=== PATIENT | female | born 1945 | race Caucasian/White ===

== ENCOUNTER 2020-12-23 19:18 | Emergency (ER) | payer OTHER ==
--- OUTSIDE RECORDS SUMMARY | 2020-12-23 19:22 | XMS REPORT | Continuity of Care Document ---
:1945 Author Organization [facility] t Address [address] [place] [address] Care Team Providers Name Role Phone PCP Primary Care Physician Unavailable ARRON BUI Attending Clinician Unavailable Blade Gale MD Attending Clinician Doctor Unassigned, Name Attending Clinician Unavailable Damion Goodwin Attending Clinician Unavailable GERARDO PEREZ Admitting Clinician Unavailable Advance Directives Directive Decision Effective Date Termination Date Comments Sour ce Yes N/A [facility]ST[facility] - Wes per [facility] eve Problems Condition Condition Condition Status Onset Resolution Last Treating Co mments Source Name Details Category Date Date Treatment Clinician Date CVA CVA Disease Active [facility]re[facility] (cerebral 3-18 [facility] - vascular vascular 00:00: Medica l accident) accident) 00 Cent er Bronchitis Bronchitis Diagnosis [facility] 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 [facility] Fever in Fever in Diagnosis Active [facility] other other [facility] diseases diseases [facility] Cough Cough Diagnosis Active [facility] Essential Essential Problem Active [facility] (primary) (primary) Luke [facility] - hypertensi hypertensi Me moria on on l Outpati ent Clinics Chronic Chronic Problem Active [facility] pain pain [facility] - syndrome syndrome [facility] Pre-op Pre-op Problem Active [facility] evaluation evaluation Denise kes - [facility] 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 hernia Denise kes - without without Memoria obstructio obstructio l n or n or Outpati gangrene gangrene ent Clinics Problem Condition [facility] Hyperlipid Hyperlipid Problem Active [facility] emia, emia, [facility] - unspecifie unspecifie Me moria d d l hyperlipid hyperlipid Ou tpati emia type emia type ent Clinics Depression Depression Problem Active [facility] with with [facility] - anxiety anxiety [facility] Gastro-eso Gastro-eso Problem Active [facility] phageal phageal [facility] - reflux reflux Memoria disease disease l without without Outpati esophagiti esophagiti en t s s Clinics Allergies, Adverse Reactions, Alerts This patient has no known allergies or adverse reactions. Social History Social Habit Start Date Stop Date Quantity Comments Source Sex Assigned At [facility] Tobacco use and 2019-09-25 2019-09-25 Never used [facility] Denise kes - exposure 00:00:00 00:00:00 Medical Center Alcohol intake 2019-09-25 2019-09-25 [facility]00 of alcohol Medical Center (finding) History [facility] 2019-09-13 2019-09-[address] [facility] - Alcohol Frequency 00:00:00 00:00:00 Medical Center History [facility] 2019-09-13 2019-09-13 1 [facility] Std Drinks 00:00:00 00:00:00 Medica l Center History [facility] 2019-09-13 2019-09-13 1 [facility] - Alcohol Binge 00:00:00 00:00:[address] Smoking Status Start Date Stop Date Source Unknown if ever smoked [facility] Never smoker [facility] Medications Ordered Filled Start Stop Current Ordering Indication Dosage Frequency Signature Comments Components Source Medication Medication Date Date Medication? Clinician (SIG) Name Name aspirin 81 2019- Yes 81mg QD Take 1 [facility] chewable 3-21 tablet (81 Denise kes - tablet 00:00: mg total) Medica l 00 by mouth Center daily. acetaminoph 2020-0 Yes 1{tbl} Take [address] en-codeine 3-20 tablet by Lemuel s - (TYLENOL 17:35: mouth Medical #3) 300-30 23 every 6 Center mg per (six) tablet hours as needed for Pain. albuterol 2019-0 Yes 1{puff} Inhale [address] HFA 3-20 puff by [facility] - (VENTOLIN 17:35: mouth via Med ical HFA) 90 23 inhaler Center mcg/actuati every 6 on inhaler (six) hours as needed for Wheezing. venlafaxine 2019-0 Yes 150mg QD Take [address] (EFFEXOR-XR 3-20 mg by [facility] - ) 150 MG 24 17:35: mouth Medic al hr capsule 23 daily. Center pantoprazol 2019-0 Yes 40mg QD Take [address] [facility] e 3-20 by mouth [facility]ukes - (PROTONIX) 17:35: daily. Medic al 40 MG 23 Center tablet oxazepam 2019-0 Yes 30mg QD Take [address] (SERAX) 30 3-20 by mouth [facility]ukes - MG capsule 17:35: nightly . Me dical 23 Center benzonatate 2019-0 Yes 100mg Take [address] (TESSALON) 3-20 mg by [facility] - 100 MG 17:35: mouth 3 Medical capsule 23 (three) Center times daily as needed for Cough. amLODIPine- 2019-0 Yes 1{capsu QD Take [address] benazepril 3-20 le} capsule by Shahzad es - (LOTREL 17:35: mouth Medical 5-10) 5-10 23 daily. Center mg per capsule atorvastati 2019-0 Yes 40mg QD Take [address] n (LIPITOR) 3-20 tablet (40 Denise kes - 40 MG 00:00: mg total) Medical tablet 00 by mouth Center daily. Albuterol Albuterol 2018-06 Yes Codie [address] [facility] Sulfate HFA Sulfate HFA Stanley needed [facility] - 00:00: [facility]oria 00 l Outpati ent Clinics Azithromyci Azithromyci 2018-06 2020- No Codie [address] [facility] n n 05 Stanley one then 1 [facility] - 00:00: 00:00 tab daily Memoria 00 :00 x 4 [facility] Iron Iron 2018-06 Yes Codie [address] [facility] 0-15 Stanley [facility] - 00:00: [facility] Fiber Fiber Yes Codie [address] [facility] Stanley as needed [facility] - [facility] Simvastatin Simvastatin Yes Codie [address] [facility] [facility] Stanley in the Lukes - evening Memoria l [facility] Cyclobenzap Cyclobenzap Yes Codie [address] rine HCl rine HCl Stanley as needed L [facility] - [facility] Pantoprazol Pantoprazol Yes Codie [address] e Sodium e Sodium Stanley [facility] Venlafaxine Venlafaxine Yes Codie [address] HCl ER HCl ER Stanley with food [facility] Oxazepam Oxazepam Yes Codie [address] Stanley as needed [facility] - [facility] Amlodipine Amlodipine Yes Codie [address] Besy-Benaze Besy-Benaze Stanley [facility] - pril HCl pril HCl [facility] Probiotic Probiotic Yes Codie as [facility] directed [facility] Vital Signs Vital Name Observation Time Observation Value Comments Source Body Temperature 2019-09-13 14:19:00 97.0 [degF] [facility] Heart Rate 2019-09-13 14:19:00 74 /min [facility] Respiratory rate 2019-09-13 14:19:00 [facility] 2019-09-13 14:19:00 140 [facility] 2019-09-13 14:19:00 89 mm[Hg] [facility] Heart Rate 2019-09-13 14:00:00 74 /min [facility] Respiratory rate 2019-09-13 14:00:00 18 /[facility] Systolic 2019-09-13 14:00:00 140 mm[Hg] [facility] BP Diastolic 2019-09-13 14:00:00 89 mm[Hg] [facility] Weight 2019-09-13 11:48:00 147 [lb_av] [facility] BMI (Body Mass Index) 2019-09-13 11:48:00 23.7 kg/m2 [facility] Procedures Procedure Date / Time Performed Performing Clinician [facility] ECG (electrocardiogram) 2019-09-13 00:00:00 [facility] l Computed tomography of 2019-09-13 00:00:00 JOSE RAUL Lares head or brain without [facility] ospital contrast X-ray of chest, single 2019-09-13 00:00:00 JOSE RAUL Lares view [facility] l Complete Doppler 2019-09-13 00:00:00 [facility] Arnaud ultrasound of carotid [facility] ospital artery Plan of Care Planned Activity Planned Date Details Comments Source Future Scheduled Test 2021-02-[address] [facility] - 00:00:00 (Season Ended) [code Medical Center = INFLUENZA VACCINE (Season Ended)] Future Scheduled Test 2020-06-[address] [facility] - 00:00:00 (12+) [code = Medical Center DEPRESSION SCREENING (12+)] Future Scheduled Test 2012-04-[address] [facility] - 00:00:00 WELLNESS (YEAR 2 or Medical Center FIRST YEAR if no IPPE) [code = MEDICARE ANNUAL WELLNESS (YEAR 2 or FIRST YEAR if no IPPE)] Future Scheduled Test 2011 PNEUMOCOCCAL 65+ YRS [facility] - 00:00:00 (1 of 1 - Medical Center [id number] PCV13) [code = PNEUMOCOCCAL 65+ YRS (1 of 1 - [id number] PCV13)] Future Scheduled Test 1996 SHINGLES VACCINES ([address] [facility] - 00:00:00 of 2) [code = Medical Center SHINGLES VACCINES (1 of 2)] Future Scheduled Test 1965 DTAP/TDAP/TD VACCINES [facility] - 00:00:00 (1 - Tdap) [code = Medical C enter DTAP/TDAP/TD VACCINES (1 - Tdap)] Future Scheduled Test 1964 HEPATITIS C SCREENING [facility] - 00:00:00 [code = HEPATITIS C Medical Center SCREENING] Future Scheduled Test 1946 [facility] breast (procedure) [code = 005186721] Future Scheduled Test 1945 [facility] colon (procedure) [code = 157362894] Goal Patient referral BINA Lares [code = 2438482 ] [facility] ospital Instructions OTHER BINA Waters [facility] al Encounters Start End Encounter Admission Attending Care Care Encounter Source Date/Time Date/Time Type Type Clinicians Facility Department ID 2019-09-13 2019-09-13 Departed BRYAN Lares [id number] CHRI[facility] 11:46:00 14:25:[address] Hospita 2019-06-27 2019-06-27 [facility] [id number] [address] 09:40:00 09:40:00 [facility] Medicine Medicine Outpati ent Clinics 2019-02-17 2019-02-17 Office BLAYNE Gale [id number] 13:54:10 14:09:10 Visit [facility] [id number] [facility] [id number] [facility] [id number] [place] [address] 2019-02-17 2019-02-17 Orders Doctor BOBO [id number] 00:00:00 00:00:00 Only Unassigned, BOOGIE [id number] [place] [facility] [id number] 2017-05-17 2017-05-17 Outpatient ANNAMARIE Goodwin [id number] [facility] 09:30:00 09:30:00 [facility] 2017-04-26 2017-04-26 Outpatient ANNAMARIE Goodwin [id number] [facility] 08:57:00 08:57:00 [facility] 2017-02-12 2017-02-12 Outpatient ANNAMARIE Goodwin SETENT [id number] [facility] 11:34:00 11:34:00 [facility] Results Test Description Test Time Test Comments Results Result [facility] e Comments MR, MRA, BRAIN, 2019-08-27 Needs general FINAL REPORT PATIENT WITHOUT CONTRAST 9 anesthesiaReason for ID: [id number] MR, 20:11:00 exam:->Ischemic MRA, BRAIN, WITHOUT Stroke Evaluation CONTRAST, MR, MRA, NECK, WITHOUT IV CONTRAST, MR, BRAIN, WITHOUT CONTRAST INDICATION: Ischemic Stroke Evaluationstroke evaluation TECHNIQUE: Multiplanar, multisequence MR imaging of the brain without intravenous contrast.MRA of the head utilizing 3-D oqhj-qf-pxmtuq technique, with 3-D reconstructions.MRA of the neck utilizing 2-D and 3-D iiqf-am-ejpfxd technique, with 3-D reconstructions. COMPARISON: None FINDINGS: MRI Brain:Intracranial: There are multiple regions of restricted diffusion within the left cerebral hemisphere, involving the frontal lobe, parietal lobe, and temporal occipital junction. There is cortical T1 hyperintense signal in the left occipital parietal junction consistent with cortical laminar necrosis. No intracranial hemorrhage. Generalized cerebral atrophy with ex vacuo dilatation of the ventricular system proportionate to sulci. Extensive foci of T2 prolongation within the periventricular and subcortical white matter are a nonspecific finding commonly attributed to chronic small vessel ischemic disease. No mass effect. No hydrocephalus. Sinuses: No evidence of sinusitis. Mastoids are clear. Orbits: Globes are intact. Calvarium \T\ scalp: Unremarkable. MRA Head:There is no evidence of intracranial aneurysm, focal stenosis, or major branch vessel occlusion. MRA Neck:The carotid arteries in the neck are patent including their bifurcations. There is antegrade flow in the vertebral arteries in the neck. IMPRESSION:1.Multifo bertrand acute to early subacute infarcts in the left MCA territory. Cortical laminar process in the left parieto-occipital junction. No acute intracranial hemorrhage.2.No proximal branch arterial occlusion or high-grade focal stenosis. Signed: Damian Whitley Verified Date/Time: 09/14/2019 20:11:20 , MRA, NECK, 2019-08-27 Needs general FINAL REPORT PATIENT WITHOUT IV 9 anesthesiaReason for ID: [id number] MR, CONTRAST 20:11:00 exam:->Ischemic MRA, BRAIN, WITHOUT Stroke Evaluation CONTRAST, MR, MRA, NECK, WITHOUT IV CONTRAST, MR, BRAIN, WITHOUT CONTRAST INDICATION: Ischemic Stroke Evaluationstroke evaluation TECHNIQUE: Multiplanar, multisequence MR imaging of the brain without intravenous contrast.MRA of the head utilizing 3-D jurp-as-qirbtw technique, with 3-D reconstructions.MRA of the neck utilizing 2-D and 3-D jpao-ff-udbrrg technique, with 3-D reconstructions. COMPARISON: None FINDINGS: MRI Brain:Intracranial: There are multiple regions of restricted diffusion within the left cerebral hemisphere, involving the frontal lobe, parietal lobe, and temporal occipital junction. There is cortical T1 hyperintense signal in the left occipital parietal junction consistent with cortical laminar necrosis. No intracranial hemorrhage. Generalized cerebral atrophy with ex vacuo dilatation of the ventricular system proportionate to sulci. Extensive foci of T2 prolongation within the periventricular and subcortical white matter are a nonspecific finding commonly attributed to chronic small vessel ischemic disease. No mass effect. No hydrocephalus. Sinuses: No evidence of sinusitis. Mastoids are clear. Orbits: Globes are intact. Calvarium \T\ scalp: Unremarkable. MRA Head:There is no evidence of intracranial aneurysm, focal stenosis, or major branch vessel occlusion. MRA Neck:The carotid arteries in the neck are patent including their bifurcations. There is antegrade flow in the vertebral arteries in the neck. IMPRESSION:1.Multifo bertrand acute to early subacute infarcts in the left MCA territory. Cortical laminar process in the left parieto-occipital junction. No acute intracranial hemorrhage.2.No proximal branch arterial occlusion or high-grade focal stenosis. Signed: [facility]ian [facility] Verified Date/Time: 09/14/2019 20:11:20 , BRAIN, 2019-08-27 Needs general FINAL REPORT PATIENT WITHOUT CONTRAST 9 anesthesiaReason for ID: [id number] MR, 20:11:00 exam:->Ischemic MRA, BRAIN, WITHOUT Stroke Evaluation CONTRAST, MR, MRA, NECK, WITHOUT IV CONTRAST, MR, BRAIN, WITHOUT CONTRAST INDICATION: Ischemic Stroke Evaluationstroke evaluation TECHNIQUE: Multiplanar, multisequence MR imaging of the brain without intravenous contrast.MRA of the head utilizing 3-D tifk-ry-kzryml technique, with 3-D reconstructions.MRA of the neck utilizing 2-D and 3-D fghf-rj-nhkopz technique, with 3-D reconstructions. COMPARISON: None FINDINGS: MRI Brain:Intracranial: There are multiple regions of restricted diffusion within the left cerebral hemisphere, involving the frontal lobe, parietal lobe, and temporal occipital junction. There is cortical T1 hyperintense signal in the left occipital parietal junction consistent with cortical laminar necrosis. No intracranial hemorrhage. Generalized cerebral atrophy with ex vacuo dilatation of the ventricular system proportionate to sulci. Extensive foci of T2 prolongation within the periventricular and subcortical white matter are a nonspecific finding commonly attributed to chronic small vessel ischemic disease. No mass effect. No hydrocephalus. Sinuses: No evidence of sinusitis. Mastoids are clear. Orbits: Globes are intact. Calvarium \T\ scalp: Unremarkable. MRA Head:There is no evidence of intracranial aneurysm, focal stenosis, or major branch vessel occlusion. MRA Neck:The carotid arteries in the neck are patent including their bifurcations. There is antegrade flow in the vertebral arteries in the neck. IMPRESSION:1.Multifo bertrand acute to early subacute infarcts in the left MCA territory. Cortical laminar process in the left parieto-occipital junction. No acute intracranial hemorrhage.2.No proximal branch arterial occlusion or high-grade focal stenosis. Signed: Damian Whitley [facility] Verified Date/Time: 09/14/2019 20:11:20 2019-09-14 13:14:00 Test Item Value Reference Range Interpretation Comme nts RPR SCREEN (BEAKER) (test code = 420) Nonreactive Nonreactive HEMOGLOBIN [id number] 08:08:00 Test Item Value Reference Range Interpretation Comments HEMOGLOBIN A1C (BEAKER) (test code = 5.6 % 4.3-6.1 368) [id number] 06:39:00 Test Item Value Reference Range Interpretation Comments MAGNESIUM (BEAKER) (test code = 2.1 mg/dL 1.6-2.6 627) Irrigation Equipment Mechanic ID - BSBASIC METABOLIC [id number] 06:39:00 Test Item Value Reference Range Interpretation Comments SODIUM (BEAKER) 140 meq/L 136-145 (test code = 381) POTASSIUM (BEAKER) 3.8 meq/L 3.5-5.1 (test code = 379) CHLORIDE (BEAKER) 107 meq/L 98-107 (test code = 382) CO2 (BEAKER) (test 24 meq/L 22-29 code = 355) BLOOD UREA NITROGEN 8 mg/dL 7-21 (BEAKER) (test code = 354) CREATININE (BEAKER) 0.71 mg/dL 0.57-1.25 (test code = 358) GLUCOSE RANDOM 118 mg/dL 70-105 H (BEAKER) (test code = 652) CALCIUM (BEAKER) 9.2 mg/dL 8.4-10.2 (test code = 697) EGFR (BEAKER) (test 81 mL/min/1.73 ESTIMA IESHA GFR IS code = 1092) sq m NOT ACCURATE CREATININE CLEARANCE IN PREDICTING GLOMERULAR FILTRATION RATE . ESTIMATED GFR I S NOT APPLICABLE FOR DIALYSIS PATIEN TS. Irrigation Equipment Mechanic ID - BSLIPID [id number] 06:39:00 Test Item Value Reference Range Interpretation Comments TRIGLYCERIDES (BEAKER) (test code = 160 mg/dL 540) CHOLESTEROL (BEAKER) (test code = 164 mg/dL 631) HDL CHOLESTEROL (BEAKER) (test code 48 mg/dL = 976) LDL CHOLESTEROL CALCULATED (BEAKER) 84 mg/dL (test code = 633) Triglyceride Reference Range: Low Risk <150 Borderline 150-199 High Risk 200-499 Very High Risk >=500Cholesterol Reference Range: Low Risk <200 Borderline 200-239 High Risk >240HDL Cholesterol Reference Range: Low Risk >=60 High Risk <40LDL Cholesterol Reference Range: Optimal <100 Near Optimal 100-129 Borderline 130-159 High 160-189 Very High >=190 Irrigation Equipment Mechanic ID - BSCBC W/PLT COUNT & AUTO [id number] 05:38:00 Test Item Value Reference Range Interpretation Comments WHITE BLOOD CELL COUNT (BEAKER) 10.9 K/ L 3.5-10.5 H (test code = 775) RED BLOOD CELL COUNT (BEAKER) 4.86 M/ L 3.93-5.22 (test code = 761) HEMOGLOBIN (BEAKER) (test code = 12.8 GM/DL 11.2-15.7 410) HEMATOCRIT (BEAKER) (test code = 42.9 % 34.1-44.9 411) MEAN CORPUSCULAR VOLUME (BEAKER) 88.3 fL 79.4-94.8 (test code = 753) MEAN CORPUSCULAR HEMOGLOBIN 26.3 pg 25.6-32.2 (BEAKER) (test code = 751) MEAN CORPUSCULAR HEMOGLOBIN CONC 29.8 GM/DL 32.2-35.5 L (BEAKER) (test code = 752) RED CELL DISTRIBUTION WIDTH 16.0 % 11.7-14.4 H (BEAKER) (test code = 412) PLATELET COUNT (BEAKER) (test 464 K/CU MM 150-450 H code = 756) MEAN PLATELET VOLUME (BEAKER) 10.2 fL 9.4-12.3 (test code = 754) NUCLEATED RED BLOOD CELLS 0 /100 WBC 0-0 (BEAKER) (test code = 413) NEUTROPHILS RELATIVE PERCENT 62 % (BEAKER) (test code = 429) LYMPHOCYTES RELATIVE PERCENT 23 % (BEAKER) (test code = 430) MONOCYTES RELATIVE PERCENT 7 % (BEAKER) (test code = 431) EOSINOPHILS RELATIVE PERCENT 4 % (BEAKER) (test code = 432) BASOPHILS RELATIVE PERCENT 2 % (BEAKER) (test code = 437) NEUTROPHILS ABSOLUTE COUNT 6.81 K/ L 1.56-6.13 H (BEAKER) (test code = 670) LYMPHOCYTES ABSOLUTE COUNT 2.48 K/ L 1.18-3.74 (BEAKER) (test code = 414) MONOCYTES ABSOLUTE COUNT (BEAKER) 0.73 K/ L 0.24-0.36 H (test code = 415) EOSINOPHILS ABSOLUTE COUNT 0.39 K/ L 0.04-0.36 H (BEAKER) (test code = 416) BASOPHILS ABSOLUTE COUNT (BEAKER) 0.17 K/ L 0.01-0.08 H (test code = 417) IMMATURE GRANULOCYTES-RELATIVE 3 % 0-1 H PERCENT (BEAKER) (test code = 2801) TSH/FREE T4 IF [id number] 18:53:00 Test Item Value Reference Range Interpretation Comments THYROID STIMULATING HORMONE 0.76 uIU/mL 0.35-4.94 (BEAKER) (test code = 772) Irrigation Equipment Mechanic ID - BSVITAMIN B12 AND [id number] 18:53:00 Test Item Value Reference Range Interpretation Comments VITAMIN B12 (BEAKER) (test code = 721 pg/mL 213810 774) FOLATE (BEAKER) (test code = 362) 12.5 ng/mL >=7.0 Irrigation Equipment Mechanic ID - BSAutomated erythrocyte mean corpuscular volume (MCV) measurement 2019-09-13 12:10:00 Test Item Value Reference Range Interpretation Comments Mean Corpuscular Volume (test code = 87.2 fL 787-2) [facility] mean corpuscular hemoglobin (mass per erythrocyte)2019-09-13 12:10:00 Test Item Value Reference Range Interpretation Comments Mean Corpuscular Hemoglobin (test 26.3 pg code = 785-6) [facility] mean corpuscular hemoglobin concentration measurement (mass/[id number] 12:10:00 Test Item Value Reference Range Interpretation Comments Mean Corpuscular Hemoglobin Concent 30.1 g/dL (test code = 786-4) [facility] distribution width [id number] 12:10:00 Test Item Value Reference Range Interpretation Comments Red Cell Distribution Width (test code 16.6 % = 788-0) [facility] platelet count (count/volume) 2019-09-13 12:10:00 Test Item Value Reference Range Interpretation Comments Platelet Count (test code = 540 10*3/uL 777-3) [facility] platelet mean volume [id number] 12:10:00 Test Item Value Reference Range Interpretation Comments Mean Platelet Volume (test code = 9.9 fL 35663-9) [facility] [id number] 12:10:00 Test Item Value Reference Range Interpretation Comments Manual Differential (test code = ----- 8265-1) [facility] blood segmented neutrophils/100 [id number] 12:10:00 Test Item Value Reference Range Interpretation Comments Neutrophils % (Manual) (test code = 83 % 769-0) [facility] blood lymphocytes/100 leukocytes 2019-09-13 12:10:00 Test Item Value Reference Range Interpretation Comments Lymphocytes % (Manual) (test code = 11 % 737-7) [facility] blood monocytes/100 leukocytes 2019-09-13 12:10:00 Test Item Value Reference Range Interpretation Comments Monocytes % (Manual) (test code = 4 % 744-3) [facility] blood eosinophil count as percentage of total [id number] 12:10:00 Test Item Value Reference Range Interpretation Comments Eosinophils % (Manual) (test code = 2 % 714-6) [facility] platelet detection by light microscopy 2019-09-13 12:10:00 Test Item Value Reference Range Interpretation Comments Platelet Estimate (test code = Adequate 9317-9) [facility] erythrocyte morphology finding [id number] 12:10:00 Test Item Value Reference Range Interpretation Comments Red Blood Cell Morphology (test code = Normal 6742-1) [facility] (PT) in platelet poor plasma 2019-09-13 12:10:00 Test Item Value Reference Range Interpretation Comments Prothrombin Time (test code = 5902-2) 12.7 s [facility] in Platelet poor plasma by Coagulation [id number] 12:10:00 Test Item Value Reference Range Interpretation Comments Prothromb Time International 1.1 {ratio} Ratio (test code = 6301-6) [facility] [facility] (PTT[facility] 2019-09-13 12:10:00 Test Item Value Reference Range Interpretation Comments Activated Partial Thromboplast Time 37.7 s (test code = 40632-5) [facility] sodium [facility] (moles/volume)2019-09-13 12:10:00 Test Item Value Reference Range Interpretation Comments Sodium Level (test code = 2951-2) 142 mmol/L [facility] potassium measurement (moles/volume)2019-09-13 12:10:00 Test Item Value Reference Range Interpretation Comments Potassium Level (test code = 3.5 mmol/L 2823-3) [facility] chloride measurement (moles/volume)2019-09-13 12:10:00 Test Item Value Reference Range Interpretation Comments Chloride Level (test code = 104 mmol/L 5-0) [facility] or plasma total carbon dioxide measurement (moles/volume)2019-09-13 12:10:00 Test Item Value Reference Range Interpretation Comments Carbon Dioxide Level (test code = 28 mmol/L 2027-) [facility] or plasma anion gap determination (moles/volume)2019-09-13 12:10:00 Test Item Value Reference Range Interpretation Comments Anion Gap (test code = 98115-6) 14 [facility] or plasma urea nitrogen measurement (mass/volume)2019-09-13 12:10:00 Test Item Value Reference Range Interpretation Comments Blood Urea Nitrogen (test code = 10 mg/dL 3094-0) [facility] or plasma creatinine measurement (mass/volume)2019-09-13 12:10:00 Test Item Value Reference Range Interpretation Comments Creatinine (test code = 2160-0) 0.8 mg/dL [facility] [id number] 12:10:00 Test Item Value Reference Range Interpretation Comments Estimat Glomerular Filtration Rate 75 (test code = 13315-2) [facility] or plasma urea nitrogen/creatinine mass [id number] 12:10:00 Test Item Value Reference Range Interpretation Comments BUN/Creatinine Ratio (test code = 13 3097-3) [facility] or plasma glucose measurement (mass/volume)2019-09-13 12:10:00 Test Item Value Reference Range Interpretation Comments Glucose Level (test code = 2345-7) 108 mg/dL [facility]arrowOsmolality of Serum or Plasma by calculation 2019-09-13 12:10:00 Test Item Value Reference Range Interpretation Comments Calculated Osmolality (test code 283 mosm/kg = 62381-6) [facility] or plasma calcium measurement (mass/volume)2019-09-13 12:10:00 Test Item Value Reference Range Interpretation Comments Calcium Level (test code = 62914-7) 9.5 mg/dL [facility] cholesterol measurement (mass/volume)2019-09-13 12:10:00 Test Item Value Reference Range Interpretation Comments Cholesterol Level (test code = 173 mg/dL 3-3) [facility] triglyceride measurement (mass/volume)2019-09-13 12:10:00 Test Item Value Reference Range Interpretation Comments Triglycerides Level (test code = 152 mg/dL 2571-8) [facility] cholesterol in HDL measurement (mass/volume)2019-09-13 12:10:00 Test Item Value Reference Range Interpretation Comments HDL Cholesterol (test code = 2085-9) 57 mg/dL [facility] or plasma cholesterol in LDL measurement by calculation (mass/volume)2019-09-13 12:10:00 Test Item Value Reference Range Interpretation Comments LDL Cholesterol (test code = 86 mg/dL 19484-3) [facility] or plasma total cholesterol/high density lipoprotein (HDL) cholesterol mass [id number] 12:10:00 Test Item Value Reference Range Interpretation Comments Cholesterol/HDL Ratio (test code = 3.0 9830-1) [facility] low density lipoprotein (LDL) cholesterol/high density lipoprotein (HDL) cholesterolmass [id number] 12:10:00 Test Item Value Reference Range Interpretation Comments Cholesterol Ratio (LDL/HDL) (test code 1.5 = 48717-6) [facility]arrowAutfirsthealthed blood leukocyte count (number/volume)2019-09-13 12:10:00 Test Item Value Reference Range Interpretation Comments White Blood Count (test code = 13.4 10*3/uL 6690-2) [facility] erythrocytes automated count (number/volume)2019-09-13 12:10:00 Test Item Value Reference Range Interpretation Comments Red Blood Count (test code = 4.99 10*6/uL 789-8) [facility] hemoglobin measurement (mass/volume) 2019-09-13 12:10:00 Test Item Value Reference Range Interpretation Comments Hemoglobin (test code = 718-7) 13.1 g/dL [facility]arrow[facility] blood hematocrit (volume fraction) 2019-09-13 12:10:00 Test Item Value Reference Range Interpretation Comments Hematocrit (test code = 4544-3) 43.5 % [facility] Metabolic [id number] 21:35:55 Test Item Value Reference Range Interpretation Comments Sodium Level (test code = Sodium 144.0 mmol/L 135.0-145.0 Level) Potassium Level (test code = 4.3 mmol/L 3.5-5.1 Potassium Level) Chloride Level (test code = 102 mmol/L 98-105 Chloride Level) CO2 (test code = CO2) 27 mmol/L 22-29 Anion Gap (test code = Anion 15 mmol/L 7-16 Gap) BUN (test code = BUN) 12.00 mg/dL 8.00-23.00 Creatinine Level (test code = 0.80 mg/dL 0.50-0.90 Creatinine Level) BUN/Creat Ratio (test code = 15 N BUN/Creat Ratio) Glucose Level (test code = 115 mg/dL 70-115 Glucose Level) Calcium Level (test code = 9.6 mg/dL 8.3-10.5 Calcium Level) Alk Phos (test code = Alk Phos) 105 U/L 35-104 H Bilirubin Total (test code = 0.2 mg/dL 0.1-0.9 Bilirubin Total) Albumin Level (test code = 4.5 g/dL 3.5-5.2 Albumin Level) Protein Total (test code = 7.3 g/dL 6.4-8.3 Protein Total) ALT (test code = ALT) 8 U/L 1-33 AST (test code = AST) 13 U/L 1-32 Globulin (test code = Globulin) 2.8 g/dL 2.9-3.1 L A/G Ratio (test code = A/G 1.6 ratio N Ratio) Comprehensive Metabolic [id number] 21:35:55 Test Item Value Reference Range Interpretation Comments Sodium Level (test 144.0 mmol/L 135.0-145.0 code = Sodium Level) Potassium Level 4.3 mmol/L 3.5-5.1 (test code = Potassium Level) Chloride Level (test 102 mmol/L 98-105 code = Chloride Level) CO2 (test code = 27 mmol/L 22-29 CO2) Anion Gap (test code 15 mmol/L 7-16 = Anion Gap) BUN (test code = 12.00 mg/dL 8.00-23.00 BUN) Creatinine Level 0.80 mg/dL 0.50-0.90 (test code = Creatinine Level) BUN/Creat Ratio 15 N (test code = BUN/Creat Ratio) Glucose Level (test 115 mg/dL 70-115 code = Glucose Level) Calcium Level (test 9.6 mg/dL 8.3-10.5 code = Calcium Level) Alk Phos (test code 105 U/L 35-104 H = Alk Phos) Bilirubin Total 0.2 mg/dL 0.1-0.9 (test code = Bilirubin Total) Albumin Level (test 4.5 g/dL 3.5-5.2 code = Albumin Level) Protein Total (test 7.3 g/dL 6.4-8.3 code = Protein Total) ALT (test code = 8 U/L 1-33 ALT) AST (test code = 13 U/L 1-32 AST) Globulin (test code 2.8 g/dL 2.9-3.1 L = Globulin) A/G Ratio (test code 1.6 ratio N = A/G Ratio) eGFR AA (test code = >60 N eGFR (e stimated eGFR AA) mL/min/1.73 m2 Glomerular Filtration Rate ) is an estimated va lue, calculated from the patient's serum creatinine usin g the MDRD equation. It is NOT the patient 's actual GFR. The eGFR provides a more clinically usef ul measure of kidn ey disease than se rum creatinine alone.This calculation juanpablo es sex and race in to account, if the information is provided. If th e race is not provided, and t he patient is -Moraima n, multiply by 1.2 12. If sex is not provided, and t he patient is fema le, multiply by 0.7 42. Results for pat ients <18 years of ag e have not been validated by th e MDRD study and should be interpreted wit h caution. eGFR R esult Interpretation: eGFR > or = 60 is in the Normal RangeeGF R < 60 may mean kid giovanni diseaseeGFR < 1 5 may mean kidney failure Rang es recommended by the National Kidney Foundation, http://nkdep.ni h.gov Lipid [id number] 21:35:55 Test Item Value Reference Range Interpretation Comments Cholesterol Total 188 mg/dL 0-200 RISK OF HE ART (test code = DISEASEPublishe d by Cholesterol Total) [place] [employer] Charley lyte Optimal Borderl ine Increased RiskC HOL <200 200-239 >2 40TRIG <150 150-199 >2 00HDL Male >60 <40H DL Female >60 <5 0LDL <100 130-159 >1 60LDL Near optimal is 100-129 Triglycerides (test 259 mg/dL 9-200 H code = Triglycerides) HDL (test code = HDL) 52 mg/dL 50-60 LDL (test code = LDL) 85 mg/dL 0-130 The eq uation being used in this calcula tion is LDL = (Chol - H DL) - (Trig / 5) VLDL (test code = 52 mg/dL 5-40 H The equati on being used VLDL) in this calcula tion is VLDL = Trig / 5 Chol/HDL (test code = 3.6 ratio 0.0-4.4 Chol/HDL) LDL/HDL Ratio (test 2 N The equa tion being used code = LDL/HDL Ratio) in thi s calculation is LDL/HDL Ratio=L DL Calc/HDL Chol Comprehensive Metabolic [id number] 21:35:55 Test Item Value Reference Range Interpretation Comments Sodium Level (test 144.0 mmol/L 135.0-145.0 code = Sodium Level) Potassium Level 4.3 mmol/L 3.5-5.1 (test code = Potassium Level) Chloride Level (test 102 mmol/L 98-105 code = Chloride Level) CO2 (test code = 27 mmol/L 22-29 CO2) Anion Gap (test code 15 mmol/L 7-16 = Anion Gap) BUN (test code = 12.00 mg/dL 8.00-23.00 BUN) Creatinine Level 0.80 mg/dL 0.50-0.90 (test code = Creatinine Level) BUN/Creat Ratio 15 N (test code = BUN/Creat Ratio) Glucose Level (test 115 mg/dL 70-115 code = Glucose Level) Calcium Level (test 9.6 mg/dL 8.3-10.5 code = Calcium Level) Alk Phos (test code 105 U/L 35-104 H = Alk Phos) Bilirubin Total 0.2 mg/dL 0.1-0.9 (test code = Bilirubin Total) Albumin Level (test 4.5 g/dL 3.5-5.2 code = Albumin Level) Protein Total (test 7.3 g/dL 6.4-8.3 code = Protein Total) ALT (test code = 8 U/L 1-33 ALT) AST (test code = 13 U/L 1-32 AST) Globulin (test code 2.8 g/dL 2.9-3.1 L = Globulin) A/G Ratio (test code 1.6 ratio N = A/G Ratio) eGFR AA (test code = >60 N eGFR (e stimated eGFR AA) mL/min/1.73 m2 Glomerular Filtration Rate ) is an estimated va lue, calculated from the patient's serum creatinine usin g the MDRD equation. It is NOT the patient 's actual GFR. The eGFR provides a more clinically usef ul measure of kidn ey disease than se rum creatinine alone.This calculation juanpablo es sex and race in to account, if the information is provided. If th e race is not provided, and t he patient is -Moraima n, multiply by 1.2 12. If sex is not provided, and t he patient is fema le, multiply by 0.7 42. Results for pat ients <18 years of ag e have not been validated by th e MDRD study and should be interpreted wit h caution. eGFR R esult Interpretation: eGFR > or = 60 is in the Normal RangeeGF R < 60 may mean kid giovanni diseaseeGFR < 1 5 may mean kidney failure Rang es recommended by the National Kidney Foundation, http://nkdep.ni h.gov eGFR Non-AA (test >60.00 N eGFR (juan mated code = eGFR Non-AA) mL/min/1.73 m2 Glomer ular Filtration Rate ) is an estimated va lue, calculated from the patient's serum creatinine usin g the MDRD equation. It is NOT the patient 's actual GFR. The eGFR provides a more clinically usef ul measure of kidn ey disease than se rum creatinine alone.This calculation juanpablo es sex and race in to account, if the information is provided. If th e race is not provided, and t he patient is -Moraima n, multiply by 1.2 12. If sex is not provided, and t he patient is fema le, multiply by 0.7 42. Results for pat ients <18 years of ag e have not been validated by th e MDRD study and should be interpreted wit h caution. eGFR R esult Interpretation: eGFR > or = 60 is in the Normal RangeeGF R < 60 may mean kid giovanni diseaseeGFR < 1 5 may mean kidney failure Rang es recommended by the National Kidney Foundation, http://nkdep.ni h.gov Complete Blood Count with [id number] 21:32:55 Test Item Value Reference Range Interpretation Comments WBC (test code = WBC) 9.6 x10 4.4-10.5 RBC (test code = RBC) 4.97 x10 3.75-5.20 Hgb (test code = Hgb) 12.0 g/dL 12.2-14.8 L Hct (test code = Hct) 42.6 % 36.5-44.4 MCV (test code = MCV) 85.70 fL 80.00-100.00 MCHC (test code = 28.20 g/dL 32.00-37.50 L MCHC) RDW CV (test code = 15.9 % 11.5-14.5 H RDW CV) MCH (test code = MCH) 24.1 pg 27.0-32.5 L Platelets (test code = 509.0 x10 140.0-440.0 H Platelets) MPV (test code = MPV) 11.5 fL N Slide Review (test Auto Auto Result cr eated by code = Slide Review) GL_SJM_ SLIDE_REV_AUTO GL_SJM_XN_RFLX nRBC (test code = 0 N nRBC) NRBC Abs (test code = 0.00 x10 N NRBC Abs) Pos Morph XN (test A N code = Pos Morph XN) IPF (test code = IPF) 0 % N Automated [id number] 21:32:55 Test Item Value Reference Range Interpretation Comments Neutro Auto (test code = Neutro 67.0 % 36.0-70.0 Auto) Lymph Auto (test code = Lymph Auto) 20.5 % 12.0-44.0 [place] Auto (test code = [place] Auto) 6.5 % 0.0-11.0 Eos, Auto (test code = Eos, Auto) 3.7 % 0.0-7.0 Basophil Auto (test code = Basophil 1.5 % 0.0-2.0 Auto) Neutro Absolute (test code = Neutro 6.4 x10 1.6-7.4 Absolute) Lymph Absolute (test code = Lymph 1.96 x10 .50-4.60 Absolute) [place] Absolute (test code = [place] .62 x10 .00-1.20 Absolute) Eos Absolute (test code = Eos 0.35 x10 0.00-0.74 Absolute) Baso Absolute (test code = Baso 0.14 x10 0.00-0.21 Absolute) IG [id number] 21:32:55 Test Item Value Reference Range Interpretation Comments IG (test code = IG) 0.8 % 0.0-5.0 IG Abs (test code = IG Abs) 0 x10 N XR Chest 1 View [id number] 09:09:53Patient: OZZY MEI Date/Time06/03/2018 09:02 CSTReason for Exampre cardiac cath;Other (please specify)ReportCHEST 1 VIEWCLINICAL INFORMATION: Other (please specify);pre cardiac cathCOMPARISON: NoneFINDINGS:The lungs are well-expanded and clear. No airspace consolidation is seen. No pneumothorax or pleural effusion is present. The cardiac silhouette is normal in size. The bones are grossly intact.IMPRESSION:No acute cardiopulmonary finding.LOCATION: R16 Final Dictated by: MD Al Adam FDictated DT/TM: 06/03/2018 9:09 amSigned by: MD Al Adam FSigned (Electronic Signature): 06/03/2018 9:09 am
[2020-12-23 20:01] LABS: Albumin 3.9 g/dL (3.4-5.0); Bilirubin Direct 0.2 mg/dL (0-0.2); Bilirubin Total 0.8 mg/dL (0.2-1.0); Potassium 3.1 mmol/L (3.5-5.1); Protein, Total 7.6 g/dL (6.4-8.2)
[2020-12-23 20:10] LABS: Absolute Lymphocytes (CBC) 1.4 K/uL (0.7-4.9); Basophils % 1.5 % (0-1.3); Hematocrit 35.9 % (36.0-45.0); Lymphocytes % 5.1 % (15.3-44.8); RBC Red Blood Cell Count 5.07 M/uL (3.86-4.86)
--- NOTE | 2020-12-23 21:04 | RAD REPORT ---
EXAM DESCRIPTION: CT - Abdomen Pelvis W Contrast - 12/23/2020 8:18 pm CLINICAL HISTORY: CONSTIPATION COMPARISON: No comparisons TECHNIQUE: Biphasic, helical CT imaging of the abdomen and pelvis was performed following 100 ml non -ionic IV contrast. No oral contrast administered. All CT scans are performed using dose optimization technique as appropriate and may include automated exposure control or mA/KV adjustment according to patient size. FINDINGS: No suspicious findings in the lung bases. The liver, spleen, and pancreas show no suspicious findings. No gallstones or acute gallbladder findi ng identifiable. Biliary tree is mildly prominent with no duct stone identified. Duct stones can be o ccult. Symmetric renal function is seen with no hydronephrosis or suspicious renal mass. No pyelonephritis o r acute parenchymal process. Partially filled urinary bladder shows no suspicious finding. No adrenal abnormalities. Atrophic uterus is present. Ovaries are assumed atrophic. No ovarian mass or suspicio us adnexal finding. Moderate-sized hiatal hernia is present. Approximately 20% of the stomach is intrathoracic. Fluid-arabella led distal esophagus is dilated. No obstructing mass at the gastroesophageal junction. Stomach is not dilated. No gastric wall thickening or mass. No dilated bowel loops. There is a focal narrowing of small bowel in the right side pelvis without associated small-bowel dilatation proximal. No small bowel mass. Ileocecal valve is unremarkable. There is significant dilatation of the entire colon. This Leidy's pattern shows moderately large volume of stool and fluid present. There is sign ificant dilatation to 7-8 cm of the rectum and distal sigmoid colon containing a large volume of stoo l. Prominent soft tissues surround the perianal region and distal most rectum with increased soft tis zachary posterior to the rectum. Perianal malignant process cannot be excluded. There is a questionable r ectocele. No free air, free fluid or inflammatory stranding. No hernia, mass or bulky lymphadenopathy. No suspicious bony findings. Prominent degenerative changes are present there IMPRESSION: Significant colon dilatation in an Leidy's pattern. Rectum and distal sigmoid colon ar e dilated is 7-8 cm and filled with stool. There is an abrupt transition at the perianal region with suspected rectocele. There is also increase d soft tissue surrounding the perianal region and extending along the posterior aspect of the distal rectum questionable for mass lesion. Moderately large hiatal hernia with 25% of the stomach intrathoracic. Mild dilatation of the biliary tree without gallbladder abnormality. Correlation is needed with any b iliary tree laboratory or clinical exam findings.
[2020-12-23 21:56] LABS: Blood Morphology Comment NOTED (NOT SEEN); Hypochromasia 1+; Platelet Estimate INCR; Polychromasia 1+
[2020-12-23] MEDS ORDERED: METRONIDAZOLE 500mg IVPB 500 MG/100 ML BAG IV ONE (22:02)
[2020-12-23] MEDS ORDERED: Ciprofloxacin 200mg IV 200 MG/100 ML IV.SOLN. IV ONE (22:02)
--- NOTE | 2020-12-23 23:12 | EDPHYS ---
Physician Documentation [facility] Name: Cleo Norton Age: 75 yrs Sex: Female : 1945 Arrival Date: 12/23/2020 Time: 19:25 Bed 2 Private MD: ED Physician Rob Olmos HPI: 12/23 20:26 This 75 yrs old Female presents to ER via EMS with complaints of Constipation.pm1 20:26 The patient presents with Constipation. Onset: The symptoms/episode began/occurred 1 pm1 week(s) ago. Associated signs and symptoms: Pertinent positives: nausea and vomiting, dysuria, today, Pertinent negatives: fever. The symptoms are described as achy. Modifying factors: The symptoms are alleviated by Patient took some laxatives today and started having some diarrhea on arrival to the ER. 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 The patient has not recently seen a physician. Historical: - Allergies: 19:53 No Known Allergies; ea - PMHx: 19:53 Atrial Fib; ea - Immunization history:: Adult Immunizations up to date. - Social history:: Smoking status: Patient denies any tobacco usage or history of. ROS: 20:26 Constitutional: Negative for fever, chills, and weight loss, Cardiovascular: Negative pm1 for chest pain, palpitations, and edema, Respiratory: Negative for shortness of breath, cough, wheezing, and pleuritic chest pain. 20:26 Back: Negative for injury and pain. 20:26 MS/Extremity: Negative for injury and deformity, Skin: Negative for injury, rash, and discoloration, Neuro: Negative for headache, weakness, numbness, tingling, and seizure. 20:26 Abdomen/GI: Positive for abdominal pain, nausea and vomiting, constipation. 20:26 : Positive for dysuria today. 20:26 All other systems are negative. Exam: 20:26 Constitutional: This is a well developed, well nourished patient who is awake, alert, pm1 and in no acute distress. Head/Face: Normocephalic, atraumatic. 20:26 Back: No spinal tenderness. No costovertebral tenderness. Full range of motion. Skin: Warm, dry with normal turgor. Normal color with no rashes, no lesions, and no evidence of cellulitis. MS/ Extremity: Pulses equal, no cyanosis. Neurovascular intact. Full, normal range of motion. 20:26 Cardiovascular: Rate: normal, Rhythm: regular, Pulses: no pulse deficits are appreciated. 20:26 Respiratory: Exam negative for acute changes, respiratory distress, shortness of breath. 20:26 Abdomen/GI: Inspection: distension, Palpation: abdomen is soft and non-tender, in all quadrants, Rectal exam: rectal tone normal, Stool: unable to palpate any solid stool, hemorrhoid(s), are not appreciated, tenderness, is not appreciated, Delilah GLEZ. 20:26 Neuro: Exam negative for acute changes, Orientation: is normal, Mentation: is normal, Motor: is normal, moves all fours. Vital Signs: 19:49 BP 129 / 85; Pulse 78; Resp 18; Temp 97.0; Pulse Ox 99% ; ea 20:43 BP 152 / 72; Pulse 87; Resp 18 S; Pulse Ox 100% ; ad5 21:24 BP 155 / 67; Pulse 91; Resp 18 S; Pulse Ox 97% ; ad5 MDM: 19:33 Patient medically screened. pm1 22:50 Physician consultation: Justen Benavidez MD was contacted at 22:50, regarding consult, pm1 patient's condition, after a discussion of the case, a recommendation for transfer for higher level of care is made, No GI availability. 22:50 ED course: Unable to disimpact the patient further than the length of my longest finger pm1 due to scar tissue from surgical interventions in the past to anus and rectal area. Unable to even put two fingers into anus. 23:09 Data reviewed: vital signs. Data interpreted: Pulse oximetry: on room air is 97 %. pm1 Interpretation: normal. Counseling: I had a detailed discussion with the patient and/or guardian regarding: the historical points, exam findings, and any diagnostic results supporting the discharge/admit diagnosis, lab results, radiology results, the need to transfer to another facility, [facility] does not immediately have the required specialist. 23:41 ED course: Patient preference transfer to [facility] due to surgical interventions there in pm1 the past. 12/23 19:26 Order name: Basic Metabolic Panel; Complete Time: 20:02 ea 12/23 19:26 Order name: CBC with Diff; Complete Time: 21:58 ea 12/23 19:26 Order name: Hepatic Function; Complete Time: 20:02 ea 12/23 19:26 Order name: Lipase; Complete Time: 20:02 ea 12/23 20:24 Order name: Manual Differential; Complete Time: 21:58 EDMS 12/23 21:31 Order name: Blood Culture Adult (2) pm1 12/23 19:34 Order name: CT Abd/Pelvis - IV Contrast Only; Complete Time: 21:17 pm1 12/23 22:58 Order name: Urine Microscopic Only pm1 12/24 00:41 Order name: COVID-19 : Document "Date of Symptom Onset" if Symptomatic. tt3 12/23 19:26 Order name: IV Saline Lock; Complete Time: 19:54 ea 12/23 19:26 Order name: Labs collected and sent; Complete Time: 19:54 ea Administered Medications: 22:14 Drug: Cipro (ciprofloxacin) 400 mg Volume: 200 ml; Route: IVPB; Infused Over: 60 mins; ea Site: right antecubital; 23:54 Follow up: IV Status: Completed infusion ad5 22:19 Drug: Flagyl (metroNIDAZOLE) 500 mg Volume: 100 ml; Route: IVPB; Rate: 200 ml/hr; ea Infused Over: 30 mins; Site: right antecubital; 12/24 00:40 Follow up: Response: No adverse reaction; IV Status: Completed infusion ea 12/23 23:41 Drug: fentaNYL (PF) 25 mcg Route: IVP; Site: right antecubital; ea 12/24 00:40 Follow up: Response: No adverse reaction ea 12/23 23:42 Drug: Zofran (Ondansetron) 4 mg Route: IVP; Site: right antecubital; ea 12/24 00:40 Follow up: Response: No adverse reaction ea 12/23 23:57 Drug: Fleet Enema (sodium phosphate) 133 ml Route: ID; ea 12/24 00:39 Follow up: Response: No adverse reaction ea Disposition: 12/23/20 23:11 Transfer ordered to [facility]. Diagnosis are Other intestinal obstruction - Mehoopany's syndrome, Constipation. - Reason for transfer: Higher level of care. - Accepting physician is MD. - Condition is Stable. - Problem is new. - Symptoms have improved. Addendum: 08:15 Co-signature as Attending Physician, Rob de jesus Signatures: Dispatcher [employer] EDOH Rob Olmos MD MD pkl Munoz, Edgar, RN RN em Blade Wells, RESPIRATORY THERAPIST ASSISTANT RESPIRATORY THERAPIST ASSISTANT pm1 Delilah Pardo, RN RN Porfirio Neal Corrections: (The following items were deleted from the chart) 12/23 23:41 23:11 12/23/2020 23:11 Transfer ordered to [facility]. pm1 Diagnosis is Other intestinal obstruction - Mehoopany's syndromeConstipation. Reason for transfer: Higher level of care. Accepting physician is MD. Condition is Stable. Problem is new. Symptoms have improved. pm1 12/24 00:53 00:41 CORONAVIRUS ordered. EDOH EDMS 01:09 12/23 23:41 12/23/2020 23:11 Transfer ordered to [facility]. Diagnosis is Other em intestinal obstruction - Leidy's syndromeConstipation. Reason for transfer: Higher level of care. Accepting physician is MD. Condition is Stable. Problem is new. Symptoms have improved. pm1
--- NOTE | 2020-12-23 23:12 | ER ---
Nurse's Notes [facility] Name: Cleo Norton Age: 75 yrs Sex: Female : 1945 Arrival Date: 12/23/2020 Time: 19:25 Bed 2 Private MD: Diagnosis: Constipation; Other intestinal obstruction-Leidy's syndrome Presentation: 12/23 19:49 Chief complaint: EMS states: Reported pt complaining of nausea and vomiting for the ea past 4 hours. Pt reports she has been constipated for a week took lactulose. EMS reports initiating IV administering approx 400 mls of NS, and Reglan. Coronavirus screen: At this time, the client does not indicate any symptoms associated with coronavirus-19. Ebola Screen: No symptoms or risks identified at this time. Initial Sepsis Screen: Does the patient meet any 2 criteria? Yes Does the patient have a suspected source of infection? No. Patient's initial sepsis screen is negative. Risk Assessment: Do you want to hurt yourself or someone else? Patient reports no desire to harm self or others. Onset of symptoms was December 23, 2020. 19:49 Method Of Arrival: EMS: [facility] ea 19:49 Acuity: RAQUEL 3 ea Historical: - Allergies: 19:53 No Known Allergies; ea - PMHx: 19:53 Atrial Fib; ea - Immunization history:: Adult Immunizations up to date. - Social history:: Smoking status: Patient denies any tobacco usage or history of. Screenin:52 Abuse screen: Denies threats or abuse. Nutritional screening: No deficits noted. ea Tuberculosis screening: No symptoms or risk factors identified. Fall Risk IV access (20 points). Assessment: 19:53 General: Appears uncomfortable, Behavior is appropriate for age. Pain: Complains of ea pain in epigastric. Neuro: Level of Consciousness is awake, alert, obeys commands, Oriented to person, place, time. Respiratory: Airway is patent Respiratory effort is even, unlabored, Respiratory pattern is regular, symmetrical. Derm: Skin is pink, warm \T\ dry. 20:44 Reassessment: Patient appears in no apparent distress at this time. Patient and/or ad5 family updated on plan of care and expected duration. Pain level reassessed. Patient is alert, oriented x 3, equal unlabored respirations, skin warm/dry/pink. 20:52 Reassessment: Imtiaz () [phone]. ea 21:24 Reassessment: Pt cleaned of loose stool, new brief applied. Pt repositioned for comfort ad5 in stretcher. Bed remains low and locked, bedrails x 2, call light within reach. VS remain stable. NAD noted, will continue to monitor. 22:30 Reassessment: Patient and/or family updated on plan of care and expected duration. Pain ea level reassessed. Patient is alert, oriented x 3, equal unlabored respirations, skin warm/dry/pink. 12/24 00:24 Reassessment: Patient and/or family updated on plan of care and expected duration. Pain ea level reassessed. Patient is alert, oriented x 3, equal unlabored respirations, skin warm/dry/pink. Vital Signs: 12/23 19:49 BP 129 / 85; Pulse 78; Resp 18; Temp 97.0; Pulse Ox 99% ; ea 20:43 BP 152 / 72; Pulse 87; Resp 18 S; Pulse Ox 100% ; ad5 21:24 BP 155 / 67; Pulse 91; Resp 18 S; Pulse Ox 97% ; ad5 ED Course: 19:25 Patient arrived in ED. ea 19:30 Blade Wells NP is PHCP. pm1 19:30 Rob Olmos MD is Attending Physician. pm1 19:49 Delilah Pardo, AMARIS is Primary Nurse. ea 19:51 Triage completed. ea 19:52 Inserted saline lock: 20 gauge in right antecubital area, using aseptic technique. ea Blood collected. 19:52 Arm band placed on right wrist. Patient placed in an exam room, on a stretcher, on ea pulse oximetry. 19:52 Patient has correct armband on for positive identification. Bed in low position. Call ea light in reach. Side rails up X2. 20:18 CT Abd/Pelvis - IV Contrast Only In Process Unspecified. EDMS 12/24 00:13 Initiated transfer at [facility] with Ida Rooney. Call was connected with allen Chapa PHP PROGRAMMER, provider of pt for consultation. 00:38 Ida Rooney gave admin approval. The accepting physician is Dr. Vargas. Nurse to call tt3 report to . Face sheet and MOT to be faxed to [phone]. 00:53 Iglesias cath inserted, using sterile technique, 16 Fr., by md, balloon inflated, to ad5 gravity drainage, urine specimen collected. Administered Medications: 12/23 22:14 Drug: Cipro (ciprofloxacin) 400 mg Volume: 200 ml; Route: IVPB; Infused Over: 60 mins; ea Site: right antecubital; 23:54 Follow up: IV Status: Completed infusion ad5 22:19 Drug: Flagyl (metroNIDAZOLE) 500 mg Volume: 100 ml; Route: IVPB; Rate: 200 ml/hr; ea Infused Over: 30 mins; Site: right antecubital; 12/24 00:40 Follow up: Response: No adverse reaction; IV Status: Completed infusion ea 12/23 23:41 Drug: fentaNYL (PF) 25 mcg Route: IVP; Site: right antecubital; ea 12/24 00:40 Follow up: Response: No adverse reaction ea 12/23 23:42 Drug: Zofran (Ondansetron) 4 mg Route: IVP; Site: right antecubital; ea 12/24 00:40 Follow up: Response: No adverse reaction ea 12/23 23:57 Drug: Fleet Enema (sodium phosphate) 133 ml Route: NC; ea 12/24 00:39 Follow up: Response: No adverse reaction ea Outcome: 12/23 23:11 ER care complete, transfer ordered by . pm1 12/24 01:09 Patient left the ED. em Signatures: Dispatcher [employer] Dionicio Goldman RN RN em Marinas, Patrick, [employer] HAND[employer]ER pm1 Delilah Pardo RN RN ea Trim, Tyler tt3 Porfirio Frazier ad5
[2020-12-23] MEDS ORDERED: ONDANSETRON 4 MG/2 ML VIAL ONE (23:46)
[2020-12-23] MEDS ORDERED: FLEET ENEMA ADULT PR ONE (23:46)
[2020-12-23] MEDS ORDERED: FENTANYL CITR 100 MCG/2 ML ONE (23:46)
[2020-12-24 01:21] LABS: Urine Bacteria <20 /HPF (<20)
[2020-12-24 01:22] LABS: Urine RBC NONE SEEN /HPF (NONE SEEN); Urine Urothelial Cells <5 /HPF (NONE SEEN)
[2020-12-24 02:26] VITALS: TEMP 97
[2020-12-24 02:29] VITALS: BP 155/67; O2SAT 97
--- NOTE | 2020-12-24 12:57 | EKG ---
Test Date: 2020-12-23 Test Time: 19:31:31 Application Security Developer: TALIA MEASUREMENT RESULTS: Intervals: Rate: 88 GA: 158 QRSD: 80 QT: 384 QTc: 464 [place]: P: 52 GA: 158 QRS: -3 T: 7 INTERPRETIVE STATEMENTS: Normal sinus rhythm Anteroseptal infarct, age undetermined Abnormal ECG No previous ECG available for comparison Electronically Signed On 12-24-20 12:53:55 CDT by Don Keenan
== END 2020-12-24 01:09 | disposition short-term general hospital (02) ==
LOC: ER 19:18
DX: K56.699 Other intestinal obstruction unspecified as to partial versus complete obstruction (principal); K59.81 Ogilvie syndrome; Z20.822 Contact with and (suspected) exposure to COVID-19
CPT/HCPCS: 96365; 93005; 87040 ×2; 85025; 80048; 36415; 80076; 81015; 83690; 74177; 51702; 96375; 99284; U0003; Q9967; J3010; J0744; J2405

== ENCOUNTER 2021-08-17 09:41 | Inpatient (IN) | payer OTHER ==
--- OUTSIDE RECORDS SUMMARY | 2021-08-17 09:46 | XMS REPORT | Continuity of Care Document ---
:1945 Author Organization [facility] t Address [address] [place] [address] Care Team Providers Name Role Phone PCP Primary Care Physician Unavailable Trish DEVINE Attending Clinician Unavailable Team, Health Maintenance Attending Clinician Unavailable Ramsey Attending Clinician Unavailable ARRON BUI Attending Clinician Unavailable Blade Gale MD Attending Clinician Doctor Unassigned, Name Attending Clinician Unavailable Damion Goodwin Attending Clinician Unavailable Ramsey Admitting Clinician Unavailable GERARDO PEREZ Admitting Clinician Unavailable Payers Payer Name Policy Type Policy Number Effective Date Expiration Date S ource Advance Directives Directive Decision Effective Date Termination Date Comments Sour ce Yes N/A [facility] Condition Condition Condition Status Onset Resolution Last Treating Co mments Source Name Details Category Date Date Treatment Clinician Date 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 Added automatic ally from request for surgery [id number] Increased Increased Disease Active Overview: Univers endometria endometria 9-27 Formattin ity of l stripe l stripe 00:00: g of this [place] as thickness thickness 00 note Medi bertrand might be Branch different from the original. Added automatic ally from request for surgery [id number] Abdominal Abdominal Disease Active Uni vers pain pain 3-15 ity of 00:00: [place] 00 Medical Branch Rectal Rectal Disease Active Overview: Univer s mass mass 3-14 Formattin ity of 00:00: g of this [place] 00 note Medical might be Branch different from the original. 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 [facility] Fever in Fever in Diagnosis Active [facility] other other [facility] Cough Cough Diagnosis [facility] Essential Essential Problem Active [facility] (primary[facility] (primary[facility] - hypertensi hypertensi Me moria on on [facility] Chronic Chronic Problem Active [facility] [...] n or Outpati gangrene gangrene ent Clinics Hyperlipid Hyperlipid Problem Active [facility] [...] s s Clinics Allergies, Adverse Reactions, Alerts Allergy Allergy Status Severity Reaction(s) Onset Inactive Treating Comm ents Source Name Type Date Date Clinician No Known DA Active [facility] All[facility]ie 12-24 Clear s 00:00: Wing [address] [place] [address] No Known DA Active [facility] Allergie 12-24 Clear s 00:00: Wing 00 [facility] NO KNOWN Allergy Active [facility] Social History Social Habit Start Date Stop Date Quantity Comments Source Tobacco use and 2019-05-11 2019-05-11 Never used Universit y of exposure 00:00:00 00:00:00 [facility] Alcohol intake 2019-05-11 2019-05-11 Current drinker of Un iversity of 00:00:00 00:00:00 alcohol (finding) [facility] Alcohol Comment 2018-09-09 2018-09-09 occasional Universit y of 00:00:00 00:00:00 [facility] Sex Assigned At [birth year] Female [facility] 00:00:00 00:00:00 Smoking Status Start Date Stop Date Source Unknown if ever smoked [facility] Never smoker [facility] Medications Ordered Filled Start Stop Current Ordering Indication Dosage Frequency Signature Comments Components Source Medication Medication Date Date Medication? Clinician (SIG) Name Name Albuterol Albuterol 2018-06 Yes Codie [address] [facility] [address] Sulfate HFA Sulfate HFA 2-31 [facility] needed [facility] Azithromyci Azithromyci 2018-06 2020- No Codie [address] n n 2-31 01-05 [facility] one then 1 [facility] - 00:[facility]: 00:00 tab daily Memoria 00 :00 x 4 days l Outpati ent Clinics Iron Iron 2018-06 Yes Codie [address] [facility] 0-15 [facility] Oxazepam Oxazepam Yes Codie [address] [facility] as [facility] Amlodipine Amlodipine Yes Codie [address] [address] Besy-Benaze Besy-Benaze [facility] - pril HCl pril HCl [facility]oria l Outpati ent Clinics Probiotic Probiotic Yes Codie as [facility] Fiber Fiber Yes Codie [address] as needed [facility] Simvastatin Simvastatin Yes Codie [address] [facility] in the [facility] Cyclobenzap Cyclobenzap Yes Codie [address] rine HCl rine HCl [place] as needed [facility] Pantoprazol Pantoprazol Yes Codie [address] e Sodium e Sodium [facility] Venlafaxine Venlafaxine Yes Codie [address] HCl ER HCl ER [facility] with food [facility] No known No Univers medications [facility] Vital Signs Vital Name Observation Time Observation Value Comments Source Body Temperature 2019-09-13 14:19:00 97.0 [degF] [facility] [employer] Heart Rate 2019-09-13 14:19:00 74 /min [facility] Respiratory rate 2019-09-13 14:19:00 18 /min [facility] [employer] BP Systolic 2019-09-13 14:19:00 140 mm[Hg] [facility] BP Diastolic 2019-09-13 14:19:00 89 mm[Hg] [facility] Heart Rate 2019-09-13 14:00:00 74 /min [facility] Respiratory rate 2019-09-13 14:00:00 18 /min [facility] Mabaya [employer] BP Systolic 2019-09-13 14:00:00 140 mm[Hg] [facility] BP Diastolic 2019-09-13 14:00:00 89 mm[Hg] [facility] Weight 2019-09-13 11:48:00 147 [lb_av] [facility] BMI (Body Mass Index) 2019-09-13 11:48:00 23.7 kg/m2 [facility] Procedures Procedure Date / Time Performed Performing Clinician Lu joyce [id number] 2020-12-25 00:00:00 [facility] [id number] 2020-12-25 00:00:00 [facility] ECG (electrocardiogram) 2019-09-13 00:00:00 [facility] Computed tomography of 2019-09-13 00:00:00 [facility] head or brain without contrast X-ray of chest, single 2019-09-13 00:00:00 [facility] view Complete Doppler 2019-09-13 [facility]:00[facility] Plan of Care Planned Activity Planned Date Details Comments Source Goal Patient referral [code JOSE RAUL SCAR Lares = [id number] ] [facility] Instructions OTHER BINA - Jt er [facility] Encounters Start End Encounter Admission Attending Care Care Encounter Source Date/Time Date/Time Type Type Clinicians Facility Department ID 2020-04-18 Inpatient BINA MCCLENDON [id number] [facility] 13:00:00 ILIANA [id number] S [facility] 2019-09-13 Inpatient [facility] [id number] [facility] 16:51:00 [id number] 2019-09-13 Inpatient BINA CURRAN [id number] [facility] 11:46:00 [id number] [facility] 2021-02-28 2021-02-28 Telephone Team, [facility] BOBO [id number] [facility] 00:00:00 00:00:00 [facility] [id number] [facility] [id number] [place] [id number] [facility] 082 Branch 2020-12-31 2020-12-[address] [facility] [id number] 06:37:00 06:37:00 -[id number] Sabin s Patient [facility] 2020-12-30 2020-12-[address] [facility] [id number] 08:52:00 08:52:00 -[id number] Sabin s Patient [facility] 2020-12-27 2020-12-[address] [facility] [id number] 02:45:00 02:45:00 -[id number] Sabin s - Patient [facility] 2020-12-25 2020-12-26 Inpatient EM Ramsey, HCAPM YANNA [id number] [address] [facility] 16:50:00 23:08:00 Oladipo [id number] [facility] 2020-12-24 2020-12-24 Outpatient Ramsey, HCACL LABO [id number] [facility] 08:02:00 08:02:00 Oladipo [id number] [facility] 2020-12-24 2020-12-24 Inpatient EM Ramsey, HCAPM YANNA [id number] [address] [facility] 02:36:00 02:35:00 Oladipo [id number] [facility] 2019-09-13 2019-09-13 Departed [facility] [id number] [facility] 11:46:00 14:25:[address] H[facility] 2019-09-13 2019-09-13 Departed [facility] [id number] [facility] 11:46:00 14:25:[address] 2019-06-27 2019-06-27 Outpatient [facility] 28 [id number] [facility] 09:40:00 09:40:00 t [facility] s [facility] Medicine Outpati ent Clinics 2019-02-17 2019-02-17 Office Baljinder [facility] [id number] 13:54:10 14:09:10 [facility] [id number] [facility] 4.2.7.2.686 [place] - [id number] [facility] 408 2019-02-17 2019-02-17 Orders Doctor BOBO [id number] 00:00:00 00:00:00 Only Unassigned, BOOGIE [id number] [place] [facility] [id number] [id number] 2017-05-17 2017-05-17 Outpatient Buddy SETMURPHY SETENT [id number] [facility] 09:30:00 09:30:00 [facility] 2017-04-26 2017-04-26 Outpatient [place], SETENT SETENT [id number] [facility] 08:57:00 08:57:00 [facility] 2017-02-12 2017-02-12 Outpatient [place], SETENT SETENT [id number] [facility] 11:34:00 11:34:00 [facility] Results Test Description Test Time Test Comments Results Result Comments Source TRANSFERRRIN 2020-12-28 08:12:00 Test Item Value Reference Range Interpretation Comme nts TRANSFERRRIN (test code = 230 mg/dL 192-364 Pe rformed At: DA [facility] TRANSF) [id number] [facility] [address] [place] [id number] CN MD Ph:[phone] VITAMIN [id number] 08:12:00 Test Item Value Reference Range Interpretation Comments VITAMIN B12 (test code = VITB12) 938 PG/ML 183-986 N FOLIC [id number] 08:12:00 Test Item Value Reference Range Interpretation Comments FOLIC ACID (test code = FOL) 11.60 NG/ML 3.10-17.50 N [id number] 08:12:00 Test Item Value Reference Range Interpretation Comments FERRITIN (test code = JONNY) 23.8 NG/ML 3.0-105.0 N [id number] 18:50:00 Test Item Value Reference Range Interpretation Comments POTASSIUM (test code = K) 3.9 mmol/L 3.4-5.0 N [id number] 13:47:00 Test Item Value Reference Range Interpretation Comments SURG (test code = SURG) RUN DATE: 12/26/20 [facility] PAGE 1 RUN TIME: 1347 Specimen Inquiry RUN USER: INTERFACE PATIENT: OZZY MEI LOC: MadiHailee U #: [id number] AGE/SX: 75/F ROOM: [facility] RE12/25/20DAGOBERTO DR: Josee Mustafa MD : 46 BED: 1 DIS: STATUS: ADM IN TLOC: SPEC #: PMC:[id number] RECD: 12/25/20 STATUS: JOHN LE #: [id number] LAZARO: 12/25/[address]: Josee Mustafa MD ENTERED: 12/25/20 SP TYPE: SURG OTHR DR: DOES_NOT KNOW No Primary or Family Physician Blair Juares MDORDERED: SURG PATH LVL 09/27 COPIES TO: DOES_NOT KNOW No [place] [address] [place] [address] [email or web address] Blair Juares MD [address] [place] [address] HISTOLOGY: TISSUE ID BLK PCS BRANDT LEV PROCEDURE DISPOSITION ____ ___ ___ ___ COLON, NOS A 1 2 RECTUM, NOS B 1 2 PROCEDURES: SURG PATH LVL 4 (12/25/20) TISSUES: A. COLON, NOS - LEFT SIDE COLON BIOPSY B. RECTUM, NOS - RECTUM COLON BIOPSY CPT CODES CPT CODE(S): 62141D7 , , , , , , FINAL DIAGNOSIS A. Colon, left, biopsy: FOCAL SURFACE ULCERATION WITH ISCHEMIC CHANGES NEGATIVE FOR DYSPLASIA AND MALIGNANCY B. Colon, rectum, biopsy: CONTINUED ON NEXT PAGE RUN DATE: 12/26/20 [facility] - LAB PAGE 2 RUN TIME: 1347 Specimen Inquiry RUN USER: INTERFACE SPEC #: [facility]:[id number] PATIENT: OZZY MEI #[id number] (Continued) FINAL DIAGNOSIS (Continued) COLONIC MUCOSA WITH ASSOCIATED ULCER DEBRIS NEGATIVE FOR DYSPLASIA AND MALIGNANCY GROSS DESCRIPTION A. Left side colon biopsy. Received in formalin are three allen tissue fragments, 0.2 - 0.4 cm, all as A. B. Rectum colon biopsy. Received in formalin are two allen tissue fragments, 0.2 and 0.4 cm, all as B. /fausto Grossing performed at [facility] Pathology, [address] [place] [address], [address], [place] [address]. Tong Hooker: Imtiaz Bravo M.D. MICROSCOPIC DESCRIPTION A. Left side colon biopsy. The colonic mucosa demonstrates extensive ulceration with hyalin change in the lamina propria and ischemic changes present in the glands. Surface fibrin deposition and degenerating neutrophils are seen. In separate fragments of tissue, the colonic glands demonstrate no significant pathologic abnormality. B. Rectum colon biopsy. The intact colonic mucosa demonstrates no significant architectural change. Ulcer debris is present in the background and consists of fibrin and degenerating neutrophils. There is no evidence of dysplasia or malignancy. /fausto Signed SIGNATURE ON Kristy Eller 12/26/20 1347 END OF REPORT [id number] 11:06:00 Test Item Value Reference Range Interpretation Comments TRANSFERRRIN (test code = TRANSF) VITAMIN [id number] 11:06:00 Test Item Value Reference Range Interpretation Comments VITAMIN B12 (test code = VITB12) 938 PG/ML 183-986 N FOLIC [id number] 11:06:00 Test Item Value Reference Range Interpretation Comments FOLIC ACID (test code = FOL) 11.60 NG/ML 3.10-17.50 N [id number] 11:06:00 Test Item Value Reference Range Interpretation Comments FERRITIN (test code = JONNY) 23.8 NG/ML 3.0-105.0 N [id number] 10:48:00 Test Item Value Reference Range Interpretation Comments PHOSPHOROUS (test code = PHOS) 2.2 MG/DL 2.5-4.9 L [id number] 10:48:00 Test Item Value Reference Range Interpretation Comments MAGNESIUM (test code = MAG) 2.1 MG/DL 1.8-2.4 N FE W/TOTAL IRON BINDING CAP.2020-12-26 10:48:00 Test Item Value Reference Range Interpretation Comments SERUM IRON (test code = IRON) 16 mcG/DL 50-170 L TOTAL IRON BINDING CAPACITY (test 395 mcG/DL 250-450 N code = TIBC) IRON SATURATION (test code = 4 % calc 12-57 L FESAT) CBC W/AUTO [id number] 07:28:00 Test Item Value Reference Range Interpretation Comments WHITE BLOOD CELL 15.5 K/mm3 3.5-11.0 H (test code = WBC) RED BLOOD CELL (test 3.70 M/mm3 4.70-6.10 L code = RBC) HEMOGLOBIN (test code 7.6 G/DL 10.4-14.9 L = HGB) HEMATOCRIT (test code 28.0 % 31.5-44.1 L = HCT) MEAN CELL VOLUME 75.7 Fl 84.5-98.6 L (test code = MCV) MEAN CELL HGB (test 20.5 pg 27.0-34.2 L code = MCH) MEAN CELL HGB 27.1 G/DL 31.5-34.0 L CONCETRATION (test code = MCHC) RED CELL DISTRIBUTION 18.6 SD 11.5-14.5 H WIDTH (test code = RDW) PLATELET COUNT (test 473 K/mm3 150-450 H code = PLT) MEAN PLATELET VOLUME 10.50 fL 7.0-10.5 N (test code = MPV) NEUTROPHIL % (test 79.2 % 40-76 H code = NT%) IMMATURE GRANULOCYTE 3.0 % 0.0-5.0 N % (test code = IG%) LYMPHOCYTE % (test 8.9 % 20.5-51.1 L code = LY%) MONOCYTE % (test code 5.9 % 1.7-9.3 N = MO%) EOSINOPHIL % (test 2.4 % 0.0-6.0 N code = EO%) BASOPHIL % (test code 0.6 % 0.0-2.0 N = BA%) NUCLEATED RBC % (test 0.0 /100WBC% 0.0-1.0 N code = NRBC%) NEUTROPHIL # (test 12.3 K/mm3 1.8-7.6 H code = NT#) IMMATURE GRANULOCYTE 0.47 x10 3/uL 0.00-0.03 H # (test code = IG#) LYMPHOCYTE # (test 1.4 K/mm3 0.6-3.2 N code = LY#) MONOCYTE # (test code 0.9 K/mm3 0.3-1.1 N = MO#) EOSINOPHIL # (test 0.4 K/mm3 0.0-0.4 N code = EO#) BASOPHIL # (test code 0.1 K/mm3 0.0-0.1 N = BA#) NUCLEATED RBC # (test 0.0 K/mm3 0.0-0.1 N code = NRBC#) MANUAL DIFF REQUIRED NO DIFF/SCN CRITERIA SLIDE Jasmyne COHEN (test code = MDIFF) CONSISTA NT WITH AUTO DIFFERENTI AL. RBC [id number] 07:28:00 Test Item Value Reference Range Interpretation Comments POLYCHROMASIA (test code = TRACE ON SCAN NONE POLC) HYPOCHROMIA (test code = TRACE ON SCAN NONE HYPO) POIKILOCYTOSIS (test code TRACE ON SCAN NONE = POIK) ANISOCYTOSIS (test code = TRACE NONE ANISO) MICROCYTOSIS (test code = TRACE ON SCAN NONE MICR) PLATELET ESTIMATE (test INCREASED THOUSAND ADEQUATE code = PLTEST) PLATELET MORPHOLOGY (test NORMAL code = PLTMORPH) CBC W/AUTO [id number] 07:27:00 Test Item Value Reference Range Interpretation Comments WHITE BLOOD CELL 15.5 K/mm3 3.5-11.0 H (test code = WBC) RED BLOOD CELL (test 3.70 M/mm3 4.70-6.10 L code = RBC) HEMOGLOBIN (test code 7.6 G/DL 10.4-14.9 L = HGB) HEMATOCRIT (test code 28.0 % 31.5-44.1 L = HCT) MEAN CELL VOLUME 75.7 Fl 84.5-98.6 L (test code = MCV) MEAN CELL HGB (test 20.5 pg 27.0-34.2 L code = MCH) MEAN CELL HGB 27.1 G/DL 31.5-34.0 L CONCETRATION (test code = MCHC) RED CELL DISTRIBUTION 18.6 SD 11.5-14.5 H WIDTH (test code = RDW) PLATELET COUNT (test 473 K/mm3 150-450 H code = PLT) MEAN PLATELET VOLUME 10.50 fL 7.0-10.5 N (test code = MPV) NEUTROPHIL % (test 79.2 % 40-76 H code = NT%) IMMATURE GRANULOCYTE 3.0 % 0.0-5.0 N % (test code = IG%) LYMPHOCYTE % (test 8.9 % 20.5-51.1 L code = LY%) MONOCYTE % (test code 5.9 % 1.7-9.3 N = MO%) EOSINOPHIL % (test 2.4 % 0.0-6.0 N code = EO%) BASOPHIL % (test code 0.6 % 0.0-2.0 N = BA%) NUCLEATED RBC % (test 0.0 /100WBC% 0.0-1.0 N code = NRBC%) NEUTROPHIL # (test 12.3 K/mm3 1.8-7.6 H code = NT#) IMMATURE GRANULOCYTE 0.47 x10 3/uL 0.00-0.03 H # (test code = IG#) LYMPHOCYTE # (test 1.4 K/mm3 0.6-3.2 N code = LY#) MONOCYTE # (test code 0.9 K/mm3 0.3-1.1 N = MO#) EOSINOPHIL # (test 0.4 K/mm3 0.0-0.4 N code = EO#) BASOPHIL # (test code 0.1 K/mm3 0.0-0.1 N = BA#) NUCLEATED RBC # (test 0.0 K/mm3 0.0-0.1 N code = NRBC#) MANUAL DIFF REQUIRED NO DIFF/SCN CRITERIA SLIDE R EVIEW (test code = MDIFF) CONSISTA NT WITH AUTO DIFFERENTI AL. CBC W/AUTO [id number] 07:27:00 Test Item Value Reference Range Interpretation Comments WHITE BLOOD CELL 15.5 K/mm3 3.5-11.0 H (test code = WBC) RED BLOOD CELL (test 3.70 M/mm3 4.70-6.10 L code = RBC) HEMOGLOBIN (test code 7.6 G/DL 10.4-14.9 L = HGB) HEMATOCRIT (test code 28.0 % 31.5-44.1 L = HCT) MEAN CELL VOLUME 75.7 Fl 84.5-98.6 L (test code = MCV) MEAN CELL HGB (test 20.5 pg 27.0-34.2 L code = MCH) MEAN CELL HGB 27.1 G/DL 31.5-34.0 L CONCETRATION (test code = MCHC) RED CELL DISTRIBUTION 18.6 SD 11.5-14.5 H WIDTH (test code = RDW) PLATELET COUNT (test 473 K/mm3 150-450 H code = PLT) MEAN PLATELET VOLUME 10.50 fL 7.0-10.5 N (test code = MPV) NEUTROPHIL % (test 79.2 % 40-76 H code = NT%) IMMATURE GRANULOCYTE 3.0 % 0.0-5.0 N % (test code = IG%) LYMPHOCYTE % (test 8.9 % 20.5-51.1 L code = LY%) MONOCYTE % (test code 5.9 % 1.7-9.3 N = MO%) EOSINOPHIL % (test 2.4 % 0.0-6.0 N code = EO%) BASOPHIL % (test code 0.6 % 0.0-2.0 N = BA%) NUCLEATED RBC % (test 0.0 /100WBC% 0.0-1.0 N code = NRBC%) NEUTROPHIL # (test 12.3 K/mm3 1.8-7.6 H code = NT#) IMMATURE GRANULOCYTE 0.47 x10 3/uL 0.00-0.03 H # (test code = IG#) LYMPHOCYTE # (test 1.4 K/mm3 0.6-3.2 N code = LY#) MONOCYTE # (test code 0.9 K/mm3 0.3-1.1 N = MO#) EOSINOPHIL # (test 0.4 K/mm3 0.0-0.4 N code = EO#) BASOPHIL # (test code 0.1 K/mm3 0.0-0.1 N = BA#) NUCLEATED RBC # (test 0.0 K/mm3 0.0-0.1 N code = NRBC#) MANUAL DIFF REQUIRED NO DIFF/SCN CRITERIA SLIDE R AIDANW (test code = MDIFF) CONSISTA NT WITH AUTO DIFFERENTI AL. COMPREHENSIVE METABOLIC [id number] 06:40:00 Test Item Value Reference Range Interpretation Comments SODIUM (test code = NA) 142 mmol/L 134-147 N POTASSIUM (test code = 2.9 mmol/L 3.4-5.0 LL K) CHLORIDE (test code = 110 mmol/L 100-108 H CL) CARBON DIOXIDE (test 27 mmol/L 21-32 N code = CO2) ANION GAP (test code = 5.0 GAP calc 4.0-15.0 N GAP) GLUCOSE (test code = 144 MG/DL 70-110 H GLU) BLOOD UREA NITROGEN 9 MG/DL 7-18 N (test code = BUN) GLOMERULAR FILTRATION >=60 max estimate >60 RATE (test code = GFR) estGFR CREATININE (test code = 0.6 MG/DL 0.6-1.0 N CREAT) TOTAL PROTEIN (test code 5.6 G/DL 6.4-8.2 L = PROT) ALBUMIN (test code = 2.5 G/DL 3.4-5.0 L ALB) GLOBULIN (test code = 3.1 GM/dL GLOB) ALBUMIN/GLOBULIN RATIO 0.8 RATIO 1.2-2.2 L (test code = A/G) CALCIUM (test code = CA) 7.7 MG/DL 8.5-10.1 L BILIRUBIN TOTAL (test 0.30 MG/DL 0.2-1.2 N code = BILT) SGOT/AST (test code = 11 Unit/L 15-37 L AST) SGPT/ALT (test code = 12 Unit/L 12-78 N ALT) ALKALINE PHOSPHATASE 96 Unit/L 45-117 N TOTAL (test code = ALKP) CBC W/AUTO [id number] 06:07:00 Test Item Value Reference Range Interpretation Comments WHITE BLOOD CELL (test code = WBC) 15.5 K/mm3 3.5-11.0 H RED BLOOD CELL (test code = RBC) 3.70 M/mm3 4.70-6.10 L HEMOGLOBIN (test code = HGB) 7.6 G/DL 10.4-14.9 L HEMATOCRIT (test code = HCT) 28.0 % 31.5-44.1 L MEAN CELL VOLUME (test code = MCV) 75.7 Fl 84.5-98.6 L MEAN CELL HGB (test code = MCH) 20.5 pg 27.0-34.2 L MEAN CELL HGB CONCETRATION (test 27.1 G/DL 31.5-34.0 L code = MCHC) RED CELL DISTRIBUTION WIDTH (test SD 11.5-14.5 H code = RDW) PLATELET COUNT (test code = PLT) 473 K/mm3 150-450 H MEAN PLATELET VOLUME (test code = fL 7.0-10.5 N MPV) NEUTROPHIL % (test code = NT%) % 40-76 H IMMATURE GRANULOCYTE % (test code % 0.0-5.0 N = IG%) LYMPHOCYTE % (test code = LY%) % 20.5-51.1 L MONOCYTE % (test code = MO%) % 1.7-9.3 N EOSINOPHIL % (test code = EO%) % 0.0-6.0 N BASOPHIL % (test code = BA%) % 0.0-2.0 N NUCLEATED RBC % (test code = /100WBC% 0.0-1.0 N NRBC%) NEUTROPHIL # (test code = NT#) K/mm3 1.8-7.6 H IMMATURE GRANULOCYTE # (test code x10 3/uL 0.00-0.03 H = IG#) LYMPHOCYTE # (test code = LY#) K/mm3 0.6-3.2 N MONOCYTE # (test code = MO#) K/mm3 0.3-1.1 N EOSINOPHIL # (test code = EO#) K/mm3 0.0-0.4 N BASOPHIL # (test code = BA#) K/mm3 0.0-0.1 N NUCLEATED RBC # (test code = K/mm3 0.0-0.1 N NRBC#) MANUAL DIFF REQUIRED (test code = DIFF/SCN CRITERIA MDIFF) - XR ABDOMEN 1 [id number] 10:42:00 [facility] 1945 Sex: F Name: OZZY MEI [facility] : 1945ge/S: 75 / F [id number] [address] [place] Unit #: [id number] Loc: [place] [address] Phys: Sin Choi MD Acct: [id number] Dis Date: Status: ADM IN PHONE#: [phone] Exam Date: 12/25/2020 [facility] FAX #: Reason: Evaluate cecal distension EXAMS: CPT: [id number] XR ABDOMEN 1 V [id number] Fluoro Time: DAP (Gy m2): Air Kerma (mGy): EXAMINATION: AP supine view(s) of theabdomen INDICATION: Evaluate cecal distension COMPARISON: 12/24/2020 LOCATION: S17 FINDINGS: Decreased gaseous distention of the cecum, no longer grossly dilated, measuring approximately 6 cm in caliber. Transverse colon near hepatic flexure is dilated to 6.5 cm, previously 7.4 cm. Moderate gaseous distention of bowel loops throughout the abdomen otherwise appears slightly decreased. No rectal gas or stool is seen. IMPRESSION: Interval improvement in degree of gaseous distention. at 1042 Reported and signed by: Jarred Neil M.D. CC: Josee Mustafa MD; Sin Choi MD PAGE 1 Signed Report Name: OZZY MEI [facility] : 1945 Age/S: 75 / F [id number] [facility] [place] Unit #: [id number] L oc: [place] [address] Phys: Sin Choi MD Acct: [id number] Dis Date: Status: ADM IN PHONE #: [phone] Exam Date: 12/25/2020 1007 FAX #: Reason: Evaluate cecal distension EXAMS: CPT: [id number] XR ABDOMEN 1 V 25894 Fluoro Time: DAP (Gy m2): Air Kerma (mGy): <Continued> Technologist: Elisha Farmer, RT(R) Trnscb Date/Time: 12/25/2020 (104) tERYN Orig Print D/T: S: 12/25/2020 (2543) PAGE 2 Signed ReportCBC W/AUTO [id number] 07:13:00 Test Item Value Reference Range Interpretation Comments WHITE BLOOD CELL 22.9 K/mm3 3.5-11.0 H (test code = WBC) RED BLOOD CELL (test 4.12 M/mm3 4.70-6.10 L code = RBC) HEMOGLOBIN (test code 8.4 G/DL 10.4-14.9 L = HGB) HEMATOCRIT (test code 30.8 % 31.5-44.1 L = HCT) MEAN CELL VOLUME 74.8 Fl 84.5-98.6 L (test code = MCV) MEAN CELL HGB (test 20.4 pg 27.0-34.2 L code = MCH) MEAN CELL HGB 27.3 G/DL 31.5-34.0 L CONCETRATION (test code = MCHC) RED CELL DISTRIBUTION 18.7 SD 11.5-14.5 H WIDTH (test code = RDW) PLATELET COUNT (test 602 K/mm3 150-450 H code = PLT) MEAN PLATELET VOLUME 10.60 fL 7.0-10.5 H (test code = MPV) NEUTROPHIL % (test 79.1 % 40-76 H code = NT%) IMMATURE GRANULOCYTE 5.7 % 0.0-5.0 H % (test code = IG%) LYMPHOCYTE % (test 6.0 % 20.5-51.1 L code = LY%) MONOCYTE % (test code 7.7 % 1.7-9.3 N = MO%) EOSINOPHIL % (test 0.9 % 0.0-6.0 N code = EO%) BASOPHIL % (test code 0.6 % 0.0-2.0 N = BA%) NUCLEATED RBC % (test 0.0 /100WBC% 0.0-1.0 N code = NRBC%) NEUTROPHIL # (test 18.1 K/mm3 1.8-7.6 H code = NT#) IMMATURE GRANULOCYTE 1.30 x10 3/uL 0.00-0.03 H # (test code = IG#) LYMPHOCYTE # (test 1.4 K/mm3 0.6-3.2 N code = LY#) MONOCYTE # (test code 1.8 K/mm3 0.3-1.1 H = MO#) EOSINOPHIL # (test 0.2 K/mm3 0.0-0.4 N code = EO#) BASOPHIL # (test code 0.1 K/mm3 0.0-0.1 N = BA#) NUCLEATED RBC # (test 0.0 K/mm3 0.0-0.1 N code = NRBC#) MANUAL DIFF REQUIRED NO DIFF/SCN CRITERIA SLIDE R EVIEW (test code = MDIFF) CONSISTA NT WITH AUTO DIFFERENTI AL. RBC [id number] 07:13:00 Test Item Value Reference Range Interpretation Comments POLYCHROMASIA (test code = TRACE ON SCAN NONE POLC) HYPOCHROMIA (test code = 1+ ON SCAN NONE HYPO) POIKILOCYTOSIS (test code TRACE ON SCAN NONE = POIK) ANISOCYTOSIS (test code = TRACE NONE ANISO) PLATELET ESTIMATE (test INCREASED THOUSAND ADEQUATE code = PLTEST) PLATELET MORPHOLOGY (test NORMAL code = PLTMORPH) CBC W/AUTO [id number] 07:12:00 Test Item Value Reference Range Interpretation Comments WHITE BLOOD CELL 22.9 K/mm3 3.5-11.0 H (test code = WBC) RED BLOOD CELL (test 4.12 M/mm3 4.70-6.10 L code = RBC) HEMOGLOBIN (test code 8.4 G/DL 10.4-14.9 L = HGB) HEMATOCRIT (test code 30.8 % 31.5-44.1 L = HCT) MEAN CELL VOLUME 74.8 Fl 84.5-98.6 L (test code = MCV) MEAN CELL HGB (test 20.4 pg 27.0-34.2 L code = MCH) MEAN CELL HGB 27.3 G/DL 31.5-34.0 L CONCETRATION (test code = MCHC) RED CELL DISTRIBUTION 18.7 SD 11.5-14.5 H WIDTH (test code = RDW) PLATELET COUNT (test 602 K/mm3 150-450 H code = PLT) MEAN PLATELET VOLUME 10.60 fL 7.0-10.5 H (test code = MPV) NEUTROPHIL % (test 79.1 % 40-76 H code = NT%) IMMATURE GRANULOCYTE 5.7 % 0.0-5.0 H % (test code = IG%) LYMPHOCYTE % (test 6.0 % 20.5-51.1 L code = LY%) MONOCYTE % (test code 7.7 % 1.7-9.3 N = MO%) EOSINOPHIL % (test 0.9 % 0.0-6.0 N code = EO%) BASOPHIL % (test code 0.6 % 0.0-2.0 N = BA%) NUCLEATED RBC % (test 0.0 /100WBC% 0.0-1.0 N code = NRBC%) NEUTROPHIL # (test 18.1 K/mm3 1.8-7.6 H code = NT#) IMMATURE GRANULOCYTE 1.30 x10 3/uL 0.00-0.03 H # (test code = IG#) LYMPHOCYTE # (test 1.4 K/mm3 0.6-3.2 N code = LY#) MONOCYTE # (test code 1.8 K/mm3 0.3-1.1 H = MO#) EOSINOPHIL # (test 0.2 K/mm3 0.0-0.4 N code = EO#) BASOPHIL # (test code 0.1 K/mm3 0.0-0.1 N = BA#) NUCLEATED RBC # (test 0.0 K/mm3 0.0-0.1 N code = NRBC#) MANUAL DIFF REQUIRED NO DIFF/SCN CRITERIA SLIDE R AIDANW (test code = MDIFF) CONSISTA NT WITH AUTO DIFFERENTI AL. CBC W/AUTO [id number] 07:12:00 Test Item Value Reference Range Interpretation Comments WHITE BLOOD CELL 22.9 K/mm3 3.5-11.0 H (test code = WBC) RED BLOOD CELL (test 4.12 M/mm3 4.70-6.10 L code = RBC) HEMOGLOBIN (test code 8.4 G/DL 10.4-14.9 L = HGB) HEMATOCRIT (test code 30.8 % 31.5-44.1 L = HCT) MEAN CELL VOLUME 74.8 Fl 84.5-98.6 L (test code = MCV) MEAN CELL HGB (test 20.4 pg 27.0-34.2 L code = MCH) MEAN CELL HGB 27.3 G/DL 31.5-34.0 L CONCETRATION (test code = MCHC) RED CELL DISTRIBUTION 18.7 SD 11.5-14.5 H WIDTH (test code = RDW) PLATELET COUNT (test 602 K/mm3 150-450 H code = PLT) MEAN PLATELET VOLUME 10.60 fL 7.0-10.5 H (test code = MPV) NEUTROPHIL % (test 79.1 % 40-76 H code = NT%) IMMATURE GRANULOCYTE 5.7 % 0.0-5.0 H % (test code = IG%) LYMPHOCYTE % (test 6.0 % 20.5-51.1 L code = LY%) MONOCYTE % (test code 7.7 % 1.7-9.3 N = MO%) EOSINOPHIL % (test 0.9 % 0.0-6.0 N code = EO%) BASOPHIL % (test code 0.6 % 0.0-2.0 N = BA%) NUCLEATED RBC % (test 0.0 /100WBC% 0.0-1.0 N code = NRBC%) NEUTROPHIL # (test 18.1 K/mm3 1.8-7.6 H code = NT#) IMMATURE GRANULOCYTE 1.30 x10 3/uL 0.00-0.03 H # (test code = IG#) LYMPHOCYTE # (test 1.4 K/mm3 0.6-3.2 N code = LY#) MONOCYTE # (test code 1.8 K/mm3 0.3-1.1 H = MO#) EOSINOPHIL # (test 0.2 K/mm3 0.0-0.4 N code = EO#) BASOPHIL # (test code 0.1 K/mm3 0.0-0.1 N = BA#) NUCLEATED RBC # (test 0.0 K/mm3 0.0-0.1 N code = NRBC#) MANUAL DIFF REQUIRED NO DIFF/SCN CRITERIA SLIDE R EVIEW (test code = MDIFF) CONSISTA NT WITH AUTO DIFFERENTI AL. COMPREHENSIVE METABOLIC [id number] 06:14:00 Test Item Value Reference Range Interpretation Comments SODIUM (test code = NA) 140 mmol/L 134-147 N POTASSIUM (test code = 3.4 mmol/L 3.4-5.0 N K) CHLORIDE (test code = 107 mmol/L 100-108 N CL) CARBON DIOXIDE (test 26 mmol/L 21-32 N code = CO2) ANION GAP (test code = 7.0 GAP calc 4.0-15.0 N GAP) GLUCOSE (test code = 109 MG/DL 70-110 N GLU) BLOOD UREA NITROGEN 14 MG/DL 7-18 N (test code = BUN) GLOMERULAR FILTRATION >=60 max estimate >60 RATE (test code = GFR) estGFR CREATININE (test code = 0.6 MG/DL 0.6-1.0 N CREAT) TOTAL PROTEIN (test code 5.8 G/DL 6.4-8.2 L = PROT) ALBUMIN (test code = 2.6 G/DL 3.4-5.0 L ALB) GLOBULIN (test code = 3.2 GM/dL GLOB) ALBUMIN/GLOBULIN RATIO 0.8 RATIO 1.2-2.2 L (test code = A/G) CALCIUM (test code = CA) 8.1 MG/DL 8.5-10.1 L BILIRUBIN TOTAL (test 0.60 MG/DL 0.2-1.2 N code = BILT) SGOT/AST (test code = 17 Unit/L 15-37 N AST) SGPT/ALT (test code = 16 Unit/L 12-78 N ALT) ALKALINE PHOSPHATASE 99 Unit/L 45-117 N TOTAL (test code = ALKP) [id number] 06:14:00 Test Item Value Reference Range Interpretation Comments PHOSPHOROUS (test code = PHOS) 2.5 MG/DL 2.5-4.9 N [id number] 06:14:00 Test Item Value Reference Range Interpretation Comments MAGNESIUM (test code = MAG) 2.5 MG/DL 1.8-2.4 H PROTHROMBIN [id number] 06:06:00 Test Item Value Reference Range Interpretation Comments PT PATIENT (test code = PTP) 14.1 SECONDS 9.3-12.9 H INTERNATIONAL NORMAL RATIO 1.25 INR Unit 0.8-1.2 H (test code = INR) THROMBOPLASTIN TIME [id number] 06:06:00 Test Item Value Reference Range Interpretation Comments THROMBOPLASTIN TIME PARTIAL 33.3 SECONDS 26-35 N (test code = PTT) CBC W/AUTO [id number] 05:55:00 Test Item Value Reference Range Interpretation Comments WHITE BLOOD CELL (test code = WBC) 22.9 K/mm3 3.5-11.0 H RED BLOOD CELL (test code = RBC) 4.12 M/mm3 4.70-6.10 L HEMOGLOBIN (test code = HGB) 8.4 G/DL 10.4-14.9 L HEMATOCRIT (test code = HCT) 30.8 % 31.5-44.1 L MEAN CELL VOLUME (test code = MCV) 74.8 Fl 84.5-98.6 L MEAN CELL HGB (test code = MCH) 20.4 pg 27.0-34.2 L MEAN CELL HGB CONCETRATION (test 27.3 G/DL 31.5-34.0 L code = MCHC) RED CELL DISTRIBUTION WIDTH (test SD 11.5-14.5 H code = RDW) PLATELET COUNT (test code = PLT) 602 K/mm3 150-450 H MEAN PLATELET VOLUME (test code = fL 7.0-10.5 H MPV) NEUTROPHIL % (test code = NT%) % 40-76 H IMMATURE GRANULOCYTE % (test code % 0.0-5.0 H = IG%) LYMPHOCYTE % (test code = LY%) % 20.5-51.1 L MONOCYTE % (test code = MO%) % 1.7-9.3 N EOSINOPHIL % (test code = EO%) % 0.0-6.0 N BASOPHIL % (test code = BA%) % 0.0-2.0 N NUCLEATED RBC % (test code = /100WBC% 0.0-1.0 N NRBC%) NEUTROPHIL # (test code = NT#) K/mm3 1.8-7.6 H IMMATURE GRANULOCYTE # (test code x10 3/uL 0.00-0.03 H = IG#) LYMPHOCYTE # (test code = LY#) K/mm3 0.6-3.2 N MONOCYTE # (test code = MO#) K/mm3 0.3-1.1 H EOSINOPHIL # (test code = EO#) K/mm3 0.0-0.4 N BASOPHIL # (test code = BA#) K/mm3 0.0-0.1 N NUCLEATED RBC # (test code = K/mm3 0.0-0.1 N NRBC#) MANUAL DIFF REQUIRED (test code = DIFF/SCN CRITERIA MDIFF) - XR ABDOMEN 1 [id number] 11:48:00 [facility] 1945 Sex: F Name: OZZY MEI [facility] : 1945ge/S: 75 / F [id number] [facility] Unit #: [id number] Loc: [place] [address] Phys: Josee Mustafa MD Acct: [id number] Dis Date: Status: ADM IN PHONE#: [phone] Exam Date: 12/24/2020 1139 FAX #: Reason: CONSTIPATION EXAMS: CPT: [id number] XR ABDOMEN 1 V 13348 Fluoro Time: DAP (Gy m2): Air Kerma (mGy): EXAMINATION: 2 AP supine view(s) of the abdomen INDICATION: CONSTIPATION COMPARISON: None LOCATION: S17 FINDINGS: Diffuse gaseous distention is present. Small amount of colonic stool. The cecum is dilated to 12 cm. Several small bowel loops are upper normal incaliber. Lung bases are clear. IMPRESSION: Diffuse gaseous distention represent ileus. The cecum is dilated to 12 cm. Follow-up may be helpful. at 1148 Reported and signed by: Jarred Neil M.D. CC: Josee Mustafa MD PAGE 1 Signed Report Name: OZZY MEI [facility] : 1945 Age/S: 75 / F [facility] Unit #: [id number] Loc: [place] [address] Phys: Josee Mustafa MD Acct: [id number] Dis Date: Status: ADM IN PHONE #: [phone] Exam Date: 12/24/2020 1132 FAX #: Reason: CONSTIPATION EXAMS: CPT: [id number] XR ABDOMEN 1 V 83447 Fluoro Time: DAP (Gy m2): Air Kerma (mGy): <Continued> Technologist: RT Vanda(R) Trnlebronb Date/Time: 12/24/2020 (1148) Felecia Orig Print D/T: S: 12/24/2020 (1151) PAGE 2 Signed ReportMR, MRA, BRAIN, WITHOUT [id number] 20:11:00Needs general anesthesiaReason for exam:->Ischemic Stroke EvaluationFINAL REPORT MR, MRA, BRAIN, WITHOUT CONTRAST, MR, MRA, NECK, WITHOUT IV CONTRAST, MR, BRAIN, WITHOUT CONTRAST INDICATION: Ischemic Stroke Evaluationstroke evaluation TECHNIQUE: M ultiplanar, multisequence MR imaging of the brain without intravenous contrast.MRA of the head utilizing 3-D myvn-rr-jkywym technique, with 3-D reconstructions.MRA of the neck utilizing 2-D and 3-D fzea-sx-dxddaz technique, with 3-D reconstructions. COMPARISON: None FINDINGS: MRI Brain:Intracranial: Th ere are multiple regions of restricted diffusion within the left cerebral hemisphere, involving the frontal lobe, parietal lobe, and temporal occipital junction. There is cortical T1 hyperintense signal in the left occipital parietal junction consistent with cortical laminar necrosis. No intracranial h emorrhage. Generalized cerebral atrophy with ex vacuo dilatation of the ventricular system proportionate to sulci. Extensive foci of T2 prolongation within the periventricular and subcortical white matter are a nonspecific finding commonly attributed to chronic small vessel ischemic disease. No mass effect. No hydrocephalus. Sinuses: No evidence of sinusitis. Mastoids are clear. Orbits: Globes areintact. Calvarium \T\ scalp: Unremarkable. MRA Head:There is no evidence of intracranial aneurysm, focal stenosis, or major branch vessel occlusion. MRA Neck:The carotid arteries in the neck are patent including their bifurcations. There is antegrade flow in the vertebral arteries in the neck. 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 Cortical laminar process in the left parieto- occipital junction. No acute intracranial hemorrhage.2.No proximal branch art erial occlusion or high-grade focal stenosis. Signed: [facility] Verified Date/Time: 09/14/2019 20:11:20 MR, MRA, NECK, WITHOUT IV CONTRAST 2019-09-14 20:11:00Needs general anesthesiaReason for exam:->Ischemic Stroke EvaluationFINAL REPORT MR, MRA, BRAIN, WITHOUT CONTRAST, MR, MRA, NECK, WITHOUT IV CONTRAST, MR, BRAIN, WITHOUT CONTRAST INDICATION: Ischemic Stroke Evaluationstroke evaluation TECHNIQUE: Multiplanar, multisequence MR imaging of the brain without intravenous contrast.MRA of the head utilizing 3-D dksj-sv-puktbi technique, with 3-D reconstructions.MRA of the neck utilizing 2-D and 3-D ztim-cp-khezoz technique, with 3-D reconstructions. COMPARISON: None FINDINGS: [...] to chronic small vessel ischemic disease. No masseffect. No hydrocephalus. Sinuses: No evidence of sinusitis. Mastoids are clear. Orbits: Globes areintact. Calvarium \T\ scalp: Unremarkable. MRA Head:There is no evidence of intracranial aneurysm, focal stenosis, or major branch vessel occlusion. MRA Neck:The carotid arteries in the neck are patentincluding their bifurcations. There is antegrade flow in the vertebral arteries in the neck. 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 Cortical laminar process in the left parieto-occipital junction. No acute intracranial hemorrhage.2.No proximal branch arterial occlusion or high-grade focal stenosis. Signed: Damian Whitley Verified Date/Time: 09/14/2019 20:11:20 MR, BRAIN, WITHOUT [id number] 20:11:00Needs general anesthesiaReason for exam:->Ischemic Stroke EvaluationFINAL REPORT MR, MRA, BRAIN, WITHOUT CONTRAST, MR, MRA, NECK, WITHOUT IV CONTRAST, MR, BRAIN, WITHOUT CONTRAST INDICATION: Ischemic Stroke Evaluationstroke evaluation TECHNIQUE: M ultiplanar, multisequence MR imaging of the brain without intravenous contrast.MRA of the head utilizing 3-D jufz-rm-pwmxbv technique, with 3-D reconstructions.MRA of the neck utilizing 2-D and 3-D oucu-uy-twckrk technique, with 3-D reconstructions. COMPARISON: None FINDINGS: MRI Brain:Intracranial: Th ere are multiple regions of restricted diffusion within the left cerebral hemisphere, involving the frontal lobe, parietal lobe, and temporal occipital junction. There is cortical T1 hyperintense signal in the left occipital parietal junction consistent with cortical laminar necrosis. No intracranial h emorrhage. Generalized cerebral atrophy with ex vacuo dilatation of the ventricular system proportionate to sulci. Extensive foci of T2 prolongation within the periventricular and subcortical white matter are a nonspecific finding commonly attributed to chronic small vessel ischemic disease. No mass effect. No hydrocephalus. Sinuses: No evidence of sinusitis. Mastoids are clear. Orbits: Globes areintact. Calvarium \T\ scalp: Unremarkable. MRA Head:There is no evidence of intracranial aneurysm, focal stenosis, or major branch vessel occlusion. MRA Neck:The carotid arteries in the neck are patent including their bifurcations. There is antegrade flow in the vertebral arteries in the neck. 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 Cortical laminar process in the left parieto- occipital junction. No acute intracranial hemorrhage.2.No proximal branch art erial occlusion or high-grade focal stenosis. Signed: Damian Whitley MDReport Verified Date/Time: 09/14/2019 20:11:20 [id number] 13:14:00 Test Item Value Reference Range Interpretation Comments RPR SCREEN (BEAKER) (test code = Nonreactive Nonreactive 420) HEMOGLOBIN [id number] 08:08:00 Test Item Value Reference Range Interpretation Comments HEMOGLOBIN A1C (BEAKER) (test code = 5.6 % 4.3-6.1 368) [id number] 06:39:00 Test Item Value Reference Range Interpretation Comments MAGNESIUM (BEAKER) (test code = 2.1 mg/dL 1.6-2.6 627) Bark Skinner ID - BSBASIC METABOLIC [id number] 06:39:00 Test Item Value Reference Range Interpretation [...] S NOT APPLICABLE FOR DIALYSIS PATIEN TS. Bark Skinner ID - BSLIPID [id number] 06:39:00 Test Item Value Reference Range Interpretation [...] Borderline 130-159 High 160-189 Very High >=190 Bark Skinner ID - BSCBC W/PLT COUNT & AUTO [id number] 05:38:00 Test Item Value Reference Range Interpretation [...] (test code = 2801) TSH/FREE T4 IF [id number] 18:53:00 Test Item Value Reference Range Interpretation Comments THYROID STIMULATING HORMONE 0.76 uIU/mL 0.35-4.94 (BEAKER) (test code = 772) Bark Skinner ID - BSVITAMIN B12 AND [id number] 18:53:00 Test Item Value Reference Range Interpretation Comments VITAMIN B12 (BEAKER) (test code = 721 pg/mL 213-816 774) FOLATE (BEAKER) (test code = 362) 12.5 ng/mL >=7.0 Bark Skinner ID - BSAutomated erythrocyte distribution width [id number] 12:10:00 Test Item Value Reference Range Interpretation Comments Red Cell Distribution Width (test code 16.6 % 10.7-14.5 = 788-0) [facility] HealthAutomated blood platelet count (count/volume)2019-09-13 12:10:00 Test Item Value Reference Range Interpretation Comments Platelet Count (test code = 540 10*3/uL 150-450 777-3) [facility] HealthAutomated blood platelet mean volume [id number] 12:10:00 Test Item Value Reference Range Interpretation Comments Mean Platelet Volume (test code = 9.9 fL 5.7-10.7 60709-1) [facility] comment [id number] 12:10:00 Test Item Value Reference Range Interpretation Comments Manual Differential (test code = ----- 8265-1) [facility] HealthManual blood segmented neutrophils/100 [id number] 12:10:00 Test Item Value Reference Range Interpretation Comments Neutrophils % (Manual) (test code = 83 % 42-75 769-0) [facility] HealthManual blood lymphocytes/100 [id number] 12:10:00 Test Item Value Reference Range Interpretation Comments Lymphocytes % (Manual) (test code = 11 % 21-51 737-7) [facility] HealthManual blood monocytes/100 [id number] 12:10:00 Test Item Value Reference Range Interpretation Comments Monocytes % (Manual) (test code = 4 % 1-9 744-3) [facility] HealthManual blood eosinophil count as percentage of total leukocytes 2019-09-13 12:10:00 Test Item Value Reference Range Interpretation Comments Eosinophils % (Manual) (test code = 2 % 0-7 714-6) [facility] HealthBlood platelet detection by light [id number] 12:10:00 Test Item Value Reference Range Interpretation Comments Platelet Estimate (test code = Adequate 9317-9) [facility] HealthBlood erythrocyte morphology finding [id number] 12:10:00 Test Item Value Reference Range Interpretation Comments Red Blood Cell Morphology (test code = Normal 6742-1) [facility] HealthProthrombin time (PT) in platelet poor [id number] 12:10:00 Test Item Value Reference Range Interpretation Comments Prothrombin Time (test code = 5902-2) 12.7 s 9.4-12.5 [facility] HealthINR in Platelet poor plasma by Coagulation [id number] 12:10:00 Test Item Value Reference Range Interpretation Comments Prothromb Time International 1.1 {ratio} 0.8-1.2 Ratio (test code = 6301-6) [facility] HealthPlasma partial thromboplastin time (PTT)2019-09-13 12:10:00 Test Item Value Reference Range Interpretation Comments Activated Partial Thromboplast Time 37.7 s 25.1-36.5 (test code = 15506-3) [facility] HealthSerum or plasma sodium measurement (moles/volume)2019-09-13 12:10:00 Test Item Value Reference Range Interpretation Comments Sodium Level (test code = 2951-2) 142 mmol/L 136-145 [facility] HealthSerum or plasma potassium measurement (moles/volume)2019-09-13 12:10:00 Test Item Value Reference Range Interpretation Comments Potassium Level (test code = 3.5 mmol/L 3.5-5.1 2823-3) [facility] HealthSerum or plasma chloride measurement (moles/volume)2019-09-13 12:10:00 Test Item Value Reference Range Interpretation Comments Chloride Level (test code = 104 mmol/L 98-107 2074-0) [facility] HealthSerum or plasma total carbon dioxide measurement (moles/volume) 2019-09-13 12:10:00 Test Item Value Reference Range Interpretation Comments Carbon Dioxide Level (test code = 28 mmol/L -31 2027-9) [facility] HealthSerum or plasma anion gap determination (moles/volume)2019-09-13 12:10:00 Test Item Value Reference Range Interpretation Comments Anion Gap (test code = 43079-6) 14 18 [facility] HealthSerum or plasma urea nitrogen measurement (mass/volume)2019-09-13 12:10:00 Test Item Value Reference Range Interpretation Comments Blood Urea Nitrogen (test code = 10 mg/dL 04-16 3094-0) [facility] HealthSerum or plasma creatinine measurement (mass/volume)2019-09-13 12:10:00 Test Item Value Reference Range Interpretation Comments Creatinine (test code = 2160-0) 0.8 mg/dL 0.6-1.1 [facility] HealthGFR estimate [id number] 12:10:00 Test Item Value Reference Range Interpretation Comments Estimat Glomerular Filtration Rate 75 50-100 (test code = 23615-4) [facility] HealthSerum or plasma urea nitrogen/creatinine mass [id number] 12:10:00 Test Item Value Reference Range Interpretation Comments BUN/Creatinine Ratio (test code = 13 3097-3) [facility] HealthSerum or plasma glucose measurement (mass/volume)2019-09-13 12:10:00 Test Item Value Reference Range Interpretation Comments Glucose Level (test code = 2345-7) 108 mg/dL 60-100 [facility] HealthOsmolality of Serum or Plasma by [id number] 12:10:00 Test Item Value Reference Range Interpretation Comments Calculated Osmolality (test code 283 mosm/kg = 90639-1) [facility] HealthSerum or plasma calcium measurement (mass/volume)2019-09-13 12:10:00 Test Item Value Reference Range Interpretation Comments Calcium Level (test code = 85842-6) 9.5 mg/dL 8.4-10.2 [facility] HealthSerum or plasma cholesterol measurement (mass/volume)2019-09-13 12:10:00 Test Item Value Reference Range Interpretation Comments Cholesterol Level (test code = 173 mg/dL < 200 2093-3) [facility] HealthSerum or plasma triglyceride measurement (mass/volume)2019-09-13 12:10:00 Test Item Value Reference Range Interpretation Comments Triglycerides Level (test code = 152 mg/dL < 150 2571-8) [facility] HealthSerum or plasma cholesterol in HDL measurement (mass/volume) 2019-09-13 12:10:00 Test Item Value Reference Range Interpretation Comments HDL Cholesterol (test code = 2085-9) 57 mg/dL 40-60 [facility] HealthSerum or plasma cholesterol in LDL measurement by calculation (mass/volume)2019-09-13 12:10:00 Test Item Value Reference Range Interpretation Comments LDL Cholesterol (test code = 86 mg/dL 0-99 97407-1) [facility] HealthSerum or plasma total cholesterol/high density lipoprotein (HDL) cholesterol mass [id number] 12:10:00 Test Item Value Reference Range Interpretation Comments Cholesterol/HDL Ratio (test code = 3.0 See Note 9830-1) [facility] HealthSerum or plasma low density lipoprotein (LDL) cholesterol/high density lipoprotein (HDL) cholesterolmass [id number] 12:10:00 Test Item Value Reference Range Interpretation Comments Cholesterol Ratio (LDL/HDL) (test code 1.5 = 71301-9) [facility] HealthAutomated blood leukocyte count (number/volume)2019-09-13 12:10:00 Test Item Value Reference Range Interpretation Comments White Blood Count (test code = 13.4 10*3/uL 4.5-11.5 6690-2) [facility] HealthBlood erythrocytes automated count (number/volume)2019-09-13 12:10:00 Test Item Value Reference Range Interpretation Comments Red Blood Count (test code = 4.99 10*6/uL 3.8-5.1 789-8) [facility] HealthBlood hemoglobin measurement (mass/volume)2019-09-13 12:10:00 Test Item Value Reference Range Interpretation Comments Hemoglobin (test code = 718-7) 13.1 g/dL 12.0-15.2 [facility] HealthAutomated blood hematocrit (volume fraction)2019-09-13 12:10:00 Test Item Value Reference Range Interpretation Comments Hematocrit (test code = 4544-3) 43.5 % 34.0-45.5 [facility] HealthAutomated erythrocyte mean corpuscular volume (MCV) measurement 2019-09-13 12:10:00 Test Item Value Reference Range Interpretation Comments Mean Corpuscular Volume (test code = 87.2 fL 80-94 787-2) [facility] HealthAutomated erythrocyte mean corpuscular hemoglobin (mass per erythrocyte)2019-09-13 12:10:00 Test Item Value Reference Range Interpretation Comments Mean Corpuscular Hemoglobin (test 26.3 pg 27.0-33.0 code = 785-6) [facility] HealthAutomated erythrocyte mean corpuscular hemoglobin concentration measurement (mass/[id number] 12:10:00 Test Item Value Reference Range Interpretation Comments Mean Corpuscular Hemoglobin Concent 30.1 g/dL 33.0-37.0 (test code = 786-4) [facility] HealthSerum or plasma anion gap determination (moles/volume)2019-09-13 12:10:00 Test Item Value Reference Range Interpretation Comments Anion Gap (test code = 21919-3) 14 [facility] urea nitrogen measurement (mass/volume)2019-09-13 12:10:00 Test Item Value Reference Range Interpretation Comments Blood Urea Nitrogen (test code = 10 mg/dL 3094-0) [facility] or plasma creatinine measurement (mass/volume)2019-09-13 12:10:00 Test Item Value Reference Range Interpretation Comments Creatinine (test code = 2160-0) 0.8 mg/dL [facility] [id number] 12:10:00 Test Item Value Reference Range Interpretation Comments Estimat Glomerular Filtration Rate 75 (test code = 01046-7) [facility] or plasma urea nitrogen/creatinine mass [id number] 12:10:00 Test Item Value Reference Range Interpretation Comments BUN/Creatinine Ratio (test code = 13 3097-3) [facility] or plasma glucose measurement (mass/volume)2019-09-13 12:10:00 Test Item Value Reference Range Interpretation Comments Glucose Level (test code = 2345-7) 108 mg/dL [facility] or Plasma by calculation 2019-09-13 12:10:00 Test Item Value Reference Range Interpretation Comments Calculated Osmolality (test code 283 mosm/kg = 63305-9) [facility] or plasma calcium measurement (mass/volume)2019-09-13 12:10:00 Test Item Value Reference Range Interpretation Comments Calcium Level (test code = 63334-1) 9.5 mg/dL [facility] or plasma cholesterol measurement (mass/volume)2019-09-13 12:10:00 Test Item Value Reference Range Interpretation Comments Cholesterol Level (test code = 173 mg/dL 2093-3) [facility] or plasma triglyceride measurement (mass/volume)2019-09-13 12:10:00 Test Item Value Reference Range Interpretation Comments Triglycerides Level (test code = 152 mg/dL 2571-8) [facility] or plasma cholesterol in HDL measurement (mass/volume)2019-09-13 12:10:00 Test Item Value Reference Range Interpretation Comments HDL Cholesterol (test code = 2085-9) 57 mg/dL [facility] or plasma cholesterol in LDL measurement by calculation (mass/volume)2019-09-13 12:10:00 Test Item Value Reference Range Interpretation Comments LDL Cholesterol (test code = 86 mg/dL 20125-9) [facility] or plasma total cholesterol/high density lipoprotein (HDL) cholesterol mass [id number] 12:10:00 Test Item Value Reference Range Interpretation Comments Cholesterol/HDL Ratio (test code = 3.0 9830-1) [facility] plasma low density lipoprotein (LDL) cholesterol/high density lipoprotein (HDL) cholesterolmass [id number] 12:10:00 Test Item Value Reference Range Interpretation Comments Cholesterol Ratio (LDL/HDL) (test code 1.5 = 89759-8) [facility] blood leukocyte count (number/volume)2019-09-13 12:10:00 Test Item Value Reference Range Interpretation Comments White Blood Count (test code = 13.4 10*3/uL 6690-2) [facility] erythrocytes automated count (number/volume)2019-09-13 12:10:00 Test Item Value Reference Range Interpretation Comments Red Blood Count (test code = 4.99 10*6/uL 789-8) [facility] hemoglobin measurement (mass/volume) 2019-09-13 12:10:00 Test Item Value Reference Range Interpretation Comments Hemoglobin (test code = 718-7) 13.1 g/dL [facility] hematocrit (volume fraction) 2019-09-13 12:10:00 Test Item Value Reference Range Interpretation Comments Hematocrit (test code = 4544-3) 43.5 % [facility] erythrocyte mean corpuscular volume (MCV) [id number] 12:10:00 Test Item Value Reference Range Interpretation Comments Mean Corpuscular Volume (test code = 87.2 fL 787-2) [facility] mean corpuscular hemoglobin (mass per erythrocyte)2019-09-13 12:10:00 Test Item Value Reference Range Interpretation Comments Mean Corpuscular Hemoglobin (test 26.3 pg code = 785-6) [facility] erythrocyte mean corpuscular hemoglobin concentration measurement (mass/[id number] 12:10:00 Test Item Value Reference Range Interpretation Comments Mean Corpuscular Hemoglobin Concent 30.1 g/dL (test code = 786-4) [facility] erythrocyte distribution width [id number] 12:10:00 Test Item Value Reference Range Interpretation Comments Red Cell Distribution Width (test code 16.6 % = 788-0) [facility] blood platelet count (count/volume) 2019-09-13 12:10:00 Test Item Value Reference Range Interpretation Comments Platelet Count (test code = 540 10*3/uL 777-3) [facility] blood platelet mean volume [id number] 12:10:00 Test Item Value Reference Range Interpretation Comments Mean Platelet Volume (test code = 9.9 fL 07925-4) [facility] comment [id number] 12:10:00 Test Item Value Reference Range Interpretation Comments Manual Differential (test code = ----- 8265-1) [facility] blood segmented neutrophils/100 [id number] 12:10:00 Test Item Value Reference Range Interpretation Comments Neutrophils % (Manual) (test code = 83 % 769-0) [facility] blood lymphocytes/100 leukocytes 2019-09-13 12:10:00 Test Item Value Reference Range Interpretation Comments Lymphocytes % (Manual) (test code = 11 % 737-7) [facility] blood monocytes/100 leukocytes 2019-09-13 12:10:00 Test Item Value Reference Range Interpretation Comments Monocytes % (Manual) (test code = 4 % 744-3) [facility] blood eosinophil count as percentage of total [id number] 12:10:00 Test Item Value Reference Range Interpretation Comments Eosinophils % (Manual) (test code = 2 % 714-6) [facility] platelet detection by light microscopy 2019-09-13 12:10:00 Test Item Value Reference Range Interpretation Comments Platelet Estimate (test code = Adequate 9317-9) [facility] finding [id number] 12:10:00 Test Item Value Reference Range Interpretation Comments Red Blood Cell Morphology (test code = Normal 6742-1) [facility] in platelet poor plasma 2019-09-13 12:10:00 Test Item Value Reference Range Interpretation Comments Prothrombin Time (test code = 5902-2) 12.7 s [facility] Platelet poor plasma by Coagulation [id number] 12:10:00 Test Item Value Reference Range Interpretation Comments Prothromb Time International 1.1 {ratio} Ratio (test code = 6301-6) [facility] partial thromboplastin time (PTT) 2019-09-13 12:10:00 Test Item Value Reference Range Interpretation Comments Activated Partial Thromboplast Time 37.7 s (test code = 03065-3) [facility] sodium measurement (moles/volume)2019-09-13 12:10:00 Test Item Value Reference Range Interpretation Comments Sodium Level (test code = 2951-2) 142 mmol/L [facility] plasma potassium measurement (moles/volume)2019-09-13 12:10:00 Test Item Value Reference Range Interpretation Comments Potassium Level (test code = 3.5 mmol/L 2823-3) [facility] or plasma chloride measurement (moles/volume)2019-09-13 12:10:00 Test Item Value Reference Range Interpretation Comments Chloride Level (test code = 104 mmol/L 2074-0) [facility] total carbon dioxide measurement (moles/volume)2019-09-13 12:10:00 Test Item Value Reference Range Interpretation Comments Carbon Dioxide Level (test code = 28 mmol/L 2028-02) [facility]abolic [id number] 21:35:55 Test Item Value Reference Range Interpretation [...] A/G 1.6 ratio N Ratio) Comprehensive Metabolic [id number] 21:35:55 Test Item Value Reference Range Interpretation [...] the National Kidney Foundation, http://nkdep.ni h.gov Lipid [id number] 21:35:55 Test Item Value Reference Range Interpretation Comments Cholesterol Total 188 mg/dL 0-200 RISK OF HE ART (test code = DISEASEPublishe d by Cholesterol Total) [place] [employer] Charley [facility]te [facility] Border[facility] ine [...] LDL/HDL Ratio=L DL Calc/HDL Chol Comprehensive Metabolic [id number] 21:35:55 Test Item Value Reference Range Interpretation [...] ag e have not been validated by [facility] MDRD study and should be interpreted wit [...] ag e have not been validated by [facility] MDRD study and should be interpreted wit h caution. eGFR R esult Interpretation: eGFR > or = 60 is in the Normal RangeeGF R < 60 may mean kid giovanni diseaseeGFR < 1 5 may mean kidney failure Rang es recommended by the National Kidney Foundation, http://nkdep.ni h.gov Complete Blood Count with [id number] 21:32:55 Test Item Value Reference Range Interpretation [...] code = IPF) 0 % N Automated [id number] 21:32:55 Test Item Value Reference Range Interpretation Comments Neutro Auto (test code = Neutro 67.0 % 36.0-70.0 Auto) Lymph Auto (test code = Lymph Auto) 20.5 % 12.0-44.0 [facility] Auto (test code = [facility] Auto) 6.5 % 0.0-11.0 Eos, Auto (test code = Eos, Auto) 3.7 % 0.0-7.0 Basophil Auto (test code = Basophil 1.5 % 0.0-2.0 Auto) Neutro Absolute (test code = Neutro 6.4 x10 1.6-7.4 Absolute) Lymph Absolute (test code = Lymph 1.96 x10 .50-4.60 Absolute) [facility] Absolute (test code = [facility] .62 x10 .00-1.20 Absolute) Eos Absolute (test code = Eos 0.35 x10 0.00-0.74 Absolute) Baso Absolute (test code = Baso 0.14 x10 0.00-0.21 Absolute) IG [id number] 21:32:55 Test Item Value Reference Range Interpretation Comments IG (test code = IG) 0.8 % 0.0-5.0 IG Abs (test code = IG Abs) 0 x10 N XR Chest 1 View [id number] 09:09:53Patient: OZZY MEI Date/Time06/03/2018 09:02 CSTReason for [...]
[2021-08-17] MEDS ORDERED: ONDANSETRON 4 MG/2 ML VIAL ONE (10:13)
[2021-08-17] MEDS ORDERED: NA CHLORIDE 0.9% 250 ML ONE (10:20)
[2021-08-17] MEDS ORDERED: PANTOPRAZOLE 40 MG INJ ONE (10:20)
--- NOTE | 2021-08-17 10:39 | RAD REPORT ---
EXAM DESCRIPTION: CT - Head Brain Wo Cont - 08/17/2021 10:20 am CLINICAL HISTORY: Alteration of awareness/confusion COMPARISON: None TECHNIQUE: Computed axial tomography of the head was obtained. IV contrast was not requested. All CT scans are performed using dose optimization technique as appropriate and may include automated exposure control or mA/KV adjustment according to patient size. FINDINGS: An intracranial bleed is not seen . The ventricles are normal in caliber. No extra-axial fluid collection is noted. Mild to moderate low-density areas periventricular, deep an d subcortical white matter probably ischemic changes secondary to small vessel disease Mild to moderate low-density left frontal lobe. Moderate low-density left parietal lobe. 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 Opacification right maxillary sinus consistent with sinusitis. Mild sphenoid sinusitis IMPRESSION: No acute intracranial abnormality is seen. If patient's symptoms persist MRI of the bra in would be recommended.
[2021-08-17 10:49] LABS: Absolute Lymphocytes (CBC) 1.1 K/uL (0.7-4.9); Hematocrit 29.9 % (36.0-45.0); RBC Red Blood Cell Count 4.62 M/uL (3.86-4.86)
[2021-08-17 11:07] LABS: Albumin 3.5 g/dL (3.4-5.0); Bilirubin Direct 0.1 mg/dL (0-0.2); Bilirubin Total 0.4 mg/dL (0.2-1.0); Potassium 3.5 mmol/L (3.5-5.1); Protein, Total 7.2 g/dL (6.4-8.2)
[2021-08-17 11:18] LABS: Urine Blood Negative (Negative); Urine Glucose Negative (Negative); Urine Protein 1+ (Negative); Urine Specific Gravity 1.025 (1.005-1.030)
[2021-08-17 11:35] LABS: Urine Amorphous Sediment 1+ /HPF (NONE SEEN); Urine Bacteria 20-50 /HPF (<20); Urine Mucus 2+ /HPF (NONE SEEN); Urine RBC <5 /HPF (NONE SEEN); Urine Urothelial Cells <5 /HPF (NONE SEEN)
--- NOTE | 2021-08-17 11:47 | ER ---
Nurse's Notes [facility] Name: Cleo Norton Age: 76 yrs Sex: Female : 1945 Arrival Date: 08/17/2021 Time: 09:42 Bed 4 Private MD: Diagnosis: UTI/ Urinary tract infection, site not specified;Hematemesis Presentation: 08/17 09:50 Chief complaint: Patient states: Started vomiting last night and family noticed she had ww blood this morning. Had a left heart cath on Wednesday and has had a headache since then. Daughter states she has been having more trouble with her words. Coronavirus screen: Vaccine status: Patient reports receiving the 2nd dose of the covid vaccine. Ebola Screen: Patient denies travel to an Ebola-affected area in the 21 days before illness onset. Initial Sepsis Screen: Does the patient meet any 2 criteria? No. Patient's initial sepsis screen is negative. Does the patient have a suspected source of infection? No. Patient's initial sepsis screen is negative. Risk Assessment: Do you want to hurt yourself or someone else? Patient reports no desire to harm self or others. Onset of symptoms was August 16, 2021. 09:50 Method Of Arrival: Ambulatory 09:50 Acuity: RAQUEL 3 ww Triage Assessment: 09:57 General: Appears comfortable, Behavior is calm, cooperative. Pain: Complains of pain in ww forehead and mouth. EENT: Reports pain since in throat and headache. Neuro: Level of Consciousness is awake, alert, obeys commands, Oriented to person, place, time, situation, Speech is normal. Cardiovascular: Capillary refill. Respiratory: Airway is patent Respiratory effort is even, unlabored, Respiratory pattern is regular, symmetrical. GI: Reports constipation, vomiting. : No signs and/or symptoms were reported regarding the genitourinary system. Derm: No signs and/or symptoms reported regarding the dermatologic system. Skin is thin, Skin is normal. Historical: - Allergies: 09:54 No Known Allergies; ww - PMHx: 09:54 Atrial Fib; Cerebrovascular accident; Coronary atherosclerosis; ww 09:57 gastric ulcer; Hypertensive disorder; ww - PSHx: 09:57 Colon resection; spine-cyst removal; ww - Immunization history:: Adult Immunizations up to date. - Social history:: Smoking status: Patient denies any tobacco usage or history of. - Family history:: not pertinent. - Hospitalizations: : No recent hospitalization is reported. Screenin:02 Abuse screen: Denies threats or abuse. Denies injuries from another. Nutritional ww screening: No deficits noted. Tuberculosis screening: No symptoms or risk factors identified. Fall Risk None identified. Assessment: 10:41 General: Appears in no apparent distress. comfortable, Behavior is calm, cooperative. vg1 Pain: Complains of pain in head and throat Pain currently is 9 out of 10 on a pain scale. Pain began 1 day ago. Neuro: Level of Consciousness is awake, alert, obeys commands, Oriented to person, place, time, situation. Cardiovascular: Patient's skin is warm and dry. Respiratory: Airway is patent Respiratory effort is even, unlabored. GI: Abdomen is flat, non-distended, Last BM was August 10, 2021. Bowel sounds present X 4 quads. Reports nausea, vomiting, 'spec of blood in vomit' last night and 'bright red tinged blood' this morning Patient currently denies diarrhea. : No signs and/or symptoms were reported regarding the genitourinary system. EENT: Throat is clear. Derm: Skin is intact, is healthy with good turgor. Musculoskeletal: Circulation, motion, and sensation intact. 11:40 Reassessment: Patient appears in no apparent distress at this time. No changes from vg1 previously documented assessment. Patient and/or family updated on plan of care and expected duration. Pain level reassessed. Patient is alert, oriented x 3, equal unlabored respirations, skin warm/dry/pink. 12:40 Reassessment: Patient appears in no apparent distress at this time. No changes from vg1 previously documented assessment. Patient and/or family updated on plan of care and expected duration. Pain level reassessed. Patient is alert, oriented x 3, equal unlabored respirations, skin warm/dry/pink. 13:40 Reassessment: Patient appears in no apparent distress at this time. No changes from vg1 previously documented assessment. Patient and/or family updated on plan of care and expected duration. Pain level reassessed. Patient is alert, oriented x 3, equal unlabored respirations, skin warm/dry/pink. 14:00 Reassessment: attempted to call report. vg1 Vital Signs: 09:50 BP 159 / 67; Pulse 72; Resp 18; Temp 99.0; Pulse Ox 99% on R/A; Weight 68.04 kg; Height ww 5 ft. 5 in. (165.10 cm); 10:41 BP 148 / 97; Pulse 64; Resp 16; Pulse Ox 100% ; vg1 11:30 BP 161 / 69; Pulse 70; Resp 15; Pulse Ox 97% ; vg1 12:30 BP 140 / 71; Pulse 74; Resp 20; Pulse Ox 95% on R/A; vg1 13:00 BP 140 / 68; Pulse 70; Resp 20; Pulse Ox 98% on NC; vg1 13:30 BP 149 / 72; Pulse 65; Resp 19; Pulse Ox 98% ; vg1 09:50 Body Mass Index 24.96 (68.04 kg, 165.10 cm) ED Course: 09:42 Patient arrived in ED. as 09:47 Diego Diaz MD is Attending Physician. rn 09:54 Triage completed. ww 09:57 Arm band placed on right wrist. ww 10:11 Debora De Leon, RN is Primary Nurse. vg1 10:19 CT Head Brain wo Cont In Process Unspecified. EDMS 10:30 Initial lab(s) drawn, by sd, sent to lab. Inserted saline lock: 20 gauge in left vg1 antecubital area, using aseptic technique. Blood collected. 10:31 EKG done, by ED staff, reviewed by Diego Diaz MD. mb7 10:41 Patient has correct armband on for positive identification. Bed in low position. Call vg1 light in reach. Side rails up X2. Adult w/ patient. site monitor on. Pulse ox on. NIBP on. 11:47 Anders Diaz MD is Hospitalizing Provider. rn 15:22 No provider procedures requiring assistance completed. Patient admitted, IV remains in vg1 place. Administered Medications: 10:30 Drug: Zofran (Ondansetron) 4 mg Route: IVP; Site: left antecubital; vg1 11:39 Follow up: Response: No adverse reaction vg1 10:32 Drug: ProTONIX (pantoprazole) 40 mg Route: IVP; Site: left antecubital; vg1 11:39 Follow up: Response: No adverse reaction vg1 10:38 Drug: ProTONIX (pantoprazole) 8 mg/hr Route: IV; Rate: 25 ml/hr; Site: left antecubital;1 13:08 Follow up: Response: No adverse reaction; IV Status: Infusion continued upon admission jl7 11:50 Drug: Rocephin (cefTRIAXone) 1 grams Route: IV; Rate: calculated rate; Site: left [facility] antecubital; 11:55 Follow up: Response: No adverse reaction; IV Status: Completed infusion jl7 Outcome: 11:47 Decision to Hospitalize by Provider. rn 15:22 Admitted to Tele accompanied by tech, via wheelchair, room 203, with chart. vg1 15:22 Condition: good 15:22 Instructed on the need for admit. 15:22 Patient left the ED. 1 Signatures: Dispatcher [employer] Soumya Hopkins Roman, MD MD rn Leal, Jahala RN RN jl7 Debora De Leon RN RN vg1 Dorina Mckeon Whitney RN RN
--- NOTE | 2021-08-17 11:47 | EDPHYS ---
Physician Documentation [facility] Name: Cleo Norton Age: 76 yrs Sex: Female : 1945 Arrival Date: 08/17/2021 Time: 09:42 Bed 4 Private MD: ED Physician Diego Diaz HPI: 08/17 10:07 This 76 yrs old Female presents to ER via Ambulatory with complaints of Difficulty rn Swallowing, Vomiting - blood. 10:07 The patient presents to the emergency department vomiting blood, a small amount, bright rn red, coffee grounds in nature. Onset: The symptoms/episode began/occurred last night. Abdominal pain: none is appreciated. Modifying factors: The symptoms are alleviated by nothing, the symptoms are aggravated by nothing. Severity of symptoms: At their worst the symptoms were moderate in the emergency department the symptoms are unchanged. The patient has experienced similar episodes in the past. The patient has been recently seen by a physician:. Pt reports nausea/vomiting, since last night, no blood in first emesis, but subsequently had small amount of mixed bright red and dark blood. Has hx of gastric ulcers. Takes blood thinner for afib, does not recall which one. Denies dark or bloody stool, but has chronic GI issues and requires enemas for bowel movements. Denies trauma. Reports headache as well, for 4 days, following heart cath where no intervention was required. Daughter reports acting intermittently confused but waxes and wanes. . Historical: - Allergies: 09:54 No Known Allergies; ww - PMHx: 09:54 Atrial Fib; Cerebrovascular accident; Coronary atherosclerosis; ww 09:57 gastric ulcer; Hypertensive disorder; ww - PSHx: 09:57 Colon resection; spine-cyst removal; ww - Immunization history:: Adult Immunizations up to date. - Social history:: Smoking status: Patient denies any tobacco usage or history of. - Family history:: not pertinent. - Hospitalizations: : No recent hospitalization is reported. ROS: 10:07 Constitutional: Negative for fever, chills, and weight loss, Eyes: Negative for injury, rn pain, redness, and discharge, Neck: Negative for injury, pain, and swelling, Cardiovascular: Negative for chest pain, palpitations, and edema, Respiratory: Negative for shortness of breath, cough, wheezing, and pleuritic chest pain, Abdomen/GI: Negative for abdominal pain, diarrhea, and constipation, Back: Negative for injury and pain, : Negative for injury, bleeding, discharge, and swelling, MS/Extremity: Negative for injury and deformity, Skin: Negative for injury, rash, and discoloration, Neuro: Negative for weakness, numbness, tingling, and seizure. Exam: 10:07 Constitutional: This is a well developed, well nourished patient who is awake, alert, rn and in no acute distress. Sitting with legs crossed. Head/Face: Normocephalic, atraumatic. Eyes: Periorbital areas with no swelling, redness, or edema. ENT: dry MM, no oral bleeding or lesions noted. Cardiovascular: Regular rate and rhythm. No pulse deficits. Respiratory: Speaking full sentences. Clear speech. No increased work of breathing, no retractions or nasal flaring. Abdomen/GI: soft, non-tender Skin: Warm, dry MS/ Extremity: Pulses equal, no cyanosis. Neurovascular intact Neuro: Awake and alert, GCS 15, oriented to person, place, thought was 2020. Cranial nerves II-XII grossly intact. Motor strength 5/5 in all extremities. Sensory grossly intact. Speech clear and fluent. 12:57 ECG was reviewed by the Attending Physician. rn Vital Signs: 09:50 BP 159 / 67; Pulse 72; Resp 18; Temp 99.0; Pulse Ox 99% on R/A; Weight 68.04 kg; Height ww 5 ft. 5 in. (165.10 cm); 10:41 BP 148 / 97; Pulse 64; Resp 16; Pulse Ox 100% ; vg1 11:30 BP 161 / 69; Pulse 70; Resp 15; Pulse Ox 97% ; vg1 12:30 BP 140 / 71; Pulse 74; Resp 20; Pulse Ox 95% on R/A; vg1 13:00 BP 140 / 68; Pulse 70; Resp 20; Pulse Ox 98% on NC; vg1 13:30 BP 149 / 72; Pulse 65; Resp 19; Pulse Ox 98% ; vg1 09:50 Body Mass Index 24.96 (68.04 kg, 165.10 cm) ww MDM: 09:47 Patient medically screened. rn 11:38 Differential diagnosis: gastritis, gastric ulcer, estrella montiel tear. rn 11:45 Data reviewed: vital signs, nurses notes, lab test result(s), radiologic studies, CT rn scan, and as a result, I will admit patient. Counseling: I had a detailed discussion with the patient and/or guardian regarding: the historical points, exam findings, and any diagnostic results supporting the discharge/admit diagnosis, lab results, radiology results, the need for further work-up and treatment in the hospital. Response to treatment: the patient's symptoms have mildly improved after treatment, and as a result, I will admit patient. Admission orders: after a detailed discussion of the patient's condition and case, the admit orders are written by me. ED course: Pt with UTI and UGIB, no longer vomiting or hematemesis here, admitted to Dr. Diaz for abx and GI consult. Pt with hx of gastric ulcer. Ct head no acute findings.. 08/17 10:01 Order name: Basic Metabolic Panel; Complete Time: 11:38 rn 08/17 10:01 Order name: CBC with Diff; Complete Time: 12:17 rn 08/17 10:01 Order name: Hepatic Function; Complete Time: 11:38 rn 08/17 10:01 Order name: Lipase; Complete Time: 11:38 rn 08/17 10:01 Order name: Type And Screen rn 08/17 10:01 Order name: COVID-19/FLU A+B (Document "Date of Onset" if Symptomatic); Complete Time: rn 12:17 08/17 10:01 Order name: Urine Microscopic Only; Complete Time: 11:38 rn 08/17 10:53 Order name: CBC Smear Scan; Complete Time: 12:17 EDRI 08/17 11:17 Order name: Urine Dipstick-Ancillary; Complete Time: 11:38 EDRI 08/17 11:36 Order name: Urine Culture EDRI 08/17 11:55 Order name: ABO/RH no charge; Complete Time: 12:17 EDMS 08/17 13:20 Order name: CBC with Automated Diff EDMS 08/17 13:20 Order name: CBC with Automated Diff EDRI 08/17 10:01 Order name: CT Head Brain wo Cont; Complete Time: 10:51 rn 08/17 13:20 Order name: Comprehensive Metabolic Panel EDRI 08/17 13:20 Order name: Comprehensive Metabolic Panel EDRI 08/17 13:20 Order name: Magnesium EDMS 08/17 13:20 Order name: Magnesium EDMS 08/17 13:24 Order name: Vitamin B12 Level EDRI 08/17 13:25 Order name: Transferrin Sat/Iron Binding EDRI 08/17 13:27 Order name: Blood Culture EDRI 08/17 14:41 Order name: Protime (+INR) EDRI 08/17 14:41 Order name: PTT, Activated Partial Thromb EDRI 08/17 14:54 Order name: RAD [facility] 08/17 10:01 Order name: IV Saline Lock; Complete Time: 10:45 rn 08/17 10:01 Order name: Labs collected and sent; Complete Time: 10:45 rn 08/17 10:01 Order name: EKG; Complete Time: 10:01 rn 08/17 10:01 Order name: EKG - Nurse/Tech; Complete Time: 10:32 rn 08/17 10:01 Order name: Urine Dipstick-Ancillary (obtain specimen); Complete Time: 11:35 rn 08/17 13:18 Order name: CONS Physician Consult [facility] 08/17 13:20 Order name: NPO [facility] 08/17 13:27 Order name: Physical Therapy Consult [facility] 08/17 13:27 Order name: Speech Therapy Consult [facility] EC:57 Rate is 63 beats/min. Rhythm is regular. QRS [place] is Normal. OR interval is normal. QRS rn interval is normal. QT interval is normal. No Q waves. T waves are Normal. No ST changes noted. Clinical impression: Normal ECG. Interpreted by me. Reviewed by me. Administered Medications: 10:30 Drug: Zofran (Ondansetron) 4 mg Route: IVP; Site: left antecubital; vg1 11:39 Follow up: Response: No adverse reaction vg1 10:32 Drug: ProTONIX (pantoprazole) 40 mg Route: IVP; Site: left antecubital; vg1 11:39 Follow up: Response: No adverse reaction vg1 10:38 Drug: ProTONIX (pantoprazole) 8 mg/hr Route: IV; Rate: 25 ml/hr; Site: left antecubital;vg1 13:08 Follow up: Response: No adverse reaction; IV Status: Infusion continued upon admission jl7 11:50 Drug: Rocephin (cefTRIAXone) 1 grams Route: IV; Rate: calculated rate; Site: left vg1 antecubital; 11:55 Follow up: Response: No adverse reaction; IV Status: Completed infusion jl7 Disposition Summary: 08/17/21 11:47 Hospitalization Ordered Hospitalization Status: Inpatient Admission rn Provider: Anders Diaz rn Location: Telemetry/MedSurg (Inpatient) rn Condition: Stable rn Problem: new rn Symptoms: have improved rn Bed/Room Type: Standard rn Room Assignment: 203(08/17/21 13:45) em1 Diagnosis - UTI/ Urinary tract infection, site not specified rn - Hematemesis rn Forms: - Medication Reconciliation Form rn - SBAR form rn Signatures: Dispatcher [employer] EDMS Diego Diaz MD MD rn Martinez, Ran em1 Debora De Leon RN RN vg1 Xi Beltrán RN RN ww Court Guerrero RN jl7 Corrections: (The following items were deleted from the chart) 13:20 13:19 Blood Culture ordered. EDMS EDMS 13:25 13:24 Iron ordered. EDMS EDMS 13:45 11:47 rn em1
[2021-08-17] MEDS ORDERED: CEFTRIAXONE 1000 MG/VIAL ONE (11:49)
[2021-08-17 12:03] LABS: Anisocytosis 1+; Blood Morphology Comment NOTED (NOT SEEN); Platelet Estimate INCR; White Blood Cell Scan OK (OK)
[2021-08-17 12:04] LABS: Hypochromasia 2+; Poikilocytosis 1+; Polychromasia SLIGHT; Stomatocytes 1+
[2021-08-17 12:10] LABS: SARS-COV-2 RT PCR NEGATIVE (NEGATIVE)
[2021-08-17] MEDS ORDERED: ONDANSETRON 4 MG/2 ML VIAL IV PRN (13:18)
--- NOTE | 2021-08-17 13:33 | P.HP ---
Certification for Inpatient Patient admitted to: Inpatient Practitioner: I am a practitioner with admitting privileges, knowledge of patient current condition, hospital course, and medical plan of care. Services: Services provided to patient in accordance with Admission requirements found in Title 42 Section 412.3 of the Code of Federal Regulations Patient History Date of Service: 08/17/21 Reason for admission: UTI, anemia History of Present Illness: 76yo F, PMH: afib, prior CVAs (residual mild left-sided weakness, balance issues, intermittent word salad), COPD, HTN, anemia, anxiety, chronic back pain, claustrophobia, constipation, hard of hearing. Patient presents to the ER with complaints of vomiting bright red blood this morning. Patient is hard of hearing, HPI obtained from the daughter who is a nurse. Daughter states patient had a left heart cath 4 days ago, and ever since then she started with a headache, then just has not been "acting right", then this morning had vomiting. Second episode of emesis was slightly pink-tinged, and third episode was shayla blood, small amount. Daughter states patient has been having more chills lately, but has not been complaining about anything el se. Patient was not acting like herself when she was using a spatula to try to eat ice cream. Daughter also states in the last 1-2 days, patient has been coughing when eating/drinking. Daughter noticed patient coughing after trying some ice chips in the ER today. Recent heart catheterization revealed EF: 60 to 70%, 60 to 70% proximal LAD stenosis. Daughter states assignment clerk opted for medical management, currently only taking aspirin and they are to discuss anticoagulation this week in the office (Wednesday). In the ED, patient was noted to have a temperature of 99.0, leukocytosis of 16k, UA with WBCs and bacteria, and Hgb: 8.7 (baseline ~10). Daughter states patient is intolerable to p.o. iron supplements, and has required iron transfusion before, last done 9 months ago. - Past Medical/Surgical History -: Prior CVAsresidual mild left weakness, mild balance issues, word salad -: COPD -: A. fib not on anticoagulation -: HTN -: Anxiety and claustrophobia -: Chronic pain, from prior surgery -: Chronic constipation -: History of [place] syndrome -: Colon resection -: Spine cyst removal - Family History Family History: Reviewed- Non-Contributory - Social History Smoking Status: Never smoker Alcohol use: No Place of Residence: Home Review of Systems 10-point ROS is otherwise unremarkable Physical Examination - Physical Exam General: Alert, In no apparent distress, Oriented x3 HEENT: PERRLA, Mucous membr. moist/pink, Sclerae nonicteric Neck: Supple, No LAD Respiratory: Clear to auscultation bilaterally, Normal air movement Cardiovascular: No edema, Regular rate/rhythm Gastrointestinal: Soft and benign, Non-distended, No tenderness Musculoskeletal: No erythema, No tenderness Integumentary: No rashes, No significant lesion Neurological: Normal speech, Normal strength at 5/5 x4 extr, Cranial nerves 3-12 intact, Normal affect - Studies Laboratory Data (last 24 hrs) 08/17/21 10:30: WBC 16.10 H, Hgb 8.7 L, Hct 29.9 L, Plt Count 727 H 08/17/21 10:30: Sodium 141, Potassium 3.5, BUN 16, Creatinine 0.75, Glucose 123 H, Total Bilirubin 0.4, AST 8 L, ALT 15, Alkaline Phosphatase 102, Lipase 86 Assessment and Plan - Advance Directives Does patient have a Living Will: No Does patient have a Durable POA for Healthcare: No Physician Review Additional Text: Problem list Acute metabolic encephalopathy secondary to UTI Aspiration Hematemesis History of GERD, remote history of gastric ulcer History of CVAs with residual mild left weakness, balance issues, intermittent word salad COPD CAD A. fib, not on anticoagulation HTN Anemia, chronic, iron deficiency Anxiety, with claustrophobia Chronic painlower back after surgery Chronic constipation Patient's mentation/altered mental status appears mild in the ED at this time Most likely secondary to urinary tract infection, risk from likely intermittent cath during heart catheterization With history of CVAs, and recent heart catheterization, his risk for possible acute CVA. However CT is negative No focal findings on exam, will hold off on MRI at this time, neurology consulted at family's request Patient with leukocytosis, bacteria and WBCs in urine. Continue Rocephin for UTI Hematemesis, unclear from gastric ulcer or possible Keyonna-Arteaga from vomiting Vitals stable, hemoglobin not much off from baseline N.p.o., IV fluids, Protonix drip repeat H&H this evening Patient noted to cough with ice chips, and daughter expressed concern for similar episodes at home. N.p.o., speech therapy GI consulted Urine culture sent, obtain blood cultures VTE: SCDs Code: Full Dispo: Anticipate DC home in 2-3 days Time Spent Managing Pts Care (In Minutes): 60
[2021-08-17] MEDS: PANTOPRAZOLE INJ 80 MG in NA CHLORIDE 0.9% 250 ML IV SCH ×2 (14:00→22:24)
[2021-08-17 14:40] LABS: Protime INR 1.06
--- NOTE | 2021-08-17 14:53 | RAD REPORT ---
EXAM DESCRIPTION: Young Single View08/17/2021 2:37 pm CLINICAL HISTORY: Aspiration/cough COMPARISON: none FINDINGS: The lungs appear clear of acute infiltrate. The heart is borderline enlarged IMPRESSION: No acute abnormalities displayed
[2021-08-17] MEDS: MORPHINE 2 MG/ML SYR IV PRN ×2 (15:53→20:06)
[2021-08-17] MEDS: NA CHLORIDE 0.9% 1,000 ML IV SCH (15:53)
[2021-08-17] MEDS: SOD FERRIC GLUC COMPLX/SUCROSE 125 MG in NA CHLORIDE 0.9% 100 ML IV SCH (17:00)
[2021-08-17 18:23] LABS: Hematocrit 28.4 % (36.0-45.0); MPV 7.5 fL (7.6-11.3); RBC Red Blood Cell Count 4.38 M/uL (3.86-4.86)
[2021-08-18] MEDS: NA CHLORIDE 0.9% 1,000 ML IV SCH ×3 (01:06→21:44)
[2021-08-18 05:46] LABS: Absolute Lymphocytes (CBC) 2.2 K/uL (0.7-4.9); Hematocrit 25.5 % (36.0-45.0); Lymphocytes % 17.7 % (15.3-44.8); MPV 8.1 fL (7.6-11.3); RBC Red Blood Cell Count 3.85 M/uL (3.86-4.86)
[2021-08-18] MEDS ORDERED: NA CHLORIDE 0.9% 250 ML IV SCH (06:00)
--- NOTE | 2021-08-18 06:05 | P.PN ---
Date of Service: 08/18/21 Subjective: no further hematemesis, no vomiting feels slightly better hgb down trending no BM yet, +flatus yesterday ROS: 10 point ROS as noted above, otherwise negative Physical exam GEN: AOx3, NAD HEENT: Normal conjunctiva, sclera anicteric CV: Regular rate and rhythm, no edema Pulm: Non-labored respirations on room air ABD: Soft, nontender, nondistended Neuro: Normal speech, normal affect, normal strength 5/5x 4 Problem list Acute metabolic encephalopathy secondary to UTI Aspiration concern Hematemesis History of GERD, remote history of gastric ulcer History of CVAs with residual mild left weakness, balance issues, intermittent word salad COPD CAD A. fib, not on anticoagulation HTN Anemia, chronic, iron deficiency Anxiety, with claustrophobia Chronic painlower back after surgery Chronic constipation improving likely secondary to UTI With history of CVAs, and recent heart catheterization, has risk for possible acute CVA. However CT is negative No focal findings on exam, will hold off on MRI at this time, neurology consulted Patient with leukocytosis, bacteria and WBCs in urine. Continue Rocephin for UTI Hematemesis, unclear from gastric ulcer or possible Keyonna-Arteaga from vomiting vitals stable, hgb downtrending, transfuse 2u PRBC N.p.o., IV fluids, Protonix drip Patient noted to cough with ice chips, and daughter expressed concern for similar episodes at home. N.p.o., speech therapy to eval today GI consulted may need EGD tomorrow Urine culture sent, obtain blood cultures VTE: SCDs Code: Full Dispo: Anticipate DC home in 2-3 days Time Spent Managing Pts Care (In Minutes): 35
[2021-08-18 06:07] LABS: ALT/SGPT 11 U/L (12-78); AST/SGOT 8 U/L (15-37); Albumin 2.8 g/dL (3.4-5.0); Alkaline Phosphatase 85 U/L (45-117); BUN Blood Urea Nitrogen 13 mg/dL (7-18); Bicarbonate 29 mmol/L (21-32); Bilirubin Total 0.4 mg/dL (0.2-1.0); Glucose Level 102 mg/dL (74-106); Potassium 3.4 mmol/L (3.5-5.1); Protein, Total 5.7 g/dL (6.4-8.2); Sodium Level 143 mmol/L (136-145)
[2021-08-18] MEDS ORDERED: CEFTRIAXONE 1000 MG/VIAL ONE (08:26)
[2021-08-18] MEDS: NA CHLORIDE 0.9% 100 ML ONE ×2 (08:28)
[2021-08-18] MEDS: CEFTRIAXONE 1,000 MG in NA CHLORIDE 0.9% 50 ML IVPB SCH ×2 (08:57→09:00)
[2021-08-18] MEDS: KCL 20 MEQ/100 mL IVPB 20 MEQ/100 ML BAG IV SCH ×2 (08:57→10:00)
[2021-08-18] MEDS: LORazepam 2 MG/ML VIAL IV PRN (08:58)
[2021-08-18] MEDS: MORPHINE 2 MG/ML SYR IV PRN ×2 (08:58→23:19)
[2021-08-18] MEDS: NA CHLORIDE 0.9% 50 ML ONE ×2 (09:13)
--- NOTE | 2021-08-18 09:43 | RAD REPORT ---
EXAM DESCRIPTION: CT - Abdomen Pelvis W Contrast - 08/18/2021 9:16 am CLINICAL HISTORY: lower abd pain, hematemesis, constipation, history of rectal or perirectal surgery COMPARISON: Abdomen Pelvis W Contrast dated 12/23/2020 TECHNIQUE: Biphasic, helical CT imaging of the abdomen and pelvis was performed following 100 ml non -ionic IV contrast. No oral contrast was administered. All CT scans are performed using dose optimization technique as appropriate and may include automated exposure control or mA/KV adjustment according to patient size. FINDINGS: No acute pleural or parenchymal findings in the posterior lung bases. No cardiomegaly or p ericardial effusion. Large hiatal hernia is present with approximately 25% of the stomach intrathoracic. Distal most esoph ashley valladares are slightly thickened may be the affects of the herniated stomach. Findings are similar t o the November 2020 study. Liver size is normal with no focal lesion identified. Spleen is normal in appearance and stable. No p ancreatic or peripancreatic mass identifiable. Gallbladder and biliary tree are also without suspicio us finding. Gallstones can be occult on CT imaging. No portal vein abnormality seen. Symmetric renal function is seen with no hydronephrosis or suspicious renal mass. No pyelonephritis o r acute parenchymal process. No bladder abnormalities. No adrenal abnormalities. No change to the point lay ira skyler or atrophic ovaries. No gastric dilatation or gastric wall thickening. Assessment is limited with this degree of hiatal he rnia no dilated small bowel or acute small bowel finding. Again noted is a large stool volume filling the colon. There is distention of the colon at several locations. Rectal dilatation is less pronounc ed measuring 6 cm. There is increased soft tissue in the perianal region. The nature of the patient's anal or perianal surgery is not known. The amount of soft tissue at this site has not changed since November 2020. No free air, free fluid or inflammatory stranding. No hernia, mass or bulky lymphadenopathy. Lumbar spine degenerative changes are present. Partial compression fractures spanning T9-L1 are stabl e from the November imaging. No pathologic bone component seen. IMPRESSION: Postsurgical changes are present in the perianal region with increased soft tissue in th e perirectal and perianal region. The increased rectal/perianal soft tissue may all be related to postsurgical change. Mass lesion juan c ot be excluded but there is no evidence for a progressive process. Large stool volume filling and distending the colon. Rectal dilatation of 6 cm is present, decreased from the November study.
[2021-08-18] MEDS: SOD FERRIC GLUC COMPLX/SUCROSE 125 MG in NA CHLORIDE 0.9% 100 ML IV SCH (10:30)
[2021-08-18] MEDS ORDERED: NA CHLORIDE 0.9% 250 ML ONE (10:31)
[2021-08-18 10:57] LABS: Platelet Estimate INCR
[2021-08-18 10:58] LABS: Anisocytosis 1+; Blood Morphology Comment NOTED (NOT SEEN); Hypochromasia 2+; Polychromasia SLIGHT
[2021-08-18] MEDS: PANTOPRAZOLE INJ 80 MG in NA CHLORIDE 0.9% 250 ML IV SCH ×4 (11:00→21:44)
[2021-08-18] MEDS: FLEET ENEMA ADULT PR PRN (11:29)
[2021-08-18] MEDS ORDERED: KCL 20 MEQ/100 mL IVPB 20 MEQ/100 ML BAG IV SCH (16:00)
[2021-08-18] MEDS: CODEINE 30MG/APAP 300MG TAB PO PRN (18:42)
[2021-08-18] MEDS ORDERED: LACTULOSE 20 GM/30 ML UCUP PO ONE (20:45)
[2021-08-18] MEDS: AMITRIPTYLINE 10 MG TAB PO SCH (21:44)
--- NOTE | 2021-08-18 22:08 | CON ---
Reason For Consultation: Consultation called because of episodic confusion. History Of Present Illness: Ms. Norton is a 76-year-old patient with coronary artery disease who is j ust status post left heart catheterization 1 week ago, Wednesday, who has had, per her daughter who w as at the bedside, episodes of disorientation, confusion and word salad when communicating. These ep isodes occurred on Wednesday, , Wednesday over the weekend. Earlier in the morning yesterday, t he patient apparently woke up and had vomiting at least 4 times and the last time there was emesis wi th pink-tinged blood, but had a small amount of actually red blood come up. The patient was brought back to the hospital and her hemoglobin on admission was 8.7 and she is down to 8.2 and by earlier to day 7.3. She did have 2 units of blood given and at the time of my evaluation was receiving 2 units of blood. Her white blood cell count was elevated at 16.1 and her urinalysis showed 20-50 white bloo d cells, 20-50 bacteria, 3+ esterase, consistent with a possible urinary tract infection for which sh isiah received 1 g of Rocephin already and that is set up for daily. In addition, an abdomen and pelvis CT scan identified a large amount of stool in the rectum with dilatation of 6 cm. The patient's daug hter said she often has a stool every 3-5 days, but now it has been 8 days without a bowel movement. She is to receive an enema after completing 2 units of blood and then will have a brain MRI and EEG. At the time of my evaluation, the patient is disoriented to the day of the week, the date and the loc ation. She did follow simple commands without much difficulty. Her head CT scan was negative for an y acute ischemic or hemorrhagic change. Past Medical History: As noted including COPD, atrial fibrillation, hypertension, anxiety in additio n to prior stroke with residual left-sided weakness, incoordination, chronic pain, chronic constipati on, [place] Syndrome and also partial colon resection and spinal cyst removal. Family History: Noncontributory. Allergies: NO KNOWN DRUG ALLERGIES. Medications: Elavil 10 mg 3 times a day. Norvasc 10 mg daily. Ferrous sodium gluconate 125 mg IV, being received. Pantoprazole 80 mg IV every 10 hours. Potassium 20 mEq every 2 hours as needed. She has a Fleets enema. Review of Systems: Per daughter at bedside. Confusion, disorientation, word salad and some difficulty with residual wea kness. Daughter says it actually it feels diffuse on her right side. Otherwise, no other positives on systems review, aside from the constipation. Physical Examination: Vital Signs: Blood pressure 146/65, pulse up to 91, respiratory rate 16, temperature is 97.4, oxygen saturation 98% on room air. Weight 151 pounds, height 5 feet 5 inches, BMI 25.2. General: Ms. Norton is lying in bed. She is in no acute distress. She is receiving blood transfusio n and has IVs following. HEENT: She is normocephalic, atraumatic. Sclerae anicteric. Oropharynx is pink and moist. Neck: Supple. Chest: Clear. Heart: Regular. Extremities: No significant edema, cyanosis, or clubbing. Neurologic: She is alert and oriented to person, but not to the exact place, day of the week and haily e. She did follow simple commands without difficulty. She recalled 2 of 3 words after 5 minutes. S he had difficulty spelling the word world backwards, but she can repeat appropriately. She can name objects appropriately. On motor examination, no focal weakness in the upper and lower extremities de spite history of stroke as noted. On sensory exam, stocking-glove loss to light touch and temperatur e. Symmetric reflexes. In terms of gait, she will be ambulated with the physical therapist, rae juárez early on she was able to ambulate 300 feet without the use of an assistive device and had a good st ride length. She did have some left foot steppage gait from the prior stroke. Assessment: Ms. Norton is a 76-year-old patient with history of chronic stroke and severe anemia due to possibly multiple reasons. She did have emesis with blood. She has significant constipation of 8 -9 days and has episodic confusion. Plan: 1.Followup brain MRI to rule out stroke. 2.Followup EEG. 3.Continue with blood transfusion as appropriate. 4.Continue with antibiotic treatment for urinary tract infection. 5.She does have very low iron level of 15 and she is receiving iron as appropriate. B12 was normal at 934. Liver function studies were normal. COVID-19 test was negative. The patient may require ag gressive physical therapy to help recover along with speech therapy to help with her cognitive issues . She may be a candidate for inpatient rehabilitation depending on the findings of MRI, if there is a new stroke. The patient will be followed once MRI and EEG are done. CASEY/SANTIAGO Voice ID: [id number] Report ID: [id number]
[2021-08-18 23:58] LABS: Hematocrit 31.2 % (36.0-45.0)
[2021-08-19] MEDS: LORazepam 2 MG/ML VIAL IV PRN ×2 (02:12→15:04)
[2021-08-19] MEDS: HYDRALAZINE HCL 20 MG/ML VIAL IV PRN ×2 (03:19→10:27)
[2021-08-19 05:46] LABS: Absolute Lymphocytes (CBC) 2.1 K/uL (0.7-4.9); Lymphocytes % 15.4 % (15.3-44.8); MPV 8.1 fL (7.6-11.3)
[2021-08-19 06:02] LABS: Potassium 3.4 mmol/L (3.5-5.1)
[2021-08-19] MEDS: NA CHLORIDE 0.9% 1,000 ML IV SCH ×2 (06:09→16:00)
[2021-08-19] MEDS: MORPHINE 2 MG/ML SYR IV PRN ×3 (07:37→21:38)
[2021-08-19 08:22] LABS: Anisocytosis 1+; Blood Morphology Comment NOTED (NOT SEEN); Hypochromasia 1+; Platelet Estimate INCR; Polychromasia 1+
[2021-08-19] MEDS ORDERED: POTASSIUM CL SA 10 MEQ TAB PO ONE (09:00)
[2021-08-19] MEDS: AMITRIPTYLINE 10 MG TAB PO SCH ×3 (10:12→21:36)
[2021-08-19] MEDS: AMLODIPINE 10 MG TAB PO SCH (10:12)
[2021-08-19] MEDS: SOD FERRIC GLUC COMPLX/SUCROSE 125 MG in NA CHLORIDE 0.9% 100 ML IV SCH (10:13)
[2021-08-19] MEDS: PANTOPRAZOLE INJ 80 MG in NA CHLORIDE 0.9% 250 ML IV SCH ×2 (10:51→20:30)
[2021-08-19] MEDS ORDERED: EPINEPHRINE/PF 1 MG/ML AMP ONE (12:34)
[2021-08-19] MEDS ORDERED: LIDOCAINE 1% MPF 5 ML VIAL ONE (12:49)
[2021-08-19] MEDS ORDERED: propofoL 200 MG/20 ML VIAL IV ONE (12:49)
[2021-08-19] MEDS ORDERED: NA CHLORIDE 0.9% 1,000 ML ONE (13:26)
--- NOTE | 2021-08-19 13:33 | ENDO RPT ---
[address], [address] EGD PROCEDURE REPORT EXAM DATE: 08/19/2021 PATIENT NAME: Cleo Norton MR#: [id number] BIRTHDATE: 1945 ATTENDING: iTm Mccain Dr STATUS: inpatient - [facility] ANIMAL SURGEON: Elisa Chavarria RN and Salome Cerda CST INDICATIONS: The patient is a 76 yr old Female here for an EGD due to hematemesis and anemia PROCEDURE PERFORMED: EGD with biopsy MEDICATIONS: Per Anesthesia. TOPICAL ANESTHETIC: none CONSENT: The patient understands the risks and benefits of the procedure and understands that these risks include, but are not limited to: sedation, allergic reaction, infection, perforation and/or bleeding. Alternative means of evaluation and treatment include, among others: physical exam, x-rays, and/or surgical intervention. The patient elects to proceed with this endoscopic procedure. DESCRIPTION OF PROCEDURE: During intra-op preparation period all mechanical medical equipment was checked for proper function. Hand hygiene and appropriate measures for infection prevention was taken. Procedure, possible complications, and alternatives including but not limited to the possibility of bleeding, perforation, tear, infection, sepsis, need for surgery, need for blood transfusion, and anesthesia related complications were explained to the patient. After the risks, benefits and alternatives of the procedure were thoroughly explained, Informed consent was verified, confirmed and timeout was successfully executed by the treatment team. The patient was placed in the left lateral position. The patient was anesthetized with topical anesthesia. Through the anesthetized oropharyngeal area, the scope was passed without any difficulty. The EG-[id number] ([id number]) endoscope was introduced through the mouth and advanced to the second portion of the duodenum. Retroflexed views revealed a large hiatal hernia. The gastroscope was then slowly withdrawn and removed. Multiple (4) 4-7 mm clean-based ulcers were found in the lower esophagus. Multiple biopsies were obtained and sent to pathology. A large hiatal hernia (6 cm, DI at 40 cm, GEJ at 34 cm from the gums)was found. Mild atrophic gastritis was found in the body of the stomach. Multiple biopsies were obtained and sent to pathology. Multiple (3) linear 3-30 mm erosions were found in the body of the stomach. ADVERSE EVENTS: There were no complications. IMPRESSIONS: 1. Multiple (4) 4-7 mm clean-based ulcers in the lower esophagus 2. Large hiatal hernia (6 cm, DI at 40 cm, GEJ at 34 cm from the gums) 3. Mild Atrophic gastritis was found in the body of the stomach 4. Multiple (3) linear 3-30 mm erosions in the body of the stomach along edge of large hernia -> Lionel's erosions RECOMMENDATIONS: 1. await biopsy results 2. acid suppression therapy REPEAT EXAM: Tim Mccain Dr eSigned: Tim Mccain Dr 08/19/2021 1:33 PM cc: CPT CODES: ICD9 CODES: PATIENT NAME: Cleo Norton MR#: [id number]
--- NOTE | 2021-08-19 14:20 | P.PN ---
Subjective Date of Service: 08/19/21 Chief Complaint: UTI, anemia Patient is awake and alert. She is complaining of constipation. No bowel movement for more than 10 days. Daughter states patient gets constipated for instructor of 4 to 5 days before bowel movement. She reports occasional shortness of breath. No more vomiting. She denies nausea. Physical Examination - Vital Signs Temperature: 98.6 F Blood Pressure: 146/72 Pulse: 95 Respirations: 18 Pulse Ox (%): 99 - Studies Microbiology Data (last 24 hrs): 08/17/21 11:10 Clean Catch Urine [place] Count - Final BETWEEN 10,000 & 100,000 CFU/ML 08/17/21 11:10 Clean Catch Urine - Final Escherichia Coli Assessment And Plan - Plan Physical exam GEN: AOx3, NAD HEENT: Normal conjunctiva, sclera anicteric CV: Regular rate and rhythm, no edema Pulm: Non-labored respirations on room air ABD: Soft, nontender, nondistended Neuro: Normal speech, normal affect, normal strength 5/5x 4 Problem list Acute metabolic encephalopathy secondary to UTI Aspiration concern Hematemesis History of GERD, remote history of gastric ulcer History of CVAs with residual mild left weakness, balance issues, intermittent word salad COPD CAD A. fib, not on anticoagulation HTN Anemia, chronic, iron deficiency Anxiety, with claustrophobia Chronic painlower back after surgery Chronic constipation AMS resolved. With history of CVAs, and recent heart catheterization, has risk for possible acute CVA. However CT is negative Seen by Dr. Keyes. MRI of the brain requested per Dr. Keyes's recommendation. Patient with leukocytosis, bacteria and WBCs in urine. Leukocytosis improved. Urine culture grew E. coli. She received a single dose of IV Rocephin for UTI. Hematemesis, unclear from gastric ulcer or possible Keyonna-Arteaga from vomiting. Seen by GI and plan for EGD today. Status post 2u PRBC transfusion. Posttransfusion hemoglobin is 9.5. Continue Protonix. Mag citrate for constipation. VTE: SCDs Code: Full
[2021-08-19] MEDS ORDERED: LORazepam 2 MG/ML VIAL IV ONE (17:00)
[2021-08-19] MEDS: CODEINE 30MG/APAP 300MG TAB PO PRN (17:28)
--- NOTE | 2021-08-19 17:47 | CON ---
Date of Consultation: 08/19/2021 Reason For Consultation: Hematemesis, microcytic anemia. History Of Present Illness: The patient is a 76-year-old white female with history of hypertension, hyperlipidemia, COPD, prior strokes, atrial fibrillation, anxiety, claustrophobia. The patient prese nted to the hospital with UTI, anemia, and also gave a history of hematemesis. The patient states on the day of admission, she was having marked nausea and vomiting that resulted in retching and subseq uently she had hematemesis of approximately 2 hours after the nausea and vomiting started. The patie nt states her last colonoscopy was approximately 2 years ago in 2019 with 1 colon polyp resected. Jw joyce does not recall prior EGD, though she does note that she has a history of ulcers. She is not sure exactly how she has that. She denies any melena, hematochezia, coffee-grounds emesis, though she nascimento s have hematemesis. No hemoptysis, hematuria, dysuria, polyuria, polydipsia. Past Medical History: Significant for hypertension, atrial fibrillation and not on coagulation, anxi ety, claustrophobia, COPD, prior strokes with residual left weakness, balance issues, chronic pain fr om prior surgeries, chronic constipation, history of Jefferson syndrome with colon resection, and multi ple rectal surgeries she reports x6, and spine cyst removal. Social History: She is a and currently lives with her boyfriend. No tobacco. Rare alcohol. No biologic children. She did adopt 1 child. Family History: Father of lung cancer from tobacco use. Mother of lung cancer from tobacc o use as well. Review of Systems: The patient has nausea, vomiting, hematemesis. She denies any syncope, presyncope, muscle aches, zane nt aches, backaches, melena, hematochezia, coffee-grounds emesis, though she does have hematemesis. She denies any hematuria, dysuria, polyuria, polydipsia, hemoptysis, epistaxis. She has not seen any blood since admission. She denies muscle aches, joint aches, backaches, though she does have depres abril, anxiety. No chest pain, shortness of breath, seizure, syncope. Physical Examination: Vital Signs: The patient is 5 feet 5 inches, 151 pounds, BMI of 25.2. She has temperature of 98.9 d egrees Fahrenheit, pulse 93, respirations 18, blood pressure 109/82, O2 saturation 95%. General: She is an elderly female, lying in bed, in no acute distress. HEENT: Normocephalic, atraumatic. Anicteric. Pupils equal, round, and reactive to light. Extraocu lar movements intact. Oropharynx is clear. Neck: Supple. No masses. Respirations: Clear to auscultation bilaterally. Cardiac: Regular rate and rhythm. No gallops or rubs. Gastrointestinal: Positive bowel sounds. Soft, nontender, nondistended. No hepatosplenomegaly. Sh e did have some slight tenderness in the right and left lower quadrants. Extremities: No clubbing, cyanosis, or edema. 2+ pulses. Neuro: Alert and oriented x3. Grossly nonfocal. 5/5 motor. Sensation intact to light touch. Laboratory Data: The patient on admission had a hemoglobin of 8.7 and dropped to 7.3, two units were given, now it is 9.5 with a white count of 13.7 down from 16.5 two days ago. MCV with her hemoglobi n of 7.3 with 66.3, platelet count of 587 indicative of bleeding. Polys 67%, lymphocytes 18%, monocy kaelyn 6%, eosinophils 5%, basophils 3%. PT of 12.2, INR of 1.06, PTT of 28.3. The patient has a sodiu m of 144, potassium of 3.4, chloride 113, bicarb 27, BUN of 8, creatinine of 0.67, glucose 96, calciu m 8.9, magnesium 2.0. Iron saturation of 3.7% . Total bilirubin 0.4, AST of 8, ALT 11, al kaline phosphatase 85, total protein 5.5, albumin 2.8, globulin 2.9, B12 of 934 and normal. UA showe d 3+ leukocyte esterase, 20-50 white blood cells, less than 5 squamous epithelial cells, 1+ protein, 3+ leukocyte esterase, negative nitrite, positive urinalysis. Influenza type A and B were negative. COVID-19 testing was negative as well. Imaging: CT abdomen and pelvis . Impression: 1.Hematemesis after hours of nausea and vomiting. No fevers, chills, night sweats, lightheadedness, syncope, presyncope. She does report a colonoscopy in 2019 at [facility] and had 1 polyp remove d. She is unsure of EGD; however, she does say she has a history of ulcers . 2.Iron deficiency anemia. Hemoglobin 7.3, MCV 66, iron saturation low at 3.7%. 3.History of hypertension, atrial fibrillation, strokes, left hemiparesis, hyperlipidemia, 6 rectal surgeries, chronic obstructive pulmonary disease, and others per above. Recommendations: 1.Agree with packed RBCs transfusion of 2 units, which has been done. 2.Resuscitated IV fluids. 3.EGD. 4.PPI therapy. 5. which revealed iron deficiency anemia. ALEXANDRA/SANTIAGO Voice ID: [id number] Report ID: [id number]
--- NOTE | 2021-08-19 18:22 | RAD REPORT ---
EXAM DESCRIPTION: MRI - Brain Wo Cont - 08/19/2021 6:10 pm CLINICAL HISTORY: aspiration, confusion COMPARISON: MRA Head Wo Cont dated 08/19/2021; Head Brain Wo Cont dated 08/17/2021 TECHNIQUE: Sagittal T1-weighted images were obtained along with axial PD, heavily T2-weighted and T2 -FLAIR images. Axial DWI and ADC mapping sequences were also obtained along with coronal heavily T2-w eighted images. FINDINGS: No intracranial hemorrhage, mass or acute infarction. There is no edema or shift of midlin e structures. No extra-axial fluid collections. Atrophy changes only minimal for a patient this age. Ventricles are in proportion. Moderate-sized area of old infarction involves the left parietal lobe a nd subcortical white matter of the left frontal lobe. These changes are superimposed on baseline of m oderate chronic ischemic change. Signal voids are seen as a normal finding in the major intracranial vessels. No globe or orbital content abnormality. Mastoid air cells are clear. Chronic right maxillary sinusitis changes are present IMPRESSION: Old left cerebral infarction changes are present along with bilateral cerebral chronic i schemic change. No infarction, mass or acute intracranial finding identified.
--- NOTE | 2021-08-19 18:28 | RAD REPORT ---
EXAM DESCRIPTION: MRI - MRA Head Wo Cont - 08/19/2021 6:10 pm CLINICAL HISTORY: aspiration, confusion, prior CVA COMPARISON: MRI brain same date, CT head August 17 TECHNIQUE: Axial and coronal 3D [id number] image acquisition was performed. 3D rotational images were generated with source and reconstruction images reviewed. Horizontal and vertical axis rotation al views generated using MIP protocol. FINDINGS: Left vertebral artery is dominant with mild tortuosity of the vertebrobasilar vasculature. No basilar stenosis or significant atherosclerotic change. Posterior cerebral arteries show no signi ficant disease. Bilateral internal carotid arteries show no significant findings. The right A1 anterior cerebral mirta ry segment is small probably normal variant rather than significant disease. Distal to the anterior c ommunicating artery no significant anterior cerebral findings. Neither posterior communicating artery is identified. Right middle cerebral artery branches show no significant atherosclerotic change. Lef t M1 MCA segment is unremarkable. The anterior and mid portion MCA vessels show no significant abnorm ality. There is absence or truncation of the posterior left MCA branches which would match with the a lula of old infarction detailed on the MRI report. No aneurysm or vascular malformation. No vasculitis findings. 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 Otherwise, no significant atherosclerotic change. No vasculitis, dissection or other significant find ing.
[2021-08-19 20:49] LABS: Phosphorus 3.3 mg/dL (2.5-4.9); Potassium 3.5 mmol/L (3.5-5.1)
[2021-08-19] MEDS: MAGNESIUM CITRATE 300 ML BOT PO SCH (21:00)
[2021-08-19] MEDS ORDERED: CEFTRIAXONE 1,000 MG in NA CHLORIDE 0.9% 50 ML IVPB ONE (22:16)
[2021-08-20] MEDS: CODEINE 30MG/APAP 300MG TAB PO PRN ×2 (01:45→12:12)
[2021-08-20] MEDS: NA CHLORIDE 0.9% 1,000 ML IV SCH ×3 (01:47→22:00)
[2021-08-20 06:22] LABS: Absolute Lymphocytes (CBC) 1.3 K/uL (0.7-4.9); Hematocrit 32.5 % (36.0-45.0); Lymphocytes % 9.2 % (15.3-44.8); RBC Red Blood Cell Count 4.86 M/uL (3.86-4.86)
[2021-08-20 06:39] LABS: ALT/SGPT 13 U/L (12-78); AST/SGOT 11 U/L (15-37); Albumin 3.3 g/dL (3.4-5.0); Alkaline Phosphatase 106 U/L (45-117); BUN Blood Urea Nitrogen 4 mg/dL (7-18); Bicarbonate 26 mmol/L (21-32); Bilirubin Total 0.5 mg/dL (0.2-1.0); Glucose Level 111 mg/dL (74-106); Potassium 3.1 mmol/L (3.5-5.1); Protein, Total 6.8 g/dL (6.4-8.2); Sodium Level 143 mmol/L (136-145)
[2021-08-20 06:57] LABS: Blood Morphology Comment NOTED (NOT SEEN); Platelet Estimate ADEQ; White Blood Cell Scan OK (OK)
[2021-08-20 06:58] LABS: Anisocytosis 1+; Hypochromasia 1+
[2021-08-20] MEDS: AMLODIPINE 10 MG TAB PO SCH (08:51)
[2021-08-20] MEDS: SOD FERRIC GLUC COMPLX/SUCROSE 125 MG in NA CHLORIDE 0.9% 100 ML IV SCH (08:51)
[2021-08-20] MEDS: AMITRIPTYLINE 10 MG TAB PO SCH ×3 (08:51→21:25)
[2021-08-20] MEDS: PANTOPRAZOLE INJ 80 MG in NA CHLORIDE 0.9% 250 ML IV SCH (08:59)
[2021-08-20] MEDS ORDERED: POTASSIUM 25 MEQ EFFERV TAB PO ONE (09:00)
--- NOTE | 2021-08-20 13:18 | P.PN ---
Subjective Date of Service: 08/20/21 Chief Complaint: UTI, anemia Patient has no new complaints. She states she has has been small bowel movements. Physical Examination - Vital Signs Temperature: 98.1 F Blood Pressure: 181/88 Pulse: 96 Respirations: 18 Pulse Ox (%): 96 - Studies Microbiology Data (last 24 hrs): 08/17/21 11:10 Clean Catch Urine [place] Count - Final BETWEEN 10,000 & 100,000 CFU/ML 08/17/21 11:10 Clean Catch Urine - Final Escherichia Coli Assessment And Plan - Plan Physical exam GEN: AOx3, NAD HEENT: Normal conjunctiva, sclera anicteric CV: Regular rate and rhythm, no edema Pulm: Non-labored respirations on room air ABD: Soft, nontender, nondistended Neuro: Normal speech, normal affect, normal strength 5/5x 4 Problem list Acute metabolic encephalopathy secondary to UTI Aspiration concern Hematemesis History of GERD, remote history of gastric ulcer History of CVAs with residual mild left weakness, balance issues, intermittent word salad COPD CAD A. fib, not on anticoagulation HTN Anemia, chronic, iron deficiency Anxiety, with claustrophobia Chronic painlower back after surgery Chronic constipation AMS resolved. With history of CVAs, and recent heart catheterization, has risk for possible acute CVA. However CT is negative. MRI of the brain shows no acute CVA. Patient with leukocytosis, bacteria and WBCs in urine. Leukocytosis improved. Urine culture grew E. coli. She received a single dose of IV Rocephin for UTI. Hematemesis secondary to multiple esophageal and gastric ulcers by EGD. EGD also identified hiatal hernia. Status post 2u PRBC transfusion. Posttransfusion hemoglobin is stable Change to Protonix oral twice daily. Mag citrate for constipation. Continue PT. Patient plan for rehab placement. VTE: SCDs Code: Full
[2021-08-20] MEDS: PANTOPRAZOLE 40MG TABLET PO SCH (17:10)
[2021-08-20 17:52] VITALS: BMI 24.0
[2021-08-20] MEDS ORDERED: PANTOPRAZOLE INJ 80 MG in NA CHLORIDE 0.9% 250 ML IV SCH (19:00)
[2021-08-20] MEDS: MORPHINE 2 MG/ML SYR IV PRN (21:24)
[2021-08-20] MEDS: MAGNESIUM CITRATE 300 ML BOT PO SCH (21:25)
[2021-08-20] MEDS ORDERED: PANTOPRAZOLE 40MG TABLET PO ONE (21:30)
[2021-08-21 06:02] LABS: Absolute Lymphocytes (CBC) 1.9 K/uL (0.7-4.9); Hematocrit 31.9 % (36.0-45.0); Lymphocytes % 13.3 % (15.3-44.8); MPV 8.1 fL (7.6-11.3)
[2021-08-21 06:15] LABS: BUN Blood Urea Nitrogen 6 mg/dL (7-18); Bicarbonate 28 mmol/L (21-32); Glucose Level 109 mg/dL (74-106); Potassium 3.4 mmol/L (3.5-5.1); Sodium Level 144 mmol/L (136-145)
[2021-08-21] MEDS ORDERED: POTASSIUM 25 MEQ EFFERV TAB PO ONE (09:00)
[2021-08-21] MEDS: AMLODIPINE 10 MG TAB PO SCH (09:40)
[2021-08-21] MEDS: PANTOPRAZOLE 40MG TABLET PO SCH ×2 (09:40→16:30)
[2021-08-21] MEDS: AMITRIPTYLINE 10 MG TAB PO SCH ×3 (09:40→20:55)
[2021-08-21] MEDS: HYDRALAZINE HCL 20 MG/ML VIAL IV PRN (09:41)
[2021-08-21] MEDS: NA CHLORIDE 0.9% 1,000 ML IV SCH ×2 (09:41→17:14)
[2021-08-21] MEDS: SOD FERRIC GLUC COMPLX/SUCROSE 125 MG in NA CHLORIDE 0.9% 100 ML IV SCH (09:49)
[2021-08-21] MEDS ORDERED: BISACODYL E.C. 5 MG TAB PO PRN (11:05)
[2021-08-21] MEDS ORDERED: LACTULOSE 20 GM/30 ML UCUP PO ONE (11:57)
--- NOTE | 2021-08-21 13:31 | P.PN ---
Subjective Date of Service: 08/21/21 Chief Complaint: UTI, anemia Patient has no new complaints except constipation. She had no bowel movement after mag citrate yesterday Physical Examination - Vital Signs Temperature: 97.3 F Blood Pressure: 149/65 Pulse: 92 Respirations: 20 Pulse Ox (%): 100 Assessment And Plan - Plan Physical exam GEN: AOx3, NAD HEENT: Normal conjunctiva, sclera anicteric CV: Regular rate and rhythm, no edema Pulm: Non-labored respirations on room air ABD: Soft, nontender, nondistended Neuro: Normal speech, normal affect, normal strength 5/5x 4 Problem list Acute metabolic encephalopathy secondary to UTI Aspiration concern Hematemesis History of GERD, remote history of gastric ulcer History of CVAs with residual mild left weakness, balance issues, intermittent word salad COPD CAD A. fib, not on anticoagulation HTN Anemia, chronic, iron deficiency Anxiety, with claustrophobia Chronic painlower back after surgery Chronic constipation AMS resolved. MRI of the brain shows no acute CVA. Patient with leukocytosis, bacteria and WBCs in urine. Leukocytosis improved. Urine culture grew E. coli. She received a single dose of IV Rocephin for UTI. Hematemesis secondary to multiple esophageal and gastric ulcers by EGD. EGD also identified hiatal hernia. Status post 2u PRBC transfusion. Posttransfusion hemoglobin is stable Continue Protonix oral twice daily. Awaiting EGD ulcer biopsies results We will start bowel regimen of lactulose, Dulcolax and MiraLAX for constipation Continue PT. Patient accepted to rehab. I am told rehab will not accept patient until she has a bowel movement. VTE: SCDs Code: Full
[2021-08-21] MEDS: LACTULOSE 20 GM/30 ML UCUP PO SCH (20:55)
[2021-08-21] MEDS: POLYETHYL GLY 3350 17 GM/DOSE PO SCH (21:00)
[2021-08-21] MEDS: LORazepam 2 MG/ML VIAL IV PRN (21:03)
[2021-08-22 06:45] LABS: BUN Blood Urea Nitrogen 6 mg/dL (7-18); Bicarbonate 26 mmol/L (21-32); Glucose Level 103 mg/dL (74-106); Sodium Level 142 mmol/L (136-145)
[2021-08-22 06:46] LABS: Potassium 3.4 mmol/L (3.5-5.1)
[2021-08-22 07:01] LABS: Absolute Lymphocytes (CBC) 1.4 K/uL (0.7-4.9); Hematocrit 33.7 % (36.0-45.0); Lymphocytes % 10.2 % (15.3-44.8); MPV 8.1 fL (7.6-11.3); RBC Red Blood Cell Count 4.84 M/uL (3.86-4.86)
[2021-08-22] MEDS ORDERED: POTASSIUM CL SA 10 MEQ TAB PO ONE ×2 (08:16→21:00)
[2021-08-22] MEDS: LACTULOSE 20 GM/30 ML UCUP PO SCH (09:00)
[2021-08-22] MEDS: PANTOPRAZOLE 40MG TABLET PO SCH ×2 (09:44→17:52)
[2021-08-22] MEDS: AMITRIPTYLINE 10 MG TAB PO SCH ×3 (09:46→20:13)
[2021-08-22] MEDS: AMLODIPINE 10 MG TAB PO SCH (09:46)
[2021-08-22] MEDS: POLYETHYL GLY 3350 17 GM/DOSE PO SCH ×2 (09:46→20:13)
[2021-08-22] MEDS: LORazepam 2 MG/ML VIAL IV PRN (10:54)
[2021-08-22] MEDS: SOD FERRIC GLUC COMPLX/SUCROSE 125 MG in NA CHLORIDE 0.9% 100 ML IV SCH (11:08)
[2021-08-22 11:17] LABS: Anisocytosis 1+; Blood Morphology Comment NOTED (NOT SEEN); Platelet Estimate ADEQ; White Blood Cell Scan OK (OK)
[2021-08-22 11:18] LABS: Basophilic Stippling 1+; Hypochromasia 1+
--- NOTE | 2021-08-22 11:51 | RAD REPORT ---
EXAM DESCRIPTION: RAD - Abdomen 1 View (KUB) - 08/22/2021 11:22 am CLINICAL HISTORY: Abdomen pain. FINDINGS: Large amount of stool is present throughout the colon. Portions of the colon are mildly dilated. Transverse colon is the most distended measuring 7 centimet ers
--- NOTE | 2021-08-22 15:31 | P.PN ---
Subjective Date of Service: 08/22/21 Chief Complaint: UTI, anemia Patient reports no bowel movement despite multiple laxatives and enema. Physical Examination - Vital Signs Temperature: 97.5 F Blood Pressure: 157/77 Pulse: 97 Respirations: 18 Pulse Ox (%): 92 Assessment And Plan - Plan Physical exam GEN: AOx3, NAD HEENT: Normal conjunctiva, sclera anicteric CV: Regular rate and rhythm, no edema Pulm: Non-labored respirations on room air ABD: Soft, nontender, nondistended Neuro: Normal speech, normal affect, normal strength 5/5x 4 Problem list Acute metabolic encephalopathy secondary to UTI Aspiration concern Hematemesis History of GERD, remote history of gastric ulcer History of CVAs with residual mild left weakness, balance issues, intermittent word salad COPD CAD A. fib, not on anticoagulation HTN Anemia, chronic, iron deficiency Anxiety, with claustrophobia Chronic painlower back after surgery Chronic constipation AMS resolved. MRI of the brain shows no acute CVA. Patient with leukocytosis, bacteria and WBCs in urine. Leukocytosis improved. Urine culture grew E. coli. She received a single dose of IV Rocephin for UTI. Hematemesis secondary to multiple esophageal and gastric ulcers by EGD. EGD also identified hiatal hernia. Status post 2u PRBC transfusion. Posttransfusion hemoglobin is stable Continue Protonix oral twice daily. EGD biopsy result:esophagitis. KUB reviewed and showing large stool burden, dilatation of colon, worse in the transverse section. Trial of retention enema, GoLYTELY. Continue PT. VTE: SCDs Code: Full
[2021-08-22] MEDS ORDERED: GOLYTELY 4000 ML PO ONE (16:00)
[2021-08-22] MEDS ORDERED: GOLYTELY 4000 ML PO SCH (16:00)
--- NOTE | 2021-08-22 17:45 | P.PN ---
Subjective Date of Service: 08/22/21 Chief Complaint: Hematemesis, UTI, anemia Subjective: Improving (No further UGI bleeding. Sitting in bed now eating steak. Complains of constipation and Miralax started.) Review of Systems 10-point ROS is otherwise unremarkable Gastrointestinal: Constipation Physical Examination - Vital Signs Temperature: 98.9 F Blood Pressure: 139/65 Pulse: 101 Respirations: 20 Pulse Ox (%): 94 - Physical Exam General: Alert, In no apparent distress, Oriented x3, Cooperative HEENT: Atraumatic, Normocephalic, PERRLA, EOMI Neck: Supple Respiratory: Normal air movement Cardiovascular: Normal pulses Gastrointestinal: Soft and benign, No tenderness, No rebound, No guarding Neurological: Normal speech, Normal strength at 5/5 x4 extr Assessment And Plan - Current Problems (Diagnosis) (1) Hematemesis Current Visit: Yes Status: Acute (2) Nausea & vomiting Current Visit: Yes Status: Acute (3) Anemia Current Visit: Yes Status: Acute (4) Constipation Current Visit: Yes Status: Acute (5) Esophageal ulcer with bleeding Current Visit: Yes Status: Acute (6) Esophagitis Current Visit: Yes Status: Acute (7) Atrophic gastritis Current Visit: Yes Status: Acute - Plan REC: 1) continue Protonix 2) increase Miralax
[2021-08-22] MEDS: METOCLOPRAMIDE 10 MG/2mL INJ IV SCH (17:52)
[2021-08-22] MEDS: MORPHINE 2 MG/ML SYR IV PRN (23:23)
[2021-08-23] MEDS: METOCLOPRAMIDE 10 MG/2mL INJ IV SCH ×3 (02:05→17:00)
[2021-08-23 05:33] LABS: Absolute Lymphocytes (CBC) 1.8 K/uL (0.7-4.9); Hematocrit 30.5 % (36.0-45.0); Lymphocytes % 11.1 % (15.3-44.8); MPV 8.2 fL (7.6-11.3); RBC Red Blood Cell Count 4.35 M/uL (3.86-4.86)
[2021-08-23 05:48] LABS: BUN Blood Urea Nitrogen 11 mg/dL (7-18); Bicarbonate 29 mmol/L (21-32); Glucose Level 108 mg/dL (74-106); Potassium 3.7 mmol/L (3.5-5.1); Sodium Level 141 mmol/L (136-145)
[2021-08-23] MEDS: PANTOPRAZOLE 40MG TABLET PO SCH ×2 (07:40→17:00)
--- NOTE | 2021-08-23 07:53 | P.PN ---
Subjective Date of Service: 08/23/21 Chief Complaint: Hematemesis, UTI, anemia Subjective: Improving (Feels better, in restroom without complaint.) Review of Systems 10-point ROS is otherwise unremarkable General: Weakness Gastrointestinal: Constipation (improving) Physical Examination - Vital Signs Temperature: 97 F Blood Pressure: 153/73 Pulse: 81 Respirations: 18 Pulse Ox (%): 96 - Physical Exam General: Alert, In no apparent distress, Oriented x3, Cooperative, Cachectic HEENT: Atraumatic, Normocephalic, PERRLA, EOMI Neck: Supple Respiratory: Normal air movement Assessment And Plan - Current Problems (Diagnosis) (1) Hematemesis Current Visit: Yes Status: Acute (2) Nausea & vomiting Current Visit: Yes Status: Acute (3) Anemia Current Visit: Yes Status: Acute (4) Constipation Current Visit: Yes Status: Acute (5) Esophageal ulcer with bleeding Current Visit: Yes Status: Acute (6) Esophagitis Current Visit: Yes Status: Acute (7) Atrophic gastritis Current Visit: Yes Status: Acute - Plan REC: 1) continue Protonix 2) increase Miralax
[2021-08-23] MEDS ORDERED: POTASSIUM 25 MEQ EFFERV TAB PO ONE (09:00)
[2021-08-23] MEDS: AMITRIPTYLINE 10 MG TAB PO SCH ×3 (09:52→21:20)
[2021-08-23] MEDS: AMLODIPINE 10 MG TAB PO SCH (09:52)
[2021-08-23] MEDS: POLYETHYL GLY 3350 17 GM/DOSE PO SCH ×2 (09:52→21:20)
[2021-08-23] MEDS: SOD FERRIC GLUC COMPLX/SUCROSE 125 MG in NA CHLORIDE 0.9% 100 ML IV SCH (09:53)
[2021-08-23] MEDS: FLEET ENEMA ADULT PR PRN ×2 (10:07→21:00)
--- NOTE | 2021-08-23 13:30 | P.PN ---
Subjective Date of Service: 08/23/21 Chief Complaint: Hematemesis, UTI, anemia No significant bowel movement yet despite GoLYTELY and enemas. Patient denies any bloating. Physical Examination - Vital Signs Temperature: 97 F Blood Pressure: 116/53 Pulse: 77 Respirations: 18 Pulse Ox (%): 96 Assessment And Plan - Plan Physical exam GEN: AOx3, NAD HEENT: Normal conjunctiva, sclera anicteric CV: Regular rate and rhythm, no edema Pulm: Non-labored respirations on room air ABD: Soft, nontender, nondistended, normal bowel sounds. Neuro: Normal speech, normal affect, normal strength 5/5x 4 Problem list Acute metabolic encephalopathy secondary to UTI Aspiration concern Hematemesis History of GERD, remote history of gastric ulcer History of CVAs with residual mild left weakness, balance issues, intermittent word salad COPD CAD A. fib, not on anticoagulation HTN Anemia, chronic, iron deficiency Anxiety, with claustrophobia Chronic painlower back after surgery Chronic constipation AMS resolved. MRI of the brain shows no acute CVA. Patient with leukocytosis, bacteria and WBCs in urine. Leukocytosis improved. Urine culture grew E. coli. She received a single dose of IV Rocephin for UTI. Hematemesis secondary to multiple esophageal and gastric ulcers by EGD. EGD also identified hiatal hernia. Status post 2u PRBC transfusion. Posttransfusion hemoglobin is stable Continue Protonix oral twice daily. EGD biopsy result:esophagitis. KUB reviewed and showing large stool burden, dilatation of colon, worse in the transverse section. Continue retention enema and GoLYTELY daily until bowel movement. Continue PT. VTE: SCDs Code: Full
[2021-08-23] MEDS ORDERED: GOLYTELY 4000 ML PO SCH (14:00)
[2021-08-23] MEDS: MORPHINE 2 MG/ML SYR IV PRN (21:27)
[2021-08-24] MEDS: HYDRALAZINE HCL 20 MG/ML VIAL IV PRN (00:07)
[2021-08-24] MEDS: METOCLOPRAMIDE 10 MG/2mL INJ IV SCH ×4 (00:07→23:54)
[2021-08-24] MEDS: MORPHINE 2 MG/ML SYR IV PRN (01:31)
[2021-08-24 05:58] LABS: BUN Blood Urea Nitrogen 10 mg/dL (7-18); Bicarbonate 27 mmol/L (21-32); Glucose Level 84 mg/dL (74-106); Sodium Level 140 mmol/L (136-145)
[2021-08-24 06:00] LABS: Potassium 4.2 mmol/L (3.5-5.1)
[2021-08-24] MEDS: POLYETHYL GLY 3350 17 GM/DOSE PO SCH ×2 (08:30→20:45)
[2021-08-24] MEDS: SOD FERRIC GLUC COMPLX/SUCROSE 125 MG in NA CHLORIDE 0.9% 100 ML IV SCH (08:30)
[2021-08-24] MEDS: AMITRIPTYLINE 10 MG TAB PO SCH ×3 (08:30→20:38)
[2021-08-24] MEDS: PANTOPRAZOLE 40MG TABLET PO SCH ×2 (08:30→15:41)
[2021-08-24] MEDS: AMLODIPINE 10 MG TAB PO SCH (08:31)
--- NOTE | 2021-08-24 08:46 | P.PN ---
Subjective Date of Service: 08/24/21 Chief Complaint: Hematemesis, UTI, anemia Subjective: New changes (No further GI bleeding; hgb is stable at 9-10 range. UTI not on antibiotics today with increasing WBC. She denies dysuria / change in urine.) Review of Systems 10-point ROS is otherwise unremarkable Gastrointestinal: Constipation Physical Examination - Vital Signs Temperature: 98.0 F Blood Pressure: 128/61 Pulse: 84 Respirations: 17 Pulse Ox (%): 0 - Physical Exam General: Alert, In no apparent distress, Oriented x3, Cooperative HEENT: Atraumatic, Normocephalic, PERRLA, EOMI Neck: Supple Respiratory: Normal air movement Cardiovascular: Normal pulses Gastrointestinal: Soft and benign, No tenderness, No rebound, No guarding Neurological: Normal speech, Normal strength at 5/5 x4 extr Assessment And Plan - Current Problems (Diagnosis) (1) Hematemesis Current Visit: Yes Status: Acute (2) Nausea & vomiting Current Visit: Yes Status: Acute (3) Anemia Current Visit: Yes Status: Acute (4) Constipation Current Visit: Yes Status: Acute (5) Esophageal ulcer with bleeding Current Visit: Yes Status: Acute (6) Esophagitis Current Visit: Yes Status: Acute (7) Atrophic gastritis Current Visit: Yes Status: Acute (8) UTI (urinary tract infection) Current Visit: Yes Status: Acute (9) Sepsis due to urinary tract infection Current Visit: Yes Status: Acute - Plan REC: 1) continue Protonix 2) increase Miralax 3) IV antibiotics
[2021-08-24] MEDS: LORazepam 2 MG/ML VIAL IV PRN (08:53)
[2021-08-24] MEDS ORDERED: NALOXEGOL 12.5 MG PO SCH (09:00)
[2021-08-24] MEDS ORDERED: POLYETHYL GLY 3350 17 GM/DOSE PO PRN (09:07)
[2021-08-24] MEDS: LACTULOSE 20 GM/30 ML UCUP PO SCH ×2 (10:37→19:00)
[2021-08-24] MEDS: CEFTRIAXONE 1,000 MG in NA CHLORIDE 0.9% 50 ML IVPB SCH ×2 (10:37→20:38)
[2021-08-24 10:51] LABS: Absolute Lymphocytes (CBC) 1.6 K/uL (0.7-4.9); Hematocrit 34.5 % (36.0-45.0); Lymphocytes % 11.2 % (15.3-44.8); MPV 8.3 fL (7.6-11.3); RBC Red Blood Cell Count 4.92 M/uL (3.86-4.86)
[2021-08-24] MEDS ORDERED: MORPHINE 4 MG/ML SYR IV PRN (11:00)
[2021-08-24] MEDS ORDERED: AMPICILLIN/SULBACT 3 GM in NA CHLORIDE 0.9% 100 ML IVPB SCH (12:00)
--- NOTE | 2021-08-24 15:00 | P.PN ---
Subjective Date of Service: 08/24/21 Chief Complaint: Hematemesis, UTI, anemia Patient have had multiple small bowel movement with the recurrent bowel regime. Physical Examination - Vital Signs Temperature: 98.1 F Blood Pressure: 120/62 Pulse: 84 Respirations: 16 Pulse Ox (%): 92 Assessment And Plan - Plan Physical exam GEN: AOx3, NAD HEENT: Normal conjunctiva, sclera anicteric CV: Regular rate and rhythm, no edema Pulm: Non-labored respirations on room air ABD: Soft, nontender, nondistended, normal bowel sounds. Neuro: Normal speech, normal affect, normal strength 5/5x 4 Problem list Acute metabolic encephalopathy secondary to UTI Aspiration concern Hematemesis History of GERD, remote history of gastric ulcer History of CVAs with residual mild left weakness, balance issues, intermittent word salad COPD CAD A. fib, not on anticoagulation HTN Anemia, chronic, iron deficiency Anxiety, with claustrophobia Chronic painlower back after surgery Chronic constipation AMS resolved. MRI of the brain shows no acute CVA. Patient with leukocytosis, bacteria and WBCs in urine. Leukocytosis improved. Urine culture grew E. coli. She received a single dose of IV Rocephin for UTI. Hematemesis secondary to multiple esophageal and gastric ulcers by EGD. EGD also identified hiatal hernia. Status post 2u PRBC transfusion. Posttransfusion hemoglobin is stable Continue Protonix oral twice daily. EGD biopsy result:esophagitis. KUB reviewed and showing large stool burden, dilatation of colon, worse in the transverse section. Continue enemas. Patient prefers lactulose. MiraLAX discontinued. She is prescribed lactulose 40 mg every 8hrs Continue PT. Possible discharge to inpatient rehab tomorrow. VTE: SCDs Code: Full
[2021-08-24] MEDS ORDERED: CEFTRIAXONE 1000 MG/VIAL ONE (19:40)
[2021-08-24] MEDS ORDERED: NA CHLORIDE 0.9% 50 ML ONE (19:46)
[2021-08-25] MEDS: CODEINE 30MG/APAP 300MG TAB PO PRN (00:12)
[2021-08-25] MEDS: LORazepam 2 MG/ML VIAL IV PRN (00:16)
[2021-08-25] MEDS: LACTULOSE 20 GM/30 ML UCUP PO SCH ×2 (02:55→11:00)
[2021-08-25 06:14] LABS: Potassium 3.7 mmol/L (3.5-5.1)
[2021-08-25 06:52] LABS: Absolute Lymphocytes (CBC) 1.9 K/uL (0.7-4.9); Hematocrit 33.9 % (36.0-45.0); Lymphocytes % 15.2 % (15.3-44.8); MPV 8.5 fL (7.6-11.3)
[2021-08-25] MEDS ORDERED: POTASSIUM CL SA 10 MEQ TAB PO ONE (09:00)
[2021-08-25] MEDS: POLYETHYL GLY 3350 17 GM/DOSE PO SCH (09:00)
[2021-08-25] MEDS: AMITRIPTYLINE 10 MG TAB PO SCH ×2 (09:22→14:13)
[2021-08-25] MEDS: CEFTRIAXONE 1,000 MG in NA CHLORIDE 0.9% 50 ML IVPB SCH (09:22)
[2021-08-25] MEDS: AMLODIPINE 10 MG TAB PO SCH (09:23)
[2021-08-25] MEDS: PANTOPRAZOLE 40MG TABLET PO SCH (09:24)
[2021-08-25] MEDS: METOCLOPRAMIDE 10 MG/2mL INJ IV SCH (09:24)
[2021-08-25 10:08] LABS: Anisocytosis 3+; Blood Morphology Comment NOTED (NOT SEEN); Hypochromasia 1+; Platelet Estimate INCR; Platelets, Giant PRESENT; Poikilocytosis 1+
[2021-08-25 11:21] VITALS: O2SAT 97
[2021-08-25] MEDS ORDERED: NALOXEGOL 12.5 MG PO SCH (12:00)
[2021-08-25 12:30] VITALS: BP 140/68; TEMP 97.5
--- NOTE | 2021-08-25 12:31 | P.DS ---
Admission Date: 08/17/21 Discharge Date: 08/25/21 Disposition: TRANSFER TO INPATIENT REHAB Discharge Condition: FAIR Reason for Admission: Hematemesis, UTI, anemia Consultations: GI-Dr. Mccain - Problems (1) Esophageal ulcer with bleeding Current Visit: Yes Status: Acute (2) Esophagitis Current Visit: Yes Status: Acute (3) Hematemesis Current Visit: Yes Status: Acute (4) UTI (urinary tract infection) Current Visit: Yes Status: Acute Brief History of Present Illness: 76yo F, PMH: afib, prior CVAs (residual mild left-sided weakness, balance issues, intermittent word salad), COPD, HTN, anemia, anxiety, chronic back pain, claustrophobia, constipation, hard of hearing. Patient presents to the ER with complaints of vomiting bright red blood. Patient is hard of hearing, HPI obtained from the daughter who is a nurse. Daughter states patient had a left heart cath 4 days prior, and ever since then she started with a headache, then just has not been "acting right". She vomited 3 times, second episode of emesis was slightly pink-tinged, and third episode was shayla blood, small amount. Daughter also reports patient was confused. Recent heart catheterization revealed EF: 60 to 70%, 60 to 70% proximal LAD stenosis. Daughter states home care chaplain opted for medical management, currently only taking aspirin and they are to discuss anticoagulation this week in the office (Wednesday). In the ED, patient was noted to have a temperature of 99.0, leukocytosis of 16k, UA with WBCs and bacteria, and Hgb: 8.7 (baseline ~10). Daughter states patient is intolerable to p.o. iron supplements, and has required iron transfusion before, last done 9 months ago. Patient admitted for further management. Hospital Course: Problem list Acute metabolic encephalopathy secondary to UTI Aspiration concern Hematemesis History of GERD, remote history of gastric ulcer History of CVAs with residual mild left weakness, balance issues, intermittent word salad COPD CAD A. fib, not on anticoagulation HTN Anemia, chronic, iron deficiency Anxiety, with claustrophobia Chronic painlower back after surgery Chronic constipation Patient admitted to the medical floor and started on broad-spectrum antibiotics. Urine culture grew E. coli. Patient received a couple of doses of IV Rocephin. Giving patient his history of multiple CVAs in the past, there was concern for an acute CVA causing her confusion. Patient seen by Dr. Keyes in consultation. MRI of the brain showed no acute CVA. Patient with leukocytosis, bacteria and WBCs in urine. Leukocytosis improved. For hematemesis, patient was seen by Dr. Mccain who performed EGD and noted multiple esophageal and gastric ulcers, EGD also identified hiatal hernia. Status post 2u PRBC transfusion. Posttransfusion hemoglobin has been stable around 9 Patient placed on Protonix oral twice daily. EGD biopsy result: Esophagitis. Patient need antiplatelet therapy for coronary artery disease. Patient has high risk for GI bleed secondary to multiple esophageal and gastric ulcers. She may resume aspirin after her ulcers have healed appropriately. Continued other medications for CAD. Patient has chronic atrial fibrillation but she is not anticoagulated. She reported constipation of 10 days duration. KUB reviewed and showing large stool burden, dilatation of colon, worse in the transverse section. Patient treated with enemas, GoLYTELY and lactulose. She subsequently had multiple bowel movement till his stool was loose. Seen by PT and inpatient rehab recommended Patient clinically stable for discharge to inpatient rehab. w. Vital Signs/Physical Exam: Temp Pulse Resp BP Pulse Ox 97.5 F 81 16 140/68 98 08/25/21 12:00 08/25/21 12:00 08/25/21 12:00 08/25/21 12:08/25/21 12:00 General: Alert, In no apparent distress, Oriented x3 HEENT: Mucous membr. moist/pink Neck: JVD not distended Respiratory: Clear to auscultation bilaterally, Normal air movement Cardiovascular: No edema, Normal S1 S2, Irregular heart rate/rhythm Gastrointestinal: Normal bowel sounds, Soft and benign, Non-distended, No tenderness Musculoskeletal: No swelling Integumentary: No rashes Neurological: Normal strength at 5/5 x4 extr Laboratory Data at Discharge: WBC 12.60 K/uL (4.3-10.9) H 08/25/21 05:35 Hgb 10.3 g/dL (12.0-15.0) L 08/25/21 05:35 Hct 33.9 % (36.0-45.0) L 08/25/21 05:35 Plt Count 525 K/uL (152-406) H 08/25/21 05:35 PT 12.2 SECONDS (9.5-12.5) 08/17/21 14:20 INR 1.06 08/17/21 14:20 APTT 28.3 SECONDS (24.3-36.9) 08/17/21 14:20 Sodium 141 mmol/L (136-145) 08/25/21 05:35 Potassium 3.7 mmol/L (3.5-5.1) 08/25/21 05:35 BUN 7 mg/dL (7-18) 08/25/21 05:35 Creatinine 0.68 mg/dL (0.55-1.3) 08/25/21 05:35 Glucose 92 mg/dL (74-106) 08/25/21 05:35 Phosphorus 3.3 mg/dL (2.5-4.9) 08/19/21 17:31 Magnesium 2.0 mg/dL (1.8-2.4) 08/19/21 17:31 Total Bilirubin 0.5 mg/dL (0.2-1.0) 08/20/21 05:53 AST 11 U/L (15-37) L 08/20/21 05:53 ALT 13 U/L (12-78) 08/20/21 05:53 Alkaline Phosphatase 106 U/L (45-117) 08/20/21 05:53 Lipase 86 U/L (73-393) 08/17/21 10:30 Home Medications: Acetaminophen with Codeine [Acetaminophen-Cod #3 Tablet] 1 tab PO Q8HR PRN 08/18/21 Amitriptyline HCl 10 mg PO TID 08/18/21 Amlodipine [Norvasc*] 10 mg PO DAILY 08/18/21 Atorvastatin Calcium 40 mg PO DAILY 08/18/21 Cyclobenzaprine HCl 10 mg PO BEDTIME 08/18/21 Memantine HCl 10 mg PO TID 08/18/21 Oxazepam 30 mg PO Q12HR PRN 08/18/21 Lactulose [Cephulac*] 60 ml PO Q8H PRN ucup 08/25/21 Diet: AHA Activity: Fall precautions Followup: [facility] [Primary Care Provider] - (Follow up with dr in 1-2 weeks, call office to make appointment. ) Time spent managing pt's care (in minutes): 38
--- NOTE | 2021-08-26 09:08 | EEG ---
CHART: [id number] TEST ID#: [id number] DATE OF STUDY: 08/19/2021 THE EEG WAS RECORDED PORTABLE IN THE PATIENT'S ROOM ON A 17 CHANNEL MACHINE. ELECTRODES WERE APPLIED IN THE USUAL MANNER USING THE INTERNATIONAL 10-20 SYSTEM. THE WAKING BACKGROUND RHYTHM IN THIS RECORD CONSISTS OF WELL DEVELOPED AND WELL ORGANIZED WAVES OF 9.5 HZ., MAXIMAL IN THE POSTERIOR HEAD REGIONS WHICH ATTENUATE NORMALLY WITH EYE OPENING. LOW-VOLTAGE 18 22 HZ ACTIVITY IS EXPRESSED IN THE FRONTAL REGIONS. THERE ARE NO FOCAL OR LATERALIZING FEATURES. NO EPILEPTIFORM ACTIVITY APPEARS. SLEEP DID NOT OCCUR. HYPERVENTILATION WAS NOT PERFORMED. PHOTIC STIMULATION PRODUCED FAIR DRIVING BILATERALLY. IMPRESSION: NORMAL EEG FOR THE AGE OF THE PATIENT IN [place].
== END 2021-08-25 18:32 | disposition home or self-care (01) | DRG 380 ==
LOC: ER 09:41 → ERHOLD 13:17 → 2ND 13:51
PROVIDERS: ADMIT Hospitalist; ATTEND Internal Medicine
PROC: 0DB68ZX Excision of Stomach, Via Natural or Artificial Opening Endoscopic, Diagnostic (ICD-10-PCS; 2021-08-19)
PROC: 30233N1 Transfusion of Nonautologous Red Blood Cells into Peripheral Vein, Percutaneous Approach (ICD-10-PCS; 2021-08-19)
PROC: 0DB38ZX Excision of Lower Esophagus, Via Natural or Artificial Opening Endoscopic, Diagnostic (ICD-10-PCS; principal; 2021-08-19 12:30)
DX: K22.11 Ulcer of esophagus with bleeding (principal); G93.41 Metabolic encephalopathy; N39.0 Urinary tract infection, site not specified; I69.354 Hemiplegia and hemiparesis following cerebral infarction affecting left non-dominant side; R64 Cachexia; K25.4 Chronic or unspecified gastric ulcer with hemorrhage; I10 Essential (primary) hypertension; K29.40 Chronic atrophic gastritis without bleeding; I48.91 Unspecified atrial fibrillation; K44.9 Diaphragmatic hernia without obstruction or gangrene; G89.29 Other chronic pain; J44.9 Chronic obstructive pulmonary disease, unspecified; D64.9 Anemia, unspecified; K21.9 Gastro-esophageal reflux disease without esophagitis; I25.10 Atherosclerotic heart disease of native coronary artery without angina pectoris; D50.9 Iron deficiency anemia, unspecified; F41.9 Anxiety disorder, unspecified; F40.240 Claustrophobia; K59.09 Other constipation; Z68.24 Body mass index [BMI] 24.0-24.9, adult; Z20.822 Contact with and (suspected) exposure to COVID-19
CPT/HCPCS: 0240U; 36415; 36430; 70450; 70544; 70551; 71045; 74018; 74177; 80048; 80053; 80076; 81003; 81015; 82274; 82607; 82947; 83540; 83690; 83735; 84100; 84132; 84466; 85014; 85018; 85025; 85027; 85610; 85730; 86850; 86900; 86901; 87040; 87077; 87086; 87088; 87186; 88305; 88312; 92610; 93005; 94760; 95816; 96365; 96366; 96375; 97116; 97162; 99285; C9113; J0171; J0360; J2270; J2405; J2704; J2765; J2916; J3480; J7030; J7050; P9016; Q9967

== ENCOUNTER 2023-04-08 06:59 | Inpatient (IN) | payer OTHER ==
--- OUTSIDE RECORDS SUMMARY | 2023-04-08 07:04 | XMS REPORT | Continuity of Care Document ---
:1945 Author Organization [facility] t Address [address] [place] [address] [place] [address] Care Team Providers Name Role Phone PCP, NO Primary Care Physician Unavailable ILIANA DEVINE Attending Clinician Unavailable JJ METZ Attending Clinician Unavailable SNOW DARNELL Attending Clinician Unavailable Team, [facility] Attending Clinician UnavailJosee Jack Attending Clinician Unavailable NAIMA BUI Attending Clinician Unavailable VINCE CISNEROS Attending Clinician Unavailable Bobo aGle MD Attending Clinician Doctor Unassigned, [place] Attending Clinician Unavailable Keny Goodwin Attending Clinician Unavailable KAYLA CLAYTON Admitting Clinician Unavailable Josee Mustafa Admitting Clinician Unavailable ROSELINE PEREZ Admitting Clinician Unavailable Payers Payer Name Policy Type Policy Number Effective Date Expiration Date S ource Problems Condition Condition Condition Status Onset Resolution Last Treating Co mments Source Name Details Category Date Date Treatment Clinician Date CVA CVA Disease Recurre [facility] ([facility]rebral (cerebral nce 3-18 Luke s vascular vascular 00:00: Medica l accident) accident) 00 Cent er 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 Added automatic ally from request for surgery [id number] Increased Increased Disease Active Overview: Univers endometria endometria 9-27 Formattin ity of l stripe l stripe 00:00: g of this Raffi as thickness thickness 00 note Medi bertrand might be Branch different from the original. Added automatic ally from request for surgery [id number] Abdominal Abdominal Disease Active Uni vers pain pain 3-15 ity of 00:00: [place] 00 Medical Branch Rectal Rectal Disease Active Overview: Univer s mass mass 3-14 Formattin ity of 00:00: g of this [place] 00 note Medical might be Branch different from the original. 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 - [facility] Problem Condition [facility] Pre-op Pre-op Problem Active Common evaluation evaluation Sp pratima - CH[facility] Diaphragma Diaphragma Problem Active C ommon tic hernia tic hernia Sp pratima without without - CHI obstructio obstructio St n or n or [facility] gangrene gangrene Medica [facility] Hyperlipid Hyperlipid Problem Active C ommon emia, emia, Spirit unspecifie unspecifie - [facility]I d d St hyperlipid hyperlipid Denise kes emia type emia type [facility] Center Depression Depression Problem Active C ommon with with Spirit anxiety anxiety - [facility] Gastro-eso Gastro-eso Problem Active C ommon phageal phageal Spirit reflux reflux - [facility]I disease disease St without without [facility] esophagiti esophagiti Me dical s s Center Allergies, Adverse Reactions, Alerts Allergy Allergy Status Severity Reaction(s) Onset Inactive Treating Comm ents Source Name Type Date Date Clinician No Known DA Active U [facility] Allergie 12-24 Clear s 00:00: Wing 00 [facility] No Known DA Active U [facility] Allergie 12-24 Clear s 00:00: Wing 00 [facility] NO KNOWN Allergy Active [facility] Social History Social Habit Start Date Stop Date Quantity Comments Source Alcohol intake 2019-09-25 2019-09-25 Current drinker [facility]:00 of alcohol Medical Center (finding) History [facility] 2019-09-13 2019-09-[address] [facility] Alcohol Frequency 00:00:00 00:00:00 Medical Center History [facility] 2019-09-13 2019-09-[address] [facility] Alcohol Std 00:00:00 00:00:00 Medical Cente r Drinks History [facility] 2019-09-13 2019-09-[address] [facility] Alcohol Binge 00:00:00 00:00:00 Medical [facility] ter Tobacco use and 2019-05-11 2019-05-11 Never used Universit y of exposure 00:00:00 00:00:00 [facility] Alcohol Comment 2018-09-09 2018-09-09 occasional Universit y of 00:00:00 00:00:00 [facility] Sex Assigned At [address] Denise kes 00:00:00 00:00:00 Medical Center Smoking Status Start Date Stop Date Source Unknown if ever smoked [facility] Never smoker [facility] Medications Ordered Filled Start Stop Current Ordering Indication Dosage Frequency Signature Comments Components Source Medication Medication Date Date Medication? Clinician (SIG) Name Name aspirin 81 Yes 81mg QD Take 1 [facility] S t MG chewable 3-21 tablet (81 Denise kes tablet 00:00: mg total) Medica l 00 by mouth Center daily. acetaminoph Yes 1{tbl} Take [address] en-codeine 3-20 tablet by Lemuel coburn (TYLENOL 17:35: mouth Medical #3) 300-30 23 every 6 Center mg per (six) tablet hours as needed for Pain. albuterol Yes 1{puff} Inhale [address] HFA 3-20 puff by [facility]ukes (VENTOLIN 17:35: mouth via Med ical HFA) 90 23 inhaler Center mcg/actuati every 6 on inhaler (six) hours as needed for Wheezing. venlafaxine 2019-0 Yes 150mg QD Take [address] (EFFEXOR-XR 3-20 mg by [facility]ukes ) 150 MG 24 17:35: mouth Medic al hr capsule 23 daily. Center pantoprazol 2020-0 Yes 40mg QD Take [address] e 3-20 by mouth [facility]ukes (PROTONIX) 17:35: daily. Medic al 40 MG 23 Center tablet oxazepam 2019-0 Yes 30mg QD Take [address] (SERAX) 30 3-20 by mouth [facility]ukes MG capsule 17:35: nightly . Me dical 23 Center benzonatate 2019-0 Yes 100mg Take [address] (TESSALON) 3-20 mg by [facility] 100 MG 17:35: mouth 3 Medical capsule 23 (three) Center times daily as needed for Cough. amLODIPine- 2019-0 Yes 1{capsu QD Take [address] benazepril 3-20 le} capsule by Shahzad es (LOTREL 17:35: mouth Medical 5-10) 5-10 23 daily. Center mg per capsule atorvastati 0 Yes 40mg QD Take [address] n (LIPITOR) 3-20 tablet (40 Denise kes 40 MG 00:00: mg total) Medical tablet 00 by mouth Center daily. Albuterol Albuterol 2018-06 Yes Codie 1 puff as Common Sulfate HFA Sulfate HFA 2-31 [place] needed Spirit 00:00: - [facility]I 00 [facility] Azithromyci Azithromyci 2018-06 2020- No Codie 2 tabs day Common n n 2-31 01-05 [place] one then 1 Spirit 00:00: 00:00 tab daily - CHI 00 :00 x 4 days [facility] Iron Iron 2018-06 Yes Codie 1 tablet Common 0-15 [place] Spirit 00:00: - [facility]I 00 [facility] Oxazepam Oxazepam Yes Codie 1 capsule C ommon [place] as needed Spirit - CHI [facility] Amlodipine Amlodipine Yes Codie 1 tablet Common Besy-Benaze Besy-Benaze [place] Spirit pril HCl pril HCl [facility] Probiotic Probiotic Yes Codie as Comm on [place] directed [facility] Fiber Fiber Yes Codie 2 tablets Common [place] as needed [facility] Simvastatin Simvastatin Yes Codie 1 tablet Common [place] in the Spirit [facility] Cyclobenzap Cyclobenzap Yes Codie 1 tablet Common rine HCl rine HCl [place] as needed S pirit [facility] Pantoprazol Pantoprazol Yes Codie 1 tablet Common e Sodium e Sodium [place] [facility] Venlafaxine Venlafaxine Yes Codie 1 capsule Common HCl ER HCl ER [place] with food Spiri t [facility] No known No [facility] [place] [facility] Vital Signs Vital Name Observation Time Observation Value Comments Source Body Temperature 2019-09-13 14:19:00 97.0 [degF] [facility] Heart Rate 2019-09-13 14:19:00 74 /min [facility] [employer] Respiratory rate 2019-09-13 14:19:00 18 /min [facility] [employer] BP Systolic 2019-09-13 14:19:00 140 mm[Hg] [facility] [employer] BP Diastolic 2019-09-13 14:19:00 89 mm[Hg] [facility] [employer] Heart Rate 2019-09-13 14:00:00 74 /min [facility] [employer] Respiratory rate 2019-09-13 14:00:00 18 /min [facility] BP Systolic 2019-09-13 14:00:00 140 mm[Hg] [facility] [employer] BP Diastolic 2019-09-13 14:00:00 89 mm[Hg] [facility] [employer] Weight 2019-09-13 11:48:00 147 [lb_av] [facility] [employer] BMI (Body Mass Index) 2019-09-13 11:48:00 23.7 kg/m2 [facility] [employer] Procedures Procedure Date / Time Performed Performing Clinician Lu joyce [id number] 2020-12-25 00:00:00 [facility] [id number] 2020-12-25 00:00:00 [facility] ECG (electrocardiogram) 2019-09-13 00:00:00 [facility] Computed tomography of 2019-09-13 00:00:00 FIGMD head or brain without contrast X-ray of chest, single 2019-09-13 00:00:00 FIGMD view Complete Doppler 2019-09-13 00:00:00 BINA ordaz ultrasound of carotid artery Plan of Care Planned Activity Planned Date Details Comments Source Goal Patient referral [code [facility] LIVE = [id number] ] HCIS Instructions OTHER [facility] LIVE HCIS Encounters Start End Encounter Admission Attending Care Care Encounter Source Date/Time Date/Time Type Type Clinicians Facility Department ID 2020-04-15 Inpatient BINA MCCLENDON BINA [id number] [facility] 14:02:00 ILIANA 01 [facility] 2019-09-13 Inpatient SLEH SLEH [id number] [facility] 16:51:00 [id number] 2022-03-05 2022-03-07 Inpatient UR MARITOSANTOS [facility] [id number] [facility] 05:46:00 11:55:00 JJ Avila [id number] [facility] 2022-03-04 2022-03-05 Emergency ER SNOW DARNELL [facility] 457 [id number] [facility] 21:15:00 04:21:00 [id number] [facility] 2021-02-28 2021-02-28 Telephone Team, [facility] BOBO [id number] Univers 00:00:00 00:00:00 [facility] [id number] [facility] 4.2.7.2.686 [place] [id number] [facility] 082 Branch 2020-12-31 2020-12-31 Outpatient [facility] [id number] 06:37:00 06:37:00 -[id number] [facility] 2020-12-30 2020-12-30 Outpatient [facility] [id number] 08:52:00 08:52:00 -[id number] [facility] 2020-12-27 2020-12-27 Outpatient [facility] [id number] 02:45:00 02:45:00 -[id number] [facility] 2020-12-25 2020-12-26 Inpatient EM JANELLE Mustafa [id number] [facility] 16:50:00 23:08:00 Oladipo 24 [facility] 2020-12-24 2020-12-24 Outpatient REJI Mustafa [id number] [facility] 08:02:00 08:02:00 Oladipo 39 [facility] 2020-04-18 2020-04-18 Outpatient BINA MCCLENDON BINA [id number] [facility] 11:28:00 11:28:00 ILIANA [id number] [facility] 2019-09-13 2019-09-13 Emergency ER BINA CISNEROS BINA [id number] [facility] 11:46:00 14:25:00 VINCE [id number] [facility] 2019-09-13 2019-09-13 Departed RACHID BINA [id number] [facility] 11:46:00 14:25:00 Emergency [facility] 2019-09-13 2019-09-13 Departed BRYAN Lares [id number] [place] 11:46:00 14:25:00 Emergency ASPER [address] HCIS 2019-06-27 2019-06-27 Outpatient Brazmigel Cassidy [id number] Common 09:40:00 09:40:00 t [facility] it [facility] 2019-02-17 2019-02-17 Office BLAYNE Gale [id number] 13:54:10 14:09:10 Visit [facility] [id number] [facility] 4.2.7.2.686 [place] - [id number] [place] [id number] 2019-02-17 2019-02-17 Orders Doctor BOBO [id number] 00:00:00 00:00:00 Only Unassigned, BOOGIE 350.1.13.10 [employer] [facility] 4.2.7.2.686 [id number] 2017-05-17 2017-05-17 Outpatient ANNAMARIE Goodwin [id number] [place] 09:30:00 09:30:00 [facility] 2017-04-26 2017-04-26 Outpatient ANNAMARIE Goodwin [id number] [place] 08:57:00 08:57:00 [facility] 2017-02-12 2017-02-12 Outpatient ANNAMARIE Goodwin [id number] Cathie 11:34:00 11:34:00 [facility] Results Test Description Test Time Test Comments Results Result Comments Source TRANSFERRRIN 2020-12-28 08:12:00 Test Item Value Reference Range Interpretation Comme noe DAVIES (test code = 230 mg/dL 192-364 Pe rformed At: DA [facility] TRANSF) [id number] [place] [id number] CN MD Ph:[phone] VITAMIN [id number] 08:12:00 Test Item Value Reference Range Interpretation Comments VITAMIN B12 (test code = VITB12) 938 PG/ML 183-986 N FOLIC [id number] 08:12:00 Test Item Value Reference Range Interpretation Comments FOLIC ACID (test code = FOL) 11.60 NG/ML 3.10-17.50 N [id number] 08:12:00 Test Item Value Reference Range Interpretation Comments FERRITIN (test code = JONNY) 23.8 NG/ML 3.0-105.0 N [id number] 18:50:00 Test Item Value Reference Range Interpretation Comments POTASSIUM (test code = K) 3.9 mmol/L 3.4-5.0 N [id number] 13:47:00 Test Item Value Reference Range Interpretation Comments SURG (test code = SURG) RUN DATE: 12/26/20 [facility] Jorge [facility] PAGE 1 RUN TIME: 1347 Specimen Inquiry RUN USER: INTERFACE PATIENT: OZZY MEI LOC: Sarah U #: [id number] AGE/SX: 75/F ROOM: [facility] RE12/25/20REG DR: Josee Mustafa MD : 46 BED: 1 DIS: STATUS: ADM IN TLOC: SPEC #: PMC:[id number] RECD: 12/25/20 STATUS: JOHN REJavier #: [id number] LAZARO: 12/25/[address]: Josee Mustafa MD ENTERED: 12/25/20 SP TYPE: SURG OTHR DR: DOES_NOT KNOW No Primary or Family Physician Blair Juares MDORDERED: SURG PATH LVL 09/27 COPIES TO: DOES_NOT KNOW No Primary [place] [address] [facility] [address] [facility] [place] [address] [email or web address] Blair Juares MD [address] [place] [address] HISTOLOGY: TISSUE ID BLK PCS BRANDT LEV PROCEDURE DISPOSITION ____ ___ ___ ___ COLON, NOS A 1 2 RECTUM, NOS B 1 2 PROCEDURES: SURG PATH LVL 4 (12/25/20) TISSUES: A. COLON, NOS - LEFT SIDE COLON BIOPSY B. RECTUM, NOS - RECTUM COLON BIOPSY CPT CODES CPT CODE(S): 45879D2 , , , , , , FINAL DIAGNOSIS A. Colon, left, biopsy: FOCAL SURFACE ULCERATION WITH ISCHEMIC CHANGES NEGATIVE FOR DYSPLASIA AND MALIGNANCY B. Colon, rectum, biopsy: CONTINUED ON NEXT PAGE RUN DATE: 12/26/20 [facility] PAGE 2 RUN TIME: 1347 Specimen Inquiry RUN USER: INTERFACE SPEC #: [facility]:[id number] PATIENT: OZZY EMI #[id number] (Continued) FINAL DIAGNOSIS (Continued) COLONIC MUCOSA WITH ASSOCIATED ULCER DEBRIS NEGATIVE FOR DYSPLASIA AND MALIGNANCY GROSS DESCRIPTION A. Left side colon biopsy. Received in formalin are three allen tissue fragments, 0.2 - 0.4 cm, all as A. B. Rectum colon biopsy. Received in formalin are two allen tissue fragments, 0.2 and 0.4 cm, all as B. /fausto Grossing performed at [facility] Pathology, [address] [place] [address], [address], [place] [address]. Buggy Ladle Tender: Imtiaz Bravo M.D. MICROSCOPIC DESCRIPTION A. Left [...] dysplasia or malignancy. /fausto Signed SIGNATURE ON FILE Kristy Berger 12/26/20 2299 END OF REPORT [id number] 11:06:00 Test Item Value Reference Range Interpretation Comments TRANSFERRRIN (test code = TRANSF) VITAMIN [id number] 11:06:00 Test Item Value Reference Range Interpretation Comments VITAMIN B12 (test code = VITB12) 938 PG/ML 183-986 N FOLIC [id number] 11:06:00 Test Item Value Reference Range Interpretation Comments FOLIC ACID (test code = FOL) 11.60 NG/ML 3.10-17.50 N [id number] 11:06:00 Test Item Value Reference Range Interpretation Comments FERRITIN (test code = JONNY) 23.8 NG/ML 3.0-105.0 N [id number] 10:48:00 Test Item Value Reference Range Interpretation Comments PHOSPHOROUS (test code = PHOS) 2.2 MG/DL 2.5-4.9 L [id number] 10:48:00 Test Item Value Reference Range Interpretation [...] % calc 12-57 L FESAT) CBC W/AUTO [id number] 07:28:00 Test Item Value Reference Range Interpretation [...] CONSISTA NT WITH AUTO DIFFERENTI AL. RBC [id number] 07:28:00 Test Item Value Reference Range Interpretation [...] (test NORMAL code = PLTMORPH) CBC W/AUTO [id number] 07:27:00 Test Item Value Reference Range Interpretation [...] NT WITH AUTO DIFFERENTI AL. CBC W/AUTO [id number] 07:27:00 Test Item Value Reference Range Interpretation [...] NT WITH AUTO DIFFERENTI AL. COMPREHENSIVE METABOLIC [id number] 06:40:00 Test Item Value Reference Range Interpretation [...] TOTAL (test code = ALKP) CBC W/AUTO [id number] 06:07:00 Test Item Value Reference Range Interpretation [...] DIFF/SCN CRITERIA MDIFF) - XR ABDOMEN 1 [id number] 10:42:00 [facility] 1945 Sex: F Name: OZYZ MEI [facility] : 1945 Age/S: 75 / F [address] Unit #: [id number] Loc: [place] [address] Phys: Sin Choi MD Acct: [id number] Dis Date: Status: ADM IN PHONE #:[phone] Exam Date: 12/25/2020 1007 FAX #: Reason: Evaluate cecal distension EXAMS: CPT: [id number] XR ABDOMEN 1 V 60926 Fluoro Time: DAP (Gy m2): Air Kerma (mGy): EXAMINATION: AP supine view(s) ofthe abdomen INDICATION: Evaluate cecal distension COMPARISON: 12/24/2020 LOCATION: S17 FINDINGS: Decreased gaseous distention of the cecum, no longer grossly dilated, measuring approximately 6 cm in caliber. Transverse colon near hepatic flexure is dilated to 6.5 cm, previously 7.4 cm. Moderate gaseousdistention of bowel loops throughout the abdomen otherwise appears slightly decreased. No rectal gasor stool is seen. IMPRESSION: Interval improvement in degree of gaseous distention. at 1042 Reported and signed by: Jarred Neil M.D. CC: Josee Mustafa MD; Sin Choi MD PAGE 1 Signed Report Name: OZZY MEI [facility] : 1945 Age/S: 75 / F [address] [facility] Unit #: [id number] Loc: [place] [address] Phys: Sin Choi MD Acct: [id number] Dis Date: Status: ADM IN PHONE #: [phone] Exam Date: 12/25/2020 1007 FAX #: Reason: Evaluate cecal distension EXAMS: CPT: [id number] XR ABDOMEN 1 V [id number] Time: DAP (Gy m2): Air Kerma (mGy): (Continued) Technologist: Elisha Farmer, RT(R) Trnscb Date/Time: 12/25/2020 (1042) [email or web address] Orig Print D/T: S: 12/25/2020 (1397) PAGE 2 Signed ReportCBC W/AUTO [id number] 07:13:00 Test Item Value Reference Range Interpretation [...] CONSISTA NT WITH AUTO DIFFERENTI AL. RBC [id number] 07:13:00 Test Item Value Reference Range Interpretation Comments POLYCHROMASIA (test code = TRACE ON SCAN NONE POLC) HYPOCHROMIA (test code = 1+ ON SCAN NONE HYPO) POIKILOCYTOSIS (test code TRACE ON SCAN NONE = POIK) ANISOCYTOSIS (test code = TRACE NONE ANISO) PLATELET ESTIMATE (test INCREASED THOUSAND ADEQUATE code = PLTEST) PLATELET MORPHOLOGY (test NORMAL code = PLTMORPH) CBC W/AUTO [id number] 07:12:00 Test Item Value Reference Range Interpretation [...] NT WITH AUTO DIFFERENTI AL. CBC W/AUTO [id number] 07:12:00 Test Item Value Reference Range Interpretation [...] NT WITH AUTO DIFFERENTI AL. COMPREHENSIVE METABOLIC [id number] 06:14:00 Test Item Value Reference Range Interpretation [...] 45-117 N TOTAL (test code = ALKP) [id number] 06:14:00 Test Item Value Reference Range Interpretation Comments PHOSPHOROUS (test code = PHOS) 2.5 MG/DL 2.5-4.9 N [id number] 06:14:00 Test Item Value Reference Range Interpretation Comments MAGNESIUM (test code = MAG) 2.5 MG/DL 1.8-2.4 H PROTHROMBIN [id number] 06:06:00 Test Item Value Reference Range Interpretation Comments PT PATIENT (test code = PTP) 14.1 SECONDS 9.3-12.9 H INTERNATIONAL NORMAL RATIO 1.25 INR Unit 0.8-1.2 H (test code = INR) THROMBOPLASTIN TIME [id number] 06:06:00 Test Item Value Reference Range Interpretation Comments THROMBOPLASTIN TIME PARTIAL 33.3 SECONDS 26-35 N (test code = PTT) CBC W/AUTO [id number] 05:55:00 Test Item Value Reference Range Interpretation [...] DIFF/SCN CRITERIA MDIFF) - XR ABDOMEN 1 [id number] 11:48:[address] : 1945 Sex: F Name: OZZY MEI [facility] : 1945 Age/S: 75 / F [address] Unit #: [id number] Loc: [place] [address] Phys: Josee Mustafa MD Acct: [id number] Dis Date: Status: ADM IN PHONE #: [phone] Exam Date: 12/24/2020 1130 FAX #: Reason: CONSTIPATION EXAMS: CPT: [id number] XR ABDOMEN 1V [id number] Fluoro Time: DAP (Gy m2): Air Kerma (mGy): EXAMINATION: 2 AP supine view(s) of the abdomen I NDICATION: CONSTIPATION COMPARISON: None LOCATION: S17 FINDINGS: Diffuse gaseous distention is present. Small amount of colonic stool. The cecum is dilated to 12 cm. Several small bowel loops are uppernormal in caliber. Lung bases are clear. IMPRESSION: Diffuse gaseous distention represent ileus. Thececum is dilated to 12 cm. Follow-up may be helpful. at 1148 Reported and signed by: Jarred Neil M.D. CC: Josee Mustafa MD PAGE 1 Signed Report Name: OZZY MEI [facility] : 1945 Age/S: 75 / F [address] [address] #: [id number] Loc: [place] [address] Phys: Josee Mustafa MD Acct: [id number] Dis Date: Status: ADM IN PHONE #: [phone] Exam Date: 12/24/2020 1137 FAX #: Reason: CONSTIPATION EXAMS: CPT: [id number] XR ABDOMEN 1 V 61771 Fluoro Time: DAP (Gy m2): Air Kerma (mGy): (Continued) Technologist: Elisha Farmer RT(R) Trnscb Date/Time: 12/24/2020 (1148) [email or web address] Orig Print D/T: S: 12/24/2020 (3707) PAGE 2 Signed ReportMR, MRA, BRAIN, WITHOUT [id number] 20:11:00Needs general anesthesiaReason for exam:->Ischemic Stroke EvaluationFINAL REPORT MR, MRA, BRAIN, WITHOUT CONTRAST, MR, MRA, NECK, WITHOUT IV CONTRAST, MR, BRAIN, WITHOUT CONTRAST INDICATION: Ischemic Stroke Evaluationstroke evaluation TECHNIQUE: Multiplanar, multisequence MR imaging of the brain without intravenous contrast.MRA of the head utilizing 3-D jiii-zg-phtjqn technique, with 3-D reconstructions.MRA of the neck utilizing 2-D and 3-D pwtl-nx-bdixwj technique, with 3-D reconstructions. COMPARISON: None FINDINGS: [...] is no evidence of intracranial aneurysm, focal s tenosis, or major branch vessel occlusion. MRA Neck:The carotid arteries in the neck are patent including their bifurcations. There is antegrade flow in the vertebral arteries in the neck. 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 Cortical laminar process in the left parieto-occipital junction. No acute intracranial hemorrhage.2.No proximal branch arterial occlusion or high-grade focal stenosis. Signed: Damian Whitleyeport Verified Date/Time: 09/14/2019 20:11:20 MR, MRA, NECK, WITHOUT IV CONTRAST 2019-09-14 20:11:00Needs general anesthesiaReason for exam:->Ischemic Stroke EvaluationFINAL REPORT MR, MRA, BRAIN, WITHOUT CONTRAST, MR, MRA, NECK, WITHOUT IV CONTRAST, MR, BRAIN, WITHOUT CONTRAST INDICATION: Ischemic Stroke Evaluationstroke evaluation TECHNIQUE: Multiplanar, multisequence MR imaging of the brain without intravenous contrast.MRA of the head utilizing 3-D mzfn-gz-xlkycg technique, with 3-D reconstructions.MRA of the neck utilizing 2-D and 3-D rfkz-wo-rqqlcq technique, with 3-D reconstructions. COMPARISON: None FINDINGS: [...] sinusitis. Mastoids are clear. Orbits: Globes are intac t. Calvarium \T\ scalp: Unremarkable. MRA Head:There is no evidence of intracranial aneurysm, focal stenosis, or major branch vessel occlusion. MRA Neck:The carotid arteries in the neck are patent including their bifurcations. There is antegrade flow in the vertebral arteries in the neck. IMPRESSION:1. 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 Cortical laminar process in the left parieto-occipital junction. No acute intracranial hemorrhage.2.No proximal branch arterial occlusion or high-grade focal stenosis. Signed: Damian Whitleyeport Verified Date/Time: 09/14/2019 20:11:20 MR, BRAIN, WITHOUT [id number] 20:11:00Needs general anesthesiaReason for exam:->Ischemic Stroke EvaluationFINAL REPORT MR, MRA, BRAIN, WITHOUT CONTRAST, MR, MRA, NECK, WITHOUT IV CONTRAST, MR, BRAIN, WITHOUT CONTRAST INDICATION: Ischemic Stroke Evaluationstroke evaluation TECHNIQUE: Mul tiplanar, multisequence MR imaging of the brain without intravenous contrast.MRA of the head utilizing 3-D bhrn-xj-rvozyn technique, with 3-D reconstructions.MRA of the neck utilizing 2-D and 3-D cgtz-wd-clbvjs technique, with 3-D reconstructions. COMPARISON: None FINDINGS: [...] intracranial hemorrhage.2.No proximal branch arterial occlusion or high- grade focal stenosis. Signed: [facility]ian Whitley [facility] Verified Date/Time: 09/14/2019 20:11:20 [id number] 13:14:00 Test Item Value Reference Range Interpretation Comments RPR SCREEN (BEAKER) (test code = Nonreactive Nonreactive 420) HEMOGLOBIN [id number] 08:08:00 Test Item Value Reference Range Interpretation Comments HEMOGLOBIN A1C (BEAKER) (test code = 5.6 % 4.3-6.1 368) [id number] 06:39:00 Test Item Value Reference Range Interpretation Comments MAGNESIUM (BEAKER) (test code = 2.1 mg/dL 1.6-2.6 627) Scale Operator ID - BSBASIC METABOLIC [id number] 06:39:00 Test Item Value Reference Range Interpretation [...] S NOT APPLICABLE FOR DIALYSIS PATIEN TS. Scale Operator ID - BSLIPID [id number] 06:39:00 Test Item Value Reference Range Interpretation Comments TRIGLYCERIDES (BEAKER) (test code = 160 mg/dL 540) CHOLESTEROL (BEAKER) (test code = 164 mg/dL 631) HDL CHOLESTEROL (BEAKER) (test code 48 mg/dL = 976) LDL CHOLESTEROL CALCULATED (BEAKER) 84 mg/dL (test code = 633) Triglyceride Reference Range: Low Risk <150 Borderline 150-199 High Risk 200- 499 Very High Risk >=500Cholesterol Reference Range: Low Risk <200 Borderline 200-239 High Risk >240HDL Cholesterol Reference Range: Low Risk >=60 High Risk <40LDL Cholesterol Reference Range: Optimal <100 Near Optimal 100-129 Borderline 130-159 High 160-189 Very High >=190 Scale Operator ID - BSCBC W/PLT COUNT & AUTO [id number] 05:38:00 Test Item Value Reference Range Interpretation [...] (test code = 2801) TSH/FREE T4 IF [id number] 18:53:00 Test Item Value Reference Range Interpretation Comments THYROID STIMULATING HORMONE 0.76 uIU/mL 0.35-4.94 (BEAKER) (test code = 772) Scale Operator ID - BSVITAMIN B12 AND [id number] 18:53:00 Test Item Value Reference Range Interpretation Comments VITAMIN B12 (BEAKER) (test code = 721 pg/mL 213-816 774) FOLATE (BEAKER) (test code = 362) 12.5 ng/mL >=7.0 Scale Operator ID - BSAutomated blood leukocyte count (number/volume)2019-09-13 12:10:00 Test Item [...] HealthAutomated erythrocyte mean corpuscular hemoglobin concentration measurement (mass/[id number] 12:10:00 Test Item Value Reference Range Interpretation Comments Mean Corpuscular Hemoglobin Concent 30.1 g/dL 33.0-37.0 (test code = 786-4) [facility] HealthAutomated erythrocyte distribution width [id number] 12:10:00 Test Item Value Reference Range Interpretation Comments Red Cell Distribution Width (test code 16.6 % 10.7-14.5 = 788-0) [facility] HealthAutomated blood platelet count (count/volume)2019-09-13 12:10:00 Test Item Value Reference Range Interpretation Comments Platelet Count (test code = 540 10*3/uL 150-450 777-3) [facility] HealthAutomated blood platelet mean volume cykqarlzktc3395-23-95 12:10:00 Test Item Value Reference Range Interpretation Comments Mean Platelet Volume (test code = 9.9 fL 5.7-10.7 69380-3) [facility] comment [id number] 12:10:00 Test Item Value Reference Range Interpretation Comments Manual Differential (test code = ----- 8265-1) [facility] HealthManual blood segmented neutrophils/100 obiazkyizw2262-32-64 12:10:00 Test Item Value Reference Range Interpretation Comments Neutrophils % (Manual) (test code = 83 % 42-75 769-0) [facility] HealthManual blood lymphocytes/100 wmvfmoxzgu2709-17-49 12:10:00 Test Item Value Reference Range Interpretation Comments Lymphocytes % (Manual) (test code = 11 % 21-51 737-7) [facility] HealthManual blood monocytes/100 dgmxgupfxt1639-90-45 12:10:00 Test Item Value Reference Range Interpretation Comments Monocytes % (Manual) (test code = 4 % 1-9 744-3) [facility] HealthManual blood eosinophil count as percentage of total leukocytes 2019-09-13 12:10:00 Test Item Value Reference Range Interpretation Comments Eosinophils % (Manual) (test code = 2 % 0-7 714-6) [facility] HealthBlood platelet detection by light xhxxbynnmr7804-03-45 12:10:00 Test Item Value Reference Range Interpretation Comments Platelet Estimate (test code = Adequate 9317-9) [facility] HealthBlood erythrocyte morphology finding urazxsrsqystvt9948-29-72 12:10:00 Test Item Value Reference Range Interpretation Comments Red Blood Cell Morphology (test code = Normal 6742-1) [facility] HealthProthrombin time (PT) in platelet poor [id number] 12:10:00 Test Item Value Reference Range Interpretation Comments Prothrombin Time (test code = 5902-2) 12.7 s 9.4-12.5 [facility] LopezINR in Platelet poor plasma by Coagulation [id number] 12:10:00 Test Item Value Reference Range Interpretation Comments Prothromb Time International 1.1 {ratio} 0.8-1.2 Ratio (test code = 6301-6) [facility] HealthPlasma partial thromboplastin time (PTT)2019-09-13 12:10:00 Test Item Value Reference Range Interpretation Comments Activated Partial Thromboplast Time 37.7 s 25.1-36.5 (test code = 49437-0) [facility] HealthSerum or plasma sodium measurement (moles/volume)2019-09-13 [...] Level (test code = 104 mmol/L 98-107 5-0) [facility] HealthSerum or plasma total carbon dioxide measurement (moles/volume) 2019-09-13 12:10:00 Test Item Value Reference Range Interpretation Comments Carbon Dioxide Level (test code = 28 mmol/L -31 2027-9) [facility] HealthSerum or plasma anion gap determination (moles/volume)2019-09-13 12:10:00 Test Item Value Reference Range Interpretation Comments Anion Gap (test code = 81007-0) 14 18 [facility] HealthSerum or plasma urea nitrogen measurement (mass/volume)2019-09-13 12:10:00 Test Item Value Reference Range Interpretation Comments Blood Urea Nitrogen (test code = 10 mg/dL 04-16 3094-0) [facility] HealthSerum or plasma creatinine measurement (mass/volume)2019-09-13 12:10:00 Test Item Value Reference Range Interpretation Comments Creatinine (test code = 2160-0) 0.8 mg/dL 0.6-1.1 [facility] HealthGFR estimate [id number] 12:10:00 Test Item Value Reference Range Interpretation Comments Estimat Glomerular Filtration Rate 75 50-100 (test code = 45926-3) [facility] HealthSerum or plasma urea nitrogen/creatinine mass [id number] 12:10:00 Test Item Value Reference Range Interpretation Comments BUN/Creatinine Ratio (test code = 13 3097-3) [facility] HealthSerum or plasma glucose measurement (mass/volume)2019-09-13 12:10:00 Test Item Value Reference Range Interpretation Comments Glucose Level (test code = 2345-7) 108 mg/dL 60-100 [facility] HealthOsmolality of Serum or Plasma by jphsklhdaak7455-46-08 12:10:00 Test Item Value Reference Range Interpretation Comments Calculated Osmolality (test code 283 mosm/kg = 37436-1) [facility] HealthSerum or plasma calcium measurement (mass/volume)2019-09-13 12:10:00 Test Item Value Reference Range Interpretation Comments Calcium Level (test code = 21234-6) 9.5 mg/dL 8.4-10.2 [facility] HealthSerum or plasma [...] Cholesterol (test code = 86 mg/dL 0-99 99471-1) [facility] HealthSerum or plasma total cholesterol/high density lipoprotein (HDL) cholesterol mass [id number] 12:10:00 Test Item Value Reference Range Interpretation Comments Cholesterol/HDL Ratio (test code = 3.0 See Note 9830-1) [facility] HealthSerum or plasma low density lipoprotein (LDL) cholesterol/high density lipoprotein (HDL) cholesterolmass gyivh2810-03-62 12:10:00 Test Item Value Reference Range Interpretation Comments Cholesterol Ratio (LDL/HDL) (test code 1.5 = 00444-6) [facility] HealthAutomated erythrocyte distribution width kdjss0739-21-87 12:10:00 Test Item Value Reference Range Interpretation Comments Red Cell Distribution Width (test code 16.6 % = 788-0) Automated blood platelet count (count/volume)2019-09-13 12:10:00 Test Item Value Reference Range Interpretation Comments Platelet Count (test code = 540 10*3/uL 777-3) Automated blood platelet mean volume blcgnfltxwf9103-43-07 12:10:00 Test Item Value Reference Range Interpretation Comments Mean Platelet Volume (test code = 9.9 fL 83353-4) Service comment [id number] 12:10:00 Test Item Value Reference Range Interpretation Comments Manual Differential (test code = ----- 8265-1) Manual blood segmented neutrophils/100 twwshimhdu2355-32-36 12:10:00 Test Item Value Reference Range Interpretation Comments Neutrophils % (Manual) (test code = 83 % 769-0) Manual blood lymphocytes/100 fvbfetswwv7076-67-42 12:10:00 Test Item Value Reference Range Interpretation Comments Lymphocytes % (Manual) (test code = 11 % 737-7) Manual blood monocytes/100 ybtktyetfg2865-01-31 12:10:00 Test Item Value Reference Range Interpretation Comments Monocytes % (Manual) (test code = 4 % 744-3) Manual blood eosinophil count as percentage of total vnlqdybtlc4782-06-46 12:10:00 Test Item Value Reference Range Interpretation Comments Eosinophils % (Manual) (test code = 2 % 714-6) Blood platelet detection by light lgfhkxlbkv7083-99-71 12:10:00 Test Item Value Reference Range Interpretation Comments Platelet Estimate (test code = Adequate 9317-9) Blood erythrocyte morphology finding ssvpzvcfiknjfa3921-59-96 12:10:00 Test Item Value Reference Range Interpretation Comments Red Blood Cell Morphology (test code = Normal 6742-1) Prothrombin time (PT) in platelet poor njcdsb8939-98-53 12:10:00 Test Item Value Reference Range Interpretation Comments Prothrombin Time (test code = 5902-2) 12.7 s INR in Platelet poor plasma by Coagulation ambdz9598-07-53 12:10:00 Test Item Value Reference Range Interpretation Comments Prothromb Time International 1.1 {ratio} Ratio (test code = 6301-6) Plasma partial thromboplastin time (PTT)2019-09-13 12:10:00 Test Item Value Reference Range Interpretation Comments Activated Partial Thromboplast Time 37.7 s (test code = 54121-6) Serum or plasma sodium measurement (moles/volume)2019-09-13 12:10:00 Test Item Value Reference Range Interpretation Comments Sodium Level (test code = 2951-2) 142 mmol/L Serum or plasma potassium measurement (moles/volume)2019-09-13 12:10:00 Test Item Value Reference Range Interpretation Comments Potassium Level (test code = 3.5 mmol/L 2823-3) Serum or plasma chloride measurement (moles/volume)2019-09-13 12:10:00 Test Item Value Reference Range Interpretation Comments Chloride Level (test code = 104 mmol/L 5-0) Serum or plasma total carbon dioxide measurement (moles/volume)2019-09-13 12:10:00 Test Item Value Reference Range Interpretation Comments Carbon Dioxide Level (test code = 28 mmol/L 2027-9) Serum or plasma anion gap determination (moles/volume)2019-09-13 12:10:00 Test Item Value Reference Range Interpretation Comments Anion Gap (test code = 53291-3) 14 Serum or plasma urea nitrogen measurement (mass/volume)2019-09-13 12:10:00 Test Item Value Reference Range Interpretation Comments Blood Urea Nitrogen (test code = 10 mg/dL 3094-0) Serum or plasma creatinine measurement (mass/volume)2019-09-13 12:10:00 Test Item Value Reference Range Interpretation Comments Creatinine (test code = 2160-0) 0.8 mg/dL GFR estimate [id number] 12:10:00 Test Item Value Reference Range Interpretation Comments Estimat Glomerular Filtration Rate 75 (test code = 35720-3) Serum or plasma urea nitrogen/creatinine mass [id number] 12:10:00 Test Item Value Reference Range Interpretation Comments BUN/Creatinine Ratio (test code = 13 3097-3) Serum or plasma glucose measurement (mass/volume)2019-09-13 12:10:00 Test Item Value Reference Range Interpretation Comments Glucose Level (test code = 2345-7) 108 mg/dL Osmolality of Serum or Plasma by stkogdztlyy0306-39-91 12:10:00 Test Item Value Reference Range Interpretation Comments Calculated Osmolality (test code 283 mosm/kg = 14731-9) Serum or plasma calcium measurement (mass/volume)2019-09-13 12:10:00 Test Item Value Reference Range Interpretation Comments Calcium Level (test code = 01792-5) 9.5 mg/dL Serum or plasma cholesterol measurement (mass/volume)2019-09-13 12:10:00 Test Item Value Reference Range Interpretation Comments Cholesterol Level (test code = 173 mg/dL 2093-3) Serum or plasma triglyceride measurement (mass/volume)2019-09-13 12:10:00 Test Item Value Reference Range Interpretation Comments Triglycerides Level (test code = 152 mg/dL 2571-8) Serum or plasma cholesterol in HDL measurement (mass/volume)2019-09-13 12:10:00 Test Item Value Reference Range Interpretation Comments HDL Cholesterol (test code = 2085-9) 57 mg/dL Serum or plasma cholesterol in LDL measurement by calculation (mass/volume) 2019-09-13 12:10:00 Test Item Value Reference Range Interpretation Comments LDL Cholesterol (test code = 86 mg/dL 99928-8) Serum or plasma total cholesterol/high density lipoprotein (HDL) cholesterol mass [id number] 12:10:00 Test Item Value Reference Range Interpretation Comments Cholesterol/HDL Ratio (test code = 3.0 9830-1) Serum or plasma low density lipoprotein (LDL) cholesterol/high density lipoprotein (HDL) cholesterolmass [id number] 12:10:00 Test Item Value Reference Range Interpretation Comments Cholesterol Ratio (LDL/HDL) (test code 1.5 = 25923-8) Automated blood leukocyte count (number/volume)2019-09-13 12:10:00 Test Item Value Reference Range Interpretation Comments White Blood Count (test code = 13.4 10*3/uL 6690-2) Blood erythrocytes automated count (number/volume)2019-09-13 12:10:00 Test Item Value Reference Range Interpretation Comments Red Blood Count (test code = 4.99 10*6/uL 789-8) Blood hemoglobin measurement (mass/volume)2019-09-13 12:10:00 Test Item Value Reference Range Interpretation Comments Hemoglobin (test code = 718-7) 13.1 g/dL Automated blood hematocrit (volume fraction)2019-09-13 12:10:00 Test Item Value Reference Range Interpretation Comments Hematocrit (test code = 4544-3) 43.5 % Automated erythrocyte mean corpuscular volume (MCV) ehjcubfndtm6323-98-67 12:10:00 Test Item Value Reference Range Interpretation Comments Mean Corpuscular Volume (test code = 87.2 fL 787-2) Automated erythrocyte mean corpuscular hemoglobin (mass per erythrocyte) 2019-09-13 12:10:00 Test Item Value Reference Range Interpretation Comments Mean Corpuscular Hemoglobin (test 26.3 pg code = 785-6) Automated erythrocyte mean corpuscular hemoglobin concentration measurement (mass/mcq0114-29-64 12:10:00 Test Item Value Reference Range Interpretation Comments Mean Corpuscular Hemoglobin Concent 30.1 g/dL (test code = 786-4) Comprehensive Metabolic Snyvq0064-84-31 21:35:55 Test Item Value Reference Range Interpretation [...] A/G 1.6 ratio N Ratio) Comprehensive Metabolic [id number] 21:35:55 Test Item Value Reference Range Interpretation [...] the National Kidney Foundation, http://nkdep.ni h.gov Lipid Asrqq2743-54-02 21:35:55 Test Item Value Reference Range Interpretation Comments Cholesterol Total 188 mg/dL 0-200 RISK OF HE ART (test code = DISEASEPublishe d by Cholesterol Total) [place] [employer] Charley lyte Optimal Borderl ine Increased RiskC HOL <200 200-239 >240TRI G <150 150-199 >200HDL Male >60 <40HDL Fema le >60 <50LDL <100 130 -159 >160LDL Near op timal is 100-129 Triglycerides (test 259 mg/dL 9-200 [...] LDL/HDL Ratio=L DL Calc/HDL Chol Comprehensive Metabolic [id number] 21:35:55 Test Item Value Reference Range Interpretation [...] ag e have not been validated by e MDRD study and should be interpreted wit h caution. eGFR R esult Interpretation: eGFR > or = 60 is in the Normal RangeeGF R < 60 may mean kid giovanni diseaseeGFR < 1 5 may mean kidney failure Rang es recommended by the National Kidney Foundation, http://nkdep.ni h.gov Complete Blood Count with Tounpycljoxk3947-05-15 21:32:55 Test Item Value Reference Range Interpretation [...] code = IPF) 0 % N Automated Qiesnndduxqj2023-24-49 21:32:55 Test Item Value Reference Range Interpretation Comments Neutro Auto (test code = Neutro 67.0 % 36.0-70.0 Auto) Lymph Auto (test code = Lymph Auto) 20.5 % 12.0-44.0 Quay Auto (test code = Quay Auto) 6.5 % 0.0-11.0 Eos, Auto (test code = Eos, Auto) 3.7 % 0.0-7.0 Basophil Auto (test code = Basophil 1.5 % 0.0-2.0 Auto) Neutro Absolute (test code = Neutro 6.4 x10 1.6-7.4 Absolute) Lymph Absolute (test code = Lymph 1.96 x10 .50-4.60 Absolute) Quay Absolute (test code = Quay .62 x10 .00-1.20 Absolute) Eos Absolute (test code = Eos 0.35 x10 0.00-0.74 Absolute) Baso Absolute (test code = Baso 0.14 x10 0.00-0.21 Absolute) IG [id number] 21:32:55 Test Item Value Reference Range Interpretation Comments IG (test code = IG) 0.8 % 0.0-5.0 IG Abs (test code = IG Abs) 0 x10 N XR Chest 1 View Mvjjoph8260-76-98 09:09:53Patient: OZZY MEI Date/Time06/03/2018 09:02 CSTReason for Exampre cardiac cath;Other (please specify)ReportCHEST 1 VIEWCLINICAL INFORMATION: Other (please specify);pre cardiac cathCOMPARISON: NoneFINDINGS:The lungs are well-expanded and clear. No airspace consolidation isseen. No pneumothorax or pleural effusion is present. The cardiac silhouette is normal in size. The bones are grossly intact.IMPRESSION:No acute cardiopulmonary finding.LOCATION: R16 Final Dictated by: MD Al Adam FDictated DT/TM: 06/03/2018 9:09 amSigned by: MD Al Adam FSigned (Electronic Signature): 06/03/2018 9:09 am
--- NOTE | 2023-04-08 08:54 | RAD REPORT ---
EXAM DESCRIPTION: CT - Head Brain Wo Cont - 04/08/2023 7:59 am CLINICAL HISTORY: TRAUMA COMPARISON: Facial Bones W/ Mpr dated 04/08/2023; Head Brain Wo Cont dated 08/17/2021 TECHNIQUE: Noncontrast head CT images were obtained without IV contrast. Multiplanar reformats were generated and reviewed. All CT scans are performed using dose optimization technique as appropriate and may include automated exposure control or mA/KV adjustment according to patient size. FINDINGS: Stable extent of areas of encephalomalacia within the left frontal and parietal lobes, wit h somewhat more pronounced cystic changes, suggestive of sequelae of remote ischemia. No intracranial hemorrhage, mass, or edema. Midline structures are unremarkable. Stable ventricular caliber with ex vacuo dilation of the left lateral ventricle. Stable patchy bilateral deep white matter hypoattenuation, nonspecific, but suggestive of chronic sma ll vessel ischemic changes. [place]-white matter differentiation elsewhere is preserved, without evidence of acute infarct. No abnor mal extra-axial fluid collections. Mastoid air cells are well aerated. Chronic opacification of the right maxillary and sphenoid sinuses with wall osteoneogenesis suggesting chronic sinusitis. No acute bony findings. IMPRESSION: No evidence of an acute intracranial process. Stable chronic findings as above.
--- NOTE | 2023-04-08 09:00 | RAD REPORT ---
EXAM DESCRIPTION: CT - CTFB CLINICAL HISTORY: TRAUMA COMPARISON: No comparisons TECHNIQUE: Axial 2 mm thick images of the face were obtained with sagittal and coronal reconstructio n images. All CT scans are performed using dose optimization technique as appropriate and may include automated exposure control or mA/KV adjustment according to patient size. FINDINGS: No acute facial bone fracture is seen.The mandible is intact. Soft tissue swelling, laceration, and small hematoma, in the left premalar soft tissues. The globes and orbital contents are grossly unremarkable. Chronic wall thickening/osteoneogenesis along the right maxillary and bilateral sphenoid sinuses with mucosal thickening/opacification, suggestive of sequelae of chronic sinusitis. IMPRESSION: Negative for facial bone fracture. Soft tissue swelling, laceration, and small hematoma in the left premalar soft tissues. Sequelae of chronic sinusitis as above.
[2023-04-08 09:05] LABS: Hematocrit 43.8 % (36.0-45.0); MCV 67.5 fL (80-100); Platelets 854 thou/uL (152-406)
[2023-04-08 09:06] LABS: Absolute Lymphocytes (CBC) 1.9 K/uL (0.7-4.9); Lymphocytes % 6.4 % (15.3-44.8); MPV 8.2 fL (7.6-11.3)
[2023-04-08] MEDS ORDERED: NA CHLORIDE 0.9% 500 ML ONE (09:08)
[2023-04-08] MEDS ORDERED: TDAP (DIPHTH,PERTUSS(ACELL),TET VAC) 0.5 ML VIAL IMVAC ONE (09:08)
[2023-04-08] MEDS ORDERED: LIDOCAINE 1% MPF 5 ML VIAL ONE (09:08)
[2023-04-08] MEDS ORDERED: ACETAMINOPHEN 500 MG TAB ONE (09:08)
--- NOTE | 2023-04-08 09:16 | RAD REPORT ---
EXAM DESCRIPTION: CT - C Spine Wo Con - 04/08/2023 8:00 am CLINICAL HISTORY: Trauma COMPARISON: None. TECHNIQUE: Axial thin cut noncontrast CT images of the cervical spine were obtained with sagittal an d coronal reconstruction images generated and reviewed. All CT scans are performed using dose optimization technique as appropriate and may include automated exposure control or mA/KV adjustment according to patient size. FINDINGS: Incidentally noted left cervical rib. Straightening of normal cervical lordosis. Cervical body height and alignment are normal. Multilevel degenerative changes of the endplates, facet, and uncovertebral joints. Moderate to advanc ed disc height loss at C4-5, C5-6, and C6-7 levels. Mild neural foraminal narrowing bilaterally at C6 -7. No fracture or acute bony abnormality. No paraspinal mass or hematoma. IMPRESSION: No acute traumatic cervical spine fracture or subluxation. Degenerative changes as above .
--- NOTE | 2023-04-08 09:16 | RAD REPORT ---
EXAM DESCRIPTION: RADChest Single View04/08/2023 8:00 am CLINICAL HISTORY: TRAUMA COMPARISON: Chest Single View dated 08/17/2021 TECHNIQUE: Portable AP view of the chest. FINDINGS: The lungs are clear. No pneumothorax or effusion. The cardiomediastinal contours are unre markable. IMPRESSION: No acute cardiopulmonary process.
[2023-04-08 09:26] LABS: Albumin 3.8 g/dL (3.4-5.0); Bilirubin Total 0.5 mg/dL (0.2-1.0); Magnesium 2.3 mg/dL (1.6-2.4); Potassium 2.9 mEq/L (3.5-5.1); Protein, Total 7.8 g/dL (6.4-8.2)
[2023-04-08 09:29] LABS: Troponin High Sensitivity 572.9 pg/mL (<58.9)
[2023-04-08 09:55] LABS: Platelet Estimate ADEQ
[2023-04-08 09:56] LABS: Anisocytosis 2+; Blood Morphology Comment NOTED (NOT SEEN); Hypochromasia 1+
[2023-04-08] MEDS ORDERED: POTASSIUM CL SA 10 MEQ TAB PO ONE ×2 (10:21→20:00)
[2023-04-08] MEDS ORDERED: ASPIRIN 81 MG CHEWABLE TABLET ONE (10:21)
--- NOTE | 2023-04-08 11:12 | ER ---
Nurse's Notes [facility] Name: Cleo Norton Age: 77 yrs Sex: Female : 1945 Arrival Date: 04/08/2023 Time: 06:59 Bed 7 Private MD: Diagnosis: Leukocytosis;Hypokalemia;Elevated troponin;Diarrhea;Recurrent falls;Left cheek laceration;Closed head injury, initial encounter Presentation: 04/08 07:15 Chief complaint: Patient states: On toilet this morning - woke up on floor. Laceration ld1 to left cheek. Unknown LOC - denies blood thinners. Coronavirus screen: At this time, the client does not indicate any symptoms associated with coronavirus-19. Ebola Screen: No symptoms or risks identified at this time. Initial Sepsis Screen: Does the patient meet any 2 criteria? No. Patient's initial sepsis screen is negative. Does the patient have a suspected source of infection? No. Patient's initial sepsis screen is negative. Risk Assessment: Do you want to hurt yourself or someone else? Patient reports no desire to harm self or others. Onset of symptoms was April 08, 2023. 07:15 Method Of Arrival: Ambulatory ld1 07:15 Acuity: RAQUEL 3 ld1 Triage Assessment: 07:15 General: Appears in no apparent distress. comfortable, Behavior is calm, cooperative, ld1 appropriate for age. Pain: Complains of pain in left cheek Pain currently is 6 out of 10 on a pain scale. Pain began 2 hours ago. EENT: No signs and/or symptoms were reported regarding the EENT system. Neuro: Level of Consciousness is awake, alert, obeys commands, Oriented to person, place, time, situation, Appropriate for age. Cardiovascular: Capillary refill < 3 seconds Patient's skin is warm and dry. Rhythm is sinus rhythm. Respiratory: Airway is patent Respiratory effort is even, unlabored. GI: Abdomen is flat, non-distended. : No signs and/or symptoms were reported regarding the genitourinary system. Derm: No signs and/or symptoms reported regarding the dermatologic system. Musculoskeletal: No signs and/or symptoms reported regarding the musculoskeletal system. Injury Description: Laceration sustained to left cheek. Historical: - Allergies: 07:14 No Known Allergies; jb4 - PMHx: 07:14 Atrial Fib; Cerebrovascular accident; coronary atherosclerosis; gastric ulcer; jb4 Hypertensive disorder; - PSHx: 07:14 colon resection; spine-cyst removal; jb4 Historical Immunization: - Administered Vaccines 14:04 Acetaminophen PO 650 mg me1 13:18 vancoMYCIN IVPB 1.5 grams me1 12:12 Piperacillin-Tazobactam IVPB 4.5 grams me1 11:49 Aspirin PO Chewable Tablet 324 mg tm6 11:49 Potassium Chloride PO 40 mEq tm6 09:08 Lidocaine Infiltration (1 %) 5 mg ld1 09:07 Acetaminophen PO 1000 mg tm6 09:07 Tetanus-Diphtheria Toxoid IM Adult 0.5 ml ld1 Councilor: Induction Manager; Exp: Sat Nov 18 2024; Lot #: [id number]; Series: 1 of 1; Patient Consent: Obtained; Date/Time: ; Source Name: Cleo Norton; Source Relationship: Self; Address Information: [address] [place] [address], [place] [address]; ; Education: Provided; VIS Presented Date: ; VIS Publication: Tetanus/Diphtheria (Td) Vaccine VIS 10/06/2016 (historic) 09:07 NS 0.9% IV 500 ml tm6 - Immunization history:: Adult Immunizations up to date. - Social history:: Smoking status: Patient denies any tobacco usage or history of. Patient/guardian denies using alcohol. Screenin:23 [facility] ED Fall Risk Assessment (Adult) History of falling in the last 3 months, ld1 including since admission Yes- single mechanical fall (1 pt) Confusion or Disorientation Yes (5 pts). Abuse screen: Denies threats or abuse. Denies injuries from another. Nutritional screening: No deficits noted. Tuberculosis screening: No symptoms or risk factors identified. Assessment: 07:23 Reassessment: See triage assessment. ld1 09:02 Reassessment: Patient went to bathroom escorted by tech. Pt reports having large bowel ld1 movement - unable to make it to bathroom. Cleaned patient up and escorted back to room. Notified ERP. 09:09 Reassessment: Patient appears in no apparent distress at this time. tm6 11:50 Reassessment: No changes from previously documented assessment. tm6 Vital Signs: 07:15 BP 109 / 64; Pulse 87; Resp 18; Pulse Ox 93% on R/A; Weight 62.14 kg; Height 5 ft. 4 ld1 in. ; Pain 6/10; 07:15 Temp 97.8(TE); ld1 08:36 BP 133 / 81 Supine; tm6 08:40 BP 110 / 67 Standing; tm6 09:04 BP 126 / 78 Sitting; tm6 11:49 BP 137 / 83; Pulse 79; Resp 17; Pulse Ox 98% on R/A; tm6 13:00 BP 127 / 70; Pulse 77; Resp 17; Pulse Ox 96% on R/A; me1 14:00 BP 127 / 63; Pulse 79; Resp 16; Pulse Ox 95% ; me1 15:08 BP 135 / 80; Pulse 82; Resp 16; Pulse Ox 100% on R/A; me1 07:15 Body Mass Index 23.52 (62.14 kg, 162.56 cm) ld1 07:15 Pain Scale: Adult ld1 ED Course: 07:00 Patient arrived in ED. rg4 07:06 Justen Roblero, RN is Primary Nurse. jb4 07:14 Jess Hong MD is Attending Physician. sd2 07:15 Arm band placed on right wrist. ld1 07:20 Triage completed. ld1 07:23 Patient has correct armband on for positive identification. Placed in gown. Bed in low ld1 position. Call light in reach. Side rails up X2. quality assurance monitor final on. Pulse ox on. NIBP on. Door closed. Noise minimized. Warm blanket given. 07:24 Primary Nurse role handed off by Justen Roblero, AMARIS ld1 07:24 Olivia Mclean, AMARIS is Primary Nurse. ld1 07:57 CT Head Brain wo Cont In Process Unspecified. EDMS 07:57 CT C Spine In Process Unspecified. EDMS 07:58 CT Facial Bones W/O Con In Process Unspecified. EDMS 08:02 XRAY Chest (1 view) In Process Unspecified. EDMS 09:01 Inserted saline lock: 20 gauge in right antecubital area, using aseptic technique. ld1 Blood collected. 09:32 Notified ED physician of a critical lab result(s). Troponin 572.9. ll1 11:10 Alejo Arevalo MD is Hospitalizing Provider. sd2 11:49 Urinalysis w/ reflexes Sent. ld1 11:49 Blood Culture Adult (2) Sent. ld1 15:43 No provider procedures requiring assistance completed. Patient admitted, IV remains in me1 place. 15:44 Provided Education on: POC. Verbalized understanding. . me1 Administered Medications: 09:07 Drug: Acetaminophen PO 1000 mg PO once Route: PO; tm6 14:18 Follow up: Response: No adverse reaction me1 09:07 Drug: Tetanus-Diphtheria Toxoid IM Adult 0.5 ml IM once; Provide Vaccine Information ld1 Statement (VIS). {Councilor: Induction Manager; Exp: Sat Nov 18 2024; Lot #: [id number]; Series: 1 of 1; Patient Consent: Obtained; Date/Time: ; Source Name: Cleo Norton; Source Relationship: Self; Address Information: [address] [place] [address], [place] [address]; ; Education: Provided; VIS Presented Date: ; VIS Publication: Tetanus/Diphtheria (Td) Vaccine VIS 10/06/2016 (historic)} Route: IM; Site: right deltoid; 14:18 Follow up: Response: No adverse reaction me1 09:07 Drug: NS 0.9% IV 500 ml IV at bolus once Route: IV; Rate: bolus; Site: right tm6 antecubital; 14:18 Follow up: IV Status: Completed infusion me1 09:08 Drug: Lidocaine Infiltration (1 %) 5 mg Infiltration once {Note: Administered by Dr. dania Watson} Route: Infiltration; 14:18 Follow up: Response: No adverse reaction me1 11:49 Drug: Aspirin PO Chewable Tablet 324 mg PO once; 81 mg tablets x 4 Route: PO; tm6 14:17 Follow up: Response: No adverse reaction; Pain is decreased me1 11:49 Drug: Potassium Chloride PO 40 mEq PO once Route: PO; tm6 14:17 Follow up: Response: No adverse reaction me1 12:12 Drug: Piperacillin-Tazobactam IVPB 4.5 grams IVPB once over 60 mins; (mix in 100 mL NS) me1 Route: IVPB; Infused Over: 60 mins; Site: right antecubital; 13:18 Follow up: Response: No adverse reaction; IV Status: Completed infusion me1 13:18 Drug: vancoMYCIN IVPB 1.5 grams IVPB at calculated rate once Route: IVPB; Rate: me1 calculated rate; Site: right antecubital; 15:38 Follow up: Response: No adverse reaction; IV Status: Completed infusion me1 14:04 Drug: Acetaminophen PO 650 mg PO once Route: PO; me1 14:19 Follow up: Response: No adverse reaction me1 Medication: 15:44 Vaccine Information Statement (VIS) provided today. Questions and/or concerns me1 addressed. VIS edition date: February 14, 2021. Outcome: 11:12 Decision to Hospitalize by Provider. sd2 15:43 Admitted to Med/surg accompanied by tech, via wheelchair, room 214, with chart, Report me1 called to AMARIS Nunes 15:43 Condition: stable 15:43 Instructed on the need for admit, 16:28 Patient left the ED. me1 Signatures: Dispatcher [employer] Lucretia Santoro rg4 Justen Roblero RN RN jb4 Aminata Mendez RN RN ll1 Olivia Mclean RN RN ld1 Jess Hong MD MD sd2 Aviva Mazariegos RN RN me1 Avelino Cary RN RN tm6
--- NOTE | 2023-04-08 11:13 | EDPHYS ---
Physician Documentation [facility] Name: Cleo Norton Age: 77 yrs Sex: Female : 1945 Arrival Date: 04/08/2023 Time: 06:59 Bed 7 Private MD: ED Physician Jess Hong HPI: 04/08 08:24 This 77 yrs old Female presents to ER via Ambulatory with complaints of Fall Injury. sd2 08:24 77-year-old female presents with chief complaint of fall injury. She reports that she sd2 was in the restroom this morning and took a fall. She cannot recall exactly how she fell but thinks she lost her balance. She can only remember being on the toilet and then being on the ground. She does have a cut to her left cheek area but denies any known loss of consciousness. Her daughter at bedside reports the patient has been having increasing weakness and falls over the last few days. The patient reports she has noticed that her balance and coordination has been worse. She does have a history of prior strokes but it has never caused deficits at this level. She denies any fevers or recent illness, chest pain, shortness of breath, vomiting or diarrhea.. Historical: - Allergies: 07:14 No Known Allergies; jb4 - PMHx: 07:14 Atrial Fib; Cerebrovascular accident; coronary atherosclerosis; gastric ulcer; jb4 Hypertensive disorder; - PSHx: 07:14 colon resection; spine-cyst removal; jb4 - Immunization history:: Adult Immunizations up to date. - Social history:: Smoking status: Patient denies any tobacco usage or history of. Patient/guardian denies using alcohol. ROS: 08:24 Constitutional: Negative for fever, chills, and weight loss, Eyes: Negative for injury, sd2 pain, redness, and discharge, Neck: Negative for injury, pain, and swelling, Cardiovascular: Negative for chest pain, palpitations, and edema, Respiratory: Negative for shortness of breath, cough, wheezing. Abdomen/GI: Negative for abdominal pain, nausea, vomiting, diarrhea. Back: Negative for injury and pain, MS/Extremity: Negative for injury and deformity, Skin: Positive for injury, Negative for rash, and discoloration, Neuro: Negative for headache, numbness and tingling. Exam: 08:24 Constitutional: This is a well developed, well nourished patient who is awake, alert, sd2 and in no acute distress. Head/Face: Normocephalic, small 2 cm superficial laceration noted to left cheek area with surrounding ecchymosis and TTP Eyes: EOMI, normal conjunctiva bilaterally ENT: Nares patent. No nasal discharge, no septal abnormalities noted. Tympanic membranes are normal and external auditory canals are clear. Oropharynx with no redness, swelling, or masses, exudates, or evidence of obstruction, uvula midline. Mucous membranes moist. Neck: Trachea midline, no thyromegaly or masses palpated, and no cervical lymphadenopathy. Supple, full range of motion without nuchal rigidity, or vertebral point tenderness. No Meningismus. Chest/axilla: Normal chest wall appearance and motion. Nontender with no deformity. Cardiovascular: Regular rate and rhythm with a normal S1 and S2. No gallops, murmurs, or rubs. 2+ distal pulses. Respiratory: Lungs have equal breath sounds bilaterally, clear to auscultation and percussion. No rales, rhonchi or wheezes noted. No increased work of breathing, no retractions or nasal flaring. Abdomen/GI: Soft, non-tender, with normal bowel sounds. No guarding or rebound. No evidence of tenderness throughout. Back: No spinal tenderness. No costovertebral tenderness. Full range of motion. Skin: Warm, dry with normal turgor. Normal color with no rashes, no lesions, and no evidence of cellulitis. MS/ Extremity: Pulses equal, no cyanosis. Neurovascular intact. Full, normal range of motion. Neuro: Awake and alert, GCS 15, oriented to person, place, time, and situation. Cranial nerves II-XII grossly intact. Motor strength 5/5 in all extremities. Sensory grossly intact. Psych: Awake, alert, with orientation to person, place and time. Behavior, mood, and affect are within normal limits. 09:18 ECG was reviewed by the Attending Physician. NSR, rate 86, no STEMI criteria sd2 Vital Signs: 07:15 BP 109 / 64; Pulse 87; Resp 18; Pulse Ox 93% on R/A; Weight 62.14 kg; Height 5 ft. 4 ld1 in. ; Pain 6/10; 07:15 Temp 97.8(TE); ld1 08:36 BP 133 / 81 Supine; tm6 08:40 BP 110 / 67 Standing; tm6 09:04 BP 126 / 78 Sitting; tm6 11:49 BP 137 / 83; Pulse 79; Resp 17; Pulse Ox 98% on R/A; tm6 13:00 BP 127 / 70; Pulse 77; Resp 17; Pulse Ox 96% on R/A; me1 14:00 BP 127 / 63; Pulse 79; Resp 16; Pulse Ox 95% ; me1 15:08 BP 135 / 80; Pulse 82; Resp 16; Pulse Ox 100% on R/A; me1 07:15 Body Mass Index 23.52 (62.14 kg, 162.56 cm) ld1 07:15 Pain Scale: Adult ld1 Laceration: 09:19 Wound Repair of 3cm ( 1.2in ) subcutaneous laceration to face and left cheek. sd2 Irregularly shaped.. Minimal bleeding noted.. Distal neuro/vascular/tendon intact. Anesthesia: Local anesthetic administered with 2 mls of 1% lidocaine. Wound prep: Simple cleansing by me, Wound irrigation by me. Skin closed with 3 6-0 Prolene using simple sutures and sterile technique. Dressed with 4x4's. Patient tolerated well. MDM: 07:14 Patient medically screened. sd2 08:24 Differential diagnosis: Differential diagnosis includes but is not limited to: sd2 Fracture, contusion, abrasion, closed head injury, pneumothorax, intra-abdominal injury, intracranial hemorrhage, spinal injury among others. Data reviewed: vital signs, nurses notes, lab test result(s), EKG, radiologic studies. Historians other than the Patient: Daughter/Son: Provides further information for the HPI. 11:08 Consideration of Admission/Observation Patient was admitted/placed on observation. Care sd2 significantly affected by the following chronic conditions: Hypertension, A-fib, CVA. Counseling: I had a detailed discussion with the patient and/or guardian regarding the historical points, exam findings, and any diagnostic results supporting the discharge/admit diagnosis, lab results, radiology results, the need for further work-up and treatment in the hospital. ED course: Labs and imaging reviewed. WBC elevated with unknown source. Trauma imaging negative. laceration repaired without complication. Trop elevated with no EKG changes, CP or SOB. Treated with ASA. Cultures sent and broad spectrum IV abx given. Pt to be admitted for further management at this time.. 04/08 07:44 Order name: CBC with Diff; Complete Time: 09:58 sd2 04/08 07:44 Order name: CMP; Complete Time: 09:58 sd2 04/08 07:44 Order name: Magnesium; Complete Time: 09:58 sd2 04/08 07:44 Order name: Troponin High Sensitivity; Complete Time: 09:58 sd2 04/08 07:44 Order name: BNP; Complete Time: 09:58 sd2 04/08 09:24 Order name: Manual Differential; Complete Time: 09:58 EDMS 04/08 10:00 Order name: Procalcitonin; Complete Time: 12:23 sd2 04/08 10:00 Order name: Lactate w/ 2H reflex if indic.; Complete Time: 12:23 sd2 04/08 10:00 Order name: Stool Culture sd2 04/08 10:00 Order name: Urinalysis w/ reflexes; Complete Time: 12:23 sd2 04/08 11:07 Order name: Blood Culture Adult (2) sd2 04/08 14:34 Order name: Troponin High Sensitivity; Complete Time: 14:49 EDMS 04/08 14:45 Order name: Thyroid Stimulating Hormone; Complete Time: 14:49 EDMS 04/08 15:34 Order name: Creatine Phosphokinase EDMS 04/08 15:34 Order name: Vitamin B12 Level EDMS 04/08 07:44 Order name: XRAY Chest (1 view); Complete Time: 09:18 sd2 04/08 07:44 Order name: CT Head Brain wo Cont; Complete Time: 08:55 sd2 04/08 07:44 Order name: CT C Spine; Complete Time: 09:18 sd2 04/08 07:44 Order name: CT Facial Bones W/O Con; Complete Time: 09:18 sd2 04/08 07:44 Order name: EKG - Nurse/Tech; Complete Time: 09:08 sd2 04/08 07:44 Order name: Orthostatics; Complete Time: 09:07 sd2 04/08 08:55 Order name: Prolene, Sutures; Complete Time: 09:09 sd2 04/08 08:55 Order name: Dressing - Wound; Complete Time: 09:13 sd2 04/08 08:55 Order name: Setup Suture Tray; Complete Time: 09:09 sd2 Administered Medications: 09:07 Drug: Acetaminophen PO 1000 mg PO once Route: PO; tm6 14:18 Follow up: Response: No adverse reaction me1 09:07 Drug: Tetanus-Diphtheria Toxoid IM Adult 0.5 ml IM once; Provide Vaccine Information ld1 Statement (VIS). {Rodent Exterminator: SparkupReader; Exp: Sat Nov 18 2024; Lot #: [id number]; Series: 1 of 1; Patient Consent: Obtained; Date/Time: ; Source Name: Cleo Norton; Source Relationship: Self; Address Information: [address] [place] [address], [facility] [address]; ; Education: Provided; VIS Presented Date: ; VIS Publication: Tetanus/Diphtheria (Td) Vaccine VIS 10/06/2016 (historic)} Route: IM; Site: right deltoid; 14:18 Follow up: Response: No adverse reaction me1 09:07 Drug: NS 0.9% IV 500 ml IV at bolus once Route: IV; Rate: bolus; Site: right tm6 antecubital; 14:18 Follow up: IV Status: Completed infusion me1 09:08 Drug: Lidocaine Infiltration (1 %) 5 mg Infiltration once {Note: Administered by Dr. dania Clifford .} Route: Infiltration; 14:18 Follow up: Response: No adverse reaction me1 11:49 Drug: Aspirin PO Chewable Tablet 324 mg PO once; 81 mg tablets x 4 Route: PO; tm6 14:17 Follow up: Response: No adverse reaction; Pain is decreased me1 11:49 Drug: Potassium Chloride PO 40 mEq PO once Route: PO; tm6 14:17 Follow up: Response: No adverse reaction me1 12:12 Drug: Piperacillin-Tazobactam IVPB 4.5 grams IVPB once over 60 mins; (mix in 100 mL NS) me1 Route: IVPB; Infused Over: 60 mins; Site: right antecubital; 13:18 Follow up: Response: No adverse reaction; IV Status: Completed infusion me1 13:18 Drug: vancoMYCIN IVPB 1.5 grams IVPB at calculated rate once Route: IVPB; Rate: me1 calculated rate; Site: right antecubital; 15:38 Follow up: Response: No adverse reaction; IV Status: Completed infusion me1 14:04 Drug: Acetaminophen PO 650 mg PO once Route: PO; me1 14:19 Follow up: Response: No adverse reaction me1 Disposition Summary: 04/08/23 11:12 Hospitalization Ordered Notes: Hospitalization Status: Inpatient Admission sd2 Provider: Alejo Arevalo sd2 Location: Telemetry/MedSur (Inpatient) sd2 Condition: Stable sd2 Problem: new sd2 Symptoms: are unchanged sd2 Bed/Room Type: Standard sc2 Room Assignment: 214(04/08/23 15:10) bc6 Diagnosis - Leukocytosis sd2 - Hypokalemia sd2 - Elevated troponin sd2 - Diarrhea sd2 - Recurrent falls sd2 - Left cheek laceration sd2 - Closed head injury, initial encounter sd2 Forms: - Medication Reconciliation Form sd2 - SBAR form sd2 - Leadership Thank You Letter sd2 Signatures: Dispatcher [employer] Justen Rojas RN RN jb4 Olivia Mclean RN RN ld1 Jess Hong MD MD sd2 Josefina Lo bc6 Aviva Mazariegos RN RN me1 Avelino Cary RN RN tm6 Corrections: (The following items were deleted from the chart) 15:10 11:12 sd2 bc6
[2023-04-08] MEDS ORDERED: ACETAMINOPHEN 500 MG TAB PO PRN (11:46)
--- NOTE | 2023-04-08 11:58 | P.HP ---
Certification for Inpatient With expected LOS: <2 Midnights Patient will require the following post-hospital care: None Practitioner: I am a practitioner with admitting privileges, knowledge of patient current condition, hospital course, and medical plan of care. Services: Services provided to patient in accordance with Admission requirements found in Title 42 Section 412.3 of the Code of Federal Regulations Patient History Date of Service: 04/08/23 History of Present Illness: 76yo F, PMH: afib, prior CVAs , COPD, HTN, anemia, anxiety, chronic back pain, claustrophobia, constipation, hard of hearing.Patient presents to the ER with complaints fall injury. She reports that she was in the restroom this morning and took a fall. She cannot recall exactly how she fell but thinks she lost her balance. She can only remember being on the toilet and then being on the ground. She does have a cut to her left cheek area but denies any known loss of consciousness. Her daughter at bedside reports the patient has been having increasing weakness and falls over the last few days. The patient reports she has noticed that her balance and coordination has been worse. She does have a history of prior strokes but it has never caused deficits at this level. She denies any fevers or recent illness, chest pain, shortness of breath, vomiting or diarrhea..Patient reports dysuria for 2 days. Denies fever, chills or dizziness. ED course EDED course; Vital Signs: 07:15 BP 109 / 64; Pulse 87; Resp 18; Pulse Ox 93% on R/A in. ; Pain 6/10; 9 Wound Repair of 3cm ( 1.2in ) subcutaneous laceration to face and left cheek. Irregularly shaped. Labs significant for WBC 29.8 platelets 854, potassium 2.9, BUN 19, troponin I 572.9, BNP 736, urinalysis is negative. CT head without contrast shows no evidence of acute intracranial process. Chest x-ray no acute cardiopulmonary process CT spine without traumatic no signs of traumatic fractures or subluxation. Admitting the patient for the diagnosis of repeated falls, leukocytosis, head injury, and facial laceration. Allergies No Known Allergies Allergy (Unverified 08/17/21 14:28) Home medications list reviewed: Yes Home Medications: Cyclobenzaprine HCl 10 mg PO BID 08/18/21 Oxazepam 30 mg PO Q12HR PRN 08/18/21 Aspirin [Aspirin EC 81 MG] 81 mg PO DAILY #30 tablet. 08/25/21 Acetaminophen with Codeine [Acetaminophen-Cod #3 Tablet] 1 tab PO TID 04/08/23 Amlodipine Besylate/Benazepril [Lotrel 5-10 mg Capsule] 1 tab PO DAILY 04/08/23 Diphenhydramine HCl [Benadryl] 1 tab PO DAILY 04/08/23 Phentermine HCl 37.5 mg PO DAILY 04/08/23 Tramadol HCl [Ultram] 50 mg PO TID 04/08/23 Venlafaxine HCl [Venlafaxine HCl ER] 150 mg PO DAILY 04/08/23 levETIRAcetam [Keppra*] 500 mg PO Q12H 04/08/23 - Past Medical/Surgical History Has patient received pneumonia vaccine in the past: No Diabetic: No -: Prior CVAsresidual mild left weakness, mild balance issues, word salad -: COPD -: A. fib not on anticoagulation -: HTN -: Anxiety and claustrophobia -: Chronic pain, from prior surgery -: Chronic constipation -: History of Leidy syndrome -: Colon resection -: Spine cyst removal Psychosocial/ Personal History: Patient lives in the home with the daughter - Family History Mother -: Lung disease, Other (see notes) (Lung cancer) Father -: Lung disease, Other (see notes) (Lung cancer) - Social History Smoking Status: Never smoker Alcohol use: No CD- Drugs: No Caffeine use: Yes Place of Residence: Home Review of Systems 10-point ROS is otherwise unremarkable General: Fever, Weakness Eyes: Pain ENT: Unremarkable Respiratory: Unremarkable Cardiovascular: Unremarkable Gastrointestinal: Unremarkable Genitourinary: Dysuria (For 2 days) Musculoskeletal: Atrophy, Back Pain Integumentary: Bruising, Other ( Wound 3cm ( 1.2in ) subcutaneous laceration to face and left cheek. ) Neurological: Weakness (Generalized) Physical Examination - Physical Exam General: Alert, Oriented x3, Cooperative HEENT: Atraumatic, Normocephalic Neck: Supple, 2+ carotid pulse no bruit Respiratory: Clear to auscultation bilaterally, Normal air movement Cardiovascular: No edema, Normal pulses, Regular rate/rhythm, Normal S1 S2, Abnormal S3 Capillary refill: <2 Seconds Gastrointestinal: Normal bowel sounds, Non-distended, No ascites, No tenderness, No masses, No rebound, No guarding Musculoskeletal: No clubbing, No swelling, No tenderness, No warmth, Other (Fall this morning) Integumentary: Other (Wound Repair of 3cm ( 1.2in ) subcutaneous laceration to face and left cheek. ) Neurological: Normal speech, Normal strength at 5/5 x4 extr, Normal tone, Sensation intact, Normal reflexes 2+, Normal affect - Studies Laboratory Data (last 24 hrs) 04/08/23 04/08/23 08:51 08:51 WBC 29.80 H Hgb 13.1 Hct 43.8 Plt Count 854 H Sodium 140 Potassium 2.9 L BUN 19 H Creatinine 0.80 Glucose 123 H Magnesium 2.3 Total Bilirubin 0.5 AST 10 L ALT 21 Alkaline Phosphatase 161 H Assessment and Plan - Plan Assessment and plan Assessment - Elevated troponin - Diarrhea - Recurrent falls - Left cheek laceration - Closed head injury, initial encounter -Leukocytosis -Paroxysmal Atrial Fibrillation with Rapid Ventricular Response -Anxiety -Hypertension Plan - Elevated troponin : -Troponin 572.9, patient denies chest pain or discomfort. Trend troponin I and 12 lead EKG. admitting to telemetry unit we will continue to monitor the patient closely -Consult cardiology. Dr. Milligan Diarrhea -Reporting diarrhea after taking laxative for constipation as per the pt. Patient has h/o colon resection. Continue to monitor Recurrent falls -Fall at home. She cannot recall exactly how she fell but thinks she lost her balance. She can only remember being on the toilet and then being on the ground. She does have a cut to her left cheek area but denies any known loss of consciousness. Patient is alert and oriented x3, moving all the extremities spontaneously. Fall precautions PT/OT to evaluate and treat Left cheek laceration : -acute, wound from the fall. The subcutaneous laceration to face and left cheek . Wound Repair done in the ER. Irregularly shaped.. Minimal bleeding noted. Closed head injury, initial encounter: - Injury from the fall at home, pt is alert and oriented x3. Patient moving al the extremities. Initial fall work up is negative. CT head, and neck negative. -Ordered transthoracic echo, MRI brain with contrast, MRA head and MRA neck with contrast ordered to rule out # Acute [text] Cerebrovascular Accident -Leukocytosis: -WBC is 29.8 on admission, and is afebrile, heart rate is 70, normotensive at this time -No source of infection identified -Empiric antibiotics started in the ER -High cultures Atrial Fibrillation - Chronic chronic, rate is controlled, not on anticoagulant on aspirin . On aspirin 81 mg p.o. daily . controlled patient denies chest pain or palpitation at this time Continue the current medications. Anxiety: Chronic, controlled on home medication including Oxazepam 30 mg PO Q12Hrs. We will continue to monitor, hold this medication at this time Hypertension -Chronic controlled on amlodipine 10 mg p.o. daily and metoprolol 25 mg p.o. twice daily -Continue the current medication we will continue to monitor and will admit the patient did not telemetry unit CODE STATUS, full code DVT prophylaxis Lovenox Discharge Plan: Home Plan to discharge in: 72 Hours - Advance Directives Does patient have a Living Will: No Does patient have a Durable POA for Healthcare: No - Code Status/Comfort Care Code Status Assessed: Yes (Full code) Code Status: Full Code Physician Review: Patient Assessed, Agree with Above Assessment and Plan Critical Care: No Time Spent Managing Pts Care (In Minutes): 55 (minutes)
[2023-04-08 12:01] LABS: Specific Gravity 1.017 (1.005-1.030); Urine Bacteria None Seen /HPF (<20); Urine Bilirubin NEGATIVE (Negative); Urine Blood Negative (Negative); Urine Clarity Clear (Clear); Urine Color Yellow (Yellow); Urine Glucose NEGATIVE (Negative); Urine Mucus Slight /HPF (None Seen); Urine Protein TRACE (Negative); Urine RBC <5 /HPF (None Seen); Urine Urobilinogen Normal (Normal)
[2023-04-08] MEDS ORDERED: PIPERACIL/TAZO 4.5 GM VIAL IV ONE (12:04)
[2023-04-08] MEDS ORDERED: NA CHLORIDE 0.9% 100 ML ONE (12:04)
[2023-04-08] MEDS ORDERED: VANCOMYCIN 1.5 GM in NA CHLORIDE 0.9% 500 ML IVPB ONE (12:30)
[2023-04-08] MEDS ORDERED: ACETAMINOPHEN 325 MG TABLET ONE (14:14)
[2023-04-08 15:34] LABS: Creatine Phosphokinase 33 U/L (26-192)
[2023-04-08] MEDS: NA CHLORIDE 0.9% 1,000 ML IV SCH ×2 (16:30→22:00)
[2023-04-08] MEDS ORDERED: INFLUENZA VACCINE (for 6+ mo) 0.5 ML DOSE IMVAC ONE (18:30)
[2023-04-08] MEDS: levETIRAcetam 500 MG TAB PO SCH (18:35)
[2023-04-08] MEDS ORDERED: OXAZEPAM 30 MG PO PRN (20:44)
[2023-04-08] MEDS ORDERED: POTASSIUM CL 40 MEQ in NA CHLORIDE 0.9% 500 ML IV SCH (21:00)
[2023-04-08] MEDS: KCL 20 MEQ/100 mL IVPB 100 ML IV SCH ×2 (21:00→22:41)
[2023-04-08] MEDS ORDERED: TRAMADOL HCL 50 MG TAB PO SCH (21:00)
[2023-04-08] MEDS: ENOXAPARIN 60 MG/0.6 ML SQ SCH (21:00)
[2023-04-08] MEDS: CODEINE 30MG/APAP 300MG TAB PO PRN (21:19)
[2023-04-08] MEDS ORDERED: LORAZEPAM 1 MG TABLET PO ONE (22:38)
[2023-04-09] MEDS: NA CHLORIDE 0.9% 1,000 ML IV SCH ×4 (00:32→21:09)
[2023-04-09] MEDS ORDERED: METRONIDAZOLE 500mg IVPB 500 MG/100 ML BAG IV SCH (01:00)
[2023-04-09 03:07] LABS: Absolute Lymphocytes (CBC) 2.1 K/uL (0.7-4.9); Hematocrit 38.2 % (36.0-45.0); Lymphocytes % 9.7 % (15.3-44.8); MCV 68.1 fL (80-100); MPV 8.3 fL (7.6-11.3); Platelets 685 thou/uL (152-406); RBC Red Blood Cell Count 5.61 M/uL (3.86-4.86)
[2023-04-09 03:24] LABS: BUN Blood Urea Nitrogen 13 mg/dL (7-18); Bicarbonate 29 mEq/L (21-32); Glomerular Filtration Rate 93 ml/min (=/>90); Glucose Level 95 mg/dL (74-106); HDL Cholesterol 52 mg/dL (40-60); LDL Cholesterol, Calculated 43 mg/dL (<130); Magnesium 2.1 mg/dL (1.6-2.4); Phosphorus 2.6 mg/dL (2.5-4.9); Potassium 3.6 mEq/L (3.5-5.1); Sodium Level 142 mEq/L (136-145)
[2023-04-09 03:28] LABS: C-Reactive Protein < 2.90 mg/L (<3.00)
[2023-04-09] MEDS: levETIRAcetam 500 MG TAB PO SCH ×2 (05:56→18:00)
[2023-04-09] MEDS ORDERED: PNEUMOCOCCAL VACCINE 0.5 ML IMVAC ONE (08:00)
[2023-04-09] MEDS: CEFTRIAXONE 1,000 MG in NA CHLORIDE 0.9% 50 ML IVPB SCH (08:20)
[2023-04-09] MEDS: ASPIRIN EC 81 MG TAB PO SCH (08:20)
[2023-04-09] MEDS: BENAZEPRIL 10 MG TAB PO SCH (08:20)
[2023-04-09] MEDS: ENOXAPARIN 60 MG/0.6 ML SQ SCH ×2 (08:21→21:00)
[2023-04-09] MEDS: AMLODIPINE 5 MG TAB PO SCH (08:21)
[2023-04-09] MEDS: CODEINE 30MG/APAP 300MG TAB PO PRN (08:21)
[2023-04-09] MEDS: VENLAFAXINE HCL XR 75 MG CAP PO SCH (08:22)
[2023-04-09] MEDS: VANCOMYCIN 1.25 GM in NA CHLORIDE 0.9% 250 ML IVPB SCH (08:34)
[2023-04-09] MEDS ORDERED: POTASSIUM CL SA 10 MEQ TAB PO ONE (09:00)
[2023-04-09] MEDS ORDERED: ENOXAPARIN 40 MG/0.4 ML SQ SCH (09:00)
[2023-04-09] MEDS: clonazePAM 0.5 MG TAB PO PRN ×2 (09:16→21:09)
--- NOTE | 2023-04-09 09:19 | RAD REPORT ---
EXAM DESCRIPTION: CT - Chest For Pe Angio - 04/09/2023 9:05 am CLINICAL HISTORY: eval for PE COMPARISON: Abdomen Pelvis W Contrast dated 08/18/2021 TECHNIQUE: Dynamically enhanced axial 3 mm thick images of the chest were obtained during administra tion of <100> mL Isovue 370 IV contrast. Coronal and oblique reconstruction images were generated and reviewed. Exam utilizes a protocol for optimal evaluation of pulmonary arterial tree. Maximum intensity projections 3D imaging was utilized All CT scans are performed using dose optimization technique as appropriate and may include automated exposure control or mA/KV adjustment according to patient size. FINDINGS: Chest Wall: No suspicious thyroid nodules or pathologic lymphadenopathy. Heterogeneous thy roid. Lungs: No acute abnormality. Scarring versus subsegmental atelectasis in the right middle lobe and ri ght lower lobe. No suspicious pulmonary nodules. No evidence of edema or pneumonia. Pleura: No significant effusions or pneumothorax. Mediastinum/dennis: No pathologic lymphadenopathy. Moderate hiatal hernia. Pulmonary arteries/Aorta: No filling defect identified. No aortic aneurysm. Heart: No significant pericardial effusion. Normal heart size. Mild coronary artery calcifications. Upper abdomen: No acute abnormality.Splenomegaly. Bones: No acute abnormality. Remote appearing lower thoracic and upper lumbar compression fractures. IMPRESSION: Negative for pulmonary embolism. No acute findings in the chest.
[2023-04-09] MEDS ORDERED: LORazepam 2 MG/ML VIAL IV ONE (10:00)
--- NOTE | 2023-04-09 10:27 | P.PN ---
Subjective Date of Service: 04/09/23 No events since admission. She is doing well this morning. She reports claustrophobia, which limited our ability to get the MRI studies done yesterday. Will try again this morning with lorazepam x 1. She denies any chest pain or palpitations. Review of Systems 10-point ROS is otherwise unremarkable General: Other (facial pain to left cheek) Physical Examination - Vital Signs Temperature: 97.8 F Blood Pressure: 149/82 Pulse: 82 Respirations: 12 Pulse Ox (%): 98 - Physical Exam General: Alert, In no apparent distress, Oriented x3 HEENT: PERRLA, Mucous membr. moist/pink, Other (periorbital swelling and bruising around left eye. Sutures placed to left cheek are clean, dry, intact.), Sclerae nonicteric Respiratory: Clear to auscultation bilaterally, Normal air movement Cardiovascular: No edema, Regular rate/rhythm, Normal S1 S2, No gallops, No rubs, No murmurs Gastrointestinal: Normal bowel sounds, Soft and benign, Non-distended, No tenderness, No rebound, No guarding Musculoskeletal: No clubbing Integumentary: No rashes Neurological: Normal speech, Normal affect Assessment And Plan - Plan # Recurrent Mechanical Falls with Facial Trauma/Left Cheek Laceration # History of Cerebrovascular Accident # Anxiety - She is high risk for recurrent falls given benzodiazepine use. - Evaluation thus far: - CT head = "no evidence of an acute intracranial process. Stable chronic findings as above" - CT facial bones = "negative for facial bone fracture. Soft tissue swelling, laceration, and small hematoma in the left premalar soft tissues. Sequelae of chronic sinusitis as above." - CT cervical spine = "no acute traumatic cervical spine fracture or subluxation. Degenerative changes as above" - Management plan: - Requested MRI brain and MRA head/neck to evaluate for CVA - PT consulted - May benefit from benzodiazepine taper, but will continue for now to prevent withdrawal - Oxazepam is unavailable, but will utilize clonazepam while hospitalized - Continue home venlafaxine # Suspect Demand Ischemia (Type II Non-ST Segment Elevation Myocardial Infarction) due to above # Hypertension - Evaluation thus far: - EKG: without STEMI criteria, trend - Serial troponin: 572.9 -> 522.1 -> 413.8 -> 371.4 - Ordered transthoracic echocardiogram - Chest x-ray = "no acute cardiopulmonary process." - CT chest angiogram = "negative for pulmonary embolism. No acute findings in the chest." - Management plan: - Consult Cardiology - recommendations appreciated - Continue aspirin, amlodipine, metoprolol, benazepril, and SQ enoxaparin - If CAD is confirmed, plan to start statin as tolerated # Significant Leukocytosis - WBC: 29,800 -> 22,000 - No evidence of infection. May be reactive due to above - On empiric vancomycin + ceftriaxone. Continue for now and wean when able # History of Atrial Fibrillation s/p Watchman Device - Continue home metoprolol # Chronic Obstructive Pulmonary Disease - No evidence of exacerbation - Continue home inhalers Alejo Arevalo M.D.
--- NOTE | 2023-04-09 11:29 | RAD REPORT ---
EXAM DESCRIPTION: MRI - Brain W/Wo Cont - 04/09/2023 11:11 am CLINICAL HISTORY: eval for CVA COMPARISON: MRA Head Wo Cont dated 04/09/2023; Brain Wo Cont dated 08/19/2021; MRA Head Wo Cont dated 08/19/2021; Chest For Pe Angio dated 04/09/2023; Head Brain Wo Cont dated 04/08/2023; C Spine Wo Con dated 04/08/2023 TECHNIQUE: Sagittal T1-weighted images were obtained along with PD/heavily T2-weighted and T2-FLAIR images. Axial DWI and ADC mapping sequences were also obtained along with coronal heavily T2-weighted images were obtained. Post contrast enhanced images were obtained. FINDINGS: Moderate sized remote left cerebral hemisphere infarct primarily involving the left pariet al and occipital lobe but with some involvement of the left posterior frontal lobe as well. No diffus ion restriction. No acute infarct identified. Moderate to severe chronic small vessel ischemic change s. No extra-axial fluid collections. Signal voids are seen as a normal finding in the major intracran ial vessels. Cerebral atrophy. No mastoid effusion.Circumferential thickening right maxillary sinus as well as several of the ethmoi d air cells and sphenoid sinuses. IMPRESSION: No acute intracranial abnormality. No abnormal enhancement. Moderate sized remote left c erebral hemisphere infarct.
--- NOTE | 2023-04-09 11:30 | RAD REPORT ---
EXAM DESCRIPTION: MRI - MRA Head Wo Cont - 04/09/2023 11:11 am CLINICAL HISTORY: fall, head injury CVA COMPARISON: Brain Wo Cont dated 08/19/2021; MRA Head Wo Cont dated 08/19/2021 FINDINGS: 3D noncontrast [id number] MR angiography of the [place] was performed. No aneurysm, flow-limiting stenosis or vascular malformation is seen. Forward flow seen in codominant vertebral arteries. The visualized dural venous sinuses appear patent. IMPRESSION: No significant flow abnormality of the [place] is identified.
--- NOTE | 2023-04-09 11:33 | RAD REPORT ---
EXAM DESCRIPTION: MRI - MRA Neck W/Wo Cont - 04/09/2023 11:11 am CLINICAL HISTORY: fall, head injury COMPARISON: No comparisons FINDINGS: Contrast enhance 2D [id number] MR angiography of the neck vessels was performed. No stenosis or dissection identified within the neck. Slightly left dominant vertebral artery. Both c arotid systems are widely patent. Both vertebral arteries are patent. CAROTID STENOSIS REFERENCE USING NASCET CRITERIA: Mild - <50% stenosis. Moderate - 50-69% stenosis. Severe - 70-94% stenosis. Near occlusion - 95-99% stenosis. Occluded - 100% stenosis. IMPRESSION: No flow limiting arterial stenosis within the neck.
[2023-04-09] MEDS ORDERED: METOPROLOL TAR 25 MG TAB PO ONE (12:30)
--- NOTE | 2023-04-09 13:55 | EKG ---
Test Date: 2023-04-08 Test Time: 08:56:05 Commercial Cleaner: ANTONIO MEASUREMENT RESULTS: Intervals: Rate: 86 VA: 146 QRSD: 82 QT: 392 QTc: 469 [place]: P: 68 VA: 146 QRS: 12 T: 37 INTERPRETIVE STATEMENTS: Normal sinus rhythm Inferior infarct, age undetermined Anteroseptal infarct, age undetermined Abnormal ECG Compared to ECG 08/17/2021 10:30:47 Myocardial infarct finding now present Electronically Signed On 04-09-23 13:51:38 CDT by Paul Milligan
--- NOTE | 2023-04-09 14:05 | ECHO ---
HEIGHT: 5 ft 4 in WEIGHT: 136 lb 15.924 oz DATE OF STUDY: 04/09/[address]: Shobha Adkins NP 2-DIMENSIONAL: YES M.MODE: YES DOPPLER: NO COLOR FLOW: NO TDS: PORTABLE: YES DEFINITY: BUBBLE STUDY: DIAGNOSIS: FALL/ HEAD INJURY CARDIAC HISTORY: CATHERIZATION: SURGERY: PROSTHETIC VALVE: PACEMAKER: MEASUREMENTS (cm) DIASTOLIC (NORMALS) SYSTOLIC (NORMALS) IVSd 0.9 (0.6-1.2) LA Diam 3.3 (1.9-4.0) LVEF 68% LVIDd 3.9 (3.5-5.7) LVIDs 2.4 (2.0-3.5) %FS 37% LVPWd 1.1 (0.6-1.2) Ao Diam 2.7 (2.0-3.7) 2 DIMENSIONAL ASSESSMENT: RIGHT ATRIUM: NORMAL LEFT ATRIUM: NORMAL RIGHT VENTRICLE: NORMAL LEFT VENTRICLE: NORMAL TRICUSPID VALVE: NORMAL MITRAL VALVE: NORMAL PULMONIC VALVE: NORMAL AORTIC VALVE: NORMAL PERICARDIAL EFFUSION: NONE AORTIC ROOT: NORMAL LEFT VENTRICULAR WALL MOTION: NORMAL DOPPLER/COLOR FLOW: NOT DONE COMMENTS: 1. 2-DIMENSIONAL ECHOCARDIOGRAM ONLY (NO DOPPLER WAS DONE) 2. NORMAL LEFT VENTRICULAR EJECTION FRACTION 60-65% 3. NORMAL WALL MOTION TECHNOLOGIST: JC PRADO
[2023-04-09] MEDS ORDERED: METOPROLOL TAR 25 MG TAB PO SCH (18:00)
[2023-04-09] MEDS: METOPROLOL TAR 25 MG TAB PO SCH (18:00)
[2023-04-09] MEDS ORDERED: VANCOMYCIN 1 GM in NA CHLORIDE 0.9% 250 ML IVPB SCH (18:00)
--- NOTE | 2023-04-09 18:40 | CON ---
Date of Consultation: 04/09/2023 Reason For Consultation: Elevated troponin. History Of Present Illness: A 77-year-old female with history of AFib, CVA, COPD, hypertension, anemia, chronic back pain, presented after mechanical fall, tripped and fell, no passing out spell and injured her forehead. Patient denies having any chest pain. No shortness of breath. No known history of cardiac disease. Troponin was borderline elevated since, hence I was consulted. Past Medical History: As outlined above in HPI. Medications: Refer to reconciliation sheet for detailed list. Allergies: NO KNOWN DRUG ALLERGIES. Family History: No mature coronary artery disease or cancer. Social History: She does not smoke or drink. Does not use any drugs. Review of Systems: All systems reviewed are negative except as mentioned in HPI. Physical Examination: Vital Signs: Reviewed. Head and Neck: Pupils are equal, reactive to light. Intact eye movements. No JVD. No cervical lymphadenopathy. Neck is supple. Thyroid is not enlarged. Lungs: Clear to auscultation bilaterally. No rhonchi, wheezing, or crackles. No accessory muscle. Heart: Regular rate and rhythm. No extra sounds. Abdomen: Soft, nontender. Bowel sounds positive. No organomegaly. No masses or hernia. No rigidity or rebound. Extremities: No edema, clubbing, or cyanosis. Intact pulses. Skin: No rash. Neurologic: Alert, awake, oriented x3. No acute focal deficits appreciated. Investigations: Labs were reviewed. Troponin as outlined above. Assessment/recommendations: 1. Elevated troponin, likely demand. There is no chest pain. I am not recommending outpatient stress test. We did an echo on her. Ejection fraction is normal and normal wall motion. 2. Hypertension. Blood pressure is controlled. Continue current management. SR/MODL Voice ID: [id number] Report ID: [id number] EVELIA
[2023-04-10 01:24] LABS: Absolute Lymphocytes (CBC) 1.8 K/uL (0.7-4.9); Hematocrit 39.4 % (36.0-45.0); Lymphocytes % 6.8 % (15.3-44.8); MCV 67.6 fL (80-100); MPV 8.3 fL (7.6-11.3); Platelets 685 thou/uL (152-406); RBC Red Blood Cell Count 5.82 M/uL (3.86-4.86)
[2023-04-10 01:48] LABS: Magnesium 2.1 mg/dL (1.6-2.4)
[2023-04-10] MEDS: VANCOMYCIN 1.25 GM in NA CHLORIDE 0.9% 250 ML IVPB SCH ×2 (02:32→20:39)
[2023-04-10] MEDS: NA CHLORIDE 0.9% 1,000 ML IV SCH ×3 (04:00→20:39)
[2023-04-10] MEDS: CODEINE 30MG/APAP 300MG TAB PO PRN ×3 (05:13→21:32)
[2023-04-10] MEDS: METOPROLOL TAR 25 MG TAB PO SCH ×2 (06:11→17:25)
[2023-04-10] MEDS: levETIRAcetam 500 MG TAB PO SCH ×2 (06:11→17:25)
[2023-04-10] MEDS: clonazePAM 0.5 MG TAB PO PRN ×2 (07:16→20:45)
[2023-04-10] MEDS: ENOXAPARIN 60 MG/0.6 ML SQ SCH (09:00)
[2023-04-10] MEDS: VENLAFAXINE HCL XR 75 MG CAP PO SCH (09:36)
[2023-04-10] MEDS: ASPIRIN EC 81 MG TAB PO SCH (09:37)
[2023-04-10] MEDS: BENAZEPRIL 10 MG TAB PO SCH (09:37)
[2023-04-10] MEDS: AMLODIPINE 5 MG TAB PO SCH (09:37)
[2023-04-10] MEDS: CEFTRIAXONE 1,000 MG in NA CHLORIDE 0.9% 50 ML IVPB SCH (09:39)
[2023-04-10] MEDS: ONDANSETRON 4 MG/2 ML VIAL IV PRN (13:15)
--- NOTE | 2023-04-10 15:55 | P.PN ---
Subjective Date of Service: 04/10/23 No new events. She reports that she feels well; however, her leukocytosis is worsening. No clear evidence of infection - will obtain CT abdomen/pelvis. She denies any fevers, chills, chest pain, shortness of breath, or palpitations. Review of Systems 10-point ROS is otherwise unremarkable Physical Examination - Vital Signs Temperature: 98.5 F Blood Pressure: 182/76 Pulse: 70 Respirations: 15 Pulse Ox (%): 98 Assessment And Plan - Plan - Physical Exam General: Alert, In no apparent distress, Oriented x3 HEENT: PERRLA, Mucous membr. moist/pink, Other (periorbital swelling and bruising around left eye. Sutures placed to left cheek are clean, dry, intact.), Sclerae nonicteric Respiratory: Clear to auscultation bilaterally, Normal air movement Cardiovascular: No edema, Regular rate/rhythm, No murmurs Gastrointestinal: Normal bowel sounds, Soft, Non-distended, No tenderness Integumentary: No rashes Neurological: Normal speech, Normal affect # Recurrent Mechanical Falls with Facial Trauma/Left Cheek Laceration - suspect component of Polypharmacy # History of Cerebrovascular Accident # Anxiety - She is high risk for recurrent falls given benzodiazepine use. - Evaluation thus far: - CT head = "no evidence of an acute intracranial process. Stable chronic findings as above" - CT facial bones = "negative for facial bone fracture. Soft tissue swelling, laceration, and small hematoma in the left premalar soft tissues. Sequelae of chronic sinusitis as above." - CT cervical spine = "no acute traumatic cervical spine fracture or subluxation. Degenerative changes as above" - MRI brain = "no acute intracranial abnormality. No abnormal enhancement. Moderate sized remote left cerebral hemisphere infarct." - MRA head = "no significant flow abnormality of the [place] is identified." - MRA neck = "no flow limiting arterial stenosis within the neck." - Management plan: - PT consulted - May benefit from benzodiazepine taper, but will continue for now to prevent withdrawal - Oxazepam is unavailable, but will utilize clonazepam while hospitalized - We discussed polypharmacy and how this increases her fall risk. We discussed the Beer's criteria and establishing care with a Inventory Planner to help remove unnecessary medications. She is in agreement with this plan. - Continue home venlafaxine # Suspect Demand Ischemia (Type II Non-ST Segment Elevation Myocardial Infarction) due to above # Hypertension - Evaluation thus far: - EKG: without STEMI criteria, trend - Serial troponin: 572.9 -> 522.1 -> 413.8 -> 371.4 - Transthoracic echocardiogram = "1. 2-dimensional echocardiogram only (no doppler was done) 2. normal left ventricular ejection fraction 60-65% 3. normal wall motion" - Chest x-ray = "no acute cardiopulmonary process." - CT chest angiogram = "negative for pulmonary embolism. No acute findings in the chest." - Management plan: - Consult Cardiology - recommendations appreciated - Continue aspirin, amlodipine, metoprolol, benazepril, and SQ enoxaparin - If CAD is confirmed, plan to start statin as tolerated # Significant Leukocytosis - WBC: 29,800 -> 22,000 -> 26,600 - No evidence of infection. May be reactive due to above. - Will order CT abdomen/pelvis - On empiric vancomycin + ceftriaxone. Continue for now and wean when able # History of Atrial Fibrillation s/p Watchman Device - Continue home metoprolol # Chronic Obstructive Pulmonary Disease - No evidence of exacerbation - Continue home inhalers Alejo Arevalo M.D.
--- NOTE | 2023-04-10 17:33 | RAD REPORT ---
EXAM DESCRIPTION: CT - Abdomen Pelvis Wo Contrast - 04/10/2023 5:17 pm CLINICAL HISTORY: Abdominal pain leukocytosis COMPARISON: 2020 TECHNIQUE: Computed axial tomography of the abdomen and pelvis was obtained. IV and oral contrast we re not requested. All CT scans are performed using dose optimization technique as appropriate and may include automated exposure control or mA/KV adjustment according to patient size. FINDINGS: The evaluation of solid organs, vessels and bowel is limited secondary to the lack of con trast administration. Small to moderate hiatal hernia Spleen is mildly to moderately enlarged Pancreas,, adrenals and kidneys appear grossly normal. Soft tissue measuring approximately 3 centimeters is present within the perianal region. It is either stable or slightly enlarged from 2020. No evidence of diverticulitis. No adnexal mass Mild chronic deformities T9 and T11 vertebral bodies IMPRESSION: Mild to moderate splenomegaly 3 centimeter soft tissue in the perianal region without significant change from 2020 is of uncertain etiology. Given the lack of significant growth it probably is benign and may be inflammatory in natur e. This should be correlated with prior surgical history and/or prior imaging before 2020
[2023-04-11 03:37] LABS: Hematocrit 37.8 % (36.0-45.0); MCV 67.5 fL (80-100); MPV 8.3 fL (7.6-11.3); Platelets 661 thou/uL (152-406)
[2023-04-11 03:51] LABS: Phosphorus 3.5 mg/dL (2.5-4.9); Potassium 3.5 mEq/L (3.5-5.1)
[2023-04-11] MEDS: levETIRAcetam 500 MG TAB PO SCH ×2 (06:30→18:08)
[2023-04-11] MEDS: METOPROLOL TAR 25 MG TAB PO SCH ×2 (06:30→18:08)
[2023-04-11] MEDS: CODEINE 30MG/APAP 300MG TAB PO PRN ×2 (06:32→20:31)
[2023-04-11] MEDS: VENLAFAXINE HCL XR 75 MG CAP PO SCH (08:48)
[2023-04-11] MEDS: ASPIRIN EC 81 MG TAB PO SCH (08:48)
[2023-04-11] MEDS: BENAZEPRIL 10 MG TAB PO SCH (08:49)
[2023-04-11] MEDS: AMLODIPINE 5 MG TAB PO SCH (08:49)
[2023-04-11] MEDS: clonazePAM 0.5 MG TAB PO PRN ×2 (08:54→20:31)
[2023-04-11] MEDS: NA CHLORIDE 0.9% 1,000 ML IV SCH ×2 (08:56→21:55)
[2023-04-11] MEDS: CEFTRIAXONE 1,000 MG in NA CHLORIDE 0.9% 50 ML IVPB SCH (08:57)
[2023-04-11] MEDS ORDERED: POTASSIUM CL SA 10 MEQ TAB PO ONE (09:00)
[2023-04-11] MEDS: VANCOMYCIN 1.25 GM in NA CHLORIDE 0.9% 250 ML IVPB SCH (13:56)
--- NOTE | 2023-04-11 16:30 | P.PN ---
Subjective Date of Service: 04/11/23 No new events. Her leukocytosis is improving, but remains quite elevated. There is still no clear source of infection. She denies any fevers, chills, chest pain, shortness of breath, or palpitations. Review of Systems 10-point ROS is otherwise unremarkable General: Weakness (generalized) Physical Examination - Vital Signs Temperature: 98.6 F Blood Pressure: 130/65 Pulse: 78 Respirations: 23 Pulse Ox (%): 94 Assessment And Plan - Plan - Physical Exam General: Alert, In no apparent distress, Oriented x3 HEENT: PERRLA, Mucous membr. moist/pink, Other (periorbital swelling and bruising around left eye. Sutures placed to left cheek are clean, dry, intact.), Sclerae nonicteric Respiratory: Clear to auscultation bilaterally, Normal air movement Cardiovascular: No edema, Regular rate/rhythm, No murmurs Gastrointestinal: Normal bowel sounds, Soft, Non-distended, No tenderness Integumentary: No rashes Neurological: Normal speech, Normal affect # Recurrent Mechanical Falls with Facial Trauma/Left Cheek Laceration - suspect component of Polypharmacy # History of Cerebrovascular Accident # Anxiety - She is high risk for recurrent falls given benzodiazepine use. - Evaluation thus far: - CT head = "no evidence of an acute intracranial process. Stable chronic findings as above" - CT facial bones = "negative for facial bone fracture. Soft tissue swelling, laceration, and small hematoma in the left premalar soft tissues. Sequelae of chronic sinusitis as above." - CT cervical spine = "no acute traumatic cervical spine fracture or subluxation. Degenerative changes as above" - MRI brain = "no acute intracranial abnormality. No abnormal enhancement. Moderate sized remote left cerebral hemisphere infarct." - MRA head = "no significant flow abnormality of the [place] is identified." - MRA neck = "no flow limiting arterial stenosis within the neck." - Management plan: - PT consulted - May benefit from benzodiazepine taper, but will continue for now to prevent withdrawal - Oxazepam is unavailable, but will utilize clonazepam while hospitalized - We discussed polypharmacy and how this increases her fall risk. We discussed the Beer's criteria and establishing care with a Competency Evaluated Nurse Aide to help remove unnecessary medications. She is in agreement with this plan. - Continue home venlafaxine # Suspect Demand Ischemia (Type II Non-ST Segment Elevation Myocardial Infarction) due to above # Hypertension - Evaluation thus far: - EKG: without STEMI criteria, trend - Serial troponin: 572.9 -> 522.1 -> 413.8 -> 371.4 - Transthoracic echocardiogram = "1. 2-dimensional echocardiogram only (no doppler was done) 2. normal left ventricular ejection fraction 60-65% 3. normal wall motion" - Chest x-ray = "no acute cardiopulmonary process." - CT chest angiogram = "negative for pulmonary embolism. No acute findings in the chest." - Management plan: - Consult Cardiology - recommendations appreciated - Continue aspirin, amlodipine, metoprolol, benazepril, and SQ enoxaparin - If CAD is confirmed, plan to start statin as tolerated # Significant Leukocytosis - WBC: 29,800 -> 22,000 -> 26,600 -> 22,700 - No evidence of infection. May be reactive due to above. - CT abdomen/pelvis = "mild to moderate splenomegaly. 3 centimeter soft tissue in the perianal region without significant change from 2020 is of uncertain etiology. Given the lack of significant growth it probably is benign and may be inflammatory in nature. 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 Continue for now and wean when able # History of Atrial Fibrillation s/p Watchman Device - Continue home metoprolol # Chronic Obstructive Pulmonary Disease - No evidence of exacerbation - Continue home inhalers Alejo Arevalo M.D.
[2023-04-11] MEDS: ONDANSETRON 4 MG/2 ML VIAL IV PRN (17:26)
[2023-04-12 03:35] LABS: Absolute Lymphocytes (CBC) 1.9 K/uL (0.7-4.9); Hematocrit 35.3 % (36.0-45.0); Lymphocytes % 8.3 % (15.3-44.8); MCV 67.7 fL (80-100); MPV 8.3 fL (7.6-11.3); Platelets 630 thou/uL (152-406); RBC Red Blood Cell Count 5.22 M/uL (3.86-4.86)
[2023-04-12 04:00] LABS: Potassium 3.5 mEq/L (3.5-5.1)
[2023-04-12 04:55] LABS: Blood Morphology Comment NOTED (NOT SEEN); Hypochromasia 2+; Platelet Estimate ADEQ; Polychromasia 1+
--- NOTE | 2023-04-12 05:13 | P.PN ---
Date of Service: 04/12/23 Subjective: Physical Exam: Vitals: reviewed GEN: Alert, oriented, NAD HEENT: periorbital swelling and bruising around left eye. Sutures placed to left cheek are clean, dry, intact. CV: Regular rate & rhythm, no edema Pulm: Nonlabored respiraitons, clear bilaterally ABD: Soft, nontender, nondistended MSK: No joint tenderness Integumentary: No rashes Neuro: Normal speech, normal affect Problem List: Recurrent Mechanical Falls with Facial Trauma/Left Cheek Laceration - suspect component of Polypharmacy History of CVA Anxiety NSTEMI Hypertension Significant Leukocytosis History of Atrial Fibrillation s/p Watchman Device COPD PLAN PT consulted continue clonazepam f/u with special education administrator to help remove unnecessary medications. She is in agreement with this plan. Continue home venlafaxine continue IV fluids Cardiology consulted Continue aspirin, amlodipine, metoprolol, benazepril, and SQ enoxaparin WBC: 29,800 -> 22,000 -> 26,600 -> 22,700 No evidence of infection. May be reactive due to above. ID consulted follow cultures continue empiric vancomycin / ceftriaxone. Continue home metoprolol Continue home inhalers Confirm home medications as appropriate
[2023-04-12] MEDS: METOPROLOL TAR 25 MG TAB PO SCH ×2 (06:30→17:16)
[2023-04-12] MEDS: levETIRAcetam 500 MG TAB PO SCH ×2 (06:30→17:17)
[2023-04-12] MEDS: NA CHLORIDE 0.9% 1,000 ML IV SCH ×2 (06:33→16:00)
[2023-04-12] MEDS: CODEINE 30MG/APAP 300MG TAB PO PRN ×3 (06:33→20:52)
[2023-04-12] MEDS: BENAZEPRIL 10 MG TAB PO SCH (08:21)
[2023-04-12] MEDS: VENLAFAXINE HCL XR 75 MG CAP PO SCH (08:21)
[2023-04-12] MEDS: ASPIRIN EC 81 MG TAB PO SCH (08:21)
[2023-04-12] MEDS: AMLODIPINE 5 MG TAB PO SCH (08:22)
[2023-04-12] MEDS: CEFTRIAXONE 1,000 MG in NA CHLORIDE 0.9% 50 ML IVPB SCH (08:22)
[2023-04-12] MEDS: VANCOMYCIN 1.25 GM in NA CHLORIDE 0.9% 250 ML IVPB SCH ×2 (08:23→20:53)
--- NOTE | 2023-04-12 08:59 | P.CNS ---
Date of Consult: 04/12/23 Reason for Consult: persistent leukocytosis History of Present Illness: Patient is a 77-year-old female with a past medical history of CVA, COPD, atrial fibrillation, hypertension, constipation, chronic back pain who presented to the ED with complaints of injury due to fall. It is reported that the patient has been having increasing weakness and falls over the past few days prior to admission. She reports having dysuria for 2 days prior to admission. Urinalysis not suggestive of UTI. ED workup revealing leukocytosis WBC 29.8, plt 854, hypokalemia, elevated troponin. Patient was admitted for repeated falls with head injury and facial laceration, and leukocytosis. Infectious disease was consulted for persistent leukocytosis. Allergies No Known Allergies Allergy (Unverified 08/17/21 14:28) Home medications list reviewed: Yes Home Medications: Cyclobenzaprine HCl 10 mg PO BID 08/18/21 Oxazepam 30 mg PO Q12HR PRN 08/18/21 Aspirin [Aspirin EC 81 MG] 81 mg PO DAILY #30 tablet. 08/25/21 Acetaminophen with Codeine [Acetaminophen-Cod #3 Tablet] 1 tab PO TID 04/08/23 Amlodipine Besylate/Benazepril [Lotrel 5-10 mg Capsule] 1 tab PO DAILY 04/08/23 Diphenhydramine HCl [Benadryl] 1 tab PO DAILY 04/08/23 Phentermine HCl 37.5 mg PO DAILY 04/08/23 Tramadol HCl [Ultram] 50 mg PO TID 04/08/23 Venlafaxine HCl [Venlafaxine HCl ER] 150 mg PO DAILY 04/08/23 levETIRAcetam [Keppra*] 500 mg PO Q12H 04/08/23 - Past Medical/Surgical History Diabetic: No -: Prior CVAsresidual mild left weakness, mild balance issues, word salad -: COPD -: A. fib not on anticoagulation -: HTN -: Anxiety and claustrophobia -: Chronic pain, from prior surgery -: Chronic constipation -: History of Leidy syndrome -: Bleeding ulcers -: Colon resection -: Spine cyst removal Psychosocial/ Personal History: Patient lives in the home with the daughter - Family History Mother Medical History: Lung disease, Other (see notes) Father Medical History: Lung disease, Other (see notes) - Social History Alcohol use: No CD- Drugs: No Caffeine use: Yes Place of Residence: Home Review of Systems 10-point ROS is otherwise unremarkable General: Weakness Integumentary: Bruising (left face) Physical Examination Temp Pulse Resp BP Pulse Ox 97.5 F 72 18 133/72 94 04/12/23 04:00 04/12/23 08:21 04/12/23 06:33 04/12/23 08:21 04/12/23 06:33 General: Alert, In no apparent distress, Oriented x3 HEENT: Other (left facial laceration and hematoma) Neck: Supple, JVD not distended Respiratory: Clear to auscultation bilaterally, Normal air movement (on room air) Cardiovascular: No edema Gastrointestinal: Normal bowel sounds, Soft and benign Integumentary: Other (left facial laceration and hematoma) Neurological: Normal speech, Normal tone, Normal affect Laboratory data -Reviewed Microbiology data -Reviewed Imagings Data: - Reviewed Conclusions/Impression: Problem list Recurrent falls History of CVA Atrial fibrillation s/p Watchman device Peptic Ulcer Disease COPD Hypertension Persistent leukocytosis Hx Ogilve Syndrome s/p anal sphincterotomy Leukocytosis, persistent - WBC 29.9 -> 22 -> 26.6-> 22.7 - Afebrile - Blood cultures 04/08: No growth to date - Urinalysis 04/08: leukocyte esterase 25, trace protein. Otherwise unremarkable. Not suggestive of UTI. - Currently on Rocephin and Vancomycin (started 04/09) No clear source of infection at this time. - CT abdomen pelvis 04/10: "Mild to moderate splenomegaly. 3 centimeter soft tissue in the perianal region without significant change from 2020 is of uncertain etiology. Given the lack of significant growth it probably is benign and may be inflammatory in nature. This should be correlated with prior surgical history and/or prior imaging before 2020." - CTA chest 04/09: " Negative for pulmonary embolism. No acute findings in the chest." - MRI brain 04/09: " No acute intracranial abnormality. No abnormal enhancement. Moderate sized remote left cerebral hemisphere infarct." Recommendations - Continue Rocephin and Vancomycin for now. - Monitor WBC and fever trends - Follow up with stool culture - recurrent falls, weakness: physical therapy - decreased appetite: Nutritional supplementation Case discussed with Itz Burns
[2023-04-12] MEDS ORDERED: POTASSIUM CL SA 10 MEQ TAB PO ONE (09:00)
[2023-04-12] MEDS ORDERED: BISACODYL E.C. 5 MG TAB PO ONE (14:20)
[2023-04-12 16:04] VITALS: BMI 23.0
[2023-04-12] MEDS: clonazePAM 0.5 MG TAB PO PRN (20:52)
[2023-04-12] MEDS: ONDANSETRON 4 MG/2 ML VIAL IV PRN (20:53)
[2023-04-12 20:55] VITALS: O2SAT 98
[2023-04-13] MEDS: CODEINE 30MG/APAP 300MG TAB PO PRN ×2 (02:33→09:29)
[2023-04-13 04:07] LABS: Potassium 3.3 mEq/L (3.5-5.1)
[2023-04-13] MEDS ORDERED: POTASSIUM CL SA 10 MEQ TAB PO ONE (04:18)
[2023-04-13] MEDS: levETIRAcetam 500 MG TAB PO SCH (05:35)
[2023-04-13] MEDS: METOPROLOL TAR 25 MG TAB PO SCH (05:35)
--- NOTE | 2023-04-13 08:12 | P.PN ---
Date of Service: 04/13/23 Reason for Consult: persistent leukocytosis Subjective: Patient seen at bedside. Daughter also in room. Patient denies any new or worsening complaints at this time. Pending discharge to rehab. Physical Examination Temp Pulse Resp BP Pulse Ox 97.2 F 60 16 117/56 L 95 04/13/23 12:00 04/13/23 12:00 04/13/23 12:00 04/13/23 12:00 04/13/23 12:00 General: Alert, In no apparent distress, Oriented x3 HEENT: left facial laceration and hematoma Neck: Supple, JVD not distended Respiratory: Clear to auscultation bilaterally, Normal air movement. Cardiovascular: No edema Gastrointestinal: Normal bowel sounds, Soft and benign Integumentary: left facial laceration and hematoma Neurological: Normal speech, Normal tone, Normal affect Laboratory data -Reviewed Microbiology data -Reviewed Imagings Data: - Reviewed Medications List: Reviewed Assessment and Plan Problem list Recurrent falls History of CVA Atrial fibrillation s/p Watchman device Peptic Ulcer Disease COPD Hypertension Persistent leukocytosis Hx Ogilve Syndrome s/p anal sphincterotomy Leukocytosis, persistent - WBC 29.9 -> 22 -> 26.6-> 22.7 - Afebrile - Blood cultures 04/08: No growth to date - Urinalysis 04/08: leukocyte esterase 25, trace protein. Otherwise unremarkable. Not suggestive of UTI. - Currently on Rocephin and Vancomycin (started 04/09) No clear source of infection at this time. - CT abdomen pelvis 04/10: "Mild to moderate splenomegaly. 3 centimeter soft tissue in the perianal region without significant change from 2020 is of uncertain etiology. Given the lack of significant growth it probably is benign and may be inflammatory in nature. This should be correlated with prior surgical history and/or prior imaging before 2020." - CTA chest 04/09: " Negative for pulmonary embolism. No acute findings in the chest." - MRI brain 04/09: " No acute intracranial abnormality. No abnormal enhancement. Moderate sized remote left cerebral hemisphere infarct." Recommendations - On day 5 of Rocephin and Vancomycin. Consider discontinuation of antibiotic therapy and continue to monitor for s/s of infection. - Monitor WBC and fever trends - recurrent falls, weakness: physical therapy. pending discharge to rehab. - decreased appetite: Nutritional supplementation Case discussed with Itz Burns
[2023-04-13] MEDS: VANCOMYCIN 1.25 GM in NA CHLORIDE 0.9% 250 ML IVPB SCH (09:00)
[2023-04-13] MEDS: BENAZEPRIL 10 MG TAB PO SCH (09:30)
[2023-04-13] MEDS: CEFTRIAXONE 1,000 MG in NA CHLORIDE 0.9% 50 ML IVPB SCH (09:33)
[2023-04-13] MEDS: ASPIRIN EC 81 MG TAB PO SCH (09:33)
[2023-04-13] MEDS: AMLODIPINE 5 MG TAB PO SCH (09:33)
[2023-04-13] MEDS: VENLAFAXINE HCL XR 75 MG CAP PO SCH (09:33)
[2023-04-13 12:06] VITALS: BP 117/56; TEMP 97.2
== END 2023-04-13 14:00 | DRG 579 ==
LOC: ER 06:59 → ERHOLD 11:45 → 2ND 16:11
PROVIDERS: ADMIT Internal Medicine; ATTEND Hospitalist
PROC: 0JQ10ZZ Repair Face Subcutaneous Tissue and Fascia, Open Approach (ICD-10-PCS; principal; 2023-04-08)
DX: S01.412A Laceration without foreign body of left cheek and temporomandibular area, initial encounter (principal); I21.A1 Myocardial infarction type 2; K52.1 Toxic gastroenteritis and colitis; I10 Essential (primary) hypertension; E87.6 Hypokalemia; G89.29 Other chronic pain; M54.9 Dorsalgia, unspecified; F41.9 Anxiety disorder, unspecified; I48.0 Paroxysmal atrial fibrillation; K59.09 Other constipation; J44.9 Chronic obstructive pulmonary disease, unspecified; I25.10 Atherosclerotic heart disease of native coronary artery without angina pectoris; F40.240 Claustrophobia; D72.829 Elevated white blood cell count, unspecified; S09.90XA Unspecified injury of head, initial encounter; T47.4X5A Adverse effect of other laxatives, initial encounter; R29.6 Repeated falls; Z23 Encounter for immunization; Z91.81 History of falling; Z79.82 Long term (current) use of aspirin; Z90.49 Acquired absence of other specified parts of digestive tract; Z86.73 Personal history of transient ischemic attack (TIA), and cerebral infarction without residual deficits; Z79.899 Other long term (current) drug therapy; W19.XXXA Unspecified fall, initial encounter; Y99.9 Unspecified external cause status; Y93.9 Activity, unspecified; Y92.091 Bathroom in other non-institutional residence as the place of occurrence of the external cause
CPT/HCPCS: 36415; 70450; 70486; 70544; 70549; 70553; 71045; 71275; 72125; 74176; 76377; 80048; 80053; 80061; 80202; 81001; 82550; 82607; 83605; 83735; 83880; 84100; 84132; 84145; 84443; 84484; 85025; 86140; 87040; 90471; 93005; 93307; 96361; 96365; 96366; 96367; 97112; 97116; 97161; 97530; 99285; A9577; J0696; J1650; J2001; J2405; J7030; J7040; J7050; Q2035; Q9967

== ENCOUNTER 2023-04-19 13:57 | Emergency (ER) | payer OTHER ==
--- OUTSIDE RECORDS SUMMARY | 2023-04-19 14:04 | XMS REPORT | Continuity of Care Document ---
:1945 Author Organization [facility] t Address [address] [facility]. 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 Added automatic ally from request for surgery [id number] Increased Increased Disease Active Overview: Univers endometria endometria 03-24 Formattin ity of l stripe l stripe 00:00: g of this Raffi as thickness thickness 00 note [facility] might be Branch different from the original. Added automatic ally from request for surgery [id number] Abdominal Abdominal Disease Active Uni vers pain pain 3-15 ity of 00:00: [place] 00 Medical Branch Rectal Rectal Disease Active Overview: Univer s mass mass 3-14 Formattin ity of 00:00: g of this [place] 00 note Medical might be Branch different from the original. Added automatic ally from request for surgery [id number] Problem Condition 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 Fever in Fever in Diagnosis Active Com mon other other Spirit diseases diseases - 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 Pre-op Pre-op Problem Active Common evaluation evaluation Sp pratima - CHI [facility] Diaphragma Diaphragma Problem Active C ommon tic hernia tic hernia Sp pratima without without - CHI obstructio obstructio St n or n or [facility] gangrene gangrene Medica Center Hyperlipid Hyperlipid Problem Active C ommon emia, emia, Spirit unspecifie unspecifie - CHI d d hyperlipid hyperlipid Denise kes emia type emia type [facility] Center Depression Depression Problem Active C ommon with with Spirit anxiety anxiety - [facility] Gastro-eso Gastro-eso Problem Active C ommon phageal phageal Spirit reflux reflux - [facility]I disease disease St without without [facility] esophagiti esophagiti Me dical s s Center Allergies, Adverse Reactions, Alerts Allergy Allergy Status Severity Reaction(s) Onset Inactive Treating Comm ents Source Name Type Date Date Clinician No Known DA Active U [facility] Allergie 12-24 Clear s 00:00: Wing 00 [facility] No Known DA Active U [facility] Allergie 12-24 Clear s 00:00: Wing 00 [facility] NO KNOWN Allergy Active [facility] Social History Social Habit Start Date Stop Date Quantity Comments Source Alcohol intake 2019-09-25 2019-09-25 Current drinker [facility] 00:[facility]:00 00:00:00 of alcohol [facility] (finding) [facility] 2019-09-13 2019-09-[address] [facility] Alcohol Frequency 00:00:00 00:00:00 Medical Center History [facility] 2019-09-13 2019-09-[address] [facility] Alcohol Std 00:00:00 00:00:00 Medical Cente r Drinks History [facility] 2019-09-13 2019-09-[address] [facility] Alcohol Binge 00:00:00 00:00:[address] [facility] [address] Tobacco use and 2019-05-11 2019-05-11 Never used Universit y of exposure 00:00:00 00:00:00 [facility] Alcohol Comment 2018-09-09 2018-09-09 occasional Universit y of 00:00:00 00:00:00 [facility] Sex Assigned At [address] [facility] kes 00:00:00 00:00:00 Medical Center Smoking Status Start Date Stop Date Source Unknown if ever smoked [facility] LIVE HCIS Unknown if ever smoked [facility] Never smoker [facility] Medications Ordered Filled Start Stop Current Ordering Indication Dosage Frequency Signature Comments Components Source Medication Medication Date Date Medication? Clinician (SIG) Name Name aspirin 81 Yes 81mg QD Take 1 [facility]I S t MG chewable 3-21 tablet (81 Denise kes tablet 00:00: mg total) Medica l 00 by mouth Center daily. aspirin 81 Yes 81mg QD Take 1 CHI S t MG chewable 3-21 tablet (81 Denise kes tablet 00:00: mg total) Medica l 00 by mouth Center daily. acetaminoph Yes 1{tbl} Take [address] en-codeine 3-20 tablet by Lemuel coburn (TYLENOL 17:35: mouth Medical #3) 300-30 23 every 6 Center mg per (six) tablet hours as needed for Pain. albuterol 2020-0 Yes 1{puff} Inhale [address] HFA 3-20 puff by [facility] (VENTOLIN 17:35: mouth via Med ical HFA) 90 23 inhaler Center mcg/actuati every 6 on inhaler (six) hours as needed for Wheezing. venlafaxine 2020-0 Yes 150mg QD Take [address] (EFFEXOR-XR 3-20 mg by [facility] ) 150 MG 24 17:35: mouth Medic al hr capsule 23 daily. Center pantoprazol 2020-0 Yes 40mg QD Take [address] e 3-20 by mouth [facility]ukes (PROTONIX) 17:35: daily. Medic al 40 MG 23 Center tablet oxazepam 2020-0 Yes 30mg QD Take [address] (SERAX) 30 3-20 by mouth [facility]ukes MG capsule 17:35: nightly . Me dical 23 Center benzonatate 2020-0 Yes 100mg Take [address] (TESSALON) 3-20 mg by [facility] 100 MG 17:35: mouth 3 Medical capsule 23 (three) Center times daily as needed for Cough. amLODIPine- 2020-0 Yes 1{capsu QD Take [address] benazepril 3-20 le} capsule by Shahzad alves (LOTREL 17:35: mouth Medical 5-10) 5-10 23 daily. Center mg per capsule acetaminoph 2020-0 Yes 1{tbl} Take [address] en-codeine 3-20 tablet by Lemuel coburn (TYLENOL 17:35: mouth Medical #3) 300-30 23 every 6 Center mg per (six) tablet hours as needed for Pain. albuterol 2020-0 Yes 1{puff} Inhale [address] HFA 3-20 puff by [facility] (VENTOLIN 17:35: mouth via Med ical HFA) 90 23 inhaler Center mcg/actuati every 6 on inhaler (six) hours as needed for Wheezing. venlafaxine 2020-0 Yes 150mg QD Take [address] (EFFEXOR-XR 3-20 mg by [facility] ) 150 MG 24 17:35: mouth Medic al hr capsule 23 daily. Center pantoprazol 2020-0 Yes 40mg QD Take [address] e 3-20 by mouth [facility]ukes (PROTONIX) 17:35: daily. Medic al 40 MG 23 Center tablet oxazepam 2020-0 Yes 30mg QD Take [address] (SERAX) 30 3-20 by mouth [facility]ukes MG capsule 17:35: nightly . Me dical 23 Center benzonatate 2020-0 Yes 100mg Take [address] [...] Medical tablet 00 by mouth Center daily. atorvastati 2020-0 Yes 40mg QD Take [address] n (LIPITOR) 3-20 tablet (40 Denise kes 40 MG 00:00: mg total) Medical tablet 00 by mouth Center daily. Albuterol Albuterol 2018-06 Yes Codie 1 puff as Common Sulfate HFA Sulfate HFA 2-31 [place] needed Spirit 00:00: - CHI 00 [facility] Azithromyci Azithromyci 2018-06 2020- No Codie 2 tabs day Common n n 2-31 01-05 [place] one then 1 Spirit 00:00: 00:00 tab daily - CHI 00 :00 x 4 days [facility] Iron Iron 2018-06 Yes Codie 1 tablet Common 0-15 [place] Spirit 00:00: - CHI 00 [facility] Oxazepam Oxazepam Yes Codie 1 capsule C ommon [place] as needed [facility] Amlodipine Amlodipine Yes Codie 1 tablet Common Besy-Benaze Besy-Benaze [place] Spirit pril HCl pril HCl - [facility] Probiotic Probiotic Yes Codie as Comm on [place] directed [facility] Fiber Fiber Yes Codie 2 tablets Common [place] as needed [facility] Simvastatin Simvastatin Yes Codie 1 tablet Common [place] in the [facility] Cyclobenzap Cyclobenzap Yes Codie 1 tablet Common rine HCl rine HCl [place] as needed S pirit [facility] Pantoprazol Pantoprazol Yes Codie 1 tablet Common e Sodium e Sodium [place] [facility] No known No [facility] Venlafaxine Venlafaxine Yes Codie 1 capsule Common HCl ER HCl ER [place] with food [facility] Vital Signs Vital Name Observation Time Observation Value Comments Source Body Temperature 2019-09-13 14:19:00 97.0 [degF] [employer] Heart Rate 2019-09-13 14:19:00 74 /min [employer] Respiratory rate 2019-09-13 14:19:00 18 /min [employer] BP Systolic 2019-09-13 14:19:00 140 mm[Hg] [facility] Part[facility] BP Diastolic 2019-09-13 14:19:00 89 mm[Hg] [facility] Part[facility] Heart Rate 2019-09-13 14:00:00 74 /min [employer] Respiratory rate 2019-09-13 14:00:00 18 /min [facility] Respiratory rate 2019-09-13 14:00:00 18 /min [facility] LIVE HCIS BP Systolic 2019-09-13 14:00:00 140 mm[Hg] [facility] Partnered BP Systolic 2019-09-13 14:00:00 140 mm[Hg] [facility] LIVE HCIS BP Diastolic 2019-09-13 14:00:00 89 mm[Hg] [facility] Partnered BP Diastolic 2019-09-13 14:00:00 89 mm[Hg] [facility] LIVE HCIS Weight 2019-09-13 11:48:00 147 [lb_av] [facility] Weight 2019-09-13 11:48:00 147 [lb_av] [facility] LIVE HCIS BMI (Body Mass 2019-09-13 11:48:00 23.7 kg/m2 [facility] Index) BMI (Body Mass 2019-09-13 11:48:00 23.7 kg/m2 [facility] Index) LIVE HCIS Procedures Procedure Date / Time Performed Performing Clinician Lu joyce [id number] 2020-12-25 00:00:00 [facility] [id number] 2020-12-25 00:00:00 [facility] ECG 2019-09-13 00:00:00 BINA Jimenez lth (electrocardiogram) ECG 2019-09-13 00:00:00 Angie Ricardo xaalmas LIVE (electrocardiogram) HCIS Computed tomography of 2019-09-13 00:00:00 [facility] head or brain without contrast Computed tomography of 2019-09-13 00:00:[address] [facility] LIVE head or brain without HCIS contrast X-ray of chest, single 2019-09-13 00:00:00 [facility] view X-ray of chest, single 2019-09-13 00:00:00 [facility] view HCIS Complete Doppler 2019-09-13 00:00:00 BINA ordaz ultrasound of carotid artery Complete Doppler 2019-09-13 00:00:00 Angie srivastava LIVE ultrasound of carotid HCIS artery Plan of Care Planned Activity Planned Date Details Comments Source Goal Patient referral [code [facility] LIVE = [id number] ] HCIS Instructions OTHER [facility] HCIS Encounters Start End Encounter Admission Attending Care Care Encounter Source Date/Time Date/Time Type Type Clinicians Facility Department ID 2020-04-15 Inpatient MELY NILSONBINA ANDRADE [id number] [facility] 14:02:[address] 2019-09-13 Inpatient [facility] [id number] [facility] 16:51:00 [id number] 2022-03-05 2022-03-07 Inpatient UR DANIEL CURRAN MED [id number] [facility] 05:46:00 11:55:00 JJ Avila [id number] [facility] 2022-03-04 2022-03-05 Emergency ER SNOW DARNELL MED [id number] [facility] 21:15:00 04:21:00 [id number] [facility] 2021-02-28 2021-02-28 Telephone Team, Nhfranklyn BROUSSARD [id number] Univers 00:00:00 00:00:00 [facility] [id number] [facility] [id number] [place] [id number] Medi bertrand 082 Branch 2020-12-31 2020-12-31 Outpatient [facility] [id number] 06:37:00 06:37:00 -[id number] [facility] 2020-12-30 2020-12-30 Outpatient [facility] [id number] 08:52:00 08:52:00 -[id number] [facility] 2020-12-27 2020-12-27 Outpatient [facility] [id number] 02:45:00 02:45:00 -[id number] [facility] 2020-12-25 2020-12-26 Inpatient EM Ramsey HCAPM MAS [id number] [facility] 16:50:00 23:08:00 Oladipo 24 [facility] 2020-12-24 2020-12-24 Outpatient MARCO ANTONIO MustafaCL LABO [id number] [facility] 08:02:00 08:02:00 Oladipo 39 [facility] 2020-04-18 2020-04-18 Outpatient MELY DEVINEBINA [id number] [facility] 11:28:00 11:28:00 ILIANA [id number] [facility] 2019-09-13 2019-09-13 [place]AN [place]res [id number] 11:46:00 14:25:[address] LIVE HCIS 2019-09-13 2019-09-13 Emergency ER BINA CISNEROS [id number] 19-20 [facility] 11:46:00 14:25:00 VINCE [id number] [facility] 2019-09-13 2019-09-13 Departed BINA CURRAN [id number] [facility] 11:46:00 14:25:00 Emergency [facility] 2019-06-27 2019-06-27 [place] [facility] [id number] Common 09:40:00 09:40:00 [facility] [address] [facility] Family Medicine [facility] 2019-02-17 2019-02-17 Office Baljinder [facility] [id number] 13:54:10 14:09:10 Visit [place] [id number] [facility] 4.2.7.2.686 [place] - [id number] [facility] 408 2019-02-17 2019-02-17 Orders Doctor BOBO [id number] 00:00:00 00:00:00 Only Unassigned, BOOGIE [id number] [place] [facility] 4.2.7.2.686 [id number] 2017-05-17 2017-05-17 Outpatient Buddy SETMURPHY SETENT [id number] [facility] 09:30:00 09:30:00 [facility] 2017-04-26 2017-04-26 Outpatient Buddy SETENT SETENT [id number] [facility] 08:57:00 08:57:00 [facility] 2017-02-12 2017-02-12 Outpatient Buddy SETENT SETENT [id number] [facility] 11:34:00 11:34:00 [facility] Ear Nose [facility] Throat Results Test Description Test Time Test Comments Results Result Comments Source TRANSFERRRIN 2020-12-28 08:12:00 Test Item Value Reference Range Interpretation Comme nts TRANSFERRRIN (test code = 230 mg/dL 192-364 Pe rformed At: DA [facility] TRANSF) [id number] [facility] [address] [place] [id number] CN MD Ph:[phone] VITAMIN [id number] 08:12:00 Test Item Value Reference Range Interpretation Comments VITAMIN B12 (test code = VITB12) 938 PG/ML 183-986 N FOLIC [id number] 08:12:00 Test Item Value Reference Range Interpretation Comments FOLIC ACID (test code = FOL) 11.60 NG/ML 3.10-17.50 N [id number] 08:12:00 Test Item Value Reference Range Interpretation Comments FERRITIN (test code = JONNY) 23.8 NG/ML 3.0-105.0 N [id number] 18:50:00 Test Item Value Reference Range Interpretation Comments POTASSIUM (test code = K) 3.9 mmol/L 3.4-5.0 N [id number] 13:47:00 Test Item Value Reference Range Interpretation Comments SURG (test code = SURG) RUN DATE: 12/26/20 [facility] Patel [place] - LAB PAGE 1 RUN TIME: 1347 Specimen Inquiry RUN USER: INTERFACE PATIENT: OZZY MEI LOC: Madi U #: [id number] AGE/SX: 75/F ROOM: [facility] RE12/25/20REG DR: Josee Mustafa MD : 46 BED: 1 DIS: STATUS: ADM IN TLOC: SPEC #: PMC:[id number] RECD: 12/25/20 STATUS: SOUT REQ #: [id number] LAZARO: 12/25/[address]: Josee Mustafa MD ENTERED: 12/25/20 SP TYPE: SURG OTHR DR: DOES_NOT KNOW No Primary or Family Physician Blair Juares MDORDERED: SURG PATH LVL 09/27 COPIES TO: DOES_NOT KNOW No [place] [address] [place] [address] [email or web address] Blair Juares MD [address] [place], [place] [id number] HISTOLOGY: TISSUE ID BLK PCS BRANDT LEV PROCEDURE DISPOSITION ____ ___ ___ ___ COLON, NOS A 1 2 RECTUM, NOS B 1 2 PROCEDURES: SURG PATH LVL 4 (12/25/20-1113) TISSUES: A. COLON, NOS - LEFT SIDE COLON BIOPSY B. RECTUM, NOS - RECTUM COLON BIOPSY CPT CODES CPT CODE(S): 01425P2 , , , , , , FINAL DIAGNOSIS A. Colon, left, biopsy: FOCAL SURFACE ULCERATION WITH ISCHEMIC CHANGES NEGATIVE FOR DYSPLASIA AND MALIGNANCY B. Colon, rectum, biopsy: CONTINUED ON NEXT PAGE RUN DATE: 12/26/20 [facility] - LAB PAGE 2 RUN TIME: 1347 Specimen Inquiry RUN USER: INTERFACE SPEC #: [facility]:[id number] PATIENT: OZZY MEI #[id number] (Continued) FINAL DIAGNOSIS (Continued) COLONIC MUCOSA WITH ASSOCIATED ULCER DEBRIS NEGATIVE FOR DYSPLASIA AND MALIGNANCY GROSS DESCRIPTION A. Left side colon biopsy. Received in formalin are three allen tissue fragments, 0.2 - 0.4 cm, all as A. B. Rectum colon biopsy. Received in formalin are two allen tissue fragments, 0.2 and 0.4 cm, all as B. /fausto Grossing performed at [facility] Pathology, [address] [place] [address], [address], [place] [address]. Supervisor Billposting: Imtiaz Bravo M.D. MICROSCOPIC DESCRIPTION A. Left [...] Signed SIGNATURE ON FILE Kristy Berger 12/26/20 1347 END OF REPORT [id number] 11:06:00 Test Item Value Reference Range Interpretation Comments KEKE (test code = TRANSF) VITAMIN [id number] 11:06:00 Test Item Value Reference Range Interpretation Comments VITAMIN B12 (test code = VITB12) 938 PG/ML 183-986 N FOLIC [id number] 11:06:00 Test Item Value Reference Range Interpretation Comments FOLIC ACID (test code = FOL) 11.60 NG/ML 3.10-17.50 N [id number] 11:06:00 Test Item Value Reference Range Interpretation Comments FERRITIN (test code = JONNY) 23.8 NG/ML 3.0-105.0 N [id number] 10:48:00 Test Item Value Reference Range Interpretation Comments PHOSPHOROUS (test code = PHOS) 2.2 MG/DL 2.5-4.9 L [id number] 10:48:00 Test Item Value Reference Range Interpretation [...] % calc 12-57 L FESAT) CBC W/AUTO [id number] 07:28:00 Test Item Value Reference Range Interpretation [...] DIFF REQUIRED NO DIFF/SCN CRITERIA SLIDE R NOEL (test code = MDIFF) CONSISTA NT WITH AUTO DIFFERENTI AL. RBC [id number] 07:28:00 Test Item Value Reference Range Interpretation [...] (test NORMAL code = PLTMORPH) CBC W/AUTO [id number] 07:27:00 Test Item Value Reference Range Interpretation [...] NT WITH AUTO DIFFERENTI AL. CBC W/AUTO [id number] 07:27:00 Test Item Value Reference Range Interpretation [...] DIFF REQUIRED NO DIFF/SCN CRITERIA SLIDE R NOEL (test code = MDIFF) CONSISTA NT WITH AUTO DIFFERENTI AL. COMPREHENSIVE METABOLIC [id number] 06:40:00 Test Item Value Reference Range Interpretation [...] TOTAL (test code = ALKP) CBC W/AUTO [id number] 06:07:00 Test Item Value Reference Range Interpretation [...] DIFF/SCN CRITERIA MDIFF) - XR ABDOMEN 1 [id number] 10:42:00 [facility] 1945 Sex: F Name: OZZY MEI [facility] : 1945 Age/S: 75 / F [id number] Unit #: [id number] Loc: [place] [address] Phys: Sin Choi MD Acct: [id number] Dis Date: Status: ADM IN PHONE #: [phone] Exam Date: 12/25/2020 1007 FAX #: Reason: Evaluate cecal distension EXAMS: CPT: [id number] XR ABDOMEN 1 V 33523 Fluoro Time: DAP (Gy m2): Air Kerma (mGy): EXAMINATION: AP supine view(s) of the abdomen INDICATION: Evaluate cecal distension COMPARISON: 12/24/2020 [...] PAGE 1 Signed Report Name: OZZY MEI [facility] : 1945 Age/S: 75 / F [id number] Unit #: [id number] Loc: [place] [address] Phys: Sin Choi MD Acct: [id number] Dis Date: Status: ADM IN PHONE #: [phone] Exam Date: 12/25/2020 1007 FAX #: Reason: Evaluate cecal distension EXAMS: CPT: [id number] XR ABDOMEN 1 V 73104 Fluoro Time: DAP (Gy m2): Air Kerma (mGy): (Continued) Technologist: Elisha Farmer, RT(R) Trnscb Date/Time: 12/25/2020 (1041) [email or web address] Orig Print D/T: S: 12/25/2020 (0453) PAGE 2 Signed ReportCBC W/AUTO [id number] 07:13:00 Test Item Value Reference Range Interpretation [...] CONSISTA NT WITH AUTO DIFFERENTI AL. RBC [id number] 07:13:00 Test Item Value Reference Range Interpretation Comments POLYCHROMASIA (test code = TRACE ON SCAN NONE POLC) HYPOCHROMIA (test code = 1+ ON SCAN NONE HYPO) POIKILOCYTOSIS (test code TRACE ON SCAN NONE = POIK) ANISOCYTOSIS (test code = TRACE NONE ANISO) PLATELET ESTIMATE (test INCREASED THOUSAND ADEQUATE code = PLTEST) PLATELET MORPHOLOGY (test NORMAL code = PLTMORPH) CBC W/AUTO [id number] 07:12:00 Test Item Value Reference Range Interpretation [...] NT WITH AUTO DIFFERENTI AL. CBC W/AUTO [id number] 07:12:00 Test Item Value Reference Range Interpretation [...] NT WITH AUTO DIFFERENTI AL. COMPREHENSIVE METABOLIC [id number] 06:14:00 Test Item Value Reference Range Interpretation [...] 45-117 N TOTAL (test code = ALKP) [id number] 06:14:00 Test Item Value Reference Range Interpretation Comments PHOSPHOROUS (test code = PHOS) 2.5 MG/DL 2.5-4.9 N [id number] 06:14:00 Test Item Value Reference Range Interpretation Comments MAGNESIUM (test code = MAG) 2.5 MG/DL 1.8-2.4 H PROTHROMBIN [id number] 06:06:00 Test Item Value Reference Range Interpretation Comments PT PATIENT (test code = PTP) 14.1 SECONDS 9.3-12.9 H INTERNATIONAL NORMAL RATIO 1.25 INR Unit 0.8-1.2 H (test code = INR) THROMBOPLASTIN TIME [id number] 06:06:00 Test Item Value Reference Range Interpretation Comments THROMBOPLASTIN TIME PARTIAL 33.3 SECONDS 26-35 N (test code = PTT) CBC W/AUTO [id number] 05:55:00 Test Item Value Reference Range Interpretation [...] DIFF/SCN CRITERIA MDIFF) - XR ABDOMEN 1 [id number] 11:48:00 [facility] 1945 Sex: F Name: OZZY MEI [facility] : 1945 Age/S: 75 / F [id number] [address] Unit #: [id number] Loc: [place] [address] Phys: Josee Mustafa MD Acct: [id number] Dis Date: Status: ADM IN PHONE #: [phone] Exam Date: 12/24/2020 0068 FAX #: Reason: CONSTIPATION EXAMS: CPT: [id number] XR ABDOMEN 1 V 33228 Fluoro Time: DAP (Gy m2): Air Kerma [...] PAGE 1 Signed Report Name: [facility]I [facility] [place] : 1945 Age/S: 75 / F [id number] [address] #: [id number] Loc: [place] [address] Phys: Josee Mustafa MD Acct: [id number] Dis Date: Status: ADM IN PHONE #: [phone] Exam Date: 12/24/2020 1137 FAX #: Reason: CONSTIPATION EXAMS: CPT: [id number] XR ABDOMEN 1 V 13603 Fluoro Time: DAP (Gy m2): Air Kerma (mGy): (Continued) Technologist: Elisha Farmer, RT(R) Trnscb Date/Time: 12/24/2020 (1148) [email or web address] Orig Print D/T: S: 12/24/2020 (1155) PAGE 2 Signed ReportMR, MRA, BRAIN, WITHOUT [id number] 20:11:00Needs general anesthesiaReason for exam:->Ischemic Stroke EvaluationFINAL REPORT MR, MRA, BRAIN, WITHOUT CONTRAST, MR, MRA, NECK, WITHOUT IV CONTRAST, MR, BRAIN, WITHOUT CONTRAST INDICATION: Ischemic Stroke Evaluationstroke evaluation TECHNIQUE: Multiplanar, multisequence MR imaging of the brain without intravenous contrast.MRA of the head utilizing 3-D aedb-mt-lmiovq technique, with 3-D reconstructions.MRA of the neck utilizing 2-D and 3-D flit-vh-jorjqe technique, with 3-D reconstructions. COMPARISON: None FINDINGS: [...] Damian Whitley MDReport Verified Date/Time: 09/14/2019 20:11:20 MR, MRA, NECK, WITHOUT IV CONTRAST 2019-09-14 20:11:00Needs general anesthesiaReason for exam:->Ischemic Stroke EvaluationFINAL REPORT MR, MRA, BRAIN, WITHOUT CONTRAST, MR, MRA, NECK, WITHOUT IV CONTRAST, MR, BRAIN, WITHOUT CONTRAST INDICATION: Ischemic Stroke Evaluationstroke evaluation TECHNIQUE: Multiplanar, multisequence MR imaging of the brain without intravenous contrast.MRA of the head utilizing 3-D kprs-iw-zngswl technique, with 3-D reconstructions.MRA of the neck utilizing 2-D and 3-D hifj-jh-gikfig technique, with 3-D reconstructions. COMPARISON: None FINDINGS: [...] Damian Whitley MDReport Verified Date/Time: 09/14/2019 20:11:20 MR, BRAIN, WITHOUT [id number] 20:11:00Needs general anesthesiaReason for exam:->Ischemic Stroke EvaluationFINAL REPORT MR, MRA, BRAIN, WITHOUT CONTRAST, MR, MRA, NECK, WITHOUT IV CONTRAST, MR, BRAIN, WITHOUT CONTRAST INDICATION: Ischemic Stroke Evaluationstroke evaluation TECHNIQUE: Mul tiplanar, multisequence MR imaging of the brain without intravenous contrast.MRA of the head utilizing 3-D eros-wl-xfttxs technique, with 3-D reconstructions.MRA of the neck utilizing 2-D and 3-D kbpb-jt-ebfhqe technique, with 3-D reconstructions. COMPARISON: None FINDINGS: [...] high- grade focal stenosis. Signed: Damian Whitley MDReport Verified Date/Time: 09/14/2019 20:11:20 [id number] 13:14:00 Test Item Value Reference Range Interpretation Comments RPR SCREEN (BEAKER) (test code = Nonreactive Nonreactive 420) HEMOGLOBIN [id number] 08:08:00 Test Item Value Reference Range Interpretation Comments HEMOGLOBIN A1C (BEAKER) (test code = 5.6 % 4.3-6.1 368) [id number] 06:39:00 Test Item Value Reference Range Interpretation Comments MAGNESIUM (BEAKER) (test code = 2.1 mg/dL 1.6-2.6 627) Professor Of Mechanical Engineering ID - BSBASIC METABOLIC [id number] 06:39:00 Test Item Value Reference Range Interpretation [...] S NOT APPLICABLE FOR DIALYSIS PATIEN TS. Professor Of Mechanical Engineering ID - BSLIPID [id number] 06:39:00 Test Item Value Reference Range Interpretation [...] Borderline 130-159 High 160-189 Very High >=190 Professor Of Mechanical Engineering ID - BSCBC W/PLT COUNT & AUTO [id number] 05:38:00 Test Item Value Reference Range Interpretation [...] (test code = 2801) TSH/FREE T4 IF [id number] 18:53:00 Test Item Value Reference Range Interpretation Comments THYROID STIMULATING HORMONE 0.76 uIU/mL 0.35-4.94 (BEAKER) (test code = 772) Professor Of Mechanical Engineering ID - BSVITAMIN B12 AND [id number] 18:53:00 Test Item Value Reference Range Interpretation Comments VITAMIN B12 (BEAKER) (test code = 721 pg/mL 213-816 774) FOLATE (BEAKER) (test code = 362) 12.5 ng/mL >=7.0 Professor Of Mechanical Engineering ID - BSAutomated blood leukocyte count (number/volume)2019-09-13 12:10:00 Test Item Value Reference Range Interpretation Comments White Blood Count (test code = 13.4 10*3/uL 4.5-11.5 6690-2) [facility] erythrocytes automated count (number/volume)2019-09-13 12:10:00 Test Item Value Reference Range Interpretation Comments Red Blood Count (test code = 4.99 10*6/uL 3.8-5.1 789-8) [facility] hemoglobin measurement (mass/volume)2019-09-13 12:10:00 Test Item Value Reference Range Interpretation Comments Hemoglobin (test code = 718-7) 13.1 g/dL 12.0-15.2 [facility] HealthAutomated blood hematocrit (volume fraction)2019-09-13 12:10:00 Test [...] HealthAutomated erythrocyte mean corpuscular hemoglobin concentration measurement (mass/[id number] 12:10:00 Test Item Value Reference Range Interpretation Comments Mean Corpuscular Hemoglobin Concent 30.1 g/dL 33.0-37.0 (test code = 786-4) [facility] HealthAutomated erythrocyte distribution width [id number] 12:10:00 Test Item Value Reference Range Interpretation Comments Red Cell Distribution Width (test code 16.6 % 10.7-14.5 = 788-0) [facility] HealthAutomated blood platelet count (count/volume)2019-09-13 12:10:00 Test Item Value Reference Range Interpretation Comments Platelet Count (test code = 540 10*3/uL 150-450 777-3) [facility] HealthAutomated blood platelet mean volume trchggtlbon2906-36-36 12:10:00 Test Item Value Reference Range Interpretation Comments Mean Platelet Volume (test code = 9.9 fL 5.7-10.7 38255-3) [facility] comment [id number] 12:10:00 Test Item Value Reference Range Interpretation Comments Manual Differential (test code = ----- 8265-1) [facility] HealthManual blood segmented neutrophils/100 zcxxdefvei7924-21-13 12:10:00 Test Item Value Reference Range Interpretation Comments Neutrophils % (Manual) (test code = 83 % 42-75 769-0) [facility] HealthManual blood lymphocytes/100 ywyfiwqadl2391-16-39 12:10:00 Test Item Value Reference Range Interpretation Comments Lymphocytes % (Manual) (test code = 11 % 21-51 737-7) [facility] HealthManual blood monocytes/100 zrdirkjluv7938-42-79 12:10:00 Test Item Value Reference Range Interpretation Comments Monocytes % (Manual) (test code = 4 % 1-9 744-3) [facility] HealthManual blood eosinophil count as percentage of total leukocytes 2019-09-13 12:10:00 Test Item Value Reference Range Interpretation Comments Eosinophils % (Manual) (test code = 2 % 0-7 714-6) [facility] HealthBlood platelet detection by light ayrcskcurw5761-14-50 12:10:00 Test Item Value Reference Range Interpretation Comments Platelet Estimate (test code = Adequate 9317-9) [facility]Blood erythrocyte morphology finding raumgwvgmjuahf8773-61-94 12:10:00 Test Item Value Reference Range Interpretation Comments Red Blood Cell Morphology (test code = Normal 6742-1) [facility] HealthProthrombin time (PT) in platelet poor [id number] 12:10:00 Test Item Value Reference Range Interpretation Comments Prothrombin Time (test code = 5902-2) 12.7 s 9.4-12.5 [facility] HealthINR in Platelet poor plasma by Coagulation gucif4219-94-60 12:10:00 Test Item Value Reference Range Interpretation Comments Prothromb Time International 1.1 {ratio} 0.8-1.2 Ratio (test code = 6301-6) [facility] HealthPlasma partial thromboplastin time (PTT)2019-09-13 12:10:00 Test Item Value Reference Range Interpretation Comments Activated Partial Thromboplast Time 37.7 s 25.1-36.5 (test code = 88070-1) [facility] HealthSerum or plasma sodium measurement (moles/volume)2019-09-13 [...] Level (test code = 104 mmol/L 98-107 2075-0) [facility] HealthSerum or plasma total carbon dioxide measurement (moles/volume) 2019-09-13 12:10:00 Test Item Value Reference Range Interpretation Comments Carbon Dioxide Level (test code = 28 mmol/L 2028-02) [facility] HealthSerum or plasma anion gap determination (moles/volume)2019-09-13 12:10:00 Test Item Value Reference Range Interpretation Comments Anion Gap (test code = 14690-0) 14 02-12 [facility] HealthSerum or plasma urea nitrogen measurement (mass/volume)2019-09-13 12:10:00 Test Item Value Reference Range Interpretation Comments Blood Urea Nitrogen (test code = 10 mg/dL 04-16 3094-0) [facility] HealthSerum or plasma creatinine measurement (mass/volume)2019-09-13 12:10:00 Test Item Value Reference Range Interpretation Comments Creatinine (test code = 2160-0) 0.8 mg/dL 0.6-1.1 [facility] HealthGFR estimate [id number] 12:10:00 Test Item Value Reference Range Interpretation Comments Estimat Glomerular Filtration Rate 75 50-100 (test code = 92282-3) [facility] HealthSerum or plasma urea nitrogen/creatinine mass lgqsu2734-57-85 12:10:00 Test Item Value Reference Range Interpretation Comments BUN/Creatinine Ratio (test code = 13 3097-3) [facility] HealthSerum or plasma glucose measurement (mass/volume)2019-09-13 12:10:00 Test Item Value Reference Range Interpretation Comments Glucose Level (test code = 2345-7) 108 mg/dL 60-100 [facility] HealthOsmolality of Serum or Plasma by oqfcbplixzx7068-57-61 12:10:00 Test Item Value Reference Range Interpretation Comments Calculated Osmolality (test code 283 mosm/kg = 46219-2) [facility] HealthSerum or plasma calcium measurement (mass/volume)2019-09-13 12:10:00 Test Item Value Reference Range Interpretation Comments Calcium Level (test code = 26402-6) 9.5 mg/dL 8.4-10.2 [facility] HealthSerum or plasma [...] Cholesterol (test code = 86 mg/dL 0-99 34185-6) [facility] HealthSerum or plasma total cholesterol/high density lipoprotein (HDL) cholesterol mass [id number] 12:10:00 Test Item Value Reference Range Interpretation Comments Cholesterol/HDL Ratio (test code = 3.0 See Note 9830-1) [facility] HealthSerum or plasma low density lipoprotein (LDL) cholesterol/high density lipoprotein (HDL) cholesterolmass xxnyd7162-29-47 12:10:00 Test Item Value Reference Range Interpretation Comments Cholesterol Ratio (LDL/HDL) (test code 1.5 = 72877-0) [facility] HealthAutomated erythrocyte mean corpuscular volume (MCV) measurement 2019-09-13 12:10:00 Test Item Value Reference Range Interpretation Comments Mean Corpuscular Volume (test code = 87.2 fL 787-2) Automated erythrocyte mean corpuscular hemoglobin (mass per erythrocyte) 2019-09-13 12:10:00 Test Item Value Reference Range Interpretation Comments Mean Corpuscular Hemoglobin (test 26.3 pg code = 785-6) Automated erythrocyte mean corpuscular hemoglobin concentration measurement (mass/ieh0123-19-19 12:10:00 Test Item Value Reference Range Interpretation Comments Mean Corpuscular Hemoglobin Concent 30.1 g/dL (test code = 786-4) Automated erythrocyte distribution width zgjgq3789-51-84 12:10:00 Test Item Value Reference Range Interpretation Comments Red Cell Distribution Width (test code 16.6 % = 788-0) Automated blood platelet count (count/volume)2019-09-13 12:10:00 Test Item Value Reference Range Interpretation Comments Platelet Count (test code = 540 10*3/uL 777-3) Automated blood platelet mean volume iqkgadqameb0143-65-70 12:10:00 Test Item Value Reference Range Interpretation Comments Mean Platelet Volume (test code = 9.9 fL 26221-8) Service comment [id number] 12:10:00 Test Item Value Reference Range Interpretation Comments Manual Differential (test code = ----- 8265-1) Manual blood segmented neutrophils/100 ehklebrsdg5083-89-69 12:10:00 Test Item Value Reference Range Interpretation Comments Neutrophils % (Manual) (test code = 83 % 769-0) Manual blood lymphocytes/100 mhbnjbvlvu2685-91-11 12:10:00 Test Item Value Reference Range Interpretation Comments Lymphocytes % (Manual) (test code = 11 % 737-7) Manual blood monocytes/100 ldvqnyzdcl3069-38-02 12:10:00 Test Item Value Reference Range Interpretation Comments Monocytes % (Manual) (test code = 4 % 744-3) Manual blood eosinophil count as percentage of total vyeyxxxkvz0100-51-16 12:10:00 Test Item Value Reference Range Interpretation Comments Eosinophils % (Manual) (test code = 2 % 714-6) Blood platelet detection by light oxjjialbsb5791-78-42 12:10:00 Test Item Value Reference Range Interpretation Comments Platelet Estimate (test code = Adequate 9317-9) Blood erythrocyte morphology finding qrwxxhdaflpvup6060-13-24 12:10:00 Test Item Value Reference Range Interpretation Comments Red Blood Cell Morphology (test code = Normal 6742-1) Prothrombin time (PT) in platelet poor knxgra1194-82-34 12:10:00 Test Item Value Reference Range Interpretation Comments Prothrombin Time (test code = 5902-2) 12.7 s INR in Platelet poor plasma by Coagulation ifzyj5891-53-87 12:10:00 Test Item Value Reference Range Interpretation Comments Prothromb Time International 1.1 {ratio} Ratio (test code = 6301-6) Plasma partial thromboplastin time (PTT)2019-09-13 12:10:00 Test Item Value Reference Range Interpretation Comments Activated Partial Thromboplast Time 37.7 s (test code = 33682-5) Serum or plasma sodium measurement (moles/volume)2019-09-13 12:10:00 [...] Chloride Level (test code = 104 mmol/L 2075-0) Serum or plasma total carbon dioxide measurement (moles/volume)2019-09-13 12:10:00 Test Item Value Reference Range Interpretation Comments Carbon Dioxide Level (test code = 28 mmol/L 8-9) Serum or plasma anion gap determination (moles/volume)2019-09-13 12:10:00 Test Item Value Reference Range Interpretation Comments Anion Gap (test code = 52255-3) 14 Serum or plasma urea nitrogen measurement (mass/volume)2019-09-13 12:10:00 Test Item Value Reference Range Interpretation Comments Blood Urea Nitrogen (test code = 10 mg/dL 3094-0) Serum or plasma creatinine measurement (mass/volume)2019-09-13 12:10:00 Test Item Value Reference Range Interpretation Comments Creatinine (test code = 2160-0) 0.8 mg/dL GFR estimate [id number] 12:10:00 Test Item Value Reference Range Interpretation Comments Estimat Glomerular Filtration Rate 75 (test code = 48754-6) Serum or plasma urea nitrogen/creatinine mass qtvdn6080-74-32 12:10:00 Test Item Value Reference Range Interpretation Comments BUN/Creatinine Ratio (test code = 13 3097-3) Serum or plasma glucose measurement (mass/volume)2019-09-13 12:10:00 Test Item Value Reference Range Interpretation Comments Glucose Level (test code = 2345-7) 108 mg/dL Osmolality of Serum or Plasma by vcnagkujnrb1151-35-81 12:10:00 Test Item Value Reference Range Interpretation Comments Calculated Osmolality (test code 283 mosm/kg = 59107-2) Serum or plasma calcium measurement (mass/volume)2019-09-13 12:10:00 Test Item Value Reference Range Interpretation Comments Calcium Level (test code = 34631-5) 9.5 mg/dL Serum or plasma cholesterol measurement [...] LDL Cholesterol (test code = 86 mg/dL 22557-0) Serum or plasma total cholesterol/high density lipoprotein (HDL) cholesterol mass cdz5140-46-22 12:10:00 Test Item Value Reference Range Interpretation Comments Cholesterol/HDL Ratio (test code = 3.0 9830-1) Serum or plasma low density lipoprotein (LDL) cholesterol/high density lipoprotein (HDL) cholesterolmass ssefr0920-68-37 12:10:00 Test Item Value Reference Range Interpretation Comments Cholesterol Ratio (LDL/HDL) (test code 1.5 = 06360-9) Automated blood leukocyte count (number/volume)2019-09-13 12:10:00 Test [...] Hematocrit (test code = 4544-3) 43.5 % Comprehensive Metabolic Fxbkh0772-89-09 21:35:55 Test Item Value Reference Range Interpretation [...] A/G 1.6 ratio N Ratio) Comprehensive Metabolic Khozo2760-40-45 21:35:55 Test Item Value Reference Range Interpretation [...] the National Kidney Foundation, http://nkdep.ni h.gov Lipid Lowap2742-13-87 21:35:55 Test Item Value Reference Range Interpretation Comments Cholesterol Total 188 mg/dL 0-200 RISK OF HE ART (test code = DISEASEPublishe d by Cholesterol Total) [place] [employer] Charley lyte Optimal Borderl ine [...] LDL/HDL Ratio=L DL Calc/HDL Chol Comprehensive Metabolic Yowbh3685-25-29 21:35:55 Test Item Value Reference Range Interpretation [...] ag e have not been validated by [facility] MDRD study and should be interpreted wit [...] ag e have not been validated by [facility] MDRD study and should be interpreted wit h caution. eGFR R esult Interpretation: eGFR > or = 60 is in the Normal RangeeGF R < 60 may mean kid giovanni diseaseeGFR < 1 5 may mean kidney failure Rang es recommended by the National Kidney Foundation, http://nkdep.ni h.gov Complete Blood Count with Nfjpomttysdg7898-85-16 21:32:55 Test Item Value Reference Range Interpretation [...] code = IPF) 0 % N Automated Usbgcmqodcmb8149-60-21 21:32:55 Test Item Value Reference Range Interpretation Comments Neutro Auto (test code = Neutro 67.0 % 36.0-70.0 Auto) Lymph Auto (test code = Lymph Auto) 20.5 % 12.0-44.0 Louisa Auto (test code = Louisa Auto) 6.5 % 0.0-11.0 Eos, Auto (test code = Eos, Auto) 3.7 % 0.0-7.0 Basophil Auto (test code = Basophil 1.5 % 0.0-2.0 Auto) Neutro Absolute (test code = Neutro 6.4 x10 1.6-7.4 Absolute) Lymph Absolute (test code = Lymph 1.96 x10 .50-4.60 Absolute) Louisa Absolute (test code = Louisa .62 x10 .00-1.20 Absolute) Eos Absolute (test code = Eos 0.35 x10 0.00-0.74 Absolute) Baso Absolute (test code = Baso 0.14 x10 0.00-0.21 Absolute) IG [id number] 21:32:55 Test Item Value Reference Range Interpretation Comments IG (test code = IG) 0.8 % 0.0-5.0 IG Abs (test code = IG Abs) 0 x10 N XR Chest 1 View Byglpuz6072-74-09 09:09:53Patient: OZZY MEI Date/Time06/03/2018 09:02 CSTReason for [...]
--- NOTE | 2023-04-19 14:22 | RAD REPORT ---
EXAM DESCRIPTION: CT - Ct Stroke Brain Wo Cont - 04/19/2023 2:13 pm CLINICAL HISTORY: Right side weakness COMPARISON: April 08, 2023 TECHNIQUE: Computed axial tomography of the head was obtained. All CT scans are performed using dose optimization technique as appropriate and may include automated exposure control or mA/KV adjustment according to patient size. FINDINGS: An intracranial bleed is not seen . The ventricles are normal in caliber. No extra-axial fluid collection is noted. Mild to moderate low-density within periventricular, deep and subcortical white matter likely ischemi c changes secondary to small vessel disease Low densities left cerebrum unchanged compatible with old infarcts Fluid within the sinuses/ mastoids is not seen. IMPRESSION: No acute intracranial abnormality is seen. If patient's symptoms persist MRI of the bra in would be recommended Lilia of the emergency room was notified at 2:11 p.m. April 19, 2023
[2023-04-19] MEDS ORDERED: TENECTEPLASE 50 MG/10 ML VIAL IV ONE (14:37)
[2023-04-19 14:40] LABS: Protime INR 1.13
[2023-04-19 14:41] LABS: Absolute Lymphocytes (CBC) 1.8 K/uL (0.7-4.9); Hematocrit 46.9 % (36.0-45.0); Lymphocytes % 7.1 % (15.3-44.8); MCV 67.6 fL (80-100); MPV 8.4 fL (7.6-11.3); Platelets 477 thou/uL (152-406); RBC Red Blood Cell Count 6.94 M/uL (3.86-4.86)
[2023-04-19] MEDS ORDERED: ONDANSETRON 4 MG/2 ML VIAL ONE ×2 (14:49→16:53)
[2023-04-19 15:01] LABS: Potassium 4.5 mEq/L (3.5-5.1)
--- NOTE | 2023-04-19 15:25 | RAD REPORT ---
EXAM DESCRIPTION: Jovana Angio04/19/2023 2:55 pm CLINICAL HISTORY: CVA/right-sided weakness COMPARISON: April 09, 2023 MRA neck TECHNIQUE: 100 cc Isovue [address] angiogram of the neck was obtained. 3D MIPS reconstruction performed. All CT scans are performed using dose optimization technique as appropriate and may include automated exposure control or mA/KV adjustment according to patient size. FINDINGS: Mild plaque is present within common carotid, internal carotid and external carotid arteri es bilaterally Vertebral arteries unremarkable No dissection is seen. No high-grade stenosis IMPRESSION: No significant abnormality is displayed [place] crieria Mild stenosis 0 to 49 % Moderate stenosis 50-69% Severe stenosis 70-99%
--- NOTE | 2023-04-19 15:29 | RAD REPORT ---
EXAM DESCRIPTION: CTHead angio04/19/2023 2:55 pm CLINICAL HISTORY: CVA/right-sided weakness COMPARISON: MRA head April 09, 2023 TECHNIQUE: 100 cc Isovue [address] angiogram of the head was obtained. 3D MIPS reconstruction performed. All CT scans are performed using dose optimization technique as appropriate and may include automated exposure control or mA/KV adjustment according to patient size. FINDINGS: The basilar, anterior cerebral, middle cerebral and posterior cerebral arteries do not dem onstrate a significant abnormality Mild calcified plaque distal internal carotid arteries An aneurysm is not seen A significant stenosis is not noted. No large vessel occlusion IMPRESSION: No significant abnormality is displayed
--- NOTE | 2023-04-19 15:32 | RAD REPORT ---
EXAM DESCRIPTION: Young Single View04/19/2023 2:34 pm CLINICAL HISTORY: Slurred speech and weakness COMPARISON: April 08, 2023 FINDINGS: The lungs appear clear of acute infiltrate. The heart is normal size IMPRESSION: No acute abnormalities displayed
--- NOTE | 2023-04-19 16:52 | RAD REPORT ---
EXAM DESCRIPTION: CT - Head Brain Wo Cont - 04/19/2023 4:31 pm CLINICAL HISTORY: CVA. Status post TNK COMPARISON: None TECHNIQUE: Computed axial tomography of the head was obtained. IV contrast was not requested. All CT scans are performed using dose optimization technique as appropriate and may include automated exposure control or mA/KV adjustment according to patient size. FINDINGS: An intracranial bleed is not seen The ventricles are normal in caliber No extra-axial fluid collection is noted. Old left cerebral infarction. Mild to moderate low-density within periventricular, deep and subcortical white matter likely ischemi c changes secondary to small vessel disease Fluid within the sinuses/ mastoids is not seen. IMPRESSION: No acute intracranial bleed noted If patient's symptoms persist MRI of the brain would be recommended
[2023-04-19] MEDS ORDERED: MORPHINE 4 MG/ML SYR ONE (16:53)
--- NOTE | 2023-04-19 16:54 | EDPHYS ---
Physician Documentation [facility] Name: Cleo Norton Age: 77 yrs Sex: Female : 1945 Arrival Date: 04/19/2023 Time: 13:57 Bed 19 Private MD: ED Physician Diego Diaz HPI: 04/19 14:35 This 77 yrs old Female presents to ER via Wheelchair with complaints of S/S of Possible rn Stroke. 14:35 The patient presents to the emergency department with weakness of the right upper rn extremity. Onset: The symptoms/episode began/occurred 1 hour(s) ago. Severity of symptoms: At their worst the symptoms were moderate in the emergency department the symptoms are unchanged. Current symptoms: paralysis or paresis, that is moderate. The patient has experienced similar episodes in the past. The patient has been recently seen by a physician:. Reyes hilario has been in rehab for the last couple of weeks following a fall where no acute traumatic findings identified. Woke up this morning at approximately 7 AM was noted to have right sided weakness and slurred speech which completely resolved after few hours. Reyes hilario was completely back to baseline and no complaints. Patient was discharged from rehab with a normal neurological exam. 1 hour prior to arrival began to exhibit right arm weakness once again. Also some confusion. Brought in for possible stroke. The symptoms have not improved. Does not take any blood thinners.. Historical: - Allergies: 14:33 No Known Allergies; kc6 - PMHx: 14:20 Atrial Fib; Cerebrovascular accident; coronary atherosclerosis; gastric ulcer; cm10 Hypertensive disorder; - PSHx: 14:20 colon resection; spine-cyst removal; cm10 - Immunization history:: Adult Immunizations unknown. - Social history:: Smoking status: Patient denies any tobacco usage or history of. - Family history:: not pertinent. - Hospitalizations: : The patient was recently seen at [facility]. ROS: 14:35 Constitutional: Negative for fever, chills, and weight loss, Eyes: Negative for injury, rn pain, redness, and discharge, Neck: Negative for injury, pain, and swelling, Cardiovascular: Negative for chest pain, palpitations, and edema, Respiratory: Negative for shortness of breath, cough, wheezing, and pleuritic chest pain, Abdomen/GI: Negative for abdominal pain, nausea, vomiting, diarrhea, and constipation, Back: Negative for injury and pain, MS/Extremity: Negative for injury and deformity, Skin: Negative for injury, rash, and discoloration, Neuro: Positive for right arm weakness Exam: 14:35 Constitutional: This is a well developed, well nourished patient who is awake, alert, rn and in no acute distress. Head/Face: Normocephalic, healing contusions to left face Eyes: Pupils equal round and reactive to light, extra-ocular motions intact. Cardiovascular: Regular rate and rhythm. No pulse deficits. Respiratory: No increased work of breathing, no retractions or nasal flaring. Abdomen/GI: Soft, non-tender MS/ Extremity: Pulses equal, no cyanosis. Neurovascular intact. Full, normal range of motion. Equal circumference. Neuro: Awake and alert, GCS 15, oriented to person, place, time, and situation. Cranial nerves II-XII grossly intact. Motor strength 5/5 in in all but right upper extremity which exhibits drift. Sensory grossly intact. Cerebellar exam normal. Vital Signs: 14:15 Temp 98.7(O); kc6 14:19 BP 167 / 77; Pulse 88; Resp 18; Pulse Ox 95% ; Weight 63 kg (M); cm10 16:07 BP 176 / 85; Pulse 89; Resp 16 S; Pulse Ox 96% on R/A; kc6 17:25 BP 153 / 98; Pulse 82; Resp 17 S; Pulse Ox 99% on 2 lpm NC; kc6 18:08 BP 168 / 98; Pulse 83; Resp 20 S; Pulse Ox 94% on 2 lpm NC; kc6 NIH Stroke Scale Scores: 14:15 NIHSS Score: 1 kc6 14:25 NIHSS Score: 1 rn MDM: 14:04 Patient medically screened. rn 14:20 ED course: Onset was approximately 45 minutes to an hour ago. Daughter states noticed rn weakness and slurred speech this morning at 7 AM that had completely resolved, was discharged from rehab and upon discharge was evaluated by daughter who is a nurse, charge nurse, attending and none of them appreciated any weakness or slurred speech. Daughter and family member in the room also state that 45 minutes to an hour ago sudden onset of right arm weakness after complete resolution earlier. After long discussion and CT head was negative, family consent to TNKase and understand risk. Does not take blood thinners. Patient's biggest risk is that she has had gastric ulcer in the past but family denies any recent bleeding, blood in the stool or bleeding while in rehab for the last 2 weeks.. 14:22 Discussion of test interpretation with radiology: I had a discussion with radiology teacher regarding a test interpretation. CT head, negative per radiologist.. 14:31 Management of patient was discussed with the following: Optical Engineering Technician: Dr. Keyes was rn contacted, agrees no contraindication and recommends TNKase. . 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 CT head without acute findings today as well. Patient and family consent to TNKase and TNK ordered. 14:35 Data reviewed: vital signs, nurses notes, radiologic studies, CT scan. rn 15:44 Counseling: I had a detailed discussion with the patient and/or guardian regarding the rn historical points, exam findings, and any diagnostic results supporting the discharge/admit diagnosis, lab results. 16:49 ED course: Patient states since arrival here has been having intermittent episodes of rn chest pain. Improved with pain medication. Elevated troponin. Status post TNKase for possible stroke.. 17:06 ED course: I personally spent 75 minutes engaged in work directly related to the rn individual patient's care. This does not include any time spent performing procedures. The patient has been deemed critically ill because of acute cerebral infarction requiring TNKase administration, long discussions with family regarding TNKase, and unexpected finding of troponin greater than 10,000 and requiring emergent cardiology consultation and transfer for critical findings.. 04/19 14:05 Order name: Basic Metabolic Panel; Complete Time: 15: rn 04/19 14:05 Order name: CBC with Diff rn 04/19 14:05 Order name: High Sensitivity Troponin; Complete Time: 15: rn 04/19 14:05 Order name: Protime (+inr); Complete Time: 15: rn 04/19 14:05 Order name: Ptt, Activated; Complete Time: 15: rn 04/19 14:27 Order name: Glucose, Ancillary Testing; Complete Time: 15:02 EDMS 04/19 16:38 Order name: Troponin High Sensitivity; Complete Time: 17:39 rn 04/19 14:05 Order name: CT Stroke Brain w/o Contrast; Complete Time: 15: rn 04/19 14:05 Order name: Stroke CXR 1 View; Complete Time: 15:40 rn 04/19 14:25 Order name: Head Angio CT; Complete Time: 15:40 rn 04/19 14:25 Order name: Neck Angio CT; Complete Time: 15:40 rn 04/19 15:41 Order name: CT Head Brain wo Cont; Complete Time: 16:54 rn 04/19 14:05 Order name: EKG; Complete Time: 14:06 rn 04/19 15:38 Order name: EKG; Complete Time: 15:38 rn 04/19 14:05 Order name: Accucheck; Complete Time: 14:32 rn 04/19 14:05 Order name: Cardiac monitoring; Complete Time: 14:32 rn 04/19 14:05 Order name: EKG - Nurse/Tech; Complete Time: 14:32 rn 04/19 14:05 Order name: IV Saline Lock; Complete Time: 14:32 rn 04/19 14:05 Order name: Labs collected and sent; Complete Time: 14:33 rn 04/19 14:05 Order name: NPO; Complete Time: 14:10 rn 04/19 14:05 Order name: O2 Per Protocol; Complete Time: 14:10 rn 04/19 14:05 Order name: O2 Sat Monitoring; Complete Time: 14:10 rn 04/19 14:05 Order name: Stroke Swallow Screen; Complete Time: 14:33 rn 04/19 15:38 Order name: EKG - Nurse/Tech; Complete Time: 15:49 rn Administered Medications: 14:31 Drug: TNK FOR STROKE - Tenecteplase IV 0.25 mg/kg IV at per protocol once; MAX kc6 DOSE 25 mg, IVP over 5 seconds {Co-Signature: ap3 (Deepthi Hendricks RN).} Route: IV; Rate: per protocol; Site: right forearm; 15:15 Follow up: Response: No adverse reaction; IV Status: Completed infusion; IV Intake: kc6 3.2ml 14:35 Drug: Ondansetron IVP 4 mg IVP once; over 2 minutes Route: IVP; Site: right wrist; kc6 15:15 Follow up: Response: No adverse reaction; Nausea is decreased kc6 16:51 Drug: morphine IVP or IV 4 mg IVP once over 4 mins Route: IVP; Infused Over: 4 mins; kc6 Site: left antecubital; 17:16 Follow up: Response: No adverse reaction; Pain is decreased; RASS: Drowsy (-1) kc6 16:51 Drug: Ondansetron IVP 4 mg IVP once; over 2 minutes Route: IVP; Site: left antecubital; kc6 17:16 Follow up: Response: No adverse reaction; Nausea is decreased kc 17:16 Drug: Labetalol IV 5 mg IV at calculated rate once Route: IV; Rate: calculated rate; kc6 Site: right forearm; 17:26 Follow up: Response: No adverse reaction; Blood pressure is lowered; IV Status: kc6 Completed infusion; IV Intake: 1ml 17:45 Drug: Labetalol IV 5 mg IV at calculated rate once Route: IV; Rate: calculated rate; 6 Site: right forearm; 18:08 Follow up: Response: No adverse reaction; Blood pressure is lowered; IV Status: kc6 Completed infusion; IV Intake: 1ml 17:49 Not Given (daughter refused to hx of GI ulcerss): aspirinchewable tablet 81 mg PO once 6 Point of Care Testing: Blood Glucose: 14:15 Blood Glucose: 188 mg/dL; kc6 Ranges: Critical Glucose Levels:Adult <50 mg/dl or >400 mg/dl <40 mg/dl or >180 mg/dl Disposition Summary: 04/19/23 16:54 Transfer Ordered Notes: Transfer Location: [facility] rn Reason: Higher level of care rn Condition: Stable rn Problem: new rn Symptoms: are unchanged rn Accepting Physician: (04/19/23 18:46) kc Diagnosis - Cerebral infarction, unspecified rn - Subsequent non-ST elevation (NSTEMI) myocardial infarction rn Forms: - Medication Reconciliation Form rn - SBAR form digital marketing intern time excluding procedures: 17:06 Critical care time: Bedside Care: 60 minutes, Consultation: 10 minutes, Family rn Intervention: 5 minutes. Total time: 75 minutes NIH Stroke Scale - NIH Stroke Score Date: 04/19/2023 Time: 14:15 Total Score = 1 10. Dysarthria (speech clarity - read or repeat words) - 0(Normal) 11. Extinction and Inattention (visual/tactile/auditory/spatial/personal) - 0(No abnormality) 1a. Level of Consciousness (LOC) - 0(Alert) 1b. Level of Consciousness (LOC) (Month \T\ Age) - 0(Both) 1c. LOC Commands (Open \T\ Closes Eyes/Injection Moulding Machine Operator) - 0(Both) 2. Best Gaze (Lateral Gaze Paresis) - 0(Normal) 3. Visual Field Loss - 0(No visual loss) 4. Facial Palsy - 0(Normal) 5a. Left Arm: Motor (10-second hold) - 0(No drift) 5b. Right Arm: Motor (10-second hold) - 1(Drift) 6a. Left Leg: Motor (5-second hold - always test supine) - 0(No drift) 6b. Right Leg: Motor (5-second hold - always test supine) - 0(No drift) 7. Limb Ataxia (finger/nose \T\ heel/swanson - test with eyes open) - 0(Absent) 8. Sensory Loss (pinprick arms/legs/face) - 0(Normal) 9. Best Language: Aphasia (description/naming/reading) - 0(No aphasia) Initials: kc6 NIH Stroke Scale - NIH Stroke Score Date: 04/19/2023 Time: 14:25 Total Score = 1 10. Dysarthria (speech clarity - read or repeat words) - 0(Normal) 11. Extinction and Inattention (visual/tactile/auditory/spatial/personal) - 0(No abnormality) 1a. Level of Consciousness (LOC) - 0(Alert) 1b. Level of Consciousness (LOC) (Month \T\ Age) - 0(Both) 1c. LOC Commands (Open \T\ Closes Eyes/Injection Moulding Machine Operator) - 0(Both) 2. Best Gaze (Lateral Gaze Paresis) - 0(Normal) 3. Visual Field Loss - 0(No visual loss) 4. Facial Palsy - 0(Normal) 5a. Left Arm: Motor (10-second hold) - 0(No drift) 5b. Right Arm: Motor (10-second hold) - 1(Drift) 6a. Left Leg: Motor (5-second hold - always test supine) - 0(No drift) 6b. Right Leg: Motor (5-second hold - always test supine) - 0(No drift) 7. Limb Ataxia (finger/nose \T\ heel/swanson - test with eyes open) - 0(Absent) 8. Sensory Loss (pinprick arms/legs/face) - 0(Normal) 9. Best Language: Aphasia (description/naming/reading) - 0(No aphasia) Initials: rn Signatures: Dispatcher [employer] Diego Owens MD MD rn Campbell, Kaitlyn, RN RN kc6 Lora Alvarado RN RN cm10 Deepthi Hendricks RN ap3 Corrections: (The following items were deleted from the chart) 18:46 16:54 Dr. begum kc6
--- NOTE | 2023-04-19 16:54 | ER ---
Nurse's Notes [facility] Name: Cleo Norton Age: 77 yrs Sex: Female : 1945 Arrival Date: 04/19/2023 Time: 13:57 Bed 19 Private MD: Diagnosis: Cerebral infarction, unspecified;Subsequent non-ST elevation (NSTEMI) myocardial infarction Presentation: 04/19 14:15 Pre-hospital glucose is not applicable to this patient. kc6 14:15 Coronavirus screen: At this time, the client does not indicate any symptoms associated [facility] with coronavirus-19. 14:19 Chief complaint: Patient's son or daughter states: Pt began having right sided cm10 weakness, slurred speech and visual changes approximately 1hr TEST PREPARER. Ebola Screen: Patient denies travel to an Ebola-affected area in the 21 days before illness onset. No symptoms or risks identified at this time. Initial Sepsis Screen: Does the patient meet any 2 criteria? No. Patient's initial sepsis screen is negative. Does the patient have a suspected source of infection? No. Patient's initial sepsis screen is negative. Risk Assessment: Do you want to hurt yourself or someone else? Patient reports no desire to harm self or others. Onset of symptoms was April 19, 2023. 14:19 Method Of Arrival: Wheelchair cm10 14:19 Acuity: RAQUEL 2 cm10 14:21 An acute neurological deficit is present. The charge nurse has been notified. The cm10 patient has been moved to a treatment area. Triage Assessment: 14:00 The onset of the patients symptoms was April 19, 2023 at 13:00. [facility] Stroke Activation: Physician: Stroke Attending; Name: ; Notified At: ; Arrived At: Physician: Chief Stroke Resident; Name: ; Notified At: ; Arrived At: Physician: Stroke Resident; Name: ; Notified At: ; Arrived At: Physician: ED Attending; Name: Dr. Diaz; Notified At: 14:00; Arrived At: 14:00 Physician: ED Resident; Name: ; Notified At: ; Arrived At: Historical: - Allergies: 14:33 No Known Allergies; kc6 - PMHx: 14:20 Atrial Fib; Cerebrovascular accident; coronary atherosclerosis; gastric ulcer; cm10 Hypertensive disorder; - PSHx: 14:20 colon resection; spine-cyst removal; cm10 - Immunization history:: Adult Immunizations unknown. - Social history:: Smoking status: Patient denies any tobacco usage or history of. - Family history:: not pertinent. - Hospitalizations: : The patient was recently seen at [facility]. Screenin:15 [facility] ED Fall Risk Assessment (Adult) History of falling in the last 3 months, kc6 including since admission No falls in past 3 months (0 pts) Confusion or Disorientation No (0 pts) Intoxicated or Sedated No (0 pts) Impaired Gait No (0 pts) Mobility Assist Device Used No (0 pt) Altered Elimination No (0 pt) Score/Fall Risk Level 0 - 2 = Low Risk. Abuse screen: Denies threats or abuse. Denies injuries from another. Nutritional screening: No deficits noted. Tuberculosis screening: No symptoms or risk factors identified. Assessment: 14:00 General: CODE STROKE CALLED AT 1400.. cm10 14:15 VAN Scoring: Arm Drift: Minor drift Visual Disturbance: No visual disturbance noted. kc6 Aphasia: No aphasia noted. Neglect: No neglect noted. TNKase (Tenecteplase) Screening: Indications: Definite evidence of stroke, ischemic, embolic, or hypertensive: Yes. Treatment will start within 4.5 hours onset of symptoms: Yes. No evidence of intracranial hemorrhage or CT of head and no evidence of peripheral hemorrhage or recent CVA: Yes. Consent for thrombolytic therapy: Yes. 14:15 General: Appears in no apparent distress. comfortable, Behavior is calm, cooperative, kc6 appropriate for age. Pain: Complains of pain in head. Neuro: Level of Consciousness is awake, alert, obeys commands, Oriented to person, place, time, situation, Appropriate for age Intern Brand are equal bilaterally Moves all extremities. Full function Gait is steady, Speech is normal, Facial symmetry appears normal, Pupils are PERRLA, Intact. Cardiovascular: Denies chest pain, Heart tones S1 S2 present Capillary refill < 3 seconds Rhythm is sinus rhythm. Respiratory: Airway is patent Trachea midline Respiratory effort is even, unlabored, Respiratory pattern is regular, symmetrical. GI: Reports nausea, Patient currently denies abdominal pain, diarrhea, vomiting. : No signs and/or symptoms were reported regarding the genitourinary system. EENT: No signs and/or symptoms were reported regarding the EENT system. Derm: No signs and/or symptoms reported regarding the dermatologic system. Skin is intact, is healthy with good turgor, Skin is pink, warm \T\ dry. Musculoskeletal: No signs and/or symptoms reported regarding the musculoskeletal system. Circulation, motion, and sensation intact. Capillary refill < 3 seconds, Range of motion: intact in all extremities. 14:31 Reassessment: please see vital signs flow sheet on code stroke packet for further kc6 vitals. 15:15 Reassessment: Patient appears in no apparent distress at this time. No changes from kc6 previously documented assessment. Patient and/or family updated on plan of care and expected duration. Pain level reassessed. Patient is alert, oriented x 3, equal unlabored respirations, skin warm/dry/pink. 16:05 Reassessment: Patient appears in no apparent distress at this time. No changes from kc6 previously documented assessment. Patient and/or family updated on plan of care and expected duration. Pain level reassessed. Patient is alert, oriented x 3, equal unlabored respirations, skin warm/dry/pink. 17:25 Reassessment: Patient appears in no apparent distress at this time. No changes from kc6 previously documented assessment. Patient and/or family updated on plan of care and expected duration. Pain level reassessed. Patient is alert, oriented x 3, equal unlabored respirations, skin warm/dry/pink. 18:07 Reassessment: Patient appears in no apparent distress at this time. No changes from kc6 previously documented assessment. Patient and/or family updated on plan of care and expected duration. Pain level reassessed. Patient is alert, oriented x 3, equal unlabored respirations, skin warm/dry/pink. Vital Signs: 14:15 Temp 98.7(O); kc6 14:19 BP 167 / 77; Pulse 88; Resp 18; Pulse Ox 95% ; Weight 63 kg (M); cm10 16:07 BP 176 / 85; Pulse 89; Resp 16 S; Pulse Ox 96% on R/A; kc6 17:25 BP 153 / 98; Pulse 82; Resp 17 S; Pulse Ox 99% on 2 lpm NC; kc6 18:08 BP 168 / 98; Pulse 83; Resp 20 S; Pulse Ox 94% on 2 lpm NC; kc6 NIH Stroke Scale Scores: 14:15 NIHSS Score: 1 kc6 14:25 NIHSS Score: 1 skeins yarn examiner Course: 14:02 Patient arrived in ED. iw 14:04 Diego Diaz MD is Attending Physician. rn 14:08 Manju Santiago, AMARIS is Primary Nurse. kc6 14:14 CT Stroke Brain w/o Contrast In Process Unspecified. EDMS 14:15 Patient has correct armband on for positive identification. Placed in gown. Bed in low kc6 position. Call light in reach. Side rails up X2. Adult w/ patient. Client placed on continuous cardiac and pulse oximetry monitoring. NIBP monitoring applied. hydrostatic tester on. 14:20 Triage completed. cm10 14:20 Inserted saline lock: 22 gauge in right forearm, using aseptic technique. Blood kc6 collected. Patient maintains SpO2 saturation greater than 95% on room air. 14:21 Arm band placed on Patient placed in an exam room, on a stretcher. cm10 14:32 EKG done, by ED staff, reviewed by Diego Diaz MD. Inserted saline lock: 20 gauge in ap3 left antecubital area, using aseptic technique. 14:35 Stroke CXR 1 View In Process Unspecified. EDMS 14:[address] In Process Unspecified. EDMS 14:[address] In Process Unspecified. EDMS 16:33 CT Head Brain wo Cont In Process Unspecified. EDMS 16:51 Troponin High Sensitivity Sent. kc6 17:03 initiated transfer to [facility]. bd 18:32 pt accepted in transfer to [facility] by dr campbell,admin given by marko breaux, pt going to [facility] by life flight. 18:46 No provider procedures requiring assistance completed. Patient transferred, IV remains kc6 in place. Administered Medications: 14:31 Drug: TNK FOR STROKE - Tenecteplase IV 0.25 mg/kg IV at per protocol once; MAX kc6 DOSE 25 mg, IVP over 5 seconds {Co-Signature: ap3 (Deepthi Hendricks RN).} Route: IV; Rate: per protocol; Site: right forearm; 15:15 Follow up: Response: No adverse reaction; IV Status: Completed infusion; IV Intake: kc6 3.2ml 14:35 Drug: Ondansetron IVP 4 mg IVP once; over 2 minutes Route: IVP; Site: right wrist; kc6 15:15 Follow up: Response: No adverse reaction; Nausea is decreased kc6 16:51 Drug: morphine IVP or IV 4 mg IVP once over 4 mins Route: IVP; Infused Over: 4 mins; kc6 Site: left antecubital; 17:16 Follow up: Response: No adverse reaction; Pain is decreased; RASS: Drowsy (-1) kc6 16:51 Drug: Ondansetron IVP 4 mg IVP once; over 2 minutes Route: IVP; Site: left antecubital; kc6 17:16 Follow up: Response: No adverse reaction; Nausea is decreased kc6 17:16 Drug: Labetalol IV 5 mg IV at calculated rate once Route: IV; Rate: calculated rate; kc6 Site: right forearm; 17:26 Follow up: Response: No adverse reaction; Blood pressure is lowered; IV Status: kc6 Completed infusion; IV Intake: 1ml 17:45 Drug: Labetalol IV 5 mg IV at calculated rate once Route: IV; Rate: calculated rate; kc6 Site: right forearm; 18:08 Follow up: Response: No adverse reaction; Blood pressure is lowered; IV Status: kc6 Completed infusion; IV Intake: 1ml 17:49 Not Given (daughter refused to hx of GI ulcerss): aspirinchewable tablet 81 mg PO once kc6 Medication: 18:46 VIS not applicable for this client. kc6 Point of Care Testing: Blood Glucose: 14:15 Blood Glucose: 188 mg/dL; kc6 Ranges: Intake: 15:15 IV: 3ml; Total: 3ml. kc6 17:26 IV: 1ml; Total: 4ml. kc6 18:08 IV: 1ml; Total: 5ml. kc6 Outcome: 16:54 ER care complete, transfer ordered by MD. begum 18:[address] [facility], Transfer form completed. kc6 Note: report given to Ana Beltrán RN 18:46 Condition: stable 18:46 Instructed on the need for transfer, 18:46 Patient left the ED. kc6 NIH Stroke Scale - NIH Stroke Score Date: 04/19/2023 Time: 14:15 Total Score = 1 10. Dysarthria (speech clarity - read or repeat words) - 0(Normal) 11. Extinction and Inattention (visual/tactile/auditory/spatial/personal) - 0(No abnormality) 1a. Level of Consciousness (LOC) - 0(Alert) 1b. Level of Consciousness (LOC) (Month \T\ Age) - 0(Both) 1c. LOC Commands (Open \T\ Closes Eyes/Ramp Agent) - 0(Both) 2. Best Gaze (Lateral Gaze Paresis) - 0(Normal) 3. Visual Field Loss - 0(No visual loss) 4. Facial Palsy - 0(Normal) 5a. Left Arm: Motor (10-second hold) - 0(No drift) 5b. Right Arm: Motor (10-second hold) - 1(Drift) 6a. Left Leg: Motor (5-second hold - always test supine) - 0(No drift) 6b. Right Leg: Motor (5-second hold - always test supine) - 0(No drift) 7. Limb Ataxia (finger/nose \T\ heel/swanson - test with eyes open) - 0(Absent) 8. Sensory Loss (pinprick arms/legs/face) - 0(Normal) 9. Best Language: Aphasia (description/naming/reading) - 0(No aphasia) Initials: kc6 NIH Stroke Scale - NIH Stroke Score Date: 04/19/2023 Time: 14:25 Total Score = 1 10. Dysarthria (speech clarity - read or repeat words) - 0(Normal) 11. Extinction and Inattention (visual/tactile/auditory/spatial/personal) - 0(No abnormality) 1a. Level of Consciousness (LOC) - 0(Alert) 1b. Level of Consciousness (LOC) (Month \T\ Age) - 0(Both) 1c. LOC Commands (Open \T\ Closes Eyes/Ramp Agent) - 0(Both) 2. Best Gaze (Lateral Gaze Paresis) - 0(Normal) 3. Visual Field Loss - 0(No visual loss) 4. Facial Palsy - 0(Normal) 5a. Left Arm: Motor (10-second hold) - 0(No drift) 5b. Right Arm: Motor (10-second hold) - 1(Drift) 6a. Left Leg: Motor (5-second hold - always test supine) - 0(No drift) 6b. Right Leg: Motor (5-second hold - always test supine) - 0(No drift) 7. Limb Ataxia (finger/nose \T\ heel/swanson - test with eyes open) - 0(Absent) 8. Sensory Loss (pinprick arms/legs/face) - 0(Normal) 9. Best Language: Aphasia (description/naming/reading) - 0(No aphasia) Initials: rn Signatures: Dispatcher [employer] EDTracy Lundberg Irene, RN RN iw Nieto, Roman, MD MD rn Prokisch, Amanda, RN RN ap3 Manju Santiago RN RN kc6 Lora Alvarado RN RN cm10 Deepthi Hendricks RN ap3
[2023-04-19] MEDS ORDERED: LABETALOL 20 MG/4ML SYRINGE IV ONE (17:26)
[2023-04-19] MEDS ORDERED: ASPIRIN 81 MG CHEWABLE TABLET ONE (17:59)
[2023-04-19 19:54] LABS: Platelet Estimate INCR; White Blood Cell Scan OK (OK)
[2023-04-19 19:55] LABS: Anisocytosis 2+; Blood Morphology Comment NOTED (NOT SEEN)
[2023-04-19 19:56] LABS: Poikilocytosis 2+
--- NOTE | 2023-04-20 11:56 | EKG ---
Test Date: 2023-04-19 Test Time: 15:45:13 Supervisor Screen Printing: CHEVY MEASUREMENT RESULTS: Intervals: Rate: 84 ND: 150 QRSD: 80 QT: 374 QTc: 441 [place]: P: 68 ND: 150 QRS: 64 T: 60 INTERPRETIVE STATEMENTS: Normal sinus rhythm Anterior infarct, age undetermined Abnormal ECG Compared to ECG 04/19/2023 14:20:42 No significant changes Electronically Signed On 04-20-23 11:54:04 CDT by Paul Milligan
--- NOTE | 2023-04-20 11:57 | EKG ---
Test Date: 2023-04-19 Test Time: 14:20:42 Convenience Store Manager: ALP MEASUREMENT RESULTS: Intervals: Rate: 85 KS: 140 QRSD: 80 QT: 356 QTc: 423 [place]: P: 70 KS: 140 QRS: 32 T: 49 INTERPRETIVE STATEMENTS: Normal sinus rhythm Possible Inferior infarct, age undetermined Abnormal ECG Compared to ECG 04/08/2023 08:56:05 No significant changes Electronically Signed On 04-20-23 11:54:16 CDT by Paul Milligan
== END 2023-04-19 18:46 | disposition short-term general hospital (02) ==
LOC: ER 13:57
DX: I63.9 Cerebral infarction, unspecified (principal); I10 Essential (primary) hypertension; R29.701 NIHSS score 1; I21.4 Non-ST elevation (NSTEMI) myocardial infarction; I48.91 Unspecified atrial fibrillation; Z86.73 Personal history of transient ischemic attack (TIA), and cerebral infarction without residual deficits
CPT/HCPCS: 92977; 93005 ×2; 85025; 80048; 36415; 85610; 82947; 85730; 84484 ×2; 70450 ×2; 70496; 70498; 71045; 99291; 99292; 96374; J3101; J2405 ×2

== ENCOUNTER 2023-05-16 14:58 | Emergency (ER) | payer OTHER ==
--- OUTSIDE RECORDS SUMMARY | 2023-05-16 15:04 | XMS REPORT | Continuity of Care Document ---
:1945 Author Organization [facility] t Address [address] [place] [address] [address] [place] [address] Care Team Providers Name Role Phone PCP, NO Primary Care Physician Unavailable Isabel Goode Attending Clinician Unavailable TAE BURGESS Attending Clinician Unavailable PAUL BURGESS Attending Clinician Unavailable LIONEL HERNANDEZ Attending Clinician Unavailable ILIANA DEVINE Attending Clinician Unavailable Gayle Pham Attending Clinician Unavailable Lionel Hernandez MD Attending Clinician Paul Burgess MD Attending Clinician Mukesh Benoit MD Attending Clinician [phone] Tae Burgess MD Attending Clinician JJ METZ Attending Clinician Unavailable SNOW DARNELL Attending Clinician Unavailable Team, [facility] Health Maintenance Attending Clinician Unavailelie joyce Ramsey, [place] Attending Clinician Unavailable NAIMA BUI Attending Clinician Unavailable VINCE CISNEROS Attending Clinician Unavailable Bobo Gale MD Attending Clinician Doctor Unassigned, [place] Attending Clinician Unavailable Keny Goodwin Attending Clinician Unavailable PAUL BURGESS Admitting Clinician Unavailable Physician, No Primary or Family Admitting Clinician Unavaila KAYLA Desouza Admitting Clinician Unavailable Ramsey, Oladihuan Admitting Clinician Unavailable ROSELINE PEREZ Admitting Clinician Unavailable Payers Payer Name Policy Type Policy Number Effective Date Expiration Date Gertrudis nina MEDICARE A B [id number] 2011 00:00:00 GENERIC MEDICARE [id number] 2011 SUPPLEMENT 00:00:00 Problems Condition Condition Condition Status Onset Resolution Last Treating Co mments Source Name Details Category Date Date Treatment Clinician Date Stroke Stroke Disease Recurre 2022-[address] [facility] [facility]rebrum[facility] (cerebrum) nce 0-23 Denise kes 00:00: Medical 00 Center CVA CVA Disease Recurre [facility] (cerebral (cerebral nce 3-18 [facility] s vascular vascular 00:00: Medica l accident) accident) 00 Cent er 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 Added automatic ally from request for surgery [id number] Increased Increased Disease Active Overview: Univers endometria endometria 9-27 Formattin ity of l stripe l stripe 00:00: g of this Raffi as thickness thickness 00 note Medi bertrand might be Branch different from the original. Added automatic ally from request for surgery [id number] Abdominal Abdominal Disease Active Uni vers pain pain 3-15 ity of 00:00: [place] 00 Medical Branch Rectal Rectal Disease Active Overview: Univer s mass mass 3-14 Formattin ity of 00:00: g of this [place] 00 note Medical might be Branch different from the original. 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 obstructio obstructio St n or n or [facility] gangrene gangrene Medica [facility] Hyperlipid Hyperlipid Problem Active C ommon emia, emia, Spirit unspecifie unspecifie - [facility] d d St hyperlipid hyperlipid Denise ke emia type emia type [facility] Depression Depression Problem Active C ommon with with Spirit anxiety anxiety - [facility] Gastro-eso Gastro-eso Problem Active C ommon phageal phageal Spirit reflux reflux - CHI disease disease St without without [facility] esophagiti esophagiti Me dical s s Center Allergies, Adverse Reactions, Alerts Allergy Allergy Status Severity Reaction(s) Onset Inactive Treating Comm ents Source Name Type Date Date Clinician No Known DA Active U 2022-06 [facility] Allergie 07-01 Clear s 00:00: Wing [facility] LORAZEPA Allergy Active Other 2022-[address] [facility] [facility]- [facility] 00:00: Medical 00 Center Lorazepa Propensi Active Other (See 2022-[address] m ty to Comments) 0 [facility] adverse 00:00: Medical reaction 00 Center s No Known DA Active U [facility] Allergie 12-24 Clear s 00:00: Wing 00 [facility] No Known DA Active U [facility] Allergie 12-24 Clear s 00:00: Wing 00 [facility] NO KNOWN Allergy Active [facility] ALLERGIE S Social History Social Habit Start Date Stop Date Quantity Comments Source History SDOH [facility] Transport [facility] History SDOH Housing [facility] Places Lived Medical Cent er Exposure to 2023-04-10 2023-04-[address] [facility] SARS-CoV-2 (event) 00:00:00 00:50:00 Medica l Center History SDSC 2023-04-20 2023-04-[address] [facility] Transport Med - In 00:00:00 00:00:00 Medica l Center the past 12 months, has lack of transportation kept you from medical appointments or from getting medications? History [facility] Housing 2023-04-20 2023-04-[address] [facility] Unable to Pay - In 00:00:00 00:00:00 Medica l Center the last 12 months, was there a time when you were not able to pay the mortgage or rent on time? History [facility] Housing 2023-04-20 2023-04-[address] [facility] Homeless Last Year - 00:00:00 00:00:[address] [facility] In the last 12 months, was there a time when you did not have a steady place to sleep or slept in a residential (including now)? Alcohol intake 2019-09-25 2019-09-25 [facility]er [facility] 00:[facility]00 00:00:00 of [facility] (finding) History [facility] Alcohol 2019-09-13 2019-09-[address] [facility] Frequency - How often 00:00:00 00:00:00 Monthly [facility] do you have a drink containing alcohol? History [facility] Alcohol 2019-09-13 2019-09-13 1 or [address] [facility] Std Drinks - How many 00:00:00 00:00:00 [facility] drinks containing alcohol do you have on a typical day when you are drinking? History [facility] Alcohol 2019-09-13 2019-09-[address] [facility] Binge - How often do 00:00:00 00:00:[address] [facility] you have six or more drinks on one occasion? Tobacco use and 2019-05-11 2019-05-11 Never used Universit y of exposure 00:00:00 00:00:00 [facility] Alcohol Comment 2018-09-09 2018-09-09 occasional Universit y of 00:00:00 00:00:00 [facility] Sex Assigned At [address] [facility] 00:00:00 00:00:00 Medical Center Smoking Status Start Date Stop Date Source Unknown if ever smoked [facility] Never smoker [facility] Medications Ordered Filled Start Stop Current Ordering Indication Dosage Frequency Signature Comments Components Source Medication Medication Date Date Medication? Clinician (SIG) Name Name clopidogreL 2022-06 Yes 75mg QD Take [address] (PLAVIX) 75 0-28 tablet (75 Denise kes mg tablet 00:00: mg total) Med ical 00 by mouth Center daily For stroke prevention and heart disease. metoprolol 2022-06- Yes 25mg QD Take [address] succinate 0-28 10-27 tablet (25 Shahzad es (TOPROL-XL) 00:00: 23:59 mg total) Medical 25 MG 24 hr 00 :00 by mouth Cent er tablet daily For blood pressure and cardiomyop athy. venlafaxine 2022-06 Yes 150mg QD Take [address] (EFFEXOR-XR 0-27 capsule Lukes ) 150 MG 24 17:13: (150 mg Med ical hr capsule 12 total) by Cent er mouth daily. pantoprazol 2022-06 Yes 40mg QD Take [address] e 0-27 tablet (40 [facility]ukes (PROTONIX) 17:13: mg total) Me dical 40 MG 12 by mouth Center tablet daily. acetaminoph 2022-06- No 1{tbl} Take [address] en-codeine 0-27 10-27 tablet by Shahzad es (TYLENOL 12:49: 00:00 mouth Medical #3) 300-30 49 :00 every 6 Center mg per (six) tablet hours as needed for Pain. albuterol 2022-06- No 1{puff} Inhale [address] HFA 0-27 10-27 puff by Lukes (VENTOLIN 12:49: 00:00 mouth via Me dical HFA) 90 49 :00 inhaler Center mcg/actuati every 6 on inhaler (six) hours as needed for Wheezing. oxazepam 2022-06- No 30mg QD Take [address] (SERAX) 30 0-27 10-27 capsule Lukes MG capsule 12:49: 00:00 (30 mg Medi bertrand 49 :00 total) by Center mouth nightly. benzonatate 2022-06 No 100mg Take [address] (TESSALON) 0-27 10-27 mg by Lukes 100 MG 12:49: 00:00 mouth 3 Medical capsule 49 :00 (three) Center times daily as needed for Cough. amLODIPine- 2022-06- No 1{capsu QD Take [address] benazepril 0-27 10-27 le} capsule by Denise kes (LOTREL 12:49: 00:00 mouth Medical 5-10) 5-10 49 :00 daily. Center mg per capsule lisinopriL 2022-06 No 10mg QD Take [address] (PRINIVIL,Z 0-27 10-27 tablet (10 L ukes ESTRIL) 10 12:49: 00:00 mg total) M edical MG tablet 49 :00 by mouth Center daily. cyclobenzap 2022-06 No 10mg Take [address] rine 0-27 10-27 tablet (10 [facility]ukes (FLEXERIL) 12:49: 00:00 mg total) M edical 10 MG 49 :00 by mouth 2 Center tablet (two) times daily as needed for Muscle spasms. amLODIPine 2022-06 No 5mg QD Take [address] (NORVASC) 5 0-27 10-27 tablet (5 Denise kes MG tablet 12:49: 00:00 mg total) Me dical 49 :00 by mouth Center daily. metoprolol 2022-06 No 25mg Q.5D Take 0.[address] tartrate 0-27 10-27 tablets Lukes (LOPRESSOR) 12:49: 00:00 (25 mg Med ical 50 MG 49 :00 total) by Center tablet mouth 2 (two) times daily. traMADoL 2022-06 No 50mg Take [address] (ULTRAM) 50 0-27 10-27 tablet (50 L ukes mg tablet 12:49: 00:00 mg total) Me dical 49 :00 by mouth Center every 6 (six) hours as needed for Pain. Max Daily Amount: 200 mg lidocaine 2022-06- No 1{patch Q24H Place [address] (LIDODERM) 0-27 10-27 } patch onto Denise kes 5 % patch 12:49: 00:00 the skin Med ical 49 :00 daily Center Remove & Discard patch within 12 hours or as directed by . clonazePAM 2022-06- No .75mg Q.5D Take 1.[address] (KlonoPIN) 0-27 10-27 tablets Lukes 0.5 MG 12:49: 00:00 (0.75 mg Medica l tablet 49 :00 total) by Center mouth 2 (two) times daily. Max Daily Amount: 1.5 mg atorvastati 2022-06 Yes 80mg QD Take [address] n (LIPITOR) 0-27 tablet (80 Denise kes 80 MG 00:00: mg total) Medical tablet 00 by mouth Center nightly To lower cholestero l and low risk of heart disease and stroke. polyethylen 2022-06 Yes 17g Q.5D Take [address] e glycol 0-27 by mouth 2 Lukes (GLYCOLAX) 00:00: (two) Medica l 17 gram 00 times Center packet daily. QUEtiapine 2022-06 Yes 25mg QD Take 1 CHI S t (SEROquel) 0-27 tablet (25 Shahzad es 25 MG 00:00: mg total) Medical tablet 00 by mouth Center nightly To prevent restlessne ss. senna-docus 2022-06 Yes 1{tbl} Q.5D Take [address] ate 0-27 tablet by Lukes (SENOKOT S) 00:00: mouth 2 Med ical 8.6-50 mg 00 (two) Center per tablet times daily. oxybutynin 2022-06- Yes 5mg QD Take [address] (DITROPAN-X 0-27 10-26 tablet (5 Denise kes L) 5 MG 24 00:00: 23:59 mg total) M edical hr tablet 00 :00 by mouth Center daily For bladder spasms. temazepam 2022-06- Yes 7.5mg QD Take [address] (RESTORIL) 0-27 11-26 capsule Lukes 7.5 MG 00:00: 23:59 (7.5 mg Medical capsule 00 :00 total) by Center mouth nightly for 30 days For sleep. Max Daily Amount: 7.5 mg aspirin 81 2020-0 Yes 81mg QD Take 1 [facility]I S t MG chewable 3-21 tablet (81 Denise kes tablet 00:00: mg total) Medica l 00 by mouth Center daily. aspirin 81 2020-0 Yes 81mg QD Take 1 CHI S t MG chewable 3-21 tablet (81 Denise kes tablet 00:00: mg total) Medica l 00 by mouth Center daily. aspirin 81 2020-0 2022- No 81mg QD Take [address] MG chewable 3-21 10-27 tablet (81 L ukes tablet 00:00: 00:00 mg total) Medic al 00 :00 by mouth Center daily. acetaminoph 2020-0 Yes 1{tbl} Take [address] en-codeine 3-20 tablet by Lemuel coburn (TYLENOL 17:35: mouth Medical #3) 300-30 23 every 6 Center mg per (six) tablet hours as needed for Pain. albuterol 2019-0 Yes 1{puff} Inhale [address] HFA 3-20 puff by Fatoumata (VENTOLIN 17:35: mouth via Med ical HFA) [...] [facility] HFA 3-20 puff by Fatoumata (VENTOLIN 17:35: mouth via Med ical HFA) [...] al 40 MG 23 Center tablet oxazepam 0 Yes 30mg QD Take [address] (SERAX) 30 3-20 by mouth Lukes MG capsule 17:35: nightly . Me dical 23 Center benzonatate 2019-0 Yes 100mg Take [address] (TESSALON) 3-20 mg by Lukes 100 MG 17:35: mouth 3 Medical capsule 23 (three) Center times daily as needed for Cough. amLODIPine- 2019- Yes 1{capsu QD Take [address] benazepril 3-20 le} capsule by Shahzad alves (LOTREL 17:35: mouth Medical 5-10) 5-10 23 daily. Center mg per capsule atorvastati 2019- Yes 40mg QD Take [address] n (LIPITOR) 3-20 tablet (40 Denise kes 40 MG 00:00: mg total) Medical tablet 00 by mouth Center daily. atorvastati 2019-0 Yes 40mg QD Take [address] n (LIPITOR) 3-20 tablet (40 Denise kes 40 MG 00:00: mg total) Medical tablet 00 by mouth Center daily. atorvastati 2019-0 2022- No 40mg QD Take [address] n (LIPITOR) 3-20 10-27 tablet (40 L ukes 40 MG 00:00: 00:00 mg total) Medica l tablet 00 :00 by mouth Center daily. Albuterol Albuterol 2018-06 Yes Codie 1 puff as Common Sulfate HFA Sulfate HFA 2-31 [place] needed Spirit 00:00: - CHI 00 [facility] Azithromyci Azithromyci 2018-06 2020- No Codie 2 tabs day Common n n 2-31 01-05 [place] one then 1 Spirit 00:00: 00:00 tab daily - CHI 00 :00 x 4 days [facility] Iron Iron 2018-06 Yes Codie 1 tablet Common 0-15 [place] Spirit 00:00: - CHI 00 [facility] Probiotic Probiotic Yes Codie as Comm on [place] directed [facility] Fiber Fiber Yes Codie 2 tablets Common [place] as needed [facility] Simvastatin Simvastatin Yes Codie 1 tablet Common [place] in the [facility] evening [facility] Cyclobenzap Cyclobenzap Yes Codie 1 tablet Common rine HCl rine HCl [place] as needed S pirit [facility] Pantoprazol Pantoprazol Yes Codie 1 tablet Common e Sodium e Sodium [place] [facility] Venlafaxine Venlafaxine Yes Codie 1 capsule Common HCl ER HCl ER [place] with food Spiri t [facility] No known No Univers medications ity of [facility] Oxazepam Oxazepam Yes Codie 1 capsule C ommon [place] as needed [facility] Amlodipine Amlodipine Yes Codie 1 tablet Common Besy-Benaze Besy-Benaze [place] Spirit pril HCl pril HCl [facility] Vital Signs Vital Name Observation Time Observation Value Comments Source HEIGHT 2023-04-19 20:00:00 162.6 cm WEIGHT 2023-04-19 20:00:00 62.596 kg HEIGHT 2023-04-19 20:00:00 162.6 cm WEIGHT 2023-04-19 20:00:00 62.596 kg Heart rate 2023-04-23 14:44:33 89 /min [facility] Oxygen saturation in 2023-04-23 14:44:33 97 /min [facility] Arterial blood by Medical Ce nter Pulse oximetry Systolic blood 2023-04-23 14:44:29 140 mm[Hg] [facility] Center Diastolic blood 2023-04-23 14:44:29 65 mm[Hg] [facility] Respiratory rate 2023-04-23 14:44:03 14 /min [facility] Body temperature 2023-04-23 14:43:57 36.72 Agatha [facility] Body height 2023-04-20 08:25:00 162.6 cm [facility] Body weight 2023-04-20 08:25:00 62.596 kg [facility] BMI 2023-04-20 08:25:00 23.69 kg/m2 [facility] Body Temperature 2019-09-13 14:19:00 97.0 [degF] [employer] [facility] Heart Rate 2019-09-13 14:19:00 74 /min [facility] Respiratory rate 2019-09-13 14:19:00 18 /min [employer] BP Systolic 2019-09-13 14:19:00 140 mm[Hg] [employer] BP Diastolic 2019-09-13 14:19:00 89 mm[Hg] [employer] Heart Rate 2019-09-13 14:00:00 74 /min [facility] Respiratory rate 2019-09-13 14:00:00 18 /min [employer] BP Systolic 2019-09-13 14:00:00 140 mm[Hg] [facility] BP Diastolic 2019-09-13 14:00:00 89 mm[Hg] [employer] Weight 2019-09-13 11:48:00 147 [lb_av] [employer] BMI (Body Mass Index) 2019-09-13 11:48:00 23.7 kg/m2 [facility] Procedure Date / Time Performing Clinician Source Performed APTT 2023-04-22 10:53:00 [facility] 2023-04-22 03:43:00 Tae Burgess [facility] BASIC METABOLIC PANEL 2023-04-22 03:43:00 Jenifer [facility] CBC (HEMOGRAM ONLY) 2023-04-22 03:43:00 [facility] 2023-04-22 03:43:00 Critical access hospital TSH/FREE T4 IF INDICATED 2023-04-22 03:43[facility] 2023-04-22 03:43[facility] 2023-04-21 19:33:[address] CHEST WITH IV CONTRAST 2023-04-21 17:26:00 Jenifer [facility] BLOOD CULTURE 2023-04-21 12:19:00 Critical access hospital PROCALCITONIN 2023-04-21 11:43:00 Critical access hospital LACTIC ACID, VENOUS 2023-04-21 11:43:00 Critical access hospital APTT 2023-04-21 11:43:00 Critical access hospital BASIC METABOLIC PANEL 2023-04-21 03:44:00 [facility] CBC (HEMOGRAM ONLY) 2023-04-21 03:44:00 [facility] APTT 2023-04-21 03:44:00 Lionel Hernandez [facility] MAGNESIUM 2023-04-21 03:44:00 Prachi Cifuentes [facility] IRON, TIBC, % SAT. 2023-04-21 03:44:00 [facility] Cente r APTT 2023-04-20 20:44:00 Lionel Hernandez [facility] POCT-GLUCOSE METER 2023-04-20 15:12:00 Lionel Hernandez [facility] APTT 2023-04-20 14:54:00 Lionel Hernandez [facility] MR BRAIN WITHOUT IV 2023-04-20 13:04[facility] [facility] [address] [facility] 2023-04-20 12:29:00 Lionel Hernandez [facility] XR CHEST 1 VIEW PORTABLE 2023-04-20 10:00:00 Lionel Hernandez [facility] BEDSIDE Medical Center 2D ECHO W/ DOPPLER 2023-04-20 09:14:00 Jenifer [facility] (CW/PW/COLOR) [facility] POCT-GLUCOSE METER 2023-04-20 08:56:00 Lionel Hernandez [facility] ELECTROCARDIOGRAM-RHYTHM 2023-04-20 08:36:37 Asael Campo [facility] ECG 12-LEAD 2023-04-20 08:36:37 Unknown, H[facility] XR ABDOMEN/KUB 1 VIEW 2023-04-20 06:31:00 [facility] METABOLIC PANEL 2023-04-20 03:29:00 [facility] CBC (HEMOGRAM ONLY) 2023-04-20 03:29[facility] S[facility]EN 2023-04-20 02:23:00 [facility] TROPONIN I 2023-04-20 02:22:00 [facility] LIPID PANEL 2023-04-20 02:22:00 [facility] TROPONIN I 2023-04-19 22:47:00 [facility] PROCALCITONIN 2023-04-19 22:47:00 [facility] SARS-COV2/RT-PCR ([facility] & 2023-04-19 22:15:[facility] ECG 12-LEAD 2023-04-19 22:10:20 Unknown, [facility] ECG 12-LEAD 2023-04-19 22:10[facility] 2023-04-19 21:57:00 Jenifer [facility] URINE CULTURE [facility] CT BRAIN WITHOUT IV 2023-04-19 21:49:00 Burgess [facility] CONTRAST [facility] ECG 12-LEAD 2023-04-19 20:30:46 Burgess [facility] POCT-GLUCOSE METER 2023-04-19 20:28:00 Jenifer [facility] BASIC METABOLIC PANEL 2023-04-19 20:19:00 Jenifer [facility] CBC W/PLT COUNT & AUTO 2023-04-19 20:19:00 Jenifer [facility] DIFFERENTIAL [facility] MAGNESIUM 2023-04-19 20:19:00 Jenifer [facility] PHOSPHORUS 2023-04-19 20:19:00 [facility] 2023-04-19 20:19:00 [facility] HEMOGLOBIN A1C 2023-04-19 20:19:00 [facility] PERIPHERAL BLOOD SMEAR - 2023-04-19 20:19:00 Burgess [facility] PATHOLOGIST REVIEW Medical [facility] CBC W/PLT COUNT & AUTO 2023-04-19 20:19:00 Burgess [facility] (MANUAL DIFFERENTIAL) 2023-04-19 20:19:00 [facility] 2023-04-19 00:00:00 Provider [facility] [id number] 2020-12-25 00:00:00 SIDUM [facility] [id number] 2020-12-25 00:00:00 [facility] ECG (electrocardiogram) 2019-09-13 00:00:00 [facility] Computed tomography of 2019-09-13 00:00:00 [facility] head or brain without contrast X-ray of chest, single 2019-09-13 00:00:00 [facility] Complete Doppler 2019-09-13 00:00:00 BINA ordaz ultrasound of carotid artery Plan of Care Planned Activity Planned Date Details Comments Source Future Scheduled Test 2023-02-26 Influenza Vaccine [facility] 00:00:00 (#1) [code = Medical Center Influenza Vaccine (#1)] Future Scheduled Test 2022-06-[address] [facility] 00:00:00 (12+) [code = Medical Center DEPRESSION SCREENING (12+)] Future Scheduled Test 2022-06-28 FALLS RISK SCREENING [facility] 00:00:00 [code = FALLS RISK Medical C enter SCREENING] Future Scheduled Test 2020-11-02 COVID-19 VACCINE (3 - [facility] 00:00:00 Booster for [facility] series) [code = COVID-19 VACCINE (3 - Booster for Moderna series)] Future Scheduled Test 2012-04-[address] [facility] 00:00:00 WELLNESS (YEAR 2 or Medical Center FIRST YEAR if no IPPE) [code = MEDICARE ANNUAL WELLNESS (YEAR 2 or FIRST YEAR if no IPPE)] Future Scheduled Test 2011 PNEUMOCOCCAL 65+ YRS [facility] 00:00:00 (1 - PCV) [code = Medical Ce nter PNEUMOCOCCAL 65+ YRS (1 - PCV)] Future Scheduled Test 1996 SHINGLES VACCINES ([address] [facility] 00:00:00 of 2) [code = Medical Center SHINGLES VACCINES (1 of 2)] Future Scheduled Test 1965 DTAP/TDAP/TD VACCINES [facility] 00:00:00 (1 - Tdap) [code = Medical C enter DTAP/TDAP/TD VACCINES (1 - Tdap)] Future Scheduled Test 1964 HEPATITIS C SCREENING [facility] 00:00:00 [code = HEPATITIS C Medical Center SCREENING] Future Scheduled Test [address] [facility] 00:00:00 Counseling and Medical Cente r Screening (12+) [code = Tobacco Cessation Counseling and Screening (12+)] Future Scheduled Test 1946 DXA SCAN [code = DXA [facility] 00:00:00 SCAN] Medical Center Goal Patient referral [facility] bhaskar [code = 9001955 ] LIVE HCIS Instructions OTHER [facility] LIVE HCIS Encounters Start End Encounter Admission Attending Care Care Encounter Source Date/Time Date/Time Type Type Clinicians Facility Department ID 2023-05-04 Outpatient Russel [facility] [id number] Common 14:40:00 Isabel [id number] [facility] 2023-04-21 Inpatient MELY BURGESS [facility] [id number] [facility] 10:56:52 [facility] 2023-04-20 Inpatient EL JENIFER, [facility] [id number] [facility] 11:53:35 [place] 2023-04-20 Inpatient EL MARY [facility] [id number] [facility] 09:26:31 [place] 2023-04-20 Inpatient EL MARY, [facility] [id number] [facility] 07:53:45 [place] 2023-04-20 Inpatient EL JENIFER, [facility] [id number] [facility] 07:48:38 [place] 2023-04-20 Inpatient EL JENIFER, [facility] [id number] [facility] 06:29:23 [place] 2023-04-20 Inpatient EL JENIEFR, [facility] [id number] [facility] 00:00:00 [place] 2023-04-19 Inpatient EL JENIFER, [facility] [id number] [facility] 21:33:48 [place] 2020-04-15 Inpatient BINA MCCLENDON BINA [id number] [facility] 14:02:[address] 2019-09-13 Inpatient [facility] [id number] [facility] 16:51:00 [id number] 2023-05-01 2023-05-01 Emergency EM Jose-Cricket HCACL SHAE [id number] [id number] [facility] 18:27:00 22:50:00 n, 95 Clear Gayle [facility] 2023-04-19 2023-04-23 Hospital ER Lionel Hernandez Zhen [facility] [id number] [facility] 19:32:00 17:12:00 Encounter Paul Burgess [facility] 2023-04-19 2023-04-23 [facility] [id number] [facility] 19:32:00 17:12:00 TAE 2023-04-20 2023-04-[address] [facility] [id number] 00:00:00 00:00:00 Only [facility] 2023-04-20 2023-04-[address] [facility] [id number] [facility] 00[facility]00 [facility] 2022-03-05 2022-03-07 Inpatient UR DANIEL [facility] 457 [id number] [facility] 05:46:00 11:55:00 JJ Avila [id number] [facility] 2022-03-04 2022-03-05 Emergency ER SNOW DARNELL [facility] 457 [id number] [facility] 21:15:00 04:21:00 [id number] [facility] 2021-02-28 2021-02-28 Telephone Team, [facility] BOBO [id number] [facility] 00:00:00 00:00:00 [facility] 350.1.13.10 [facility] 4.2.7.2.686 [place] [id number] [facility] [address] 2020-12-31 2020-12-31 Outpatient [facility] [id number] 06:37:00 06:37:00 -[id number] [facility] 2020-12-30 2020-12-30 Outpatient [facility] [id number] 08:52:00 08:52:00 -[id number] [facility] 2020-12-27 2020-12-27 Outpatient [facility] [id number] 02:45:00 02:45:00 -[id number] [facility] 2020-12-25 2020-12-26 Inpatient EM JANELLE Mustafa MAS [id number] [facility] 16:50:00 23:08:00 Oladipo 24 [facility] 2020-12-24 2020-12-24 Outpatient REJI Mustafa LABO [id number] [facility] 08:02:00 08:02:00 Oladipo 39 [facility] 2020-04-18 2020-04-18 Outpatient BINA MCCLENDON [id number] [facility] 11:28:00 11:28:00 ILIANA [id number] [facility] 2019-09-13 2019-09-13 Departed BRYAN Lares [id number] [place] 11:46:00 14:25:00 Emergency ASPER [address] [place] [facility] 2019-09-13 2019-09-13 Emergency ER BINA CISNEROS [id number] [facility] 11:46:00 14:25:00 VINCE [id number] [facility] 2019-09-13 2019-09-13 Departed BINA CURRAN [id number] [facility] 11:46:00 14:25:00 Emergency 58 [facility] 2019-06-27 2019-06-27 Outpatient [facility] [id number] Common 09:40:00 09:40:00 [facility] 2019-02-17 2019-02-17 Office BLAYNE Gale [id number] 13:54:10 14:09:10 Visit [facility] [id number] [facility] 4.2.7.2.686 [facility] [id number] [facility] 408 2019-02-17 2019-02-17 Orders Doctor BOBO [id number] 00:00:00 00:00:00 Only Unassigned, BOOG[place] 350.1.13.10 [place] [facility] 4.2.7.2.686 [id number] 2017-05-17 2017-05-17 Outpatient ANNAMARIE Goodwin SETMURPHY [id number] [place] 09:30:00 09:30:00 [facility] 2017-04-26 2017-04-26 Outpatient Buddy SETMURPHY SETENT [id number] [place] 08:57:00 08:57:00 [facility] 2017-02-12 2017-02-12 Outpatient ANNAMARIE Goodwin SETENT [id number] [place] 11:34:00 11:34:00 [facility] Results Test Description Test Time Test Comments Results Result Comments Source TROP-I HIGH SENSITIVITY 2023-05-01 21:35:00 Test Item Value Reference Range Interpretation Comme nts TROP-I HIGH 3128 0-34 HH CAUTION: Units of the current test methodology (ng/L) differfrom the SENSITIVITY ng/L prior test meth odology (ng/mL) by a factor of (test code = 1000. 99th TROPIHS) Percentile Uppe r Reference Limit (URL): Females: 34 ng/LMales: 54 ng/L In order t o distinguish acute elevations of high sensitivitytrop onin from other clinical conditions, the FourthUniversal Definition of Myocardial Infarction stressesclinical assessment and the demonstration of a rise and/orfall in serial troponin result s above the URL. These results were obtained using [employer] a IM TnIHreagent. Results from different methodologies should not beco mpared to one another as quantitative results and URLs mayvary by meth od. - CT ANGIO [id number] 21:27:00 [facility] 1945 Sex: F Name: OZZY MEI [facility] : 1945 Age/S: 77 / F [address] [place] [address] Unit #:[id number] Loc: [place] [address] Phys: Gayle Pham MD Acct: [id number] Dis Date: Status: REG ER PHONE #: [phone] Exam Date: 05/01/20231999 FAX #: [phone] Reason: TIA EXAMS:CPT CODE: [id number] CT ANGIO NECK 51007 EXAM: - CTA HEAD, - CT ANGIO NECK CLINICAL INDICATION: TIA C OMPARISON: CT head 05/01/2023 LOCATION: H65 TECHNIQUE: Noncontrast axial CT images of the head were reviewed. Subsequently, axial CT angiographic images of the upper chest, neck, and head were obtained,from which three-dimensional reconstructed images were created. Additional imaging series were created on an independent workstation using maximum intensity projection and volume rendered technique. This examination was performed according to our departmental dose optimization program, which includesautomated exposure control, adjustment of the mA and/or kV according to patient size, and/or use of iterative reconstruction technique. FINDINGS: Extracranial vasculature Aortic Arch: Non- aneurysmal. The arch vessels are patent. Right side: The common carotid artery is patent and nonaneurysmal with nosignificant atherosclerosis. Variant retropharyngeal course. The carotid bulb appears normal. The external carotid branches are unremarkable. The internal carotid artery is well opacified throughout the cervical segment. No significant stenosis by NASCET criteria. Left side: The common carotid arteryis patent and nonaneurysmal with no significant atherosclerosis. The carotid bulb appears normal. The external carotid branches are unremarkable. The internal carotid artery is well opacified throughout the cervical segment. No significant stenosis by NASCET criteria. Other: The vertebral arteries are codominant and appear well opacified throughout. Intracranial vasculature Right: The internal carotid artery is patent with mild atherosclerosis. The anterior cerebral artery is well opacified. The middle cerebral artery is well opacified with contrast extending to the distal branches. The posterior cerebral artery is patent. PAGE 1 Signed Report (CONTINUED) Name: OZZY MEI [facility] : 1945 Age/S: 77 / F [address] [place] [address] Unit #: [id number] Loc: [place] [address] Phys: Gayle Pham MD Acct: [id number] Dis Date: Status: [facility] ER PHONE #: [phone] Exam Date: 05/01/20231999 FAX #: [phone] Reason: TIA EXAMS: CPT CODE: [id number] CT ANGIO NECK 00361 (Continued) Left: The internal carotid artery is patent with mild atherosclerosis. The anterior cerebral artery is well opacified. The middle cerebral artery is well opacified with contrast extendingto the distal branches. The posterior cerebral artery is patent. Other: The anterior communicating artery is present in nonaneurysmal. The posterior communicating arteries are nonvisualized. The basilar artery is unremarkable. Brain and orbits: Left frontal and parietal lobe encephalomalacia. Otherwise grossly symmetric cerebral perfusion. Globes are intact and symmetric in volume. There is completeopacification of the right maxillary sinus, which appears chronic. Soft tissues: No soft tissue abnormalities. The visualized upper lungs demonstrate no acute findings. Bones: No acute osseous findings. IMPRESSION: No major arterial vessel occlusion, severe stenosis, or acute injury/dissection throughout the head and neck. at 2126 Reported and signed by: Omar Cerda D.O. CC: Gayle Pham MD Technologist:RT Jean(R); Ronnie Frank CTDI: DLP: Trnscb Date/Time: 05/01/2023 (2126) [email or web address] Orig Print D/T: S: 05/01/2023 (2129) PAGE 2 Signed Report- CTA [id number] 21:27:00 [facility] : 1945 Sex: F Name: OZZY MEI [facility] : 1945 Age/S: 77 / F [address] [place] [address] Bl Unit #: [id number] Loc: [facility] [address] Phys: Gayle Pham MD Acct: [id number] Dis Date: Status: REG ER PHONE #: [phone] Exam Date: 05/01/20231999 FAX #: [phone] Reason: TIA EXAMS: CPT CODE: [id number] CTA HEAD 82810 EXAM: - CTA HEAD, - CT ANGIO NECK CLINICAL INDICATION: TIA COMPARIS ON: CT head 05/01/2023 LOCATION: H65 TECHNIQUE: Noncontrast axial CT images of the head were reviewed. Subsequently, axial CT angiographic images of the upper chest, neck, and head were obtained, from which three-dimensional reconstructed images were created. Additional imaging series were created on an independent workstation using maximum intensity projection and volume rendered technique. This examination was performed according to our departmental dose optimization program, which includes automated exposure control, adjustment of the mA and/or kV according to patient size, and/or use of iterative reconstruction technique. FINDINGS: Extracranial vasculature Aortic Arch: Non-aneurysmal. The arch vessels are patent. Right side: The common carotid artery is patent and nonaneurysmal with no significant atherosclerosis. Variant retropharyngeal course. The carotid bulb appears normal. The external carotid branches are unremarkable. The internal carotid artery is well opacified throughout the cervical segment. No significant stenosis by NASCET criteria. Left side: The common carotid artery is patent and nonaneurysmal with no significant atherosclerosis. The carotid bulb appears normal. The external carotid branches are unremarkable. The internal carotid artery is well opacified throughout the cervical segment. No significant stenosis by NASCET criteria. Other: The vertebral arteries are codominant and appear well opacified throughout. Intracranial vasculature Right: The internal carotid artery is patent with mild atherosclerosis. The anterior cerebral artery is well opacified. The middle cerebral artery is well opacified with contrast extending to the distal branches. The posterior cerebral artery is patent. PAGE 1 Signed Report (CONTINUED) Name: OZZY MEI [facility] : [birth year] Age/S: 77 / F [address] [place] [address] Blvd Unit #: [id number] Loc: [place] [address] Phys: Gayle Pham MD Acct: [id number] Dis Date: Status: REG ER PHONE #: [phone] Exam Date: 05/01/20231999 FAX #: [phone] Reason: TIA EXAMS: CPT CODE: [id number] CTA HEAD 76481 (Continued) Left: The internal carotid artery is patent with mild atherosclerosis. The anterior cerebral artery is well opacified. The middle cerebral artery is well opacified with contrast extending to the distal branches. The posterior cerebral artery is patent. Other: The anterior communicating artery is present in nonaneurysmal. The posterior communicating arteries are nonvisualized. The basilar artery is unremarkable. Brain and orbits: Left frontal and parietal lobe encephalomalacia. Otherwise grossly symmetric cerebral perfusion. Globes are intact and symmetric in volume. There is complete opacification of the right maxillary sinus, which appears chronic. Soft tissues: No soft tissue abnormalities. The visualized upper lungs demonstrate no acute findings. Bones: No acute osseous findings. IMPRESSION: No major arterial vessel occlusion, severe stenosis, or acute injury/dissection throughout the head and neck. at 2126 Reported and signed by: Omar Cerda D.O. CC: Gayle Pham MD Technologist:RT Jean(R); Ronnie Frank CTDI: DLP: Trnscb Date/Time: 05/01/2023 (2126) [email or web address] Orig Print D/T: S: 05/01/2023 (2129) PAGE 2 Signed Report- CT HEAD/BRAIN W/O [id number] 21:16:00[facility] : 1945 Sex: F Name: OZZY MEI [facility] : 1945 Age/S: 77 / F [address] [place] [address] Blvd Unit #: [id number] Loc: [place] [address] Phys: Gayle Pham MD Acct: [id number] Dis Date: Status: REG ER PHONE #: [phone] Exam Date: 05/01/20231999 FAX #: [phone] Reason: TIA EXAMS: CPT CODE: [id number] CT HEAD/BRAIN W/O CONT 63204 Examination: Head CT without contrast Location code: H60 Comparison: None Technique: Axial contiguous images through the brain were obtained without contrast media. All CT scans are performed using radiation dose reduction technique. Technical factors are evaluated and adjusted to insure appropriate moderation of exposure. Automated dose management technology is applied to adjust the radiation dose to minimize exposure while achieving a diagnostic quality image. Discussion: Clinical history is remarkable for change in mental status. There is no evidence of hydrocephalus, midline shift, extra- axial fluid collection, hemorrhage, acute infarction, or space-occupying mass lesion. The scales-white matter differentiation is preserved. 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 Chronic periventricular small vessel ischemic changes identified. The calvarium is unremarkable. There is complete opacification the right maxillary sinus consistent with sinusitis. Impression: 1. No acute intracranial abnormality. Electronically Signed by Tristian Richardson on05/01/2023 at 2115 Reported and signed by: Sam Richardson M.D. CC: Gayle Pham MD Technologist:RT Jean(R); Ronnie Frank CTDI: DLP: Trnscb Date/Time: 05/01/2023 (2115) [email or web address] Orig Print D/T: S: 05/01/2023 (2118) PAGE 1 Signed ReportLIPOPROTEIN [id number] 20:33:00 Test Item Value Reference Range Interpretation Comments LIPOPROTEIN LDL 48.0 mg/dL 0-100 N <100 OPTIMAL 100-129 NEAR (test code = LDL) OPTIMAL/AB OVE [id number] HIGH>LY=698 DAVON Y HIGH*Guidelines provided by the National Cholesterol EducationProgra m Adult Treatment Panel III BASIC METABOLIC [id number] 20:04:00 Test Item Value Reference Range Interpretation Comments SODIUM (test code = 140 mEq/L 134-147 N NA) POTASSIUM (test code 3.8 mEq/L 3.4-5.0 N = K) CHLORIDE (test code 104 mEq/L 100-108 N = CL) CARBON DIOXIDE (test 27 mEq/l 21-33 N code = CO2) ANION GAP (test code 13 0-20 N = GAP) GLUCOSE (test code = 144 mg/dL 77-141 H NOTE: N EW NORMAL RANGE GLU) BLOOD UREA NITROGEN 10 mg/dL 7-25 N NOTE: NE W NORMAL RANGE (test code = BUN) GLOMERULAR 76.3 70-80 N The Glomerular FILTRATION RATE Filtration R ate is a (test code = GFR) calculated parameterbased on serum Creatinine, pat ient age and sex. GFR va luesless than 60 mL/min/ 1.73 square meters a re indicative ofCh ronic Kidney Disease. Values less than 15 mL/min/1.73squa re meters indicate Kidney failure. The calculation forGFR is based on the CKD-EPI (2020) calculat ion. This formulais race indifferent and is the recommended for asmita for GFRby the [facility] Kidney Foundati on for Adults.The GFR will not calculate if th e sex is unknown or if thepatient's ag e is <18 years. CREATININE (test 0.8 mg/dL 0.6-1.3 N code = CREAT) CALCIUM (test code = 9.3 mg/dL 8.0-10.5 N CA) TROP-I HIGH [id number] 20:04:00 Test Item Value Reference Range Interpretation Comments TROP-I HIGH 3264 ng/L 0-34 HH Critical result called to SENSITIVITY (test MALENA VIGIL GAYE RNby code = TROPIHS) NASH at 200205/01/23Nelroy rush back result and tech confirmed it's correct? Y CAUTION: Units of the cu rrent test methodology (ng /L) differfrom the prior test methodology (ng /mL) by a factor of 1000. 99t h Percentile Uppe r Reference Limit (URL): Fe males: 34 ng/LMales: 54 n g/L In order to distin guish acute elevations of h igh sensitivitytrop onin from other clinical conditions, the FourthUnive rsal Definition of M yocardial Infarction stressesclinica l assessment and the demonstration o f a rise and/orfall in s erial troponin result s above the URL. These resu lts were obtained using Siemens [employer] IM TnI Hreagent. Results from di fferent methodologies s hould not becompared to o ne another as quantitative results and URLs mayvar y by method. - XR CHEST 1 [id number] 19:16:00 [facility] : 1945 Sex: F FAX: Juanito Antunez [place]: St: REG Name: OZZY MEI [facility] : 1945 Age/S: 77/F [address] [place] [address] Unit #: [id number] Loc: [place], [place] [address] Phys: Gayle Pham MD Acct: [id number] Dis Date: Status: REG ER PHONE #: [phone] Exam Date: 05/01/2023 1851 FAX #: [phone] Reason: Code Stroke EXAMS: CPT CODE: [id number] XR CHEST 1 V 43690 Location code: H5 Chest 1 view Indication: Code Stroke. Comparison: None Findings: The heart and mediastinum are not remarkable. Costophrenic angles are clear. Lungs are clear. Bone is unremarkable for age. Impression: 1. No radiographic evidence of acute cardiopulmonary disease. at 1916 Reported and signed by: Elia Ballesteros M.D. CC: Gayle Pham MD Technologist: RT Carin(R) Trnscrd Date/Time/By: 05/01/2023 (1915) : By: NorisRWalterDRB1 Orig Print D/T: S: 05/01/2023 (1918) PAGE 1 Signed ReportPROTHROMBIN [id number] 19:13:00 Test Item Value Reference Range Interpretation Comments PROTHROMBIN TIME 13.3 SECONDS 9.3-12.9 H PATIENT (test code = PTP) INTERNATIONAL NORMAL 1.2 0.8-1.2 N TARGE T INR BY RATIO (test code = INDICATIO N Indication INR) INR1. Prophylax is of venous thrombos is 2.0 - 3.0 (orthoped ic surgery), Proph ylaxis of venous throm bosis (other than hig h-risk surgery), Treat ment of Deep Vein Thrombosis/Pulm onary Embolism, Preve ntion of systemic emb olism - Tissue heart va lves, Acute Myocardia l Infarction (to prevent systemic emboli sm), Valvular heart disease, Atrial Fibrillation, Bileaflet mecha nical valve in aortic position.2. Mec hanical prosthetic valv es (high risk), 2. 5 - 3.5 Presence of Lup us Anticoagulant o r Antiphospholipi d Antibodies, Pre vention of systemic emb olism - Acute Myocardia l Infarction (to prevent recurrent infar ct). COMMENTS: Code Stroke: Call with results if INR greater than 1.7 or PT greaterComment: than 15COMMENTS: Code Stroke: Call with results if PTT greater than 40THROMBOPLASTIN TIME [id number] 19:13:00 Test Item Value Reference Range Interpretation Comments THROMBOPLASTIN TIME 41.0 Seconds 25.0-39.5 H Therape utic Range: PARTIAL (test code = 50.4 - 88.3 Seconds PTT) Effective 10/11/2018 COMMENTS: Code Stroke: Call with results if INR greater than 1.7 or PT greaterComment: than 15COMMENTS: Code Stroke: Call with results if PTT greater than 40CBC W/O [id number] 19:08:00 Test Item Value Reference Range Interpretation Comments WHITE BLOOD CELL (test code = 23.0 x10 3/uL 4.5-11.0 H WBC) RED BLOOD CELL (test code = 6.46 x10 6/uL 3.54-5.02 H RBC) HEMOGLOBIN (test code = HGB) 12.4 g/dL 11.0-15.0 N HEMATOCRIT (test code = HCT) 46.5 % 33.0-45.0 H MEAN CELL VOLUME (test code = 72.0 fL 81.0-99.0 L MCV) MEAN CELL HGB (test code = MCH) 19.2 pg 27.0-33.0 L MEAN CELL HGB CONCETRATION 26.7 g/dL 33.0-37.0 L (test code = MCHC) RED CELL DISTRIBUTION WIDTH CV 20.5 % 11.5-14.5 H (test code = RDW) RED CELL DISTRIBUTION WIDTH SD 49.2 fL 37.0-54.0 N (test code = RDW-SD) PLATELET COUNT (test code = 599 x10 3/uL 150-400 H PLT) MEAN PLATELET VOLUME (test code 10.6 fL 7.0-9.0 H = MPV) COMMENTS: Code Stroke: Call with results if platelet count is less than Comment: 100,000/xt3MQMMM [id number] 16:00:54 Test Item Value Reference Range Interpretation Comments CULTURE (BEAKER) (test No growth in 5 days code = 1095) BLOOD [id number] 16:00:54 Test Item Value Reference Range Interpretation Comments CULTURE (BEAKER) (test No growth in 5 days code = 1095) [id number] 11:15:06 Test Item Value Reference Range Interpretation Comments PARTIAL THROMBOPLASTIN TIME 86.4 seconds 23.2-36.1 H (BEAKER) (test code = 760) MRSA [id number] 11:03:39 Test Item Value Reference Range Interpretation Comments Result (test code = 6463-4) No [id number] 11:03:39 Test Item Value Reference Range Interpretation Comments CULTURE (SANGITA) (test code No MRSA isolated = 1095) CT CHEST WITH IV [id number] 07:40:48 [facility] 1945 Sex: FEXAM: CT Chest WITH intravenous contrastINDICATION: Unlisted Reason for ExamUnexplained leukocytosis. Right hilar fullness noted on chest xray.COMPARISON: NoneTECHNIQUE:The thorax was scanned utilizing a multidetector helical scanner fromthe lung apex through the level of the adrenal glands afteradministration of IV contrast. Coronal and sagittal reformations wereobtained. Routine protocol was performed. Dose modulation, iterative reconstruction, and/or weight basedadjustment of the mA/kV was utilized toreduce the radiation dose to aslow as reasonably achievable. FINDINGS:LINES/ TUBES: None.LUNGS AND AIRWAYS: No focal airspace consolidation. No suspiciouspulmonary nodules. Subsegmental atelectasis is seen in the lingula,right mid, and both lower lobes.PLEURA: No pleural effusion or pneumothorax.HEARTAND MEDIASTINUM: Normal thyroid. No thoracic lymphadenopathy. Normal heart size. No pericardial effusion. Minimal vascularcalcification is seen in the thoracic aorta and coronary arteries.UPPER ABDOMEN: No acute upper abdominal findings.BONES: No acute osseous injury. Minimal wedge compression is seeninvolving 2 of the lower thoracic vertebra. No suspicious lytic orblastic lesions.SOFT TISSUES: Unremarkable.IMPRESSION:No pneumonia.Electronically Signed By: Snow Canas 07:42 CDTWorkstation Na me: [id number] 05:36:01 Test Item Value Reference Range Interpretation Comments VITAMIN B12 (BEAKER) (test code = 1487 pg/mL 211-911 H 774) Operations Team Leader ID - [id number] 05:35:48 Test Item Value Reference Range Interpretation Comments FERRITIN (BEAKER) (test code = 46.41 ng/mL 10.00-291.00 361) Operations Team Leader ID - [id number] IF [id number] 04:42:47 Test Item Value Reference Range Interpretation Comments THYROID STIMULATING HORMONE 0.910 uIU/mL 0.350-5.500 (BEAKER) (test code = 772) Operations Team Leader ID - [id number] 04:29:34 Test Item Value Reference Range Interpretation Comments PARTIAL THROMBOPLASTIN TIME 93.3 seconds 23.2-36.1 H (BEAKER) (test code = 760) BASIC METABOLIC [id number] 04:23:37 Test Item Value Reference Range Interpretation Comments SODIUM (BEAKER) 143 meq/L 135-148 (test code = 381) POTASSIUM 3.5 meq/L 3.5-5.5 (BEAKER) (test code = 379) CHLORIDE (BEAKER) 109 meq/L 98-106 H (test code = 382) CO2 (BEAKER) 25 meq/L 20-31 (test code = 355) BLOOD UREA 10 mg/dL 10-26 NITROGEN (BEAKER) (test code = 354) CREATININE 0.71 mg/dL 0.50-1.20 (BEAKER) (test code = 358) GLUCOSE RANDOM 100 mg/dL 70-110 (BEAKER) (test code = 652) CALCIUM (BEAKER) 8.9 mg/dL 8.5-10.5 (test code = 697) EGFR (BEAKER) 88 Interpretatio n of eGFR (test code = mL/min/1.73 values Stage De scription 1092) sq m Result G1 Yamini l or high >=90 G2 Mildly decreased 60-89 G3a Mildl y to moderately 45-5 9 G3b Moderately to s everely 30-44 G4 Sever ly decreased 15-29 G5 Kidney failure <15Repo rted eGFR is based on the CKD-EPI 2020 equation t hat does not use a race coefficientEsti mated GFR is not as accur ate as Creatinine Genesis booker in predicting glom erular filtration rate . Estimated GFR is not appl icable for dialysis patien ts Operations Team Leader ID - [id number] (HEMOGRAM ONLY)2023-04-22 04:03:45 Test Item Value Reference Range Interpretation Comments WHITE BLOOD CELL COUNT (BEAKER) 21.1 K/ L 4.0-10.0 H (test code = 775) RED BLOOD CELL COUNT (BEAKER) 5.56 M/ L 4.00-5.00 H (test code = 761) HEMOGLOBIN (BEAKER) (test code = 10.8 GM/DL 12.0-15.5 L 410) HEMATOCRIT (BEAKER) (test code = 40.8 % 36.0-46.0 411) MEAN CORPUSCULAR VOLUME (BEAKER) 73 fL 82-99 L (test code = 753) MEAN CORPUSCULAR HEMOGLOBIN 19.4 pg 27.0-33.0 L (BEAKER) (test code = 751) MEAN CORPUSCULAR HEMOGLOBIN CONC 26.5 GM/DL 32.0-36.0 L (BEAKER) (test code = 752) RED CELL DISTRIBUTION WIDTH 20.4 % 12.0-15.0 H (BEAKER) (test code = 412) PLATELET COUNT (BEAKER) (test 376 K/CU MM 150-430 code = 756) MEAN PLATELET VOLUME (BEAKER) 11.1 fL 6.0-11.5 (test code = 754) NUCLEATED RED BLOOD CELLS 0 /100 WBC 0-0 (BEAKER) (test code = 413) [id number] 19:52:25 Test Item Value Reference Range Interpretation Comments PARTIAL THROMBOPLASTIN TIME 62.6 seconds 23.2-36.1 H (BEAKER) (test code = 760) IRON, TIBC, % SAT. (WITHOUT FERRITIN)2023-04-21 13:03:31 Test Item Value Reference Range Interpretation Comments IRON (BEAKER) (test code = 547) 22.0 ug/dL 35.0-175.0 L TOTAL IRON BINDING CAPACITY 282 ug/dL 250-550 (BEAKER) (test code = 769) IRON % SATURATION (2) (BEAKER) 8 % 20-55 L (test code = 2590) Operations Team Leader ID - [id number] 12:19:52 Test Item Value Reference Range Interpretation Comments PROCALCITONIN (BEAKER) (test code = < ng/mL <0.05 3036) SEPSIS RISK (ng/mL)Low: 0.05-0.50Intermediate: 0.51-2.00High: >=2.01APTT 2023-04-21 12:10:06 Test Item Value Reference Range Interpretation Comments PARTIAL THROMBOPLASTIN TIME 46.8 seconds 23.2-36.1 H (BEAKER) (test code = 760) LACTIC ACID, [id number] 12:03:05 Test Item Value Reference Range Interpretation Comments LACTATE BLOOD VENOUS (2) (BEAKER) 0.93 mmol/L 0.50-2.20 (test code = 2872) Operations Team Leader ID - [id number] 07:03:48 Test Item Value Reference Range Interpretation Comments MAGNESIUM (BEAKER) (test code = 1.9 mg/dL 1.5-3.0 627) Operations Team Leader ID - [id number] METABOLIC [id number] 04:13:06 Test Item Value Reference Range Interpretation Comments SODIUM (BEAKER) 137 meq/L 135-148 (test code = 381) POTASSIUM 4.0 meq/L 3.5-5.5 (BEAKER) (test code = 379) CHLORIDE (BEAKER) 104 meq/L 98-106 (test code = 382) CO2 (BEAKER) 23 meq/L 20-31 (test code = 355) BLOOD UREA 11 mg/dL 10-26 NITROGEN (BEAKER) (test code = 354) CREATININE 0.66 mg/dL 0.50-1.20 (BEAKER) (test code = 358) GLUCOSE RANDOM 119 mg/dL 70-110 H (BEAKER) (test code = 652) CALCIUM (BEAKER) 9.2 mg/dL 8.5-10.5 (test code = 697) EGFR (BEAKER) 91 Interpretatio n of eGFR (test code = mL/min/1.73 values Stage De scription 1092) sq m Result G1 Yamini l or high >=90 G2 Mildly decreased 60-89 G3a Mildl y to moderately 45-5 9 G3b Moderately to s everely 30-44 G4 Severl y decreased 15-29 G5 Kidney failure <15Reported eGF R is based on the CKD-EPI 2020 equation that d oes not use a race coefficientEsti mated GFR is not as accur ate as Creatinine Genesis booker in predicting glom erular filtration rate . Estimated GFR is not appl icable for dialysis patien ts Operations Team Leader ID - [id number] 03:58:56 Test Item Value Reference Range Interpretation Comments PARTIAL THROMBOPLASTIN TIME 45.1 seconds 23.2-36.1 H (BEAKER) (test code = 760) CBC (HEMOGRAM ONLY)2023-04-21 03:54:59 Test Item Value Reference Range Interpretation Comments WHITE BLOOD CELL COUNT (BEAKER) 28.0 K/ L 4.0-10.0 H (test code = 775) RED BLOOD CELL COUNT (BEAKER) 6.20 M/ L 4.00-5.00 H (test code = 761) HEMOGLOBIN (BEAKER) (test code = 12.0 GM/DL 12.0-15.5 410) HEMATOCRIT (BEAKER) (test code = 44.6 % 36.0-46.0 411) MEAN CORPUSCULAR VOLUME (BEAKER) 72 fL 82-99 L (test code = 753) MEAN CORPUSCULAR HEMOGLOBIN 19.4 pg 27.0-33.0 L (BEAKER) (test code = 751) MEAN CORPUSCULAR HEMOGLOBIN CONC 26.9 GM/DL 32.0-36.0 L (BEAKER) (test code = 752) RED CELL DISTRIBUTION WIDTH 20.5 % 12.0-15.0 H (BEAKER) (test code = 412) PLATELET COUNT (BEAKER) (test 364 K/CU MM 150-430 code = 756) MEAN PLATELET VOLUME (BEAKER) 10.4 fL 6.0-11.5 (test code = 754) NUCLEATED RED BLOOD CELLS 0 /100 WBC 0-0 (BEAKER) (test code = 413) [id number] 21:06:13 Test Item Value Reference Range Interpretation Comments PARTIAL THROMBOPLASTIN TIME 40.5 seconds 23.2-36.1 H (BEAKER) (test code = 760) POC-Glucose [id number] 15:23:52 Test Item Value Reference Range Interpretation Comments POC-Glucose Meter (test 145 mg/dL 70-110 H : TE STED AT [facility] code = 1538) [id number] [facility] [address]: Operations Team Leader/Techni luis ID = [id number] for Irina Piña Lab Interpretation (test Abnormal code = 60192-2) [facility] [id number] 15:23:52 Test Item Value Reference Range Interpretation Comments POC-GLUCOSE METER 145 mg/dL 70-110 H : TESTED A T [facility] [address] ([facility]) (test code [facility], = 1538) [facility] [address]: Operations Team Leader/Techni luis ID = [id number] for Irina Petersen [id number] 15:11:10 Test Item Value Reference Range Interpretation Comments PARTIAL THROMBOPLASTIN TIME 39.6 seconds 23.2-36.1 H (AKER) (test code = 760) MR BRAIN WITHOUT IV [id number] 12:48:17 [facility] : 1945 Sex: FMRI Brain without contrastClinical History: Stroke, follow upTechnique: MRI of the brain utilizing axial T2 and DWI sequences. Pleasenote that per the technologist, the patient could not tolerateadditional imaging at this time.Comparisons: CT 04/19/2023Findings:There is acute infarction superimposed upon the chronic left frontal andparietal lobe infarcts. There is generalized parenchymal volume losswithout hydrocephalus or midline shift.IMPRESSION:Acute infarction superimposed upon chronic left frontal parietal lobeinfarcts.Electronically Signed By: Jeovanny Palacio04/20/2023 13:05 CDTWorkstation Name: [id number] BRAIN WITHOUT IV [id number] 12:46:48 [facility] : 1945 Sex: FCT Head without contrastCLINICAL HISTORY: Stroke, follow up TECHNIQUE: Contiguous axial CT images throughthe head without contrast.This exam was performed according to the departmental dose optimizationprogram which includes automated exposure control, adjustment of the mAand/or kV according to the patient size, and/or use of an iterativereconstruction technique.COMPARISON: MRI 04/20/2023, CT 04/19/2023FI NDINGS:Acute on chronic left frontal parietal lobe infarction is again seenwithout hemorrhagic transformation. Generalized parenchymal volume lossis again noted without hydrocephalus or midline shift. There isatherosclerotic calcification of the intracranial circulation. There areno extra-axial fluid c ollections. The skull is intact. Acute on chronicright maxillary sinusitis is again noted. IMPRESSION:Acute on chronic left frontal parietal lobe infarction again seenwithout hemorrhagic transformation.Electronically Signed By: Jeovanny Palacio04/20/2023 12:48 CDTWorkstation Name: [id number] CHEST 1 VIEW PORTABLE / [id number] 10:20:36 [facility] : 1945 Sex: FExam: XR ABDOMEN/KUB 1 VIEW PORTABLE, XR CHEST 1 VIEW PORTABLE / BEDSIDEDate: 04/20/2023 10:17 AMIndication:Leukocytosis, constipationComparison: NoneFINDINGS:Lines/Tubes/Devices: NoneLungs/pleura:Lungs arewell inflated. Vascular prominence. Scatteredperipheral reticulations. No pleural effusion. No pneumothorax.Heart/Mediastinum:The cardiomediastinal silhouette is normal in size andcontour. Right hilar fullness.Bones/Soft Tissues: No acute osseous abnormality.Abdomen: Nonspecific nonobstructive bowel gas pattern. Mild right colonfecal retention. No evidence of free air within the limitations of thisstu dy.IMPRESSION:Vascular prominence, may represent component congestion.Scattered peripheral reticulations may represent age-relatedinterstitial changes/scarring.Right hilar fullness, nonspecific, may represent prominent vessels,and/or lymphadenopathy, would be further evaluated by contrast-enhancedCT.Mild right colon fecal retention. Electronically Signed By: Oliver Rodriguez04/20/2023 10:49 CDTWorkstation Name: [id number] ABDOMEN/KUB 1 VIEW [id number] 10:20:36 [facility] : 1945 Sex: FExam: XR ABDOMEN/KUB 1 VIEW PORTABLE, XR CHEST 1 VIEW PORTABLE / BEDSIDEDate: 04/20/2023 10:17 AMIndication:Leukocytosis, constipationComparison: NoneFINDINGS:Lines/Tubes/Devices: NoneLungs/pleura:Lungs arewell inflated. Vascular prominence. Scatteredperipheral reticulations. No pleural effusion. No pneumothorax.Heart/Mediastinum:The cardiomediastinal silhouette is normal in size andcontour. Right hilar fullness.Bones/Soft Tissues: No acute osseous abnormality.Abdomen: Nonspecific nonobstructive bowel gas pattern. Mild right colonfecal retention. No evidence of free air within the limitations of thisstu dy.IMPRESSION:Vascular prominence, may represent component congestion.Scattered peripheral reticulations may represent age-relatedinterstitial changes/scarring.Right hilar fullness, nonspecific, may represent prominent vessels,and/or lymphadenopathy, would be further evaluated by contrast-enhancedCT.Mild right colon fecal retention. Electronically Signed By: Oliver Rodriguez04/20/2023 10:49 CDTWorkstation Name: [id number] BLOOD SMEAR - PATHOLOGIST [id number] 09:35:08 Test Item Value Reference Range Interpretation Comments RBC MORPHOLOGY Unremarkable (BEAKER) (test code = 2846) WBC MORPHOLOGY Unremarkable (BEAKER) (test code = 2847) PLT MORPHOLOGY Unremarkable (BEAKER) (test code = 2848) PERIPHERAL SMR Neutrophilic Path review REVIEW (BEAKER) leukocytosis with jovi ruiz MD (test code = 9920) unremarkable WBC morphology. RBC morphology unremarkable. Mild thrombocytosis. Few large platelets present. No schistocytes seen. [id number] Elia Teran M.D. 112 (BEAKER) (test (electronic code = 2849) signature) (MANUAL DIFFERENTIAL)2023-04-20 09:34:01 Test Item Value Reference Range Interpretation Comments NEUTROPHILS - REL (DIFF) (BEAKER) 84 % (test code = 1359) LYMPHOCYTES - REL (DIFF) (BEAKER) 2 % (test code = 1360) MONOCYTES - REL (DIFF) (BEAKER) 4 % (test code = 1361) EOSINOPHILS - REL (DIFF) (BEAKER) 6 % (test code = 1362) BASOPHILS - REL (DIFF) (BEAKER) 2 % (test code = 1363) MYELOCYTES-REL (DIFF) (BEAKER) 1 % 0-0 H (test code = 1594) BANDS - REL (DIFF) (BEAKER) (test 1 % 0-10 code = 1348) NEUTROPHILS - ABS (DIFF) (BEAKER) 22.60 K/ L 1.80-8.00 H (test code = 1365) LYMPHOCYTES - ABS (DIFF) (BEAKER) 0.54 K/ L 1.48-4.50 L (test code = 1366) MONOCYTES - ABS (DIFF) (BEAKER) 1.08 K/ L 0.00-1.30 (test code = 1367) EOSINOPHILS - ABS (DIFF) (BEAKER) 1.61 K/ L 0.00-0.50 H (test code = 1368) BASOPHILS - ABS (DIFF) (BEAKER) 0.54 K/ L 0.00-0.20 H (test code = 1369) BANDS-ABS (DIFF) (BEAKER) (test 0.3 K/ L 0.0-0.8 code = 1349) MYELOCYTES-ABS (DIFF) (BEAKER) 0.27 K/ L 0.00-0.00 H (test code = 1593) TOTAL COUNTED (BEAKER) (test code 100 = 1351) BANDS + SEGMENTED NEUTROPHILS 22.87 (BEAKER) (test code = 1352) WBC MORPHOLOGY (BEAKER) (test code Normal = 487) LARGE PLT(BEAKER) (test code = Present 2156) ANISOCYTOSIS (BEAKER) (test code = 1+ few 961) POIKILOCYTES (BEAKER) (test code = 1+ few 966) STOMATOCYTES (BEAKER) (test code = Present 479) POCT-GLUCOSE [id number] 09:07:50 Test Item Value Reference Range Interpretation Comments POC-GLUCOSE METER 148 mg/dL 70-110 H : TESTED A T [facility] [address] (BEAKER) (test code [facility] [address] [facility], = 1538) [place] [id number]: Operations Team Leader/Techni luis ID = [id number] for Irina Petersen SARS-CoV2/RT-PCR (Asymptomatic ONLY)2023-04-20 05:05:55 Test Item Value Reference Interpretation Comments Range SARS-COV2/RT-PCR Negative Negative The SARS-Co V-2 (test code = target nucleic 62247-1) acids are not detected in thi s specimen. Negat cleo results do not preclude SARS-C oV-2 infection and should not be u sed as the sole bas is for patient management decisions. Nega tive results must be combined with clinical observations, patient history , and epidemiolog ical information. A false negative result may occu r if a specimen is improperly collected, transported or handled. This S ARS CoV-2 test is a rapid, real-haily e RT-PCR test intended for th e qualitative detection of nucleic acid fr om SARS-CoV-2 in a nasopharyngeal swab specimen colle godfrey from individual s suspected of COVID-19 by the ir healthcare provider. REANNA (test code = This test has been REANNA) authorized by FDA under an EUA for use by authorized laboratories. This test is only authorized for the duration of the declaration that circumstances exist justifying the authorization of emergency use of in vitro diagnostic tests for detection and/or diagnosis of COVID-19 under Section 564(b)(1) of the Federal Food, Drug and Cosmetic Act, 21 U.S.C. 360bbb-3(b)(1), unless the authorization is terminated or revoked sooner. Fact Sheet for Healthcare Providers: https://www.[employer]/Documents/Xp ert%20Xpress%20SAR S%20CoV-2/Fact%20S heets/3023802%20S ARS-COV-2%20HEALTH CARE%20PROVIDERS%2 0FACT%20SHEET.pdf Fact Sheet for Healthcare Patients: https://www.[employer]/Documents/Xp ert%20Xpress%20SAR S%20CoV-2/Fact%20S heets/302-3801%20S ARS-COV-2%20PATIEN T%20FACT%20SHEET.p df Lab Interpretation Normal (test code = 26124-2) [facility])2023-04-20 05:05:55 Test Item Value Reference Range Interpretation Comments SARS-COV2/RT-PCR Negative Negative The SARS-Co V-2 target (test code = nucleic acids a re not 6204896) detected in thi s specimen. Negative result s do not preclude SARS-C oV-2 infection and s hould not be used as the gloria e basis for patient managem ent decisions. Nega tive results must be combine d with clinical observ ations, patient history , and epidemiological information. A false negativ e result may occur if a spec imen is improperly lazaro ected, transported or handled. This SARS CoV-2 test is a rapid, real-time RT-PC R test intended for th e qualitative detection of nu cleic acid from SARS-CoV-2 in a nasopharyngeal swab specimen collected from individuals suspected of CO VID-19 by their healthcar e provider. This test has been authorized by FDA under an EUA for use by authorized laboratories. This test is only authorized for the duration of the declaration that circumstances exist justifying the authorization of emergency use of in vitro diagnostic tests for detection and/or diagnosis of COVID-19 under Section 564(b)(1) of the Federal Food, Drug and Cosmetic Act, 21 U.S.C. 360bbb-3(b)(1), unless the authorization is terminated or revoked sooner. Fact Sheet for Healthcare Providers: https://www.[employer]/Documents/Xpert%20Xpress%20SARS%20CoV-2/Fact%20Sheets/3023802%96ZNLN-GVI-5%20 HEALTHCARE%20PROVIDERS%20FACT%20SHEET.pdf Fact Sheet for Healthcare Patients: https://www.[employer]/Documents/Xpert%20Xp ress%20SARS%20CoV-2/Fact%20Sheets/3023801%24EEJI-MWQ-4%20PATIENT%20FACT%20SHEET .pdfBASIC METABOLIC [id number] 03:58:17 Test Item Value Reference Range Interpretation Comments SODIUM (BEAKER) 140 meq/L 135-148 (test code = 381) POTASSIUM 3.6 meq/L 3.5-5.5 Specimen slight ly (BEAKER) (test hemolyzed code = 379) CHLORIDE (BEAKER) 105 meq/L 98-106 (test code = 382) CO2 (BEAKER) 20 meq/L 20-31 (test code = 355) BLOOD UREA 13 mg/dL 10-26 NITROGEN (BEAKER) (test code = 354) CREATININE 0.73 mg/dL 0.50-1.20 Specimen slight ly (BEAKER) (test hemolyzed code = 358) GLUCOSE RANDOM 168 mg/dL 70-110 H (BEAKER) (test code = 652) CALCIUM (BEAKER) 9.0 mg/dL 8.5-10.5 (test code = 697) EGFR (BEAKER) 85 Interpretatio n of eGFR (test code = mL/min/1.73 values Stage De scription 1092) sq m Result G1 Yamini l or high >=90 G2 Mildly decreased 60-89 G3a Mildl y to moderately 45-5 9 G3b Moderately to s everely 30-44 G4 Severl y decreased 15-29 G5 Kidney failure <15Reported eGF R is based on the CKD-EPI 2020 equation that d oes not use a race coefficientEsti mated GFR is not as accur ate as Creatinine Genesis booker in predicting glom erular filtration rate . Estimated GFR is not appl icable for dialysis patien ts Operations Team Leader ID - [id number] (HEMOGRAM ONLY)2023-04-20 03:41:15 Test Item Value Reference Range Interpretation Comments WHITE BLOOD CELL COUNT (BEAKER) 31.0 K/ L 4.0-10.0 H (test code = 775) RED BLOOD CELL COUNT (BEAKER) 6.52 M/ L 4.00-5.00 H (test code = 761) HEMOGLOBIN (BEAKER) (test code = 12.6 GM/DL 12.0-15.5 410) HEMATOCRIT (BEAKER) (test code = 47.6 % 36.0-46.0 H 411) MEAN CORPUSCULAR VOLUME (BEAKER) 73 fL 82-99 L (test code = 753) MEAN CORPUSCULAR HEMOGLOBIN 19.3 pg 27.0-33.0 L (BEAKER) (test code = 751) MEAN CORPUSCULAR HEMOGLOBIN CONC 26.5 GM/DL 32.0-36.0 L (BEAKER) (test code = 752) RED CELL DISTRIBUTION WIDTH 20.4 % 12.0-15.0 H (BEAKER) (test code = 412) PLATELET COUNT (BEAKER) (test 455 K/CU MM 150-430 H code = 756) MEAN PLATELET VOLUME (BEAKER) 9.9 fL 6.0-11.5 (test code = 754) NUCLEATED RED BLOOD CELLS 0 /100 WBC 0-0 (BEAKER) (test code = 413) LIPID [id number] 03:10:53 Test Item Value Reference Range Interpretation Comments TRIGLYCERIDES (BEAKER) 85 mg/dL Speci men slightly (test code = 540) hemolyzed CHOLESTEROL (BEAKER) 148 mg/dL Specime n slightly (test code = 631) hemolyzed HDL CHOLESTEROL (BEAKER) 41 mg/dL (test code = 976) LDL CHOLESTEROL 90 mg/dL CALCULATED (BEAKER) (test code = 633) Triglyceride Reference Range: Low Risk <150 Borderline 150-199 High Risk 200- 499 Very High Risk >=500Cholesterol Reference Range: Low Risk <200 Borderline 200-239 High Risk >240HDL Cholesterol Reference Range: Low Risk >=60 High Risk <40LDL Cholesterol Reference Range: Optimal <100 Near Optimal 100-129 Borderline 130-159 High 160-189 Very High >=190 Operations Team Leader ID - [id number] 02:57:43 Test Item Value Reference Range Interpretation Comments TROPONIN I (BEAKER) (test code = 5.90 ng/mL 0.00-0.15 397) Troponin I (TnI) levels must be interpreted in the context of the presenting symptoms and the clinical findings. Elevated TnI levels indicate myocardial damage, but are not specific for ischemic heart disease. Elevated TnI levels are seen in patients with other cardiac conditions (including myocarditis and congestive heart failure), and slight TnI elevations occur in patients with other conditions, including sepsis, renal failure, acidosis, acute neurological disease, and persistent tachyarrhythmia.Operations Team Leader ID - [id number] 2023-04-19 23:42:25 Test Item Value Reference Range Interpretation Comments PROCALCITONIN (BEAKER) (test code 0.14 ng/mL <0.05 H = 3036) SEPSIS RISK (ng/mL)Low: 0.05-0.50Intermediate: 0.51-2.00High: >=2.01TROPONIN [id number] 23:22:18 Test Item Value Reference Range Interpretation Comments TROPONIN I (BEAKER) (test code = 6.31 ng/mL 0.00-0.15 397) Troponin I (TnI) levels must be interpreted in the context of the presenting symptoms and the clinical findings. Elevated TnI levels indicate myocardial damage, but are not specific for ischemic heart disease. Elevated TnI levels are seen in patients with other cardiac conditions (including myocarditis and congestive heart failure), and slight TnI elevations occur in patients with other conditions, including sepsis, renal failure, acidosis, acute neurological disease, and persistent tachyarrhythmia.Operations Team Leader ID - [id number] BRAIN WITHOUT IV [id number] 22:41:56 [facility] : 1945 Sex: FEXAM: CT BRAIN WITHOUT IV CONTRASTINDICATION: Stroke, follow upTECHNIQUE: CT images from skull base to vertex without IV contrast.This exam was performed according to the departmental dose optimizationprogram which includes automated exposure control, adjustment of the mAand/or kV according to the patient size, and/or use of an iterativereconstruction technique.COMPARISON: Outside CT from 5 hours priorFIND INGS: Parenchyma: No evidence of acute infarction. Encephalomalacia in theleft frontal lobe and leftparietal lobe with ex vacuo dilatation of theadjacent left lateral ventricle compatible with sequelaof chronic leftMCA territory infarction. No hemorrhage. No mass or mass effect. Patchyareas of hypoat tenuation are present in the cerebral white matter thatare nonspecific but compatible with mild chronic microvascular ischemicchanges. Extra-axial Collection: NoneVentricular System: No hydrocephalusOsseous Structures: No acute osseous abnormality. Included Orbits: Prior bilateral lens surgeryParanasal Sinuses: Partially imaged opacified right maxillary antrumwith osteogenesis of the sinus valladares compatible with chronicityTympanomastoid Cavities: NormalOther: Atherosclerotic intracranial calcifications are present.IMPRESSION:1. No acute abnormality on CT head without contrast.2. Chronic left MCA territory infarction.If there is persistent clinical concern for intracranial pathology, MRexamination is recommended for further characterization.Electronically Signed By: Snow An04/19/2023 22:44 CDTWorkstation Name: [id number] w/Microscopic + Reflex to [id number] 22:09:31 Test Item Value Reference Range Interpretation Comments Color, UA (test code Yellow = 5778-6) Clarity, UA (test Clear code = 5767-9) Specific [place], UA 1.040 1.001-1.035 H (test code = 5811-5) pH, UA (test code = 6.0 5.0-8.0 5803-2) Protein, UA (test 100 mg/dL Negative A code = 14142-4) Glucose, UA (test Negative Negative code = 365) Ketones, UA (test 5 mg/dL Negative A code = 2514-8) Bilirubin, UA (test Negative Negative code = 91469-6) Blood, UA (test code Negative Negative = 52349-4) Nitrite, UA (test Negative Negative code = 5802-4) Leukocytes, UA (test Negative Negative code = 5799-2) Urobilinogen, UA (test code = 52452-8) RBC, UA (test code = 1 See_Comment [Autom ated 80731-0) message] The system which generated this result transmit godfrey reference range : /HPF. The reference range was not used to interpret this result as normal/abnormal . WBC, UA (test code = 1 See_Comment [Autom ated 5821-4) message] The system which generated this result transmit godfrey reference range : /HPF. The reference range was not used to interpret this result as normal/abnormal . Specimen Source (test code = 2795) REANNA (test code = REANNA) Operations Team Leader ID - [auto]Operations Team Leader ID - tech Lab Interpretation Abnormal (test code = 44892-0) [facility] UR[facility] [id number] 22:09:31 Test Item Value Reference Range Interpretation Comments COLOR (BEAKER) (test code = 470) Yellow CLARITY (BEAKER) (test code = 469) Clear SPECIFIC GRAVITY UA (BEAKER) (test 1.040 1.001-1.035 H code = 468) PH UA (BEAKER) (test code = 467) 6.0 5.0-8.0 PROTEIN UA (BEAKER) (test code = 100 mg/dL Negative A 464) GLUCOSE UA (BEAKER) (test code = Negative Negative 365) KETONES UA (BEAKER) (test code = 5 mg/dL Negative A 371) BILIRUBIN UA (BEAKER) (test code = Negative Negative 462) BLOOD UA (BEAKER) (test code = 461) Negative Negative NITRITE UA (BEAKER) (test code = Negative Negative 465) LEUKOCYTE ESTERASE UA (BEAKER) Negative Negative (test code = 466) UROBILINOGEN UA (BEAKER) (test code < = 463) RBC UA (BEAKER) (test code = 519) 1 /HPF WBC UA (BEAKER) (test code = 520) 1 /HPF SOURCE(BEAKER) (test code = 2795) Operations Team Leader ID - [auto]Operations Team Leader ID - techHEMOGLOBIN [id number] 21:40:09 Test Item Value Reference Range Interpretation Comments HEMOGLOBIN A1C (BEAKER) (test code = 5.1 % 4.3-6.1 368) Operations Team Leader ID - [id number] W/PLT COUNT & AUTO [id number] 21:29:06 Test Item Value Reference Range Interpretation Comments WHITE BLOOD CELL COUNT (BEAKER) 26.9 K/ L 4.0-10.0 H (test code = 775) RED BLOOD CELL COUNT (BEAKER) 6.83 M/ L 4.00-5.00 H (test code = 761) HEMOGLOBIN (BEAKER) (test code = 13.2 GM/DL 12.0-15.5 410) HEMATOCRIT (BEAKER) (test code = 49.8 % 36.0-46.0 H 411) MEAN CORPUSCULAR VOLUME (BEAKER) 73 fL 82-99 L (test code = 753) MEAN CORPUSCULAR HEMOGLOBIN 19.3 pg 27.0-33.0 L (BEAKER) (test code = 751) MEAN CORPUSCULAR HEMOGLOBIN CONC 26.5 GM/DL 32.0-36.0 L (BEAKER) (test code = 752) RED CELL DISTRIBUTION WIDTH 20.9 % 12.0-15.0 H (BEAKER) (test code = 412) PLATELET COUNT (BEAKER) (test 488 K/CU MM 150-430 H code = 756) MEAN PLATELET VOLUME (BEAKER) 10.3 fL 6.0-11.5 (test code = 754) NUCLEATED RED BLOOD CELLS 0 /100 WBC 0-0 (BEAKER) (test code = 413) NEUTROPHILS RELATIVE PERCENT 80 % (BEAKER) (test code = 429) LYMPHOCYTES RELATIVE PERCENT 5 % (BEAKER) (test code = 430) MONOCYTES RELATIVE PERCENT 4 % (BEAKER) (test code = 431) EOSINOPHILS RELATIVE PERCENT 5 % (BEAKER) (test code = 432) BASOPHILS RELATIVE PERCENT 3 % (BEAKER) (test code = 437) NEUTROPHILS ABSOLUTE COUNT 21.37 K/ L 1.80-8.00 H (BEAKER) (test code = 670) LYMPHOCYTES ABSOLUTE COUNT 1.29 K/ L 1.48-4.50 L (BEAKER) (test code = 414) MONOCYTES ABSOLUTE COUNT (BEAKER) 1.00 K/ L 0.00-1.30 (test code = 415) EOSINOPHILS ABSOLUTE COUNT 1.28 K/ L 0.00-0.50 H (BEAKER) (test code = 416) BASOPHILS ABSOLUTE COUNT (BEAKER) 0.92 K/ L 0.00-0.20 H (test code = 417) IMMATURE GRANULOCYTES-RELATIVE 3.80 % 0.00-0.00 H PERCENT (BEAKER) (test code = 2801) TROPONIN [id number] 21:08:04 Test Item Value Reference Range Interpretation Comments TROPONIN I (BEAKER) (test code = 6.43 ng/mL 0.00-0.15 HH 397) Troponin I (TnI) levels must be interpreted in the context of the presenting symptoms and the clinical findings. Elevated TnI levels indicate myocardial damage, but are not specific for ischemic heart disease. Elevated TnI levels are seen in patients with other cardiac conditions (including myocarditis and congestive heart failure), and slight TnI elevations occur in patients with other conditions, including sepsis, renal failure, acidosis, acute neurological disease, and persistent tachyarrhythmia.Operations Team Leader ID - [id number] METABOLIC [id number] 20:58:04 Test Item Value Reference Range Interpretation Comments SODIUM (BEAKER) 139 meq/L 135-148 (test code = 381) POTASSIUM 4.1 meq/L 3.5-5.5 Specimen slight ly (BEAKER) (test hemolyzed code = 379) CHLORIDE (BEAKER) 101 meq/L 98-106 (test code = 382) CO2 (BEAKER) 24 meq/L 20-31 (test code = 355) BLOOD UREA 12 mg/dL 10-26 NITROGEN (BEAKER) (test code = 354) CREATININE 0.72 mg/dL 0.50-1.20 Specimen slight ly (BEAKER) (test hemolyzed code = 358) GLUCOSE RANDOM 161 mg/dL 70-110 H (BEAKER) (test code = 652) CALCIUM (BEAKER) 9.7 mg/dL 8.5-10.5 (test code = 697) EGFR (BEAKER) 87 Interpretatio n of eGFR (test code = mL/min/1.73 values Stage De scription 1092) sq m Result G1 Yamini l or high >=90 G2 Mildly decreased 60-89 G3a Mildl y to moderately 45-5 9 G3b Moderately to s everely 30-44 G4 Severl y decreased 15-29 G5 Kidney failure <15Reported eGF R is based on the CKD-EPI 2020 equation that d oes not use a race coefficientEsti mated GFR is not as accur ate as Creatinine [facility] celeste in predicting glom erular filtration rate . Estimated GFR is not appl icable for dialysis patien ts Operations Team Leader ID - [id number] 20:58:03 Test Item Value Reference Range Interpretation Comments MAGNESIUM (BEAKER) 2.0 mg/dL 1.5-3.0 Specimen slightly (test code = 627) hemolyzed Operations Team Leader ID - [id number] 20:58:03 Test Item Value Reference Range Interpretation Comments PHOSPHORUS (BEAKER) 3.3 mg/dL 2.5-4.5 Specimen slightly (test code = 604) hemolyzed Operations Team Leader ID - [id number] [id number] 20:40:06 Test Item Value Reference Range Interpretation Comments POC-GLUCOSE METER 161 mg/dL 70-110 H : TESTED A T [facility] [address] (BEAKER) (test code [address], = 1538) [facility] 77 384: Operations Team Leader/Techni luis ID = [id number] for Shelly Taylor [id number] 08:12:00 Test Item Value Reference Range Interpretation Comments TRANSFERRRIN (test code 230 mg/dL 192-364 Perf ormed At: DA = TRANSF) [facility] [address] [place], [place] [id number] h CN MD Ph:[phone] VITAMIN [id number] 08:12:00 Test Item Value Reference Range Interpretation Comments VITAMIN B12 (test code = VITB12) 938 PG/ML 183-986 N FOLIC [id number] 08:12:00 Test Item Value Reference Range Interpretation Comments FOLIC ACID (test code = FOL) 11.60 NG/ML 3.10-17.50 N [id number] 08:12:00 Test Item Value Reference Range Interpretation Comments FERRITIN (test code = JONNY) 23.8 NG/ML 3.0-105.0 N [id number] 18:50:00 Test Item Value Reference Range Interpretation Comments POTASSIUM (test code = K) 3.9 mmol/L 3.4-5.0 N [id number] 13:47:00 Test Item Value Reference Range Interpretation Comments SURG (test code = SURG) RUN DATE: 12/26/20 [facility] Patel [place] [facility] PAGE 1 RUN TIME: 1347 Specimen Inquiry RUN USER: INTERFACE PATIENT: OZZY MEI LOC: Sarah U #: [id number] AGE/SX: 75/F ROOM: [facility] RE12/25/20REG DR: Josee Mustafa MD : 46 BED: 1 DIS: STATUS: ADM IN TLOC: SPEC #: [id number] RECD: 12/25/20 STATUS: JOHN REQ #: [id number] LAZARO: 12/25/[address] [facility] [address]: Josee Mutsafa MD ENTERED: 12/25/20 SP TYPE: SURG OTHR DR: DOES_NOT KNOW No Primary or Family Physician Blair Juares MDORDERED: SURG PATH LVL 09/27 COPIES TO: DOES_NOT KNOW No [place] [address] [facility] [address] [facility] [place] [address] [email or web address] Blair Juares MD [address] [id number] HISTOLOGY: TISSUE ID BLK PCS BRANDT LEV PROCEDURE DISPOSITION ____ ___ ___ ___ COLON, NOS A 1 2 RECTUM, NOS B 1 2 PROCEDURES: SURG PATH LVL 4 (12/25/20-1113) TISSUES: A. COLON, NOS - LEFT SIDE COLON BIOPSY B. RECTUM, NOS - RECTUM COLON BIOPSY CPT CODES CPT CODE(S): 11574J2 , , , , , , FINAL DIAGNOSIS A. Colon, left, biopsy: FOCAL SURFACE ULCERATION WITH ISCHEMIC CHANGES NEGATIVE FOR DYSPLASIA AND MALIGNANCY B. Colon, rectum, biopsy: CONTINUED ON NEXT PAGE RUN DATE: 12/26/20 [facility] PAGE 2 RUN TIME: 1347 Specimen Inquiry RUN USER: INTERFACE SPEC #: [id number] PATIENT: OZZY MEI #[id number] (Continued) FINAL DIAGNOSIS (Continued) COLONIC MUCOSA WITH ASSOCIATED ULCER DEBRIS NEGATIVE FOR DYSPLASIA AND MALIGNANCY GROSS DESCRIPTION A. Left side colon biopsy. Received in formalin are three allen tissue fragments, 0.2 - 0.4 cm, all as A. B. Rectum colon biopsy. Received in formalin are two allen tissue fragments, 0.2 and 0.4 cm, all as B. /fausto Grossing performed at [facility] Pathology, [facility], [address], [place] [address]. Film Projector Operator: Imtiaz Bravo M.D. MICROSCOPIC DESCRIPTION A. Left [...] Signed SIGNATURE ON FILE Kristy Berger 12/26/20 0227 END OF REPORT [id number] 11:06:00 Test Item Value Reference Range Interpretation Comments TRANSFERRRIN (test code = TRANSF) VITAMIN [id number] 11:06:00 Test Item Value Reference Range Interpretation Comments VITAMIN B12 (test code = VITB12) 938 PG/ML 183-986 N FOLIC [id number] 11:06:00 Test Item Value Reference Range Interpretation Comments FOLIC ACID (test code = FOL) 11.60 NG/ML 3.10-17.50 N [id number] 11:06:00 Test Item Value Reference Range Interpretation Comments FERRITIN (test code = JONNY) 23.8 NG/ML 3.0-105.0 N [id number] 10:48:00 Test Item Value Reference Range Interpretation Comments PHOSPHOROUS (test code = PHOS) 2.2 MG/DL 2.5-4.9 L [id number] 10:48:00 Test Item Value Reference Range Interpretation [...] % calc 12-57 L FESAT) CBC W/AUTO [id number] 07:28:00 Test Item Value Reference Range Interpretation [...] CONSISTA NT WITH AUTO DIFFERENTI AL. RBC [id number] 07:28:00 Test Item Value Reference Range Interpretation [...] (test NORMAL code = PLTMORPH) CBC W/AUTO [id number] 07:27:00 Test Item Value Reference Range Interpretation [...] NT WITH AUTO DIFFERENTI AL. CBC W/AUTO [id number] 07:27:00 Test Item Value Reference Range Interpretation [...] DIFF REQUIRED NO DIFF/SCN CRITERIA SLIDE R TERRYIEW (test code = MDIFF) CONSISTA NT WITH AUTO DIFFERENTI AL. COMPREHENSIVE METABOLIC [id number] 06:40:00 Test Item Value Reference Range Interpretation [...] TOTAL (test code = ALKP) CBC W/AUTO [id number] 06:07:00 Test Item Value Reference Range Interpretation [...] DIFF/SCN CRITERIA MDIFF) - XR ABDOMEN 1 [id number] 10:42:[address] [facility] [facility] [facility] 1945 Sex: F Name: OZZY MEI [facility] : 1945 Age/S: 75 / F [address] Unit #: [id number] Loc: [place] [address] Phys: Sin Choi MD Acct: [id number] Dis Date: Status: ADM IN PHONE #: [phone] Exam Date: 12/25/2020 1007 FAX #: Reason: Evaluate cecal distension EXAMS: CPT: [id number] XR ABDOMEN 1 V 15212 Fluoro Time: DAP (Gy m2): Air Kerma [...] PAGE 1 Signed Report Name: OZZY MEI [facility] : 1945 Age/S: 75 / F [address] Unit #: [id number] Loc: [place] [address] Phys: Sin Choi MD Acct: [id number] Dis Date: Status: ADM IN PHONE #: [phone] Exam Date:12/25/2020 1007 FAX #: Reason: Evaluate cecal distension EXAMS: CPT: [id number] XR ABDOMEN 1 V 21996 Fluoro Time: DAP (Gy m2): Air Kerma (mGy): (Continued) Technologist: Elisha Farmer, RT(R) Trnscb Date/Time: 12/25/2020 (8309) [email or web address] Orig Print D/T: S: 12/25/2020 (4767) PAGE 2 Signed ReportCBC W/AUTO [id number] 07:13:00 Test Item Value Reference Range Interpretation [...] CONSISTA NT WITH AUTO DIFFERENTI AL. RBC [id number] 07:13:00 Test Item Value Reference Range Interpretation Comments POLYCHROMASIA (test code = TRACE ON SCAN NONE POLC) HYPOCHROMIA (test code = 1+ ON SCAN NONE HYPO) POIKILOCYTOSIS (test code TRACE ON SCAN NONE = POIK) ANISOCYTOSIS (test code = TRACE NONE ANISO) PLATELET ESTIMATE (test INCREASED THOUSAND ADEQUATE code = PLTEST) PLATELET MORPHOLOGY (test NORMAL code = PLTMORPH) CBC W/AUTO [id number] 07:12:00 Test Item Value Reference Range Interpretation [...] NT WITH AUTO DIFFERENTI AL. CBC W/AUTO [id number] 07:12:00 Test Item Value Reference Range Interpretation [...] DIFF REQUIRED NO DIFF/SCN CRITERIA SLIDE R EVNAPOLEONW (test code = MDIFF) CONSISTA NT WITH AUTO DIFFERENTI AL. COMPREHENSIVE METABOLIC [id number] 06:14:00 Test Item Value Reference Range Interpretation [...] 45-117 N TOTAL (test code = ALKP) [id number] 06:14:00 Test Item Value Reference Range Interpretation Comments PHOSPHOROUS (test code = PHOS) 2.5 MG/DL 2.5-4.9 N [id number] 06:14:00 Test Item Value Reference Range Interpretation Comments MAGNESIUM (test code = MAG) 2.5 MG/DL 1.8-2.4 H PROTHROMBIN [id number] 06:06:00 Test Item Value Reference Range Interpretation Comments PT PATIENT (test code = PTP) 14.1 SECONDS 9.3-12.9 H INTERNATIONAL NORMAL RATIO 1.25 INR Unit 0.8-1.2 H (test code = INR) THROMBOPLASTIN TIME [id number] 06:06:00 Test Item Value Reference Range Interpretation Comments THROMBOPLASTIN TIME PARTIAL 33.3 SECONDS 26-35 N (test code = PTT) CBC W/AUTO [id number] 05:55:00 Test Item Value Reference Range Interpretation [...] DIFF/SCN CRITERIA MDIFF) - XR ABDOMEN 1 [id number] 11:48:00 [facility] 1945 Sex: F Name: OZZY MEI [facility] : 1945 Age/S: 75 / F [address] [address] Unit #: [id number] Loc: [place] [address] Phys: Josee Mustafa MD Acct: [id number] Dis Date: Status: ADM IN PHONE #: [phone] Exam Date: 12/24/2020 1138 FAX #: Reason: CONSTIPATION EXAMS: CPT: [id number] XR ABDOMEN 1V 07736 Fluoro Time: DAP (Gy m2): Air Kerma (mGy): EXAMINATION: 2 AP supine view(s) of the abdomen IN DICATION: CONSTIPATION COMPARISON: None LOCATION: S17 FINDINGS: Diffuse gaseous distention is present. Small amount of colonic stool. The cecum is dilated to 12 cm. Several small bowel loops are upper normal in caliber. Lung bases are clear. IMPRESSION: Diffuse gaseous distention represent ileus. The cecum is dilated to 12 cm. Follow-up may be helpful. at 1148 Reported and signed by: Jarred Neil M.D. CC: Josee Mustafa MD PAGE 1Signed Report Name: OZZY MEI [facility] : 1945 Age/S: 75 / F [address] Unit #: [id number] Loc: [place] [address] Phys: Josee Mustafa MD Acct: [id number] Dis Date: Status:ADM IN PHONE #: [phone] Exam Date: 12/24/2020 1132 FAX #: Reason: CONSTIPATION EXAMS: CPT: [id number] XR ABDOMEN 1 V 16625 Fluoro Time: DAP (Gy m2): Air Kerma (mGy): (Continued) Technologist: Elisha Farmer, RT(R) Trnscb Date/Time: 12/24/2020 (2440) [email or web address] Orig Print D/T: S: 12/24/2020 (8262) PAGE 2 Signed ReportMR, MRA, BRAIN, WITHOUT [id number] 20:11:00Needs general anesthesiaReason for exam:->Ischemic Stroke EvaluationFINAL REPORT MR, MRA, BRAIN, WITHOUT CONTRAST, MR, MRA, NECK, WITHOUT IV CONTRAST, MR, BRAIN, WITHOUT CONTRAST INDICATION: Ischemic Stroke Evaluationstroke evaluation TECHNIQUE: Multiplanar, multisequence MR imaging of the brain without intravenous contrast.MRA of the head utilizing 3-D ammz-qq-grnwbq technique, with 3-D reconstructions.MRA of the neck utilizing 2-D and 3-D zbyy-ip-qurugp technique, with 3-D reconstructions. COMPARISON: None FINDINGS: [...] arterial occlusion or high-grade focal stenosis. Signed: Miranda Nicoleort Verified Date/Time: 09/14/2019 20:11:20 MR, MRA, NECK, WITHOUT IV [id number] 20:11:00Needs general anesthesiaReason for exam:->Ischemic Stroke EvaluationFINAL REPORT MR, MRA, BRAIN, WITHOUT CONTRAST, MR, MRA, NECK, WITHOUT IV CONTRAST, MR, BRAIN, WITHOUT CONTRAST INDICATION: Ischemic Stroke Evaluationstroke evaluation TECHNIQUE: Multiplanar, multisequence MR imaging of the brain without intravenous contrast.MRA of the head utilizing 3-D kapb-cn-gkvpij technique, with 3-D reconstructions.MRA of the neck utilizing 2-D and 3-D nkib-hi-ynepcg technique, with 3-D reconstructions. COMPARISON: None FINDINGS: [...] arterial occlusion or high-grade focal stenosis. Signed: Miranda Nicole MDReport Verified Date/Time: 09/14/2019 20:11:20 MR, BRAIN, WITHOUT CONTRAST 2019-09-14 20:11:00Needs general anesthesiaReason for exam:->Ischemic Stroke EvaluationFINAL REPORT MR, MRA, BRAIN, WITHOUT CONTRAST, MR, MRA, NECK, WITHOUT IV CONTRAST, MR, BRAIN, WITHOUT CONTRAST INDICATION: Ischemic Stroke Evaluationstroke evaluation TECHNIQUE: Multiplanar, multisequence MR imaging of the brain without intravenous contrast.MRA of the head utilizing 3-D rzou-ly-wnvmnq technique, with 3-D reconstructions.MRA of the neck utilizing 2-D and 3-D yfhj-gg-wwdqov technique, with 3-D reconstructions. COMPARISON: None FINDINGS: [...] arterial occlusion or high-grade focal stenosis. Signed: Miranda Nicole MDReport Verified Date/Time: 09/14/2019 20:11:20 RPR 2019-09-14 13:14:00 Test Item Value Reference Range Interpretation Comments RPR SCREEN (KAYLEIGHBASHIR) (test code = Nonreactive Nonreactive 420) HEMOGLOBIN [id number] 08:08:00 Test Item Value Reference Range Interpretation Comments HEMOGLOBIN A1C (BEAKER) (test code = 5.6 % 4.3-6.1 368) [id number] 06:39:00 Test Item Value Reference Range Interpretation Comments MAGNESIUM (BEAKER) (test code = 2.1 mg/dL 1.6-2.6 627) Operations Team Leader ID - BSBASIC METABOLIC [id number] 06:39:00 Test Item Value Reference Range Interpretation [...] 697) EGFR (BEAKER) (test 81 mL/min/1.73 ESTIMA GODFREY GFR IS code = 1092) sq m NOT ACCURATE CREATININE CLEARANCE IN PREDICTING GLOMERULAR FILTRATION RATE . ESTIMATED GFR I S NOT APPLICABLE FOR DIALYSIS PATIEN TS. Operations Team Leader ID - BSLIPID [id number] 06:39:00 Test Item Value Reference Range Interpretation [...] Borderline 130-159 High 160-189 Very High >=190 Operations Team Leader ID - BSCBC W/PLT COUNT & AUTO [id number] 05:38:00 Test Item Value Reference Range Interpretation [...] (test code = 2801) TSH/FREE T4 IF [id number] 18:53:00 Test Item Value Reference Range Interpretation Comments THYROID STIMULATING HORMONE 0.76 uIU/mL 0.35-4.94 (BEAKER) (test code = 772) Operations Team Leader ID - BSVITAMIN B12 AND [id number] 18:53:00 Test Item Value Reference Range Interpretation Comments VITAMIN B12 (BEAKER) (test code = 721 pg/mL 213-816 774) FOLATE (BEAKER) (test code = 362) 12.5 ng/mL >=7.0 Operations Team Leader ID - BSAutomated blood leukocyte count (number/volume)2019-09-13 [...] HealthAutomated erythrocyte mean corpuscular hemoglobin concentration measurement (mass/[id number] 12:10:00 Test Item Value Reference Range Interpretation Comments Mean Corpuscular Hemoglobin Concent 30.1 g/dL 33.0-37.0 (test code = 786-4) [facility] HealthAutomated erythrocyte distribution width bvsdw7964-89-66 12:10:00 Test Item Value Reference Range Interpretation Comments Red Cell Distribution Width (test code 16.6 % 10.7-14.5 = 788-0) [facility] HealthAutomated blood platelet count (count/volume)2019-09-13 12:10:00 Test Item Value Reference Range Interpretation Comments Platelet Count (test code = 540 10*3/uL 150-450 777-3) [facility] HealthAutomated blood platelet mean volume vbquxobwiko6168-62-36 12:10:00 Test Item Value Reference Range Interpretation Comments Mean Platelet Volume (test code = 9.9 fL 5.7-10.7 80467-7) [facility]Service comment [id number] 12:10:00 Test Item Value Reference Range Interpretation Comments Manual Differential (test code = ----- 8265-1) [facility] HealthManual blood segmented neutrophils/100 bqgvilngdj6628-48-88 12:10:00 Test Item Value Reference Range Interpretation Comments Neutrophils % (Manual) (test code = 83 % 42-75 769-0) [facility] HealthManual blood lymphocytes/100 zhjvixzusx8237-01-70 12:10:00 Test Item Value Reference Range Interpretation Comments Lymphocytes % (Manual) (test code = 11 % 21-51 737-7) [facility] HealthManual blood monocytes/100 apccytzyoe6844-53-29 12:10:00 Test Item Value Reference Range Interpretation Comments Monocytes % (Manual) (test code = 4 % 1-9 744-3) [facility] HealthManual blood eosinophil count as percentage of total leukocytes 2019-09-13 12:10:00 Test Item Value Reference Range Interpretation Comments Eosinophils % (Manual) (test code = 2 % 0-7 714-6) [facility] HealthBlood platelet detection by light yjtzqnudpu3187-85-35 12:10:00 Test Item Value Reference Range Interpretation Comments Platelet Estimate (test code = Adequate 9317-9) [facility] HealthBlood erythrocyte morphology finding jbbpeigmluobnn1687-79-28 12:10:00 Test Item Value Reference Range Interpretation Comments Red Blood Cell Morphology (test code = Normal 6742-1) [facility] HealthProthrombin time (PT) in platelet poor jwkath9199-99-46 12:10:00 Test Item Value Reference Range Interpretation Comments Prothrombin Time (test code = 5902-2) 12.7 s 9.4-12.5 [facility] HealthINR in Platelet poor plasma by Coagulation [id number] 12:10:00 Test Item Value Reference Range Interpretation Comments Prothromb Time International 1.1 {ratio} 0.8-1.2 Ratio (test code = 6301-6) [facility] HealthPlasma partial thromboplastin time (PTT)2019-09-13 12:10:00 Test Item Value Reference Range Interpretation Comments Activated Partial Thromboplast Time 37.7 s 25.1-36.5 (test code = 28065-3) [facility] HealthSerum or plasma sodium measurement (moles/volume)2019-09-13 [...] Interpretation Comments Anion Gap (test code = 59867-4) 14 02-12 [facility] HealthSerum or plasma urea nitrogen measurement (mass/volume)2019-09-13 12:10:00 Test Item Value Reference Range Interpretation Comments Blood Urea Nitrogen (test code = 10 mg/dL 04-16 3094-0) [facility] HealthSerum or plasma creatinine measurement (mass/volume)2019-09-13 12:10:00 Test Item Value Reference Range Interpretation Comments Creatinine (test code = 2160-0) 0.8 mg/dL 0.6-1.1 [facility] HealthGFR estimate [id number] 12:10:00 Test Item Value Reference Range Interpretation Comments Estimat Glomerular Filtration Rate 75 50-100 (test code = 03082-5) [facility] HealthSerum or plasma urea nitrogen/creatinine mass mjpzp1123-60-86 12:10:00 Test Item Value Reference Range Interpretation Comments BUN/Creatinine Ratio (test code = 13 3097-3) [facility] HealthSerum or plasma glucose measurement (mass/volume)2019-09-13 12:10:00 Test Item Value Reference Range Interpretation Comments Glucose Level (test code = 2345-7) 108 mg/dL 60-100 [facility] HealthOsmolality of Serum or Plasma by mlkwrlgnlmz6989-37-66 12:10:00 Test Item Value Reference Range Interpretation Comments Calculated Osmolality (test code 283 mosm/kg = 35017-0) [facility] HealthSerum or plasma calcium measurement (mass/volume)2019-09-13 12:10:00 Test Item Value Reference Range Interpretation Comments Calcium Level (test code = 89224-6) 9.5 mg/dL 8.4-10.2 [facility] HealthSerum or plasma [...] Cholesterol (test code = 86 mg/dL 0-99 40290-0) [facility] HealthSerum or plasma total cholesterol/high density lipoprotein (HDL) cholesterol mass rsn5196-51-20 12:10:00 Test Item Value Reference Range Interpretation Comments Cholesterol/HDL Ratio (test code = 3.0 See Note 9830-1) [facility] HealthSerum or plasma low density lipoprotein (LDL) cholesterol/high density lipoprotein (HDL) cholesterolmass pshct2802-98-63 12:10:00 Test Item Value Reference Range Interpretation Comments Cholesterol Ratio (LDL/HDL) (test code 1.5 = 01801-1) [facility] HealthAutomated erythrocyte mean corpuscular volume (MCV) measurement 2019-09-13 12:10:00 Test Item Value Reference Range Interpretation Comments Mean Corpuscular Volume (test code = 87.2 fL 787-2) Automated erythrocyte mean corpuscular hemoglobin (mass per erythrocyte) 2019-09-13 12:10:00 Test Item Value Reference Range Interpretation Comments Mean Corpuscular Hemoglobin (test 26.3 pg code = 785-6) Automated erythrocyte mean corpuscular hemoglobin concentration measurement (mass/ppl2073-06-54 12:10:00 Test Item Value Reference Range Interpretation Comments Mean Corpuscular Hemoglobin Concent 30.1 g/dL (test code = 786-4) Automated erythrocyte distribution width cmbvv6738-30-26 12:10:00 Test Item Value Reference Range Interpretation Comments Red Cell Distribution Width (test code 16.6 % = 788-0) Automated blood platelet count (count/volume)2019-09-13 12:10:00 Test Item Value Reference Range Interpretation Comments Platelet Count (test code = 540 10*3/uL 777-3) Automated blood platelet mean volume mmdhoxxtzir7789-78-22 12:10:00 Test Item Value Reference Range Interpretation Comments Mean Platelet Volume (test code = 9.9 fL 13295-3) Service comment [id number] 12:10:00 Test Item Value Reference Range Interpretation Comments Manual Differential (test code = ----- 8265-1) Manual blood segmented neutrophils/100 wevphqensf0037-45-05 12:10:00 Test Item Value Reference Range Interpretation Comments Neutrophils % (Manual) (test code = 83 % 769-0) Manual blood lymphocytes/100 msqbpvtdyl9751-87-22 12:10:00 Test Item Value Reference Range Interpretation Comments Lymphocytes % (Manual) (test code = 11 % 737-7) Manual blood monocytes/100 qdriijyrae7076-81-67 12:10:00 Test Item Value Reference Range Interpretation Comments Monocytes % (Manual) (test code = 4 % 744-3) Manual blood eosinophil count as percentage of total htlxaytevk4814-14-84 12:10:00 Test Item Value Reference Range Interpretation Comments Eosinophils % (Manual) (test code = 2 % 714-6) Blood platelet detection by light defyzfvfhn1787-96-46 12:10:00 Test Item Value Reference Range Interpretation Comments Platelet Estimate (test code = Adequate 9317-9) Blood erythrocyte morphology finding bekowwnrpofhwh2385-82-73 12:10:00 Test Item Value Reference Range Interpretation Comments Red Blood Cell Morphology (test code = Normal 6742-1) Prothrombin time (PT) in platelet poor epliej8080-57-11 12:10:00 Test Item Value Reference Range Interpretation Comments Prothrombin Time (test code = 5902-2) 12.7 s INR in Platelet poor plasma by Coagulation kwnwb5398-98-75 12:10:00 Test Item Value Reference Range Interpretation Comments Prothromb Time International 1.1 {ratio} Ratio (test code = 6301-6) Plasma partial thromboplastin time (PTT)2019-09-13 12:10:00 Test Item Value Reference Range Interpretation Comments Activated Partial Thromboplast Time 37.7 s (test code = 03944-9) Serum or plasma sodium measurement (moles/volume)2019-09-13 12:10:00 [...] Interpretation Comments Anion Gap (test code = 89239-1) 14 Serum or plasma urea nitrogen measurement (mass/volume)2019-09-13 12:10:00 Test Item Value Reference Range Interpretation Comments Blood Urea Nitrogen (test code = 10 mg/dL 3094-0) Serum or plasma creatinine measurement (mass/volume)2019-09-13 12:10:00 Test Item Value Reference Range Interpretation Comments Creatinine (test code = 2160-0) 0.8 mg/dL GFR estimate [id number] 12:10:00 Test Item Value Reference Range Interpretation Comments Estimat Glomerular Filtration Rate 75 (test code = 17174-3) Serum or plasma urea nitrogen/creatinine mass [id number] 12:10:00 Test Item Value Reference Range Interpretation Comments BUN/Creatinine Ratio (test code = 13 3097-3) Serum or plasma glucose measurement (mass/volume)2019-09-13 12:10:00 Test Item Value Reference Range Interpretation Comments Glucose Level (test code = 2345-7) 108 mg/dL Osmolality of Serum or Plasma by [id number] 12:10:00 Test Item Value Reference Range Interpretation Comments Calculated Osmolality (test code 283 mosm/kg = 52434-4) Serum or plasma calcium measurement (mass/volume)2019-09-13 12:10:00 Test Item Value Reference Range Interpretation Comments Calcium Level (test code = 12232-4) 9.5 mg/dL Serum or plasma cholesterol measurement [...] LDL Cholesterol (test code = 86 mg/dL 62733-5) Serum or plasma total cholesterol/high density lipoprotein (HDL) cholesterol mass [id number] 12:10:00 Test Item Value Reference Range Interpretation Comments Cholesterol/HDL Ratio (test code = 3.0 9830-1) Serum or plasma low density lipoprotein (LDL) cholesterol/high density lipoprotein (HDL) cholesterolmass [id number] 12:10:00 Test Item Value Reference Range Interpretation Comments Cholesterol Ratio (LDL/HDL) (test code 1.5 = 66122-8) Automated blood leukocyte count (number/volume)2019-09-13 12:10:00 Test [...] code = 4544-3) 43.5 % Comprehensive Metabolic [id number] 21:35:55 Test Item Value Reference Range Interpretation [...] A/G 1.6 ratio N Ratio) Comprehensive Metabolic [id number] 21:35:55 Test Item Value Reference Range Interpretation [...] the National Kidney Foundation, http://nkdep.ni h.gov Lipid [id number] 21:35:55 Test Item Value Reference Range Interpretation Comments Cholesterol Total 188 mg/dL 0-200 RISK OF HE ART (test code = DISEASEPublishe d by Cholesterol Total) [place] [employer] Charley lyte Optimal Borderl ine [...] LDL/HDL Ratio=L DL Calc/HDL Chol Comprehensive Metabolic [id number] 21:35:55 Test Item Value Reference Range Interpretation [...] ag e have not [facility] and should be interpreted wit [...] ag e have not been validated [facility] and should be interpreted wit h caution. eGFR R esult Interpretation: eGFR > or = 60 is in the Normal RangeeGF R < 60 may mean kid giovanni diseaseeGFR < 1 5 may mean kidney failure Rang es recommended by the National Kidney Foundation, http://nkdep.ni h.gov Complete Blood Count with [id number] 21:32:55 Test Item Value Reference Range Interpretation [...] code = IPF) 0 % N Automated [id number] 21:32:55 Test Item Value Reference Range Interpretation Comments Neutro Auto (test code = Neutro 67.0 % 36.0-70.0 Auto) Lymph Auto (test code = Lymph Auto) 20.5 % 12.0-44.0 [place] Auto (test code = [place] Auto) 6.5 % 0.0-11.0 Eos, Auto (test code = Eos, Auto) 3.7 % 0.0-7.0 Basophil Auto (test code = Basophil 1.5 % 0.0-2.0 Auto) Neutro Absolute (test code = Neutro 6.4 x10 1.6-7.4 Absolute) Lymph Absolute (test code = Lymph 1.96 x10 .50-4.60 Absolute) [place] Absolute (test code = [place] .62 x10 .00-1.20 Absolute) Eos Absolute (test code = Eos 0.35 x10 0.00-0.74 Absolute) Baso Absolute (test code = Baso 0.14 x10 0.00-0.21 Absolute) IG [id number] 21:32:55 Test Item Value Reference Range Interpretation Comments IG (test code = IG) 0.8 % 0.0-5.0 IG Abs (test code = IG Abs) 0 x10 N XR Chest 1 View [id number] 09:09:53Patient: OZZY MEI Date/Time06/03/2018 09:02 CSTReason for [...]
[2023-05-16 15:51] LABS: Absolute Lymphocytes (CBC) 1.2 K/uL (0.7-4.9); Hematocrit 40.3 % (36.0-45.0); Lymphocytes % 6.4 % (15.3-44.8); MCV 67.3 fL (80-100); MPV 8.3 fL (7.6-11.3); Platelets 408 thou/uL (152-406); RBC Red Blood Cell Count 5.99 M/uL (3.86-4.86)
[2023-05-16 16:03] LABS: AST/SGOT 16 U/L (15-37); Albumin 2.9 g/dL (3.4-5.0); Alkaline Phosphatase 140 U/L (45-117); BUN Blood Urea Nitrogen 9 mg/dL (7-18); Bicarbonate 27 mEq/L (21-32); Bilirubin Direct 0.2 mg/dL (0-0.2); Bilirubin Indirect, Calculated 0.2 mg/dL (0.2-0.8); Bilirubin Total 0.4 mg/dL (0.2-1.0); Glomerular Filtration Rate 57 ml/min (=/>90); Glucose Level 96 mg/dL (74-106); Magnesium 2.1 mg/dL (1.6-2.4); Potassium 3.8 mEq/L (3.5-5.1); Protein, Total 6.9 g/dL (6.4-8.2); Sodium Level 140 mEq/L (136-145)
[2023-05-16 16:11] LABS: ALT/SGPT < 10 U/L (13-56)
[2023-05-16 16:19] LABS: Specific Gravity 1.024 (1.005-1.030); Urine Bacteria <20 /HPF (<20); Urine Bilirubin NEGATIVE (Negative); Urine Blood Negative (Negative); Urine Clarity Extremely Turbid (Clear); Urine Color Yellow (Yellow); Urine Glucose NEGATIVE (Negative); Urine Mucus 1+ /HPF (None Seen); Urine Protein 1+ (Negative); Urine Urobilinogen Normal (Normal); Urine WBC Clump Few /HPF (None Seen)
--- NOTE | 2023-05-16 16:22 | RAD REPORT ---
EXAM DESCRIPTION: CT - Head C Spine Cap Wo Con - 05/16/2023 4:02 pm CLINICAL HISTORY: Trauma, head and neck injury. Chest, abdomen and pelvis pain. TRAUMA COMPARISON: Head Brain Wo Cont dated 04/19/2023; MRA Head Wo Cont dated 04/09/2023; Brain W/Wo Cont dated 04/09/2023; MRA Neck W/Wo Cont dated 04/09/2023 TECHNIQUE: CT head without contrast. CT cervical spine without contrast with coronal and sagittal reformatted images. CT chest, abdomen and pelvis without contrast with coronal and sagittal reformatted images of the [facility]. All CT scans are performed using dose optimization technique as appropriate and may include automated exposure control or mA/KV adjustment according to patient size. FINDINGS: CT HEAD WITHOUT CONTRAST: There is a large 8 cm area of diminished density noted involving the left posterior frontotemporal re gion likely representing a large subacute infarct. The majority of this finding appears new since prior study. Slight laminar necrosis is suspected within this infarction. There is no acute h emorrhage. No midline shift. 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 The calvarium is intact. CT CERVICAL SPINE WITHOUT CONTRAST: No fracture or subluxation. Mild to moderate lower cervical degenerative spondylosis. The prevertebra l soft tissues are normal in thickness. CT CHEST, ABDOMEN, PELVIS WITHOUT CONTRAST: NOTE: Lack of contrast is a significant limitation in the assessment of trauma related findings. Spec ifically, solid organ, vascular and bowel evaluation is significantly limited. The lungs are clear.Moderate hiatal hernia.No pneumothorax or pericardial/pleural fluid. No evidence of intra-abdominal visceral injury, free fluid or free air is seen within the above detai led limitations. Cholelithiasis suspected. Mild splenomegaly. No concerning pelvic findings. No acute fracture demonstrated. Chronic wedging of several lower thoracic vertebral bodies noted. IMPRESSION: There is evidence of a large subacute CVA left frontotemporal region as detailed. This a ppears to be a new CVA since the 03/2023 prior study, superimposed on areas of gliosis in the same region which were noted on the prior study. No hemorrhage or midline shift. Elsewhere, there is no finding seen seemingly related to acute trauma.
[2023-05-16 16:29] LABS: Protime INR 2.1
[2023-05-16 16:35] LABS: SARS-CoV-2 Antigen Rapid Res Negative (Negative)
--- NOTE | 2023-05-16 16:50 | EDPHYS ---
Physician Documentation [facility] Name: Cleo Norton Age: 78 yrs Sex: Female : 1945 Arrival Date: 05/16/2023 Time: 14:58 Bed 13 Private MD: ED Physician Joselo Max HPI: 05/16 15:50 This 78 yrs old Female presents to ER via EMS with complaints of Fall Injury, Altered sb4 Mental Status. 15:50 patient presents with daughter who states that she fell this afternoon and landed on sb4 her right side. she did not lose consciousness, no active bleeding. patient is on eliquis. patient is acting appropriately at this time, has no complaints, no deficits noted. daughter also reports dark and foul smelling urine with associated progressive weakness. Historical: - PMHx: 15:08 Atrial Fib; Cerebrovascular accident; coronary atherosclerosis; gastric ulcer; ld1 Hypertensive disorder; - PSHx: 15:08 colon resection; spine-cyst removal; ld1 - Immunization history:: Adult Immunizations up to date. - Social history:: Smoking status: Patient denies any tobacco usage or history of. ROS: 15:50 Constitutional: Negative for fever, chills, and weight loss, sb4 15:50 : Positive for foul smelling urine, 15:50 All other systems are negative, Exam: 15:50 Constitutional: This is a well developed, well nourished patient who is awake, alert, sb4 and in no acute distress. Head/Face: Normocephalic, atraumatic. Eyes: Extra-ocular motions intact. Periorbital areas with no swelling, redness, or edema. ENT: Mucous membranes moist. Cardiovascular: Regular rate and rhythm with a normal S1 and S2. Respiratory: Lungs have equal breath sounds bilaterally, clear to auscultation and percussion. No rales, rhonchi or wheezes noted. No increased work of breathing, no retractions or nasal flaring. Abdomen/GI: Soft, non-tender, no distension. Skin: Warm, dry with normal turgor. Normal color with no rashes, no lesions, and no evidence of cellulitis. MS/ Extremity: Pulses equal, no cyanosis. Neurovascular intact. Full, normal range of motion. Neuro: Awake and alert, GCS 15, oriented to person, place, time, and situation. Motor strength 5/5 in all extremities. Sensory grossly intact. Vital Signs: 15:06 BP 109 / 73; Pulse 66; Resp 18; Pulse Ox 93% on R/A; ld1 15:10 BP 109 / 73; Pulse 65; Resp 13; Pulse Ox 94% on R/A; ld1 15:11 Temp 98.3(O); Weight 55 kg; Height 5 ft. 6 in. ; Pain 0/10; ld1 15:11 Body Mass Index 19.57 (55.00 kg, 167.64 cm) ld1 15:11 Pain Scale: Adult ld1 MDM: 15:00 Patient medically screened. sb4 15:50 Differential diagnosis: closed head injury, contusion, UTI. sb4 16:47 Data reviewed: vital signs, nurses notes, EMS record, old medical records, prior labs sb4 and imaging from [facility] lab test result(s), radiologic studies, I have discussed the patient's presentation/case with the attending Emergency Department Physician; and as a result, I will discharge patient. Consideration of Admission/Observation Escalation of care including admission/observation considered. Historians other than the Patient: Daughter/Son: daughter. Counseling: I had a detailed discussion with the patient and/or guardian regarding the historical points, exam findings, and any diagnostic results supporting the discharge/admit diagnosis, lab results, radiology results, to return to the emergency department if symptoms worsen or persist or if there are any questions or concerns that arise at home. ED course: labs and imaging stable compared to prior. no neurologic deficits noted. she does have a UTI but is not septic. will give rocephin here and dispo with PO antibiotics. explained all lab and radiology with daughter and provided her with a copy. all questions answered to the best of my ability. return precautions discussed and understood. 05/16 15:11 Order name: Basic Metabolic Panel; Complete Time: 16:13 sb4 05/16 15:11 Order name: CBC with Diff sb4 05/16 15:11 Order name: LFT's; Complete Time: 16:13 sb4 05/16 15:11 Order name: Magnesium; Complete Time: 16:13 sb4 05/16 15:11 Order name: PT-INR; Complete Time: 16:30 sb4 05/16 15:11 Order name: Lactate w/ 2H reflex if indic.; Complete Time: 16:04 sb4 05/16 15:11 Order name: UAM; Complete Time: 16:24 sb4 05/16 15:19 Order name: Urine Culture sb4 05/16 15:19 Order name: Blood Culture Adult (2) sb4 05/16 15:33 Order name: SARS RAPID; Complete Time: 16:35 sb4 05/16 15:33 Order name: Flu; Complete Time: 16:34 sb4 05/16 15:11 Order name: CT Traumagram (Head C Spine CAP wo con); Complete Time: 16:24 sb4 05/16 15:11 Order name: Labs collected and sent; Complete Time: 15:59 sb4 Administered Medications: 16:51 Drug: Rocephin IV 1 grams IV at calculated rate once; Given slow IV push per pharmacy tm6 instructions Route: IV; Rate: calculated rate; Site: left hand; Disposition Summary: 05/16/23 16:49 Discharge Ordered Notes: Location: Home sb4 Problem: new sb4 Symptoms: have improved sb4 Condition: Stable sb4 Diagnosis - Fall on same level, unspecified sb4 - UTI/ Urinary tract infection, site not specified sb4 Followup: sb4 - With: Emergency Department - When: As needed - Reason: Trouble breathing, Worsening of condition Discharge Instructions: - Discharge Summary Sheet sb4 - Urinary Tract Infection, Adult, [id number] sb4 Forms: - Medication Reconciliation Form sb4 - Thank You Letter sb4 - Antibiotic Education sb4 - Prescription Opioid Use sb4 - Patient Portal Instructions sb4 - Leadership Thank You Letter sb4 Prescriptions: - cefpodoxime 100 mg Oral Tablet - take 1 tablet ORAL route every 12 hours for 10 days take with food; 20 tablet; sb4 Refills: 0, Product Selection Permitted Signatures: Dispatcher [employer] EDOlivia Pearl RN RN ld1 Melissa Hare PA-C PAGlory sb4 Avelino Cary RN RN tm6
--- NOTE | 2023-05-16 16:50 | ER ---
Nurse's Notes [facility] Name: Cleo Norton Age: 78 yrs Sex: Female : 1945 Arrival Date: 05/16/2023 Time: 14:58 Bed 13 Private MD: Diagnosis: Fall on same level, unspecified;UTI/ Urinary tract infection, site not specified Presentation: 05/16 15:06 Chief complaint: Patient's son or daughter states: urine has been foul smelling and ld1 dark in color EMS states: patient fell at home and hit head. Patient on plavix. Coronavirus screen: Vaccine status: Patient reports receiving the 2nd dose of the covid vaccine. Client denies travel out of the [place] in the last 14 days. Ebola Screen: Patient negative for fever greater than or equal to 101.5 degrees Fahrenheit, and additional compatible Ebola Virus Disease symptoms Patient denies exposure to infectious person. Patient denies travel to an Ebola-affected area in the 21 days before illness onset. No symptoms or risks identified at this time. Initial Sepsis Screen: Does the patient meet any 2 criteria? Altered Mental Status. No. Patient's initial sepsis screen is negative. Does the patient have a suspected source of infection? No. Patient's initial sepsis screen is negative. Risk Assessment: Do you want to hurt yourself or someone else? Patient reports no desire to harm self or others. Onset of symptoms was May 16, 2023. 15:06 Method Of Arrival: EMS: [facility] ld1 15:06 Acuity: RAQUEL 3 ld1 15:06 Acuity: Unassigned ld1 Triage Assessment: 15:08 General: Appears in no apparent distress. Behavior is calm, cooperative. Pain: ld1 Complains of pain in left protestant. EENT: No signs and/or symptoms were reported regarding the EENT system. Neuro: Level of Consciousness is awake, alert, obeys commands, Oriented to person, situation. Cardiovascular: Capillary refill < 3 seconds Patient's skin is warm and dry. Respiratory: Airway is patent Respiratory effort is even, unlabored, Respiratory pattern is regular, symmetrical. GI: No signs and/or symptoms were reported involving the gastrointestinal system. Abdomen is flat, non-distended. : Parent/caregiver report the patient having foul-smelling urine that is dark in color. Derm: No signs and/or symptoms reported regarding the dermatologic system. Musculoskeletal: No signs and/or symptoms reported regarding the musculoskeletal system. Injury Description: Head injury sustained to left protestant was sustained. Historical: - PMHx: 15:08 Atrial Fib; Cerebrovascular accident; coronary atherosclerosis; gastric ulcer; ld1 Hypertensive disorder; - PSHx: 15:08 colon resection; spine-cyst removal; ld1 - Immunization history:: Adult Immunizations up to date. - Social history:: Smoking status: Patient denies any tobacco usage or history of. Screenin:12 [facility] ED Fall Risk Assessment (Adult) History of falling in the last 3 months, ld1 including since admission Yes- single mechanical fall (1 pt) Confusion or Disorientation Yes (5 pts) Score/Fall Risk Level 3 or more points = High Risk. Abuse screen: Denies threats or abuse. Denies injuries from another. Nutritional screening: No deficits noted. Tuberculosis screening: No symptoms or risk factors identified. Assessment: 15:12 Reassessment: see triage assessment. ld1 16:15 Reassessment: Patient appears in no apparent distress at this time. Patient and/or tm6 family updated on plan of care and expected duration. Pain level reassessed. Patient is alert, oriented x 3, equal unlabored respirations, skin warm/dry/pink. 17:05 Reassessment: Patient appears in no apparent distress at this time. Patient and/or tm6 family updated on plan of care and expected duration. Pain level reassessed. Patient is alert, oriented x 3, equal unlabored respirations, skin warm/dry/pink. Vital Signs: 15:06 BP 109 / 73; Pulse 66; Resp 18; Pulse Ox 93% on R/A; ld1 15:10 BP 109 / 73; Pulse 65; Resp 13; Pulse Ox 94% on R/A; ld1 15:11 Temp 98.3(O); Weight 55 kg; Height 5 ft. 6 in. ; Pain 0/10; ld1 15:11 Body Mass Index 19.57 (55.00 kg, 167.64 cm) ld1 15:11 Pain Scale: Adult ld1 ED Course: 15:00 Patient arrived in ED. ld1 15:00 Melissa Hare PA-C is PHCP. sb4 15:00 Joselo Max MD is Attending Physician. sb4 15:06 Olivia Mclean, RN is Primary Nurse. ld1 15:08 Triage completed. ld1 15:10 Arm band placed on right wrist. ld1 15:12 Patient has correct armband on for positive identification. Placed in gown. Bed in low ld1 position. Call light in reach. Side rails up X2. Adult w/ patient. Provided Education on: need for cardiac monitoring. Client placed on continuous cardiac and pulse oximetry monitoring. NIBP monitoring applied. compliance monitor on. Door closed. Noise minimized. Warm blanket given. 15:12 No provider procedures requiring assistance completed. Maintain EMS IV. Dressing ld1 intact. Site clean \T\ dry. Gauge \T\ site: 20g LAC. 15:45 Lactate w/ 2H reflex if indic. Sent. ld1 15:45 PT-INR Sent. ld1 15:45 Magnesium Sent. ld1 15:45 LFT's Sent. ld1 15:45 Basic Metabolic Panel Sent. ld1 15:45 CBC with Diff Sent. ld1 15:59 Flu Sent. ld1 15:59 SARS RAPID Sent. ld1 15:59 Urine Culture Sent. ld1 15:59 UAM Sent. ld1 15:59 Lactate w/ 2H reflex if indic. Sent. ld1 15:59 PT-INR Sent. ld1 15:59 Magnesium Sent. ld1 15:59 LFT's Sent. ld1 15:59 Basic Metabolic Panel Sent. ld1 15:59 CBC with Diff Sent. ld1 16:04 CT Traumagram (Head C Spine CAP wo con) In Process Unspecified. EDMS 17:06 IV discontinued, intact, bleeding controlled, No redness/swelling at site. Pressure tm6 dressing applied. Administered Medications: 16:51 Drug: Rocephin IV 1 grams IV at calculated rate once; Given slow IV push per pharmacy tm6 instructions Route: IV; Rate: calculated rate; Site: left hand; Medication: 15:12 VIS not applicable for this client. ld1 Outcome: 16:49 Discharge ordered by . sb4 17:06 Discharged to home ambulatory, with family, tm6 17:06 Condition: stable 17:06 Discharge instructions given to patient, family, Instructed on discharge instructions, follow up and referral plans. medication usage, Demonstrated understanding of instructions, follow-up care, medications, Prescriptions given X 1, 17:06 Patient left the ED. tm6 Addendum: 05/18/2023 11:20 Addendum: Culture Results: Positive urine culture. Phone call Attempt #1 Left voicemail b [phone]. 17:28 Addendum: Culture Results: Positive urine culture. Prescription called-in to pharmacy [facility] of [facility]. Augmentin 875 mg PO BID x 10 days called into [facility]. Signatures: Dispatcher [employer] EDLilia Ricci, RN RN Olivia Mclean RN RN ld1 Melissa Hare PAGlory PAGlory sb4 Avelino Cary RN RN tm6
[2023-05-16] MEDS ORDERED: CEFTRIAXONE 1000 MG/VIAL ONE (16:58)
[2023-05-16 17:11] VITALS: BP 109/73
[2023-05-16 17:12] VITALS: O2SAT 94
[2023-05-16 17:13] VITALS: TEMP 98.3
[2023-05-16 19:16] LABS: Anisocytosis 1+; Blood Morphology Comment NOTED (NOT SEEN); Platelet Estimate INCR; Poikilocytosis 2+; White Blood Cell Scan OK (OK)
== END 2023-05-16 17:06 | disposition home or self-care (01) ==
LOC: ER 14:58
DX: N39.0 Urinary tract infection, site not specified (principal); W18.30XA Fall on same level, unspecified, initial encounter; Y92.009 Unspecified place in unspecified non-institutional (private) residence as the place of occurrence of the external cause; I10 Essential (primary) hypertension; I48.91 Unspecified atrial fibrillation; Z86.73 Personal history of transient ischemic attack (TIA), and cerebral infarction without residual deficits
CPT/HCPCS: 87040 ×2; 87088; 85025; 81001; 87086; 80048; 36415; 83735; 85610; 80076; 83605; 87077; 87186; 87804 ×2; 70450; 71250; 72125; 96374; 99285; 87811; J0696

== ENCOUNTER 2023-06-05 16:29 | Inpatient (IN) | payer OTHER ==
[2023-06-05 17:19] LABS: Absolute Lymphocytes (CBC) 1.1 K/uL (0.7-4.9); Hematocrit 39.7 % (36.0-45.0); MPV 8.7 fL (7.6-11.3); Platelets 388 thou/uL (152-406); RBC Red Blood Cell Count 5.92 M/uL (3.86-4.86)
[2023-06-05] MEDS ORDERED: NA CHLORIDE 0.9% 1,000 ML ONE (17:27)
[2023-06-05 17:33] LABS: ALT/SGPT < 10 U/L (13-56); AST/SGOT 8 U/L (15-37); Albumin 2.8 g/dL (3.4-5.0); Alkaline Phosphatase 112 U/L (45-117); BUN Blood Urea Nitrogen 10 mg/dL (7-18); Bicarbonate 23 mEq/L (21-32); Bilirubin Total 0.4 mg/dL (0.2-1.0); Glomerular Filtration Rate 89 ml/min (=/>90); Glucose Level 150 mg/dL (74-106); Lipase 24 U/L (13-75); Potassium 3.1 mEq/L (3.5-5.1); Protein, Total 7.2 g/dL (6.4-8.2); Sodium Level 138 mEq/L (136-145)
--- NOTE | 2023-06-05 18:58 | RAD REPORT ---
EXAM DESCRIPTION: CT - Head Brain Wo Cont - 06/05/2023 6:29 pm CLINICAL HISTORY: HEADACHE COMPARISON: Head Brain Wo Cont dated 04/19/2023; Head angio dated 04/19/2023; Head C Spine Cap Wo Co n dated 05/16/2023 TECHNIQUE: Noncontrast head CT images ad were obtained without IV contrast. Multiplanar reformats we re generated and reviewed. All CT scans are performed using dose optimization technique as appropriate and may include automated exposure control or mA/KV adjustment according to patient size. FINDINGS: No intracranial hemorrhage. Midline structures are unremarkable. Left frontoparietal region of relatively expansile hypodensity with poor scales-white matter differenti ation is stable in extent, showing some cortical mildly increased density, and improvement of mass ef fect at its most inferior aspect. Adjacent encephalomalacia more anteriorly and superiorly in the fro ntal region and more posteriorly along the left parietotemporal lobe are stable. Ex vacuo dilation of the left lateral ventricle posteriorly is stable. Overall stable ventricular caliber. No other evidence of an acute territorial infarct. No abnormal extra-axial fluid collections. Pronounced mucosal thickening with near complete opacification within the right maxillary and sphenoi d sinuses. No acute bony findings. Small osteoma within the posterior right mastoid air cells. IMPRESSION: Involving late subacute to chronic infarct in the left frontoparietal region, with some increased cortical density suggesting cortical mineralization. Adjacent areas of encephalomalacia sug gestive of remote ischemia are stable. No other acute intracranial process.
--- NOTE | 2023-06-05 19:20 | RAD REPORT ---
EXAM DESCRIPTION: CT - Abdomen Pelvis W Contrast - 06/05/2023 6:29 pm CLINICAL HISTORY: ABD PAIN COMPARISON: Abdomen Pelvis W Contrast dated 08/18/2021; Abdomen Pelvis W Contrast dated 12/23/2020 ; Abdomen Pelvis Wo Contrast dated 04/10/2023; Head C Spine Cap Wo Con dated 05/16/2023 TECHNIQUE: Thin cut axial CT imaging of the abdomen and pelvis was performed following intravenous a dministration of 95 mL Isovue 300. Multiplanar reformats were generated and reviewed. All CT scans are performed using dose optimization technique as appropriate and may include automated exposure control or mA/KV adjustment according to patient size. FINDINGS: No suspicious findings in the lung bases. The liver, adrenal glands, and pancreas show no suspicious findings. Splenomegaly measuring 14.9 cm i n long axis, stable. Gallbladder is suboptimally distended, limiting evaluation. Mild prominence of t he common bile duct, measuring 1 cm in caliber, nonspecific and probably stable. Symmetric renal function is seen with no hydronephrosis or suspicious renal mass. Small hiatal hernia. No dilated bowel loops. Pronounced wall thickening and hyper enhanced along the distal sigmoid and rectum, without appreciable fluid collections. Mild wall thickening throughout the transverse and descending colon, with mild fat stranding along the omentum in those regions. No free air, free fluid or inflammatory stranding. No hernia, mass or bulky lymphadenopathy. The urinary antonette dder is without significant finding. No suspicious bony findings. Superior endplate compression deformities involving L1, T11, and T9, sta ble. Stable osseous defect along the lower sacral/coccygeal region, which may relate to postsurgical mayfield es or spinal dysraphism. Complex soft tissue mass in the presacral region extending to the perineum, including a focus of coarse calcification and a 2.2 cm fluid collection component is stable compared to the most recent CT. IMPRESSION: Marked wall thickening and hyperenhancement of the distal sigmoid and rectum, with milde r degrees of wall thickening throughout the transverse and descending colon. Findings raise concern f or proctocolitis. Stable complex soft tissue mass in the presacral region and perineum, which may relate to sequelae of postsurgical changes or spinal dysraphism. Stable splenomegaly. Other incidental findings as above.
[2023-06-05 19:35] LABS: Specific Gravity > 1.030 (1.005-1.030); Urine Bacteria <20 /HPF (<20); Urine Bilirubin NEGATIVE (Negative); Urine Blood Negative (Negative); Urine Clarity Clear (Clear); Urine Color Light-Yellow (Yellow); Urine Glucose NEGATIVE (Negative); Urine Mucus Slight /HPF (None Seen); Urine Protein NEGATIVE (Negative); Urine RBC None Seen /HPF (None Seen); Urine Urobilinogen Normal (Normal)
--- NOTE | 2023-06-05 19:59 | ER ---
Nurse's Notes [facility] [place] Name: Cleo Norton Age: 78 yrs Sex: Female : 1945 Arrival Date: 06/05/2023 Time: 16:29 Bed 19 Private MD: Diagnosis: Lower abdominal pain, unspecified Presentation: 06/05 16:45 Chief complaint: Urinary urgency, frequency, difficulty urinating, abdominal pain, hb dizziness, and headache x 2-3 days. Recently completed abx for UTI. Coronavirus screen: At this time, the client does not indicate any symptoms associated with coronavirus-19. Ebola Screen: No symptoms or risks identified at this time. Initial Sepsis Screen: Does the patient meet any 2 criteria? No. Patient's initial sepsis screen is negative. Does the patient have a suspected source of infection? No. Patient's initial sepsis screen is negative. Risk Assessment: Do you want to hurt yourself or someone else? Patient reports no desire to harm self or others. Onset of symptoms was June 03, 2023. 16:45 Method Of Arrival: Ambulatory hb 16:45 Acuity: RAQUEL 3 hb Historical: - Allergies: 16:47 No Known Allergies; hb - PMHx: 16:47 Atrial Fib; Cerebrovascular accident; coronary atherosclerosis; gastric ulcer; hb Hypertensive disorder; - PSHx: 16:47 spine-cyst removal; colon resection; hb - Immunization history:: Adult Immunizations up to date. - Social history:: Smoking status: Patient denies any tobacco usage or history of. Screenin:22 [facility] ED Fall Risk Assessment (Adult) Score/Fall Risk Level 0 - 2 = Low Risk nj1 Oriented to surroundings, Maintained a safe environment, Hourly rounding (assess needs \T\ fall precautionary measures) done. Abuse screen: Denies threats or abuse. Denies injuries from another. Nutritional screening: No deficits noted. Tuberculosis screening: No symptoms or risk factors identified. 20:13 [place] Swallow Protocol Brief Cognitive Screen What is your name? Normal, Where are you vc1 right now? Normal, What year is it? Normal. Oral Mechanism Examination Facial Symmetry: Normal, Motion: Normal, Lip Closure: Normal, Oral Mechanism Result: Normal. 3 oz Water Swallow Challenge: Pt able to drink all water without stopping, coughing, choking or throat clearing: Yes Result: PASS. Assessment: 17:19 General: Appears in no apparent distress. comfortable, Behavior is calm, cooperative, nj1 appropriate for age. Pain: Complains of pain in head Pain currently is 3 out of 10 on a pain scale. Neuro: Level of Consciousness is awake, alert, obeys commands, Oriented to person, place, situation. Neuro: Oriented to Repetitive, aphasia noted from prior stroke. Cardiovascular: Patient's skin is warm and dry. Respiratory: Airway is patent Respiratory effort is even, unlabored. : Parent/caregiver report the patient having urinary frequency urgency. 18:21 Reassessment: Not in room, in imaging. nj1 19:36 Reassessment: No changes from previously documented assessment. Patient and/or family vc1 updated on plan of care and expected duration. Pain level reassessed. Patient is alert, oriented x 3, equal unlabored respirations, skin warm/dry/pink. 21:11 Reassessment: No changes from previously documented assessment. Patient and/or family vc1 updated on plan of care and expected duration. Pain level reassessed. Patient is alert, oriented x 3, equal unlabored respirations, skin warm/dry/pink. 22:05 Reassessment: No changes from previously documented assessment. Patient and/or family vc1 updated on plan of care and expected duration. Pain level reassessed. Patient is alert, oriented x 3, equal unlabored respirations, skin warm/dry/pink. Vital Signs: 16:45 BP 127 / 83; Pulse 73; Resp 16; Temp 98.3(TE); Pulse Ox 98% on R/A; Weight 61.23 kg; hb Height 5 ft. 6 in. ; Pain 3/10; 18:38 Pulse 76; Resp 16; Pulse Ox 100% ; nj1 19:00 BP 145 / 73; Pulse 78; Resp 16; Pulse Ox 97% ; vc1 21:04 BP 105 / 86; Pulse 78; Resp 16; Pulse Ox 100% ; vc1 16:45 Body Mass Index 21.79 (61.23 kg, 167.64 cm) hb 16:45 Pain Scale: Adult hb ED Course: 16:32 Patient arrived in ED. im 16:47 Triage completed. hb 16:47 Arm band placed on. hb 16:52 Cathy Huang is Attending Physician. ci 17:09 CBC with Diff Sent. ds4 17:09 CMP Sent. ds4 17:09 Lipase Sent. ds4 17:09 Inserted saline lock: 22 gauge in right forearm, using aseptic technique. Blood ds4 collected. 17:14 Yamini Hall, RN is Primary Nurse. nj1 17:23 Patient has correct armband on for positive identification. Bed in low position. Call nj1 light in reach. Adult w/ patient. Provided Education on: call light, fall precautions. 18:31 CT Abd/Pelvis - IV Contrast Only In Process Unspecified. EDMS 18:31 CT Head Brain wo Cont In Process Unspecified. EDMS 19:00 Report given to Perla GLEZ. nj1 19:00 Straight cath inserted, using sterile technique, 14 Fr. Specimen obtained. Returned nj1 clear yellow urine. Patient tolerated well. 19:58 Cathy Huang is Hospitalizing Provider. ci 22:05 No provider procedures requiring assistance completed. Patient admitted, IV remains in vc1 place. Administered Medications: 17:18 Drug: NS 0.9% IV 1000 ml IV at 1 bolus Per protocol; 1000 mL bolus Route: IV; Rate: 1 nj1 bolus; Site: right forearm; 21:00 Drug: Piperacillin-Tazobactam IVPB 3.375 grams IVPB once over 60 mins; (mix in NS 100 pf1 mL) Route: IVPB; Infused Over: 60 mins; Site: right forearm; Medication: 19:38 VIS not applicable for this client. vc1 Outcome: 19:59 Decision to Hospitalize by Provider. ci 21:59 Admitted to Tele accompanied by nurse, family with patient, via wheelchair, room 405, pf1 with chart, Report called to AMARIS Corbett 21:59 Condition: stable 21:59 Instructed on the need for admit, Demonstrated understanding of instructions, to family and patient 22:06 Patient left the ED. vc1 Signatures: Dispatcher [employer] EDMS Tha Landis ds4 Lilia Hood, AMARIS GLEZ Perla Bell RN RN vc1 Viviane Almeida RN RN pf Yamini Hall, AMARIS RN nj1 Mabel Moncada Cathy Huang ci
--- NOTE | 2023-06-05 19:59 | EDPHYS ---
Physician Documentation [facility] Name: Cleo Norton Age: 78 yrs Sex: Female : 1945 Arrival Date: 06/05/2023 Time: 16:29 Bed 19 Private MD: ED Physician Cathy Huang Historical: - Allergies: 06/05 16:47 No Known Allergies; hb - PMHx: 16:47 Atrial Fib; Cerebrovascular accident; coronary atherosclerosis; gastric ulcer; hb Hypertensive disorder; - PSHx: 16:47 spine-cyst removal; colon resection; hb - Immunization history:: Adult Immunizations up to date. - Social history:: Smoking status: Patient denies any tobacco usage or history of. Vital Signs: 16:45 BP 127 / 83; Pulse 73; Resp 16; Temp 98.3(TE); Pulse Ox 98% on R/A; Weight 61.23 kg; hb Height 5 ft. 6 in. ; Pain 3/10; 18:38 Pulse 76; Resp 16; Pulse Ox 100% ; nj1 19:00 BP 145 / 73; Pulse 78; Resp 16; Pulse Ox 97% ; vc1 21:04 BP 105 / 86; Pulse 78; Resp 16; Pulse Ox 100% ; vc1 16:45 Body Mass Index 21.79 (61.23 kg, 167.64 cm) hb 16:45 Pain Scale: Adult hb MDM: 16:52 Patient medically screened. ci 06/05 16:55 Order name: CBC with Diff; Complete Time: 17:59 ci 06/05 17:59 Interpretation: Abnormal: WBC 15.80; HGB 11.4. ci 06/05 16:55 Order name: CMP; Complete Time: 17:59 ci 06/05 17:59 Interpretation: Abnormal: K 3.1. ci 06/05 16:55 Order name: Lipase; Complete Time: 17:59 ci 06/05 16:55 Order name: Urinalysis w/ reflexes; Complete Time: 19:45 ci 06/05 20:28 Order name: Basic Metabolic Panel EDOH 06/05 20:28 Order name: Basic Metabolic Panel EDOH 06/05 20:28 Order name: Comprehensive Metabolic Panel EDOH 06/05 20:28 Order name: Comprehensive Metabolic Panel EDOH 06/05 20:28 Order name: Lipid Profile EDMS 06/05 20:28 Order name: Lipid Profile [facility] 06/05 20:28 Order name: Magnesium EDOH 06/05 20:28 Order name: Magnesium [facility] 06/05 16:55 Order name: CT Abd/Pelvis - IV Contrast Only; Complete Time: 19:45 ci 06/05 16:55 Order name: CT Head Brain wo Cont; Complete Time: 19:45 ci 06/05 16:55 Order name: IV Saline Lock; Complete Time: 17:09 ci 06/05 16:55 Order name: Labs collected and sent; Complete Time: 17:09 ci Administered Medications: 17:18 Drug: NS 0.9% IV 1000 ml IV at 1 bolus Per protocol; 1000 mL bolus Route: IV; Rate: 1 nj1 bolus; Site: right forearm; 21:00 Drug: Piperacillin-Tazobactam IVPB 3.375 grams IVPB once over 60 mins; (mix in NS 100 pf1 mL) Route: IVPB; Infused Over: 60 mins; Site: right forearm; Disposition Summary: 06/05/23 19:59 Hospitalization Ordered Notes: Hospitalization Status: Inpatient Admission ci Provider: Cathy Huang [facility] ci Condition: Stable ci Problem: new ci Symptoms: are unchanged ci Bed/Room Type: Standard Room Assignment: 405(06/05/23 20:39) [id number] Diagnosis - Lower abdominal pain, unspecified ci Forms: - Medication Reconciliation Form ci - SBAR form ci - Leadership Thank You Letter ci Signatures: Dispatcher [employer] EDOH Lilia Hood RN RN hb Finley, Pamala, RN RN pf1 Yamini Hall RN RN nj1 Cathy Huang ci Kati Campbell [email or web address] Corrections: (The following items were deleted from the chart) 20:39 19:59 ci jr12
[2023-06-05] MEDS ORDERED: ACETAMINOPHEN 325 MG TABLET PO PRN (20:22)
[2023-06-05] MEDS ORDERED: ONDANSETRON 4 MG/2 ML VIAL IV PRN (20:22)
--- NOTE | 2023-06-05 20:29 | P.HP ---
Certification for Inpatient Patient admitted to: Inpatient With expected LOS: >2 Midnights Practitioner: I am a practitioner with admitting privileges, knowledge of patient current condition, hospital course, and medical plan of care. Services: Services provided to patient in accordance with Admission requirements found in Title 42 Section 412.3 of the Code of Federal Regulations Patient History Date of Service: 06/06/23 Reason for admission: TIA, proctocolitis. History of Present Illness: 78-year-old female patient with medical history significant for CVA, hypertension, hyperlipidemia, history of prior CVA with some residual neurologic deficit who was evaluated for episode of headache, burning on micturition, weakness. This has been going on for a couple of days. She was recently admitted for ESBL UTI infection and completed antibiotics for this. She was seen in the emergency department with a CT of the head that showed no acute issues but there was a subacute lesion with some evolving encephalomalacia. She also had CT of the abdomen/pelvis done that revealed some mild fat stranding depicting some possible proctocolitis. The UA was concerning for leukocyte esterase which is mild. She was admitted for inpatient care. Allergies lorazepam [From Ativan] Adverse Reaction (Verified 06/05/23 22:59) Anaphylaxis Home Medications: RX: Cyclobenzaprine HCl 10 mg PO BID 08/18/21 RX: Acetaminophen with Codeine [Acetaminophen-Cod #3 Tablet] 1 tab PO TID PRN 04/08/23 RX: Amlodipine Besylate/Benazepril [Lotrel 5-10 mg Capsule] 5 mg PO DAILY 04/08/23 RX: Tramadol HCl [Ultram] 50 mg PO TID PRN 04/08/23 RX: Venlafaxine HCl [Venlafaxine HCl ER] 37.5 mg PO DAILY 04/08/23 Clopidogrel Bisulfate [Plavix] 75 mg PO DAILY 06/05/23 Polyethylene Glycol 3350 [Miralax] 17 gm PO DAILY 06/05/23 RX: Atorvastatin Calcium 40 mg PO BEDTIME 06/05/23 RX: Divalproex Sodium 250 mg PO BID 06/05/23 RX: Docusate Sodium 100 mg PO DAILY 06/05/23 RX: Metoprolol Tartrate [Lopressor*] 25 mg PO BID 6AM 6PM 06/05/23 RX: Pantoprazole [Protonix Tab*] 40 mg PO DAILY 06/05/23 RX: Quetiapine [Seroquel*] 25 mg PO BEDTIME 06/05/23 RX: Rivaroxaban [Xarelto] 20 mg PO DAILY 06/05/23 RX: Rivastigmine Tartrate [Rivastigmine] 1.5 mg PO BID 06/05/23 RX: Temazepam 15 mg PO BEDTIME 06/05/23 Sennosides [Senna] 8.6 mg PO BID 06/05/23 oxyBUTYnin chloride [Oxybutynin Chloride] 5 mg PO BID 06/05/23 - Past Medical/Surgical History Diabetic: No -: Prior CVAsresidual mild left weakness, mild balance issues, word salad -: COPD -: A. fib not on anticoagulation -: HTN -: Anxiety and claustrophobia -: Chronic pain, from prior surgery -: Chronic constipation -: History of [place] syndrome -: Bleeding ulcers -: Colon resection -: Spine cyst removal Psychosocial/ Personal History: Patient lives in the home with the daughter - Family History Mother -: Lung disease, Other (see notes) Father -: Lung disease, Other (see notes) - Social History Alcohol use: No CD- Drugs: No Caffeine use: Yes Review of Systems General: Weakness, Malaise Eyes: Unremarkable ENT: Unremarkable Respiratory: Unremarkable Cardiovascular: Unremarkable Gastrointestinal: Unremarkable Genitourinary: Dysuria Musculoskeletal: Unremarkable Integumentary: Unremarkable Neurological: Unremarkable Lymphatics: Unremarkable Physical Examination - Physical Exam General: Alert, Oriented x3 HEENT: Atraumatic Neck: Supple Respiratory: Normal air movement Cardiovascular: Regular rate/rhythm, Normal S1 S2 Gastrointestinal: Soft and benign Musculoskeletal: No swelling Neurological: Normal speech - Studies Laboratory Data (last 24 hrs) 06/05/23 06/05/23 17:07 17:07 WBC 15.80 H Hgb 11.4 L Hct 39.7 Plt Count 388 Sodium 138 Potassium 3.1 L BUN 10 Creatinine 0.70 Glucose 150 H Total Bilirubin 0.4 AST 8 L ALT < 10 L Alkaline Phosphatase 112 Lipase 24 Assessment and Plan - Plan TIA/CVA: Patient does have significant neurologic deficit but imaging revealed old lesion and no acute issue. We may consider MRI if neurologic symptoms persist. For now continue routine management with aspirin Will continue to monitor symptomatology Hypertension: We will monitor vital signs per unit protocol and continue antihypertensive medications Suspected proctocolitis: CT of the abdomen/pelvis is concerning, will continue empiric Flagyl therapy pending further review. History of recent infection with ESBL organism: UA is concerning for possible UTI with mild leukocyte esterase. Patient recently completed antibiotic therapy for ESBL UTI infection. Monitor symptomatology and urine culture for adjustment of antibiotic therapy. Hypokalemia: Potassium is low at 3.1. Will replete and monitor levels. Prophylaxis: Lovenox for DVT prophylaxis CODE STATUS: Full code Disposition: We will treat her multiple issues and discharge her when she is deemed clinically stable. - Advance Directives Does patient have a Living Will: No Does patient have a Durable POA for Healthcare: No
[2023-06-05] MEDS ORDERED: PIPERACIL/TAZO 3.375 GM VIAL IV ONE (20:35)
[2023-06-05] MEDS ORDERED: NA CHLORIDE 0.9% 100 ML ONE (20:35)
[2023-06-05] MEDS: INSULIN REGULAR (HUMAN) 100 UNIT/ML SQ SCH (21:00)
[2023-06-05] MEDS: NA CHLORIDE 0.9% 1,000 ML IV SCH (22:29)
[2023-06-05 23:04] VITALS: BMI 21.9
[2023-06-06] MEDS ORDERED: METOPROLOL TAR 25 MG TAB PO ONE (00:21)
[2023-06-06] MEDS: METRONIDAZOLE 500mg IVPB 500 MG/100 ML BAG IV SCH ×3 (00:43→16:23)
[2023-06-06] MEDS: ATORVASTATIN 40 MG TAB PO SCH ×2 (00:44→21:00)
[2023-06-06] MEDS: TRAMADOL HCL 50 MG TAB PO PRN ×2 (00:45→09:18)
[2023-06-06] MEDS ORDERED: TEMAZEPAM 15 MG CAP PO ONE (01:00)
[2023-06-06] MEDS ORDERED: QUETIAPINE 25 MG TAB PO ONE (01:00)
[2023-06-06] MEDS: NA CHLORIDE 0.9% 1,000 ML IV SCH ×3 (05:35→22:53)
[2023-06-06] MEDS: METOPROLOL TAR 25 MG TAB PO SCH ×2 (06:09→18:02)
[2023-06-06] MEDS: INSULIN REGULAR (HUMAN) 100 UNIT/ML SQ SCH ×4 (07:30→21:00)
[2023-06-06 07:47] LABS: AST/SGOT 7 U/L (15-37); Albumin 2.7 g/dL (3.4-5.0); Alkaline Phosphatase 100 U/L (45-117); BUN Blood Urea Nitrogen 6 mg/dL (7-18); Bicarbonate 29 mEq/L (21-32); Bilirubin Total 0.5 mg/dL (0.2-1.0); Glomerular Filtration Rate 90 ml/min (=/>90); Glucose Level 106 mg/dL (74-106); HDL Cholesterol 41 mg/dL (40-60); LDL Cholesterol, Calculated 27 mg/dL (<130); Magnesium 1.8 mg/dL (1.6-2.4); Potassium 2.9 mEq/L (3.5-5.1); Protein, Total 6.6 g/dL (6.4-8.2); Sodium Level 142 mEq/L (136-145)
[2023-06-06 07:48] LABS: ALT/SGPT < 10 U/L (13-56)
[2023-06-06] MEDS ORDERED: DOCUSATE NA/SENNA CONC 1 TAB PO SCH (09:00)
[2023-06-06] MEDS: BENAZEPRIL 10 MG TAB PO SCH (09:12)
[2023-06-06] MEDS: ENOXAPARIN 40 MG/0.4 ML SQ SCH (09:12)
[2023-06-06] MEDS: VENLAFAXINE HCL XR 37.5MG CAP PO SCH (09:12)
[2023-06-06] MEDS: RIVASTIGMINE TARTRATE 1.5 MG PO SCH ×2 (09:13→20:56)
[2023-06-06] MEDS: POLYETHYL GLY 3350 17 GM/DOSE PO SCH (09:13)
[2023-06-06] MEDS: DOCUSATE NA/SENNA CONC 1 TAB PO SCH ×2 (09:13→20:56)
[2023-06-06] MEDS: DIVALPROEX DR 250 MG TAB PO SCH ×2 (09:13→20:58)
[2023-06-06] MEDS: PANTOPRAZOLE 40MG TABLET PO SCH (09:14)
[2023-06-06] MEDS: CYCLOBENZAPRINE 10 MG TAB PO SCH ×2 (09:14→20:56)
[2023-06-06] MEDS: ASPIRIN EC 81 MG TAB PO SCH (09:14)
[2023-06-06] MEDS: DOCUSATE NA 100 MG CAP PO SCH (09:14)
[2023-06-06] MEDS: oxyBUTYnin chloride 5 MG TAB PO SCH ×2 (09:15→20:56)
[2023-06-06] MEDS: CLOPIDOGREL 75 MG TABLET PO SCH (09:15)
[2023-06-06] MEDS: RIVAROXABAN 20 MG TABLET PO SCH (09:15)
[2023-06-06] MEDS: AMLODIPINE 5 MG TAB PO SCH (09:15)
--- NOTE | 2023-06-06 10:58 | P.PN ---
Subjective Date of Service: 06/06/23 Chief Complaint: TIA, proctocolitis. Pt is resting comfortably in bed. Pt has frequent urge to use the bathroom. Will follow up urine culture and continue iv abx. No complaints Review of Systems 10-point ROS is otherwise unremarkable General: Unremarkable Eyes: Unremarkable ENT: Unremarkable Respiratory: Unremarkable Cardiovascular: Unremarkable Gastrointestinal: Unremarkable Genitourinary: Dysuria, Frequency Musculoskeletal: Unremarkable Integumentary: Unremarkable Neurological: Unremarkable Lymphatics: Unremarkable Physical Examination - Vital Signs Temperature: 98.3 F Blood Pressure: 145/69 Pulse: 53 Respirations: 16 Pulse Ox (%): 95 - Physical Exam General: Alert, In no apparent distress, Oriented x3, Cooperative HEENT: Atraumatic, Normocephalic, PERRLA Neck: Supple, 2+ carotid pulse no bruit Respiratory: Clear to auscultation bilaterally, Normal air movement Cardiovascular: No edema, Normal pulses, Regular rate/rhythm, Normal S1 S2 Capillary refill: <2 Seconds Gastrointestinal: Normal bowel sounds, Soft and benign, Non-distended Musculoskeletal: No clubbing, No swelling Integumentary: No rashes, No breakdown, No significant lesion Neurological: Normal gait, Normal speech, Normal strength at 5/5 x4 extr Lymphatics: No axilla or inguinal lymphadenopathy - Studies Laboratory Data (last 24 hrs) 06/05/23 06/05/23 17:07 17:07 WBC 15.80 H Hgb 11.4 L Hct 39.7 Plt Count 388 Sodium 138 Potassium 3.1 L BUN 10 Creatinine 0.70 Glucose 150 H Total Bilirubin 0.4 AST 8 L ALT < 10 L Alkaline Phosphatase 112 Lipase 24 Assessment And Plan - Plan TIA/CVA: Will r/o CVA. CT head is unremarkkable. Will follow up MRI and Echo. Will allow permissive htn. Will continue aspirin and atorvastatin. Hypertension: Will allowe permissive htn. Suspected proctocolitis: Per CT of the abdomen/pelvis. Will continue empiric Flagyl and merrem. WBC is 15.8. History of recent infection with ESBL organism: UA is concerning for possible UTI with mild leukocyte esterase. Pt has frequent urg to urinate. Will start merrem and follow up urine culture. Hypokalemia: K is 3.1. Will replete and monitor levels. DVT prophylaxis: lovenox CODE STATUS: Full code Disposition: Pending hospital course Discharge Plan: Home Plan to discharge in: 24 Hours - Code Status/Comfort Care Code Status Assessed: Yes
[2023-06-06] MEDS ORDERED: MAGNESIUM SULFATE 1 gm IVPB 1 GM/100 ML BAG IV ONE (11:01)
[2023-06-06] MEDS ORDERED: POTASSIUM 25 MEQ EFFERV TAB PO ONE (11:01)
[2023-06-06] MEDS: Meropenem 500 MG in NA CHLORIDE 0.9% 100 ML IV SCH (20:53)
[2023-06-06] MEDS ORDERED: TEMAZEPAM 15 MG CAP PO SCH (21:00)
[2023-06-06] MEDS ORDERED: QUETIAPINE 25 MG TAB PO SCH (21:00)
[2023-06-06] MEDS ORDERED: ATORVASTATIN 40 MG TAB PO SCH (21:00)
[2023-06-07] MEDS: METRONIDAZOLE 500mg IVPB 500 MG/100 ML BAG IV SCH ×3 (00:48→16:40)
[2023-06-07] MEDS: METOPROLOL TAR 25 MG TAB PO SCH ×2 (05:50→17:27)
--- NOTE | 2023-06-07 07:01 | P.PN ---
Subjective Date of Service: 06/07/23 Chief Complaint: TIA, proctocolitis. Rapid response called, patient had a panic attack prior to going for MRI VS stable, BP 155/71, CXR IMPRESSION: Multifocal patchy right lower lung airspace opacities, concerning for pneumonia - Physical Exam General: Alert, Anxious, mild distress, Oriented x3, HEENT: Atraumatic, Normocephalic, PERRLA Neck: Supple, 2+ carotid pulse no bruit Respiratory: Clear to auscultation bilaterally, Normal air movement Cardiovascular: No edema, Normal pulses, Regular rate/rhythm, Normal S1 S2 Capillary refill: <2 Seconds Gastrointestinal: Normal bowel sounds, Soft and benign, Non-distended Musculoskeletal: No clubbing, No swelling Integumentary: No rashes, No breakdown, No significant lesion Neurological: Normal gait, Normal speech, Normal strength at 5/5 x4 extr Lymphatics: No axilla or inguinal lymphadenopathy Review of Systems PER HPI Physical Examination - Vital Signs Temperature: 97.2 F Blood Pressure: 140/68 Pulse: 69 Respirations: 16 Pulse Ox (%): 96 Assessment And Plan - Plan Assessment Plan NSTEMI Elevated trop 905, trend trop Card consult, EKG ordered Lovenox 1 mg/kg Cardiac echo ordered Pneumonia Chest x-ray shows pneumonia ED Sputum culture ordered CXR IMPRESSION: Multifocal patchy right lower lung airspace opacities, concerning for pneumonia TIA/CVA: Will r/o CVA. CT head is unremarkkable. Will allow permissive htn. Will continue aspirin and atorvastatin. 06/06 MRI ordered 06/07/23 Brain MRI IMPRESSION: 6 centimeter subacute infarction left temporal/parietal lobes. Cortical laminar necrosis is present. In addition there probably is minimal petechial hemorrhage Old left frontal lobe infarction with cortical laminar necrosis Hypertension: Will allow permissive htn. Suspected proctocolitis: Per CT of the abdomen/pelvis. Will continue empiric Flagyl and merrem. WBC is 15.8. acute cystitis History of recent infection with ESBL organism: UA is concerning for possible UTI with mild leukocyte esterase. Pt has frequent urg to urinate. Will start merrem and follow up urine culture. Hypokalemia: K is 3.1. Will replete and monitor levels. DVT prophylaxis: lovenox CODE STATUS: Full code Diet cardiac Discharge Plan: Home - Code Status/Comfort Care Code Status: Full Code Physician Review: Patient Assessed, Agree with Above Assessment and Plan Critical Care: No Time Spent Managing PTS Care (In Minutes): 35
[2023-06-07] MEDS ORDERED: DIAZEPAM 10 MG/2 ML INJ SYRINGE IV ONE (07:10)
[2023-06-07] MEDS: INSULIN REGULAR (HUMAN) 100 UNIT/ML SQ SCH ×4 (07:30→21:00)
[2023-06-07] MEDS: RIVAROXABAN 20 MG TABLET PO SCH (08:33)
[2023-06-07] MEDS: VENLAFAXINE HCL XR 37.5MG CAP PO SCH (08:33)
[2023-06-07] MEDS: BENAZEPRIL 10 MG TAB PO SCH (08:34)
[2023-06-07] MEDS: Meropenem 500 MG in NA CHLORIDE 0.9% 100 ML IV SCH ×2 (08:36→20:29)
[2023-06-07] MEDS: CYCLOBENZAPRINE 10 MG TAB PO SCH ×2 (08:37→20:33)
[2023-06-07] MEDS: RIVASTIGMINE TARTRATE 1.5 MG PO SCH ×2 (08:37→20:27)
[2023-06-07] MEDS: ENOXAPARIN 40 MG/0.4 ML SQ SCH (08:37)
[2023-06-07] MEDS: AMLODIPINE 5 MG TAB PO SCH (08:37)
[2023-06-07] MEDS: DOCUSATE NA 100 MG CAP PO SCH (08:37)
[2023-06-07] MEDS: CLOPIDOGREL 75 MG TABLET PO SCH (08:37)
[2023-06-07] MEDS: oxyBUTYnin chloride 5 MG TAB PO SCH ×2 (08:37→20:28)
[2023-06-07] MEDS: PANTOPRAZOLE 40MG TABLET PO SCH (08:38)
[2023-06-07] MEDS: POLYETHYL GLY 3350 17 GM/DOSE PO SCH (08:38)
[2023-06-07] MEDS: ASPIRIN EC 81 MG TAB PO SCH (08:38)
[2023-06-07] MEDS: DOCUSATE NA/SENNA CONC 1 TAB PO SCH ×2 (08:44→20:26)
[2023-06-07] MEDS ORDERED: LORazepam 2 MG/ML VIAL IV ONE (09:23)
[2023-06-07] MEDS ORDERED: MORPHINE 2 MG/ML SYR IV ONE (09:45)
--- NOTE | 2023-06-07 10:54 | RAD REPORT ---
EXAM DESCRIPTION: RADChest Single View06/07/2023 10:22 am CLINICAL HISTORY: chest pain COMPARISON: Chest Single View dated 04/19/2023; Chest Single View dated 04/08/2023; Abdomen 1 View ( KUB) dated 08/22/2021; Chest Single View dated 08/17/2021 TECHNIQUE: Portable AP view of the chest. FINDINGS: Multifocal patchy right lower lung airspace opacities, without loss of silhouetting of the right cardiac border, could be related to opacification within the right lower lobe. Suspected trace right effusion. No pneumothorax or sizable effusion. The cardiomediastinal contours are unremarkabl e. IMPRESSION: Multifocal patchy right lower lung airspace opacities, concerning for pneumonia.
[2023-06-07] MEDS: DIVALPROEX DR 250 MG TAB PO SCH ×2 (11:20→20:58)
[2023-06-07] MEDS: NA CHLORIDE 0.9% 1,000 ML IV SCH ×2 (11:25→18:28)
--- NOTE | 2023-06-07 12:48 | RAD REPORT ---
EXAM DESCRIPTION: MRI - Brain Wo Cont - 06/07/2023 12:30 pm CLINICAL HISTORY: cva COMPARISON: Head CT June 05, 2023 TECHNIQUE: Axial, sagittal, and coronal magnetic resonance images of the brain were obtained. FINDINGS: 6 centimeter subacute infarct involves the posterior left temporal lobe extending into the left parietal lobe. It demonstrates curvilinear mostly peripheral increased signal on T1 weighted se quences. Smaller old infarction involves the left frontal lobe. It also contains curvilinear peripheral increa sed signal on T1 weighted sequences. These are compatible with laminar cortical necrosis. There is no significant mass effect. Mild to moderate signal within periventricular, deep and subcortical white matter consistent with isc hemic changes secondary to small vessel disease. Diffusion-weighted/ADC mapping does not reveal evidence of acute infarction. The ventricles are normal caliber. An extra-axial fluid collection is not noted. Chronic right maxillary sinusitis IMPRESSION: 6 centimeter subacute infarction left temporal/parietal lobes. Cortical laminar necrosis is present. In addition there probably is minimal petechial hemorrhage Old left frontal lobe infarction with cortical laminar necrosis
[2023-06-07 15:27] LABS: Absolute Lymphocytes (CBC) 0.7 K/uL (0.7-4.9); Hematocrit 38.3 % (36.0-45.0); Lymphocytes % 4.2 % (15.3-44.8); MCV 66.5 fL (80-100); MPV 8.6 fL (7.6-11.3); Platelets 477 thou/uL (152-406); RBC Red Blood Cell Count 5.77 M/uL (3.86-4.86)
[2023-06-07 15:45] LABS: Magnesium 1.6 mg/dL (1.6-2.4)
[2023-06-07] MEDS ORDERED: POTASSIUM 25 MEQ EFFERV TAB PO ONE (16:18)
[2023-06-07] MEDS ORDERED: MAGNESIUM SULFATE 1 gm IVPB 1 GM/100 ML BAG IV ONE (16:19)
[2023-06-07] MEDS ORDERED: ACETAMINOPHEN 325 MG TABLET PO PRN (17:04)
[2023-06-07] MEDS ORDERED: ONDANSETRON 4 MG/2 ML VIAL IV PRN (17:10)
[2023-06-07] MEDS ORDERED: TRAMADOL HCL 50 MG TAB PO PRN (17:24)
[2023-06-07] MEDS ORDERED: NA CHLORIDE 0.9% 1,000 ML IV SCH (18:00)
[2023-06-07 19:47] LABS: Anisocytosis 1+; Blood Morphology Comment NOTED (NOT SEEN); Platelet Estimate INCR; Poikilocytosis 1+; White Blood Cell Scan OK (OK)
[2023-06-07] MEDS: ENOXAPARIN 60 MG/0.6 ML SQ SCH (20:25)
[2023-06-07] MEDS: QUETIAPINE 25 MG TAB PO SCH (20:26)
[2023-06-07] MEDS: TEMAZEPAM 15 MG CAP PO SCH (20:27)
[2023-06-07] MEDS: MORPHINE 2 MG/ML SYR IV PRN (20:57)
[2023-06-07] MEDS: ATORVASTATIN 40 MG TAB PO SCH (20:58)
[2023-06-07] MEDS ORDERED: QUETIAPINE 25 MG TAB PO SCH (21:00)
[2023-06-08] MEDS: NA CHLORIDE 0.9% 1,000 ML IV SCH ×4 (01:15→23:04)
[2023-06-08] MEDS: METRONIDAZOLE 500mg IVPB 500 MG/100 ML BAG IV SCH ×3 (01:16→16:27)
[2023-06-08] MEDS: METOPROLOL TAR 25 MG TAB PO SCH ×2 (06:00→18:07)
[2023-06-08] MEDS ORDERED: POTASSIUM CL SA 10 MEQ TAB PO ONE ×3 (06:00→21:00)
[2023-06-08] MEDS: INSULIN REGULAR (HUMAN) 100 UNIT/ML SQ SCH ×4 (07:30→20:45)
[2023-06-08 07:42] LABS: Magnesium 2.1 mg/dL (1.6-2.4); Potassium 3.4 mEq/L (3.5-5.1)
[2023-06-08 08:05] LABS: Hematocrit 33.9 % (36.0-45.0); Lymphocytes % 7.4 % (15.3-44.8); MCV 66.7 fL (80-100); MPV 8.7 fL (7.6-11.3); Platelets 437 thou/uL (152-406); RBC Red Blood Cell Count 5.08 M/uL (3.86-4.86)
--- NOTE | 2023-06-08 08:05 | P.CNS ---
Date of Consult: 06/07/23 Reason for Consult: Anticoagulation with MRI findings Requesting Physician: Thom Ch Chief Complaint: TIA, proctocolitis. History of Present Illness: Ms. Norton is a 78yo with a history of HTN, a. 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 She was admitted with pneumonia, possible UTI (recent ESBL infection), and proctocolitis. She is receiving IV antibiotics, lovenox 60mg sq BID, plavix 75mg po daily, and aspirin 81mg po daily. She had a MRI on 06/07/23 that showed some Cortical laminar necrosis with "there probably is minimal petechial hemorrhage". Troponins were requested and were elevated but trending down. Pt had an ECHO 04/08/23 that showed normal valves and EF of 60-65%. I think this consult is requested to discuss anticoagulation needs. Allergies lorazepam [From Ativan] Adverse Reaction (Verified 06/05/23 22:59) Anaphylaxis Home medications list reviewed: Yes Home Medications: Cyclobenzaprine HCl 10 mg PO BID 08/18/21 Acetaminophen with Codeine [Acetaminophen-Cod #3 Tablet] 1 tab PO TID PRN 04/08/23 Amlodipine Besylate/Benazepril [Lotrel 5-10 mg Capsule] 5 mg PO DAILY 04/08/23 Tramadol HCl [Ultram] 50 mg PO TID PRN 04/08/23 Venlafaxine HCl [Venlafaxine HCl ER] 37.5 mg PO DAILY 04/08/23 Atorvastatin Calcium 40 mg PO BEDTIME 06/05/23 Clopidogrel Bisulfate [Plavix] 75 mg PO DAILY 06/05/23 Divalproex Sodium 250 mg PO BID 06/05/23 Docusate Sodium 100 mg PO DAILY 06/05/23 Metoprolol Tartrate [Lopressor*] 25 mg PO BID 6AM 6PM 06/05/23 Pantoprazole [Protonix Tab*] 40 mg PO DAILY 06/05/23 Polyethylene Glycol 3350 [Miralax] 17 gm PO DAILY 06/05/23 Quetiapine [Seroquel*] 25 mg PO BEDTIME 06/05/23 Rivaroxaban [Xarelto] 20 mg PO DAILY 06/05/23 Rivastigmine Tartrate [Rivastigmine] 1.5 mg PO BID 06/05/23 Sennosides [Senna] 8.6 mg PO BID 06/05/23 Temazepam 15 mg PO BEDTIME 06/05/23 oxyBUTYnin chloride [Oxybutynin Chloride] 5 mg PO BID 06/05/23 - Past Medical/Surgical History Diabetic: No -: Prior CVAsresidual mild left weakness, mild balance issues, word salad -: COPD -: A. fib not on anticoagulation -: HTN -: Anxiety and claustrophobia -: Chronic pain, from prior surgery -: Chronic constipation -: History of Mickleton syndrome -: Bleeding ulcers -: Colon resection -: Spine cyst removal Psychosocial/ Personal History: Patient lives in the home with the daughter - Family History Mother Medical History: Lung disease, Other (see notes) Father Medical History: Lung disease, Other (see notes) - Social History Smoking Status: Unknown if ever smoked Alcohol use: No CD- Drugs: No Caffeine use: Yes Place of Residence: Home Review of Systems 10-point ROS is otherwise unremarkable General: Weakness Neurological: As per HPI Physical Examination Temp Pulse Resp BP Pulse Ox 98.8 F 70 18 100/47 L 96 06/08/23 04:00 06/08/23 06:00 06/08/23 04:00 06/08/23 06:00 06/08/23 04:00 General: In no apparent distress, Other (sleeping but awakens easily) HEENT: Atraumatic, Normocephalic, PERRLA Neck: Supple, JVD not distended Respiratory: Crackles/rales Cardiovascular: No edema Capillary refill: <2 Seconds Gastrointestinal: Normal bowel sounds, Soft and benign Musculoskeletal: No clubbing Integumentary: No rashes Neurological: Normal affect Lymphatics: No axilla or inguinal lymphadenopathy External genitalia: Deferred Rectal: Deferred - Problems (1) Pneumonia Onset Date: ~06/04/23 Current Visit: Yes Status: Acute Plan: Multifocal patchy right lower lung airspace opacities, concerning for pneumonia. Antibiotics per Medicine (2) Hypertension Current Visit: Yes Status: Acute Plan: Allow permissive hypertension. Hold Benazopril. Continue amlodipine for SBP >140 (3) Anticoagulant adverse reaction Current Visit: Yes Status: Acute Plan: Currently on ASA and Plavix and Lovenox. MRI of brain 06/07/23 shows 6cm subacute infarction left temporal/parietal lobes. Cortical laminar necrosis present. "In addition there probably is minimal petechial hemorrhage", pt also has hx of bleeding ulcers. H/H 9.7/33.7. Upon speaking with Pt's hospitalizing Physician, Ms. Norton has an outpatient ECHO with Dr. Allan after the ECHO 04/08/23 at this facility that showed a thrombus in the LV. Pt had been on Xarelto but it was held and Lovenox given in case this resulted in need for intervention. Hx of a. fib but vs show 70 heartrate, no telemetry ordered. Will place on telemetry. 06/08/23 ECHO negative. May restart Xarelto at Hospitalist discretion. Encourage outpatient stress test and f/u. Cardiology will sign off.
[2023-06-08] MEDS: Meropenem 1,000 MG in NA CHLORIDE 0.9% 100 ML IV SCH ×2 (08:55→20:42)
--- NOTE | 2023-06-08 08:55 | P.PN ---
Subjective Date of Service: 06/08/23 Chief Complaint: TIA, proctocolitis. daughter at bedside, reported pt slept well overnight, reported urinary retention, bladder scans added post voids - Physical Exam General: Alert, aphasia, Oriented x3, HEENT: Atraumatic, Normocephalic, PERRLA Neck: Supple, 2+ carotid pulse no bruit Respiratory: Clear to auscultation bilaterally, Normal air movement Cardiovascular: No edema, Normal pulses, Regular rate/rhythm, Normal S1 S2 Capillary refill: <2 Seconds Gastrointestinal: Normal bowel sounds, Soft and benign, Non-distended Musculoskeletal: No clubbing, No swelling Integumentary: No rashes, No breakdown, No significant lesion Neurological: Normal gait, Normal speech, Normal strength at 5/5 x4 extr Lymphatics: No axilla or inguinal lymphadenopathy Review of Systems per [facility] Physical Examination - Vital Signs Temperature: 98.7 F Blood Pressure: 143/71 Pulse: 81 Respirations: 17 Pulse Ox (%): 91 Assessment And Plan - Plan Assessment Plan NSTEMI acute Elevated trop 905- 607 Card consult, tele EKG ordered Lovenox 1 mg/kg Cardiac echo ordered ASA, Plavix, Lovenox (hx bleeding ulcers) ECHO 04/08/23 that showed normal valves and EF of 60-65%. Acute Urinary retention Bladder scans, straight cath >250 cc HX gastirc ulcers on coagulation d/t NSTEMI, elevated troponin add PPI Pneumonia Chest x-ray shows pneumonia ED Sputum culture ordered CXR IMPRESSION: Multifocal patchy right lower lung airspace opacities, concerning for pneumonia WBC 14.0--12.50 TIA/CVA: Will r/o CVA. CT head is unremarkkable. Will allow permissive htn. Will continue aspirin and atorvastatin. 06/06 MRI ordered 06/07/23 Brain MRI IMPRESSION: 6 centimeter subacute infarction left temporal/parietal lobes. Cortical laminar necrosis is present. 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 Suspected proctocolitis: Per CT of the abdomen/pelvis. Will continue empiric Flagyl and merrem. WBC is 15.8. acute cystitis History of recent infection with ESBL organism: UA is concerning for possible UTI with mild leukocyte esterase. Pt has frequent urg to urinate. Will start merrem and follow up urine culture. Hypokalemia: K is 3.1. Will replete and monitor levels. DVT prophylaxis: lovenox CODE STATUS: Full code Diet cardiac Discharge Plan: Home (HHC) - Code Status/Comfort Care Code Status: Full Code Physician Review: Patient Assessed, Agree with Above Assessment and Plan Critical Care: No Time Spent Managing PTS Care (In Minutes): 35
[2023-06-08] MEDS: CLOPIDOGREL 75 MG TABLET PO SCH (08:56)
[2023-06-08] MEDS: ENOXAPARIN 60 MG/0.6 ML SQ SCH ×2 (08:56→20:42)
[2023-06-08] MEDS: AMLODIPINE 5 MG TAB PO SCH (08:56)
[2023-06-08] MEDS: RIVASTIGMINE TARTRATE 1.5 MG PO SCH ×2 (08:57→20:43)
[2023-06-08] MEDS: DOCUSATE NA/SENNA CONC 1 TAB PO SCH ×2 (08:57→20:45)
[2023-06-08] MEDS: PANTOPRAZOLE 40MG TABLET PO SCH (08:58)
[2023-06-08] MEDS: oxyBUTYnin chloride 5 MG TAB PO SCH ×2 (08:58→20:45)
[2023-06-08] MEDS: ASPIRIN EC 81 MG TAB PO SCH (08:58)
[2023-06-08] MEDS: DOCUSATE NA 100 MG CAP PO SCH (08:58)
[2023-06-08] MEDS: BENAZEPRIL 10 MG TAB PO SCH (08:58)
[2023-06-08] MEDS: POLYETHYL GLY 3350 17 GM/DOSE PO SCH (08:59)
[2023-06-08] MEDS: VENLAFAXINE HCL XR 37.5MG CAP PO SCH (08:59)
[2023-06-08] MEDS: DIVALPROEX DR 250 MG TAB PO SCH ×2 (09:10→20:44)
[2023-06-08] MEDS: CYCLOBENZAPRINE 10 MG TAB PO SCH ×2 (09:18→20:44)
[2023-06-08] MEDS ORDERED: POTASSIUM 25 MEQ EFFERV TAB PO ONE (09:30)
--- NOTE | 2023-06-08 13:45 | EKG ---
Test Date: 2023-06-07 Test Time: 09:45:32 Donor Services Technician: HAYDEE MEASUREMENT RESULTS: Intervals: Rate: 74 ID: [id number] QRSD: 102 QT: 412 QTc: 457 [place]: P: 63 ID: [id number] QRS: -11 T: 30 INTERPRETIVE STATEMENTS: Sinus rhythm with short ID Inferior infarct, age undetermined Anteroseptal infarct, age undetermined Abnormal ECG Compared to ECG 04/19/2023 15:45:13 Short ID interval now present Myocardial infarct finding still present Electronically Signed On 06-08-23 13:40:47 MAGAZINE HAND by Paul Milligan
[2023-06-08] MEDS: MORPHINE 2 MG/ML SYR IV PRN ×2 (14:29→20:48)
--- NOTE | 2023-06-08 14:38 | ECHO ---
HEIGHT: 5 ft 5 in WEIGHT: 132 lb 2 oz DATE OF STUDY: 06/08/[address]: Thom Ch MD 2-DIMENSIONAL: YES M.MODE: YES DOPPLER: YES COLOR FLOW: YES TDS: PORTABLE: DEFINITY: BUBBLE STUDY: DIAGNOSIS: CHEST PAIN, RULE OUT ACUTE CORONARY SYNDROME CARDIAC HISTORY: CATHERIZATION: YES SURGERY: PROSTHETIC VALVE: PACEMAKER: MEASUREMENTS (cm) DIASTOLIC (NORMALS) SYSTOLIC (NORMALS) IVSd 1.0 (0.6-1.2) LA Diam 3.2 (1.9-4.0) LVEF 55% LVIDd 4.8 (3.5-5.7) LVIDs 3.4 (2.0-3.5) %FS 28% LVPWd 1.0 (0.6-1.2) Ao Diam 2.6 (2.0-3.7) 2 DIMENSIONAL ASSESSMENT: RIGHT ATRIUM: NORMAL LEFT ATRIUM: NORMAL RIGHT VENTRICLE: NORMAL LEFT VENTRICLE: NORMAL TRICUSPID VALVE: MILD TRICUSPID REGURGITATION MITRAL VALVE: MILD MITRAL REGURGITATION PULMONIC VALVE: MILD PULMONIC INSUFFICIENCY AORTIC VALVE: NORMAL PERICARDIAL EFFUSION: NONE AORTIC ROOT: NORMAL LEFT VENTRICULAR WALL MOTION: NORMAL DOPPLER/COLOR FLOW: SEE BELOW COMMENTS: 1. NORMAL LEFT VENTRICULAR EJECTION FRACTION 55-60% 2. NORMAL WALL MOTION 3. MILD MITRAL REGURGITATION 4. MILD TRICUSPID REGURGITATION TECHNOLOGIST: EDWARD GIRARD
[2023-06-08] MEDS: ATORVASTATIN 40 MG TAB PO SCH (20:43)
[2023-06-08] MEDS: TEMAZEPAM 15 MG CAP PO SCH (20:44)
[2023-06-08] MEDS: QUETIAPINE 25 MG TAB PO SCH (20:45)
[2023-06-09] MEDS: METOPROLOL TAR 25 MG TAB PO SCH (05:14)
[2023-06-09] MEDS: NA CHLORIDE 0.9% 1,000 ML IV SCH ×2 (05:14→13:22)
[2023-06-09 07:24] LABS: Absolute Lymphocytes (CBC) 1.9 K/uL (0.7-4.9); Hematocrit 34.8 % (36.0-45.0); Lymphocytes % 13.3 % (15.3-44.8); MCV 67.5 fL (80-100); MPV 8.2 fL (7.6-11.3); Platelets 477 thou/uL (152-406); RBC Red Blood Cell Count 5.16 M/uL (3.86-4.86)
[2023-06-09] MEDS: INSULIN REGULAR (HUMAN) 100 UNIT/ML SQ SCH ×3 (07:30→16:30)
[2023-06-09 07:38] LABS: Magnesium 2.3 mg/dL (1.6-2.4); Potassium 4.2 mEq/L (3.5-5.1)
--- NOTE | 2023-06-09 08:38 | P.PN ---
Subjective Date of Service: 06/09/23 Chief Complaint: TIA, proctocolitis. daughter at bedside, reported pt slept well overnight, reported urinary retention, bladder scans added post voids - Physical Exam General: Alert, aphasia, Oriented x3, HEENT: Atraumatic, Normocephalic, PERRLA Neck: Supple, 2+ carotid pulse no bruit Respiratory: Clear to auscultation bilaterally, Normal air movement Cardiovascular: No edema, Normal pulses, Regular rate/rhythm, Normal S1 S2 Capillary refill: <2 Seconds Gastrointestinal: Normal bowel sounds, Soft and benign, Non-distended Musculoskeletal: No clubbing, No swelling Integumentary: No rashes, No breakdown, No significant lesion Neurological: Normal gait, Normal speech, Normal strength at 5/5 x4 extr Lymphatics: No axilla or inguinal lymphadenopathy Physical Examination - Vital Signs Temperature: 97.7 F Blood Pressure: 133/72 Pulse: 61 Respirations: 17 Pulse Ox (%): 94 Assessment And Plan - Plan Assessment Plan NSTEMI acute Elevated trop 905- 607 Card consult, tele EKG ordered Lovenox 1 mg/kg Cardiac echo ordered ASA, Plavix, Lovenox (hx bleeding ulcers) ECHO 04/08/23 that showed normal valves and EF of 60-65%. Acute Urinary retention Bladder scans, straight cath >250 cc anxiety hydroxyzine 50 po po tid prn added constipation prn stool softeners added HX gastirc ulcers on coagulation d/t NSTEMI, elevated troponin add PPI Pneumonia Chest x-ray shows pneumonia ED Sputum culture ordered CXR IMPRESSION: Multifocal patchy right lower lung airspace opacities, concerning for pneumonia WBC 14.0--12.50 TIA/CVA: Will r/o CVA. CT head is unremarkkable. Will allow permissive htn. Will continue aspirin and atorvastatin. 06/06 MRI ordered 06/07/23 Brain MRI IMPRESSION: 6 centimeter subacute infarction left temporal/parietal lobes. Cortical laminar necrosis is present. 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 Suspected proctocolitis: Per CT of the abdomen/pelvis. Will continue empiric Flagyl and merrem. WBC is 15.8. acute cystitis History of recent infection with ESBL organism: UA is concerning for possible UTI with mild leukocyte esterase. Pt has frequent urg to urinate. Will start merrem and follow up urine culture. Hypokalemia: K is 3.1. Will replete and monitor levels. DVT prophylaxis: lovenox CODE STATUS: Full code Diet cardiac Physician Review: Patient Assessed, Agree with Above Assessment and Plan Critical Care: No Time Spent Managing PTS Care (In Minutes): 35
[2023-06-09] MEDS: ENOXAPARIN 60 MG/0.6 ML SQ SCH (08:41)
[2023-06-09] MEDS: VENLAFAXINE HCL XR 37.5MG CAP PO SCH (08:41)
[2023-06-09] MEDS: DIVALPROEX DR 250 MG TAB PO SCH (08:41)
[2023-06-09] MEDS: BENAZEPRIL 10 MG TAB PO SCH (08:41)
[2023-06-09] MEDS: DOCUSATE NA 100 MG CAP PO SCH (08:42)
[2023-06-09] MEDS: CYCLOBENZAPRINE 10 MG TAB PO SCH (08:42)
[2023-06-09] MEDS: POLYETHYL GLY 3350 17 GM/DOSE PO SCH (08:42)
[2023-06-09] MEDS: Meropenem 1,000 MG in NA CHLORIDE 0.9% 100 ML IV SCH (08:42)
[2023-06-09] MEDS: PANTOPRAZOLE 40MG TABLET PO SCH (08:43)
[2023-06-09] MEDS: RIVASTIGMINE TARTRATE 1.5 MG PO SCH (08:43)
[2023-06-09] MEDS: AMLODIPINE 5 MG TAB PO SCH (08:43)
[2023-06-09] MEDS: oxyBUTYnin chloride 5 MG TAB PO SCH (08:43)
[2023-06-09] MEDS: CLOPIDOGREL 75 MG TABLET PO SCH (08:43)
[2023-06-09] MEDS: ASPIRIN EC 81 MG TAB PO SCH (08:43)
[2023-06-09] MEDS: METRONIDAZOLE 500mg IVPB 500 MG/100 ML BAG IV SCH ×3 (08:44→16:37)
[2023-06-09] MEDS: DOCUSATE NA/SENNA CONC 1 TAB PO SCH (08:48)
--- NOTE | 2023-06-09 10:10 | RAD REPORT ---
EXAM DESCRIPTION: Annt Single View06/09/2023 9:53 am CLINICAL HISTORY: Chest pain COMPARISON: June 07, 2023 FINDINGS: No significant change in the moderate right basilar and mild left pulmonary opacities whic h may represent pneumonia. Heart remains enlarged
[2023-06-09] MEDS ORDERED: hydrOXYzine HCL 25 MG TAB PO PRN (13:06)
[2023-06-09] MEDS ORDERED: DOCUSATE NA 100 MG CAP PO PRN (13:07)
[2023-06-09 14:37] VITALS: O2SAT 99
--- NOTE | 2023-06-09 15:51 | P.DS ---
Admission Date: 06/05/23 Discharge Date: 06/09/23 Disposition: ROUTINE DISCHARGE Discharge Condition: FAIR Reason for Admission: TIA, proctocolitis. Brief History of Present Illness: 78-year-old female patient with medical history significant for CVA, hypertension, hyperlipidemia, history of prior CVA with some residual neurologic deficit who was evaluated for episode of headache, burning on micturition, weakness. This has been going on for a couple of days. She was recently admitted for ESBL UTI infection and completed antibiotics for this. She was seen in the emergency department with a CT of the head that showed no acute issues but there was a subacute lesion with some evolving encephalomalacia. She also had CT of the abdomen/pelvis done that revealed some mild fat stranding depicting some possible proctocolitis. The UA was concerning for leukocyte esterase which is mild. She was admitted for inpatient care. General: Alert, aphasia, Oriented x3, HEENT: Atraumatic, Normocephalic, PERRLA Neck: Supple, 2+ carotid pulse no bruit Respiratory: Clear to auscultation bilaterally, Normal air movement Cardiovascular: No edema, Normal pulses, Regular rate/rhythm, Normal S1 S2 Capillary refill: <2 Seconds Gastrointestinal: Normal bowel sounds, Soft and benign, Non-distended Musculoskeletal: No clubbing, No swelling Integumentary: No rashes, No breakdown, No significant lesion Neurological: Normal gait, Normal speech, Normal strength at 5/5 x4 extr Lymphatics: No axilla or inguinal lymphadenopathy Hospital Course: Assessment Plan NSTEMI acute Elevated trop 905- 607 Card consult, tele EKG ordered Lovenox 1 mg/kg Cardiac echo ordered ASA, Plavix, Lovenox (hx bleeding ulcers) ECHO 04/08/23 that showed normal valves and EF of 60-65%. follow up with cardiology after Discharge Acute Urinary retention Bladder scans, straight cath >250 cc anxiety hydroxyzine 50 po po tid prn added constipation prn stool softeners added HX gastirc ulcers on coagulation d/t NSTEMI, elevated troponin add PPI Pneumonia Chest x-ray shows pneumonia ED Sputum culture ordered CXR IMPRESSION: Multifocal patchy right lower lung airspace opacities, concerning for pneumonia WBC 14.0--12.50 TIA/CVA: Will r/o CVA. CT head is unremarkkable. Will allow permissive htn. Will continue aspirin and atorvastatin. 12/10 MRI ordered 06/07/23 Brain MRI IMPRESSION: 6 centimeter subacute infarction left temporal/parietal lobes. Cortical laminar necrosis is present. 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 Suspected proctocolitis: Per CT of the abdomen/pelvis. Will continue empiric Flagyl and merrem. WBC is 15.8. acute cystitis History of recent infection with ESBL organism: UA is concerning for possible UTI with mild leukocyte esterase. Pt has frequent urg to urinate. Will start merrem and follow up urine culture. Hypokalemia: K is 3.1. Will replete and monitor levels. Vital Signs/Physical Exam: Temp Pulse Resp BP Pulse Ox 97.7 F 61 17 133/72 94 06/09/23 13:12 06/09/23 13:12 06/09/23 13:12 06/09/23 13:12 06/09/23 13:12 Laboratory Data at Discharge: WBC 14.10 thou/uL (4.3-10.9) H 06/09/23 07:00 Hgb 9.8 g/dL (12.0-15.0) L 06/09/23 07:00 Hct 34.8 % (36.0-45.0) L 06/09/23 07:00 Plt Count 477 thou/uL (152-406) H 06/09/23 07:00 Sodium 143 mEq/L (136-145) 06/09/23 07:00 Potassium 4.2 mEq/L (3.5-5.1) 06/09/23 07:00 BUN 10 mg/dL (7-18) 06/09/23 07:00 Creatinine 0.61 mg/dL (0.55-1.02) 06/09/23 07:00 Glucose 102 mg/dL (74-106) 06/09/23 07:00 Magnesium 2.3 mg/dL (1.6-2.4) 06/09/23 07:00 Total Bilirubin 0.5 mg/dL (0.2-1.0) 06/06/23 07:01 AST 7 U/L (15-37) L 06/06/23 07:01 ALT < 10 U/L (13-56) L 06/06/23 07:01 Alkaline Phosphatase 100 U/L (45-117) 06/06/23 07:01 Triglycerides 100 mg/dL (<150) 06/06/23 07:01 Cholesterol 88 mg/dL (<200) 06/06/23 07:01 HDL Cholesterol 41 mg/dL (40-60) 06/06/23 07:01 Cholesterol/HDL Ratio 2.15 06/06/23 07:01 Lipase 24 U/L (13-75) 06/05/23 17:07 Home Medications: Cyclobenzaprine HCl 10 mg PO BID 08/18/21 Acetaminophen with Codeine [Acetaminophen-Cod #3 Tablet] 1 tab PO TID PRN 04/08/23 Amlodipine Besylate/Benazepril [Lotrel 5-10 mg Capsule] 5 mg PO DAILY 04/08/23 Tramadol HCl [Ultram] 50 mg PO TID PRN 04/08/23 Venlafaxine HCl [Venlafaxine HCl ER] 37.5 mg PO DAILY 04/08/23 Atorvastatin Calcium 40 mg PO BEDTIME 06/05/23 Clopidogrel Bisulfate [Plavix] 75 mg PO DAILY 06/05/23 Divalproex Sodium 250 mg PO BID 06/05/23 Docusate Sodium 100 mg PO DAILY 06/05/23 Metoprolol Tartrate [Lopressor*] 25 mg PO BID 6AM 6PM 06/05/23 Pantoprazole [Protonix Tab*] 40 mg PO DAILY 06/05/23 Polyethylene Glycol 3350 [Miralax] 17 gm PO DAILY 06/05/23 Quetiapine [Seroquel*] 25 mg PO BEDTIME 06/05/23 Rivaroxaban [Xarelto] 20 mg PO DAILY 06/05/23 Rivastigmine Tartrate [Rivastigmine] 1.5 mg PO BID 06/05/23 Sennosides [Senna] 8.6 mg PO BID 06/05/23 Temazepam 15 mg PO BEDTIME 06/05/23 oxyBUTYnin chloride [Oxybutynin Chloride] 5 mg PO BID 06/05/23 Followup: OOT,OOT [Primary Care Provider] -
[2023-06-09 16:36] VITALS: BP 159/76; TEMP 97.9
== END 2023-06-09 18:23 | disposition home health service (06) | DRG 280 ==
LOC: ER 16:29 → 4TH 20:22
PROVIDERS: ADMIT Internal Medicine Nephrology; ATTEND Hospitalist
DX: I21.4 Non-ST elevation (NSTEMI) myocardial infarction (principal); J18.9 Pneumonia, unspecified organism; J44.0 Chronic obstructive pulmonary disease with (acute) lower respiratory infection; N30.00 Acute cystitis without hematuria; K51.30 Ulcerative (chronic) rectosigmoiditis without complications; R47.01 Aphasia; I48.91 Unspecified atrial fibrillation; I10 Essential (primary) hypertension; E87.6 Hypokalemia; F41.9 Anxiety disorder, unspecified; G93.89 Other specified disorders of brain; K59.00 Constipation, unspecified; E78.5 Hyperlipidemia, unspecified; R33.9 Retention of urine, unspecified; Z88.8 Allergy status to other drugs, medicaments and biological substances; Z79.02 Long term (current) use of antithrombotics/antiplatelets; Z79.01 Long term (current) use of anticoagulants; Z86.73 Personal history of transient ischemic attack (TIA), and cerebral infarction without residual deficits; Z90.49 Acquired absence of other specified parts of digestive tract; Z79.899 Other long term (current) drug therapy
CPT/HCPCS: 36415; 51702; 70450; 70551; 71045; 74177; 80048; 80053; 80061; 81001; 82947; 83036; 83690; 83735; 84132; 84484; 85025; 85379; 87086; 87088; 92610; 93005; 93306; 96374; 97116; 97161; 99285; J1650; J2185; J2270; J2405; J2543; J3360; J3475; J7030; Q9967

== ENCOUNTER → 2023-09-09 | Emergency (ER) | payer OTHER ==
[~2023-09-09] MED LIST: LIDOCAINE 1% 20 ML MDV ONE
--- NOTE | 2023-09-09 21:43 | RAD REPORT ---
EXAM DESCRIPTION: RAD - Foot Right 3 View - 09/09/2023 9:18 pm CLINICAL HISTORY: Right foot injury Foot injury and pain COMPARISON: <Comparisons> FINDINGS: Moderate hallux valgus is noted. No fracture or dislocation is seen. Small calcaneal spurs .
--- NOTE | 2023-09-09 22:02 | ER ---
Nurse's Notes [facility] Name: Cleo Norton Age: 78 yrs Sex: Female : 1945 Arrival Date: 09/09/2023 Time: 20:03 Bed 11 Private MD: Diagnosis: Laceration without foreign body, right foot Presentation: 09/08 20:19 Chief complaint: Patient's son or daughter states: pt dropped something on the top of as6 her right foot and pt has a small laceration to top of foot. Coronavirus screen: At this time, the client does not indicate any symptoms associated with coronavirus-19. Ebola Screen: No symptoms or risks identified at this time. Initial Sepsis Screen: Does the patient meet any 2 criteria? No. Patient's initial sepsis screen is negative. Does the patient have a suspected source of infection? No. Patient's initial sepsis screen is negative. Risk Assessment: Do you want to hurt yourself or someone else? Patient reports no desire to harm self or others. Onset of symptoms was September 09, 2023. 20:19 Acuity: RAQUEL 4 as6 20:19 Method Of Arrival: Wheelchair as6 Triage Assessment: 20:30 Musculoskeletal: No deficits noted. pf1 20:31 General: Appears in no apparent distress. Behavior is calm, cooperative. Pain: Denies as6 pain. Injury Description: Laceration sustained to dorsum of right foot is clean, 0.5 to 2.5 cm long. Historical: - Allergies: 20:21 Ativan; as6 - PMHx: 20:21 Atrial Fib; Cerebrovascular accident; coronary atherosclerosis; gastric ulcer; as6 Hypertensive disorder; - PSHx: 20:21 colon resection; spine-cyst removal; as6 - Immunization history:: Adult Immunizations up to date, Last tetanus immunization: up to date. - Social history:: Smoking status: Patient denies any tobacco usage or history of. - Family history:: not pertinent. Screenin:30 [facility] ED Fall Risk Assessment (Adult) History of falling in the last 3 months, pf1 including since admission No falls in past 3 months (0 pts) Confusion or Disorientation No (0 pts) Intoxicated or Sedated No (0 pts) Impaired Gait No (0 pts) Mobility Assist Device Used No (0 pt) Altered Elimination No (0 pt) Score/Fall Risk Level 0 - 2 = Low Risk Oriented to surroundings, Maintained a safe environment, Educated pt \T\ family on fall prevention, incl call for assistance when getting out of bed. 20:30 [facility] ED Fall Risk Assessment (Adult) Score/Fall Risk Level 0 - 2 = Low Risk pf1 Assessed \T\ reinforced patient's understanding of fall precautions, Provided non-skid footwear, Hourly rounding (assess needs \T\ fall precautionary measures) done, Used ambulatory aids as needed (educated on \T\ assisted with), Used gait belt as appropriate. 20:49 Abuse screen: Denies threats or abuse. Nutritional screening: No deficits noted. jj7 Tuberculosis screening: No symptoms or risk factors identified. Assessment: 20:49 General: Appears in no apparent distress. comfortable, Behavior is calm, cooperative, jj7 appropriate for age. Derm: Wound noted dorsum of right foot Wound is SMALL LAC. Vital Signs: 20:19 BP 141 / 81; Pulse 76; Resp 18 S; Temp 98.4(TE); Pulse Ox 96% on R/A; Weight 60.78 kg as6 (R); Height 5 ft. 4 in. (R); Pain 0/10; 21:30 BP 140 / 79; Pulse 72; Resp 16; Pulse Ox 100% on R/A; pf1 22:30 BP 147 / 85; Pulse 77; Resp 16; Temp 97.6; Pulse Ox 98% on R/A; Pain 0/10; pf1 20:19 Body Mass Index 23.00 (60.78 kg, 162.56 cm) as6 20:19 Pain Scale: Adult as6 22:30 Pain Scale: Adult pf1 ED Course: 20:06 Patient arrived in ED. jj6 20:12 Aniceto Mary MD is Attending Physician. sp4 20:19 Arm band placed on right wrist. as6 20:21 Triage completed. as6 20:46 Bethany Wiseman RN is Primary Nurse. jj7 20:49 Patient has correct armband on for positive identification. Bed in low position. Call jj7 light in reach. Side rails up X2. Adult w/ patient. Provided Education on: USE OF CALL DONOHUE. 21:20 Foot Right 3 View XRAY In Process Unspecified. EDMS 22:00 Wound care: to laceration located on right foot and dorsum of right foot was cleaned pf1 with Betadine, dressed with 4X4s, with mack wrap, Patient tolerated well. 22:30 Patient did not have IV access during this emergency room visit. pf1 22:30 No provider procedures requiring assistance completed. pf1 22:30 Mack wrap to dorsum of right foot and right foot. pf1 Administered Medications: 22:10 Drug: Lidocaine Infiltration (1 %) 20 ml 20 ml Infiltration once; to bedside {Note: pf1 administered per Dr. Mary.} Volume: 20 ml; Route: Infiltration; 22:30 Follow up: Response: No adverse reaction; Marked relief of symptoms; Pain is decreased pf1 Medication: 20:49 VIS not applicable for this client. jj7 Outcome: 22:01 Discharge ordered by . sp4 22:30 Discharged to home via wheelchair, pf1 22:30 Condition: improved pf1 22:30 Discharge instructions given to patient, family, Instructed on discharge instructions, follow up and referral plans. Demonstrated understanding of instructions, follow-up care, 22:30 Patient left the ED. pf1 Signatures: Dispatcher [employer] EDMS Kala Carter jj6 Mal Cifuentes RN RN as6 Bethany Wiseman RN RN jj7 Viviane Almeida RN RN pf1 Aniceto Mary MD MD sp4 Corrections: (The following items were deleted from the chart) 09/09 06:46 0314 22:59 Patient left the ED. pf1 pf1
--- NOTE | 2023-09-09 22:02 | EDPHYS ---
Physician Documentation [facility] Name: Cleo Norton Age: 78 yrs Sex: Female : 1945 Arrival Date: 09/09/2023 Time: 20:03 Bed 11 Private MD: ED Physician Aniceto Mary HPI: 09/08 20:12 This 78 yrs old Female presents to ER via Unassigned with complaints of Foot sp4 Injury. 20:26 78-year-old female with past medical history of moderate dementia, atrial fibrillation, sp4 on Eliquis, cerebrovascular accident, CAD, gastric ulcer, hypertension, presents with acute injury to the right foot associated with a small laceration to the right distal medial dorsal foot , associated with persistent bleeding. Patient is not able to say what exactly happened secondary to dementia. . Historical: - Allergies: 20:21 Ativan; as6 - PMHx: 20:21 Atrial Fib; Cerebrovascular accident; coronary atherosclerosis; gastric ulcer; as6 Hypertensive disorder; - PSHx: 20:21 colon resection; spine-cyst removal; as6 - Immunization history:: Adult Immunizations up to date, Last tetanus immunization: up to date. - Social history:: Smoking status: Patient denies any tobacco usage or history of. - Family history:: not pertinent. ROS: 20:26 Constitutional: Negative for fever, chills, and weight loss, Eyes: Negative for injury, sp4 pain, redness, and discharge, MS/Extremity: Positive right foot injury positive right foot laceration 20:26 All other systems are negative, Exam: 20:26 Constitutional: This is a well developed, well nourished patient who is awake, alert, sp4 and in no acute distress. Head/Face: Normocephalic, atraumatic. Eyes: Pupils equal round and reactive to light, extra-ocular motions intact. Lids and lashes normal. Conjunctiva and sclera are not injected. Cornea within normal limits. Periorbital areas with no swelling, redness, or edema. ENT: Nares patent. No nasal discharge, no septal abnormalities noted. Tympanic membranes are normal and external auditory canals are clear. Oropharynx with no redness, swelling, or masses, exudates, or evidence of obstruction, uvula midline. Mucous membranes moist. Neck: Trachea midline, no thyromegaly or masses palpated, and no cervical lymphadenopathy. Supple, full range of motion without nuchal rigidity, or vertebral point tenderness. Chest/axilla: Normal chest wall appearance and motion. Nontender with no deformity. No lesions are appreciated. Cardiovascular: Regular rate and rhythm with a normal S1 and S2. No gallops, murmurs, or rubs. Normal PMI, no JVD. No pulse deficits. Respiratory: Lungs have equal breath sounds bilaterally, clear to auscultation and percussion. No rales, rhonchi or wheezes noted. No increased work of breathing, no retractions or nasal flaring. Abdomen/GI: Soft, with normal bowel sounds. No distension or tympany. No guarding or rebound. No evidence of tenderness throughout. Back: No spinal tenderness. No costovertebral tenderness. Skin: Warm, dry with normal turgor. Normal color with no rashes, no lesions, and no evidence of cellulitis. MS/ Extremity: Pulses equal, no cyanosis. Neurovascular intact. Full, normal range of motion. Small 0.5 cm laceration Right distal medial dorsal foot with persistent bleeding mild bleed, with no deformity or discoloration Neuro: Awake and alert, GCS 15, oriented to person, place, Cranial nerves II-XII grossly intact. Motor strength 5/5 in all extremities. Sensory grossly intact. Sings of mild to moderate dementia. Psych: Awake, alert, with orientation to person, Moderate dementia Vital Signs: 20:19 BP 141 / 81; Pulse 76; Resp 18 S; Temp 98.4(TE); Pulse Ox 96% on R/A; Weight 60.78 kg as6 (R); Height 5 ft. 4 in. (R); Pain 0/10; 21:30 BP 140 / 79; Pulse 72; Resp 16; Pulse Ox 100% on R/A; pf1 22:30 BP 147 / 85; Pulse 77; Resp 16; Temp 97.6; Pulse Ox 98% on R/A; Pain 0/10; pf1 20:19 Body Mass Index 23.00 (60.78 kg, 162.56 cm) as6 20:19 Pain Scale: Adult as6 22:30 Pain Scale: Adult pf1 Laceration: 21:43 Wound Repair of 0.5cm ( 0.2in ) subcutaneous laceration to dorsum of right foot. Linear sp4 shaped.. Distal neuro/vascular/tendon intact. Anesthesia: Wound infiltrated with 5 mls of 1% lidocaine. Wound prep: Moderate cleansing by me, Copious irrigation. Skin closed with 2 4-0 Silk using interrupted sutures and sterile technique. Dressed with 4x4's, Kerlix, non-adherent dressing. Patient tolerated well. MDM: 20:13 Patient medically screened. sp4 20:30 Differential diagnosis: fracture, sprain, foreign body, penetrating trauma, cellulitis. sp4 Data reviewed: vital signs, nurses notes, radiologic studies, plain films. 21:43 Consideration of Admission/Observation Escalation of care including sp4 admission/observation considered. ED course: Laceration repaired . 09/08 20:21 Order name: Foot Right 3 View XRAY; Complete Time: 21:59 sp4 09/08 20:21 Order name: Dressing - Wound; Complete Time: 06:46 sp4 09/08 20:21 Order name: Gloves, Sterile; Complete Time: 20:49 sp4 09/08 20:21 Order name: Setup Suture Tray; Complete Time: 20:49 sp4 Administered Medications: 22:10 Drug: Lidocaine Infiltration (1 %) 20 ml 20 ml Infiltration once; to bedside {Note: pf1 administered per Dr. Mary.} Volume: 20 ml; Route: Infiltration; 22:30 Follow up: Response: No adverse reaction; Marked relief of symptoms; Pain is decreased pf1 Disposition Summary: 09/09/23 22:01 Discharge Ordered Problem: new sp4 Symptoms: have improved sp4 Condition: Stable sp4 Diagnosis - Laceration without foreign body, right foot sp4 Followup: sp4 - With: Private Physician - When: 10 - 14 days - Reason: Recheck today's complaints Discharge Instructions: - Discharge Summary Sheet sp4 - Laceration Care, Adult, [id number] sp4 Forms: - Patient Portal Instructions sp4 Signatures: Dispatcher [employer] Mal Bland RN RN [email or web address] Viviane Almeida RN RN pf1 Aniceto Mary MD MD sp4
[2023-09-09 23:57] VITALS: BP 141/81; TEMP 98.4; O2SAT 96
== END ==
LOC: ER 20:03
PROC: 0HQMXZZ Repair Right Foot Skin, External Approach (ICD-10-PCS; principal; 2023-09-09)
DX: S91.311A Laceration without foreign body, right foot, initial encounter (principal); Z88.8 Allergy status to other drugs, medicaments and biological substances
CPT/HCPCS: 73630; 99284; 12001; J2001

== ENCOUNTER 2023-09-17 21:34 | Observation (INO) | payer OTHER ==
[2023-09-17] MEDS ORDERED: DICYCLOMINE HCL 20 MG/2 ML AMP IM ONE (22:38)
[2023-09-17] MEDS ORDERED: NA CHLORIDE 0.9% 1,000 ML ONE (22:39)
[2023-09-17 22:40] LABS: Absolute Basophils 0.1 K/uL (0-0.5); Absolute Lymphocytes (CBC) 0.8 K/uL (0.7-4.9); Absolute Neutrophil 25.3 K/uL (1.8-8.0); Basophils % 0.3 % (0-1.3); Eosinophils % 3.7 % (0-4.4); Hematocrit 35.6 % (36.0-45.0); Hemoglobin 10.4 g/dL (12.0-15.0); Lymphocytes % 2.9 % (15.3-44.8); MCH 18.6 pg (27.0-35.0); MCHC 29.1 g/dL (32.0-36.0); MPV 7.9 fL (7.6-11.3); Monocytes % 3.5 % (3.3-12.3); Neutrophils % 89.6 % (41.7-73.7); Platelets 950 thou/uL (152-406); RBC Red Blood Cell Count 5.56 M/uL (3.86-4.86); Red Cell Distribution Width 21.3 % (12.1-15.2)
[2023-09-17 23:00] LABS: Albumin 3.5 g/dL (3.4-5.0); Albumin/Globulin Ratio 0.9 (1.1-1.8); Anion Gap 10.6 mEq/L (5.0-15.0); Bilirubin Total 0.7 mg/dL (0.2-1.0); Globulin 3.9 g/dL (2.3-3.5); Potassium 3.6 mEq/L (3.5-5.1); Protein, Total 7.4 g/dL (6.4-8.2)
[2023-09-17 23:50] LABS: Differential Total Cells Count 100
[2023-09-17 23:51] LABS: Lymphocytes 10 % (15-42); Monocytes 3 % (0-10); Platelet Estimate INCR; Platelets, Giant 1+; Segmented Neutrophils 80 % (40-80)
[2023-09-17 23:52] LABS: Anisocytosis 2+; Blood Morphology Comment NOTED (NOT SEEN); Microcytosis 1+; Polychromasia 2+
--- NOTE | 2023-09-18 00:26 | EDPHYS ---
Physician Documentation [facility] Name: Cleo Norton Age: 78 yrs Sex: Female : 1945 Arrival Date: 09/17/2023 Time: 21:34 Bed 5 Private MD: Isabel Goode ED Physician Lior Neely HPI: 09/16 22:15 This 78 yrs old Female presents to ER via Wheelchair with complaints of Abdominal rt Cramping, Diarrhea. 22:15 History limited due to patient with advanced dementia. History was obtained per rt patient's daughter. The patient reportedly has history of Leidy's, frequent episodes of constipation supposed to be taking 1 cap of Dulcolax per day. The daughter found that the patient had a completely empty box of Dulcolax at home, unclear how many she took or when she took them. The patient is had lower abdominal cramping as well as profuse diarrhea today. No further history could be obtained, symptoms are moderate in severity, no other aggravating or alleviating factors.. Historical: - Allergies: 21:47 Ativan; lg3 - PMHx: 21:47 Atrial Fib; Cerebrovascular accident; coronary atherosclerosis; gastric ulcer; lg3 Hypertensive disorder; NSTEMI (Hypertensive disorder); - PSHx: 21:47 colon resection; spine-cyst removal; lg3 - Immunization history:: Adult Immunizations up to date, Client reports receiving the 2nd dose of the Covid vaccine, Flu vaccine is up to date. - Social history:: Smoking status: Patient denies any tobacco usage or history of. Patient/guardian denies using alcohol, street drugs. ROS: 22:15 Unable to obtain ROS due to baseline dementia, rt Exam: 22:15 Constitutional: This is a well developed, well nourished patient who is awake, alert, rt and in no acute distress. Head/Face: Normocephalic, atraumatic. Chest/axilla: Normal chest wall appearance and motion. Nontender with no deformity. No lesions are appreciated. Cardiovascular: Regular rate and rhythm with a normal S1 and S2. No gallops, murmurs, or rubs. Normal PMI, no JVD. No pulse deficits. Respiratory: Lungs have equal breath sounds bilaterally, clear to auscultation and percussion. No rales, rhonchi or wheezes noted. No increased work of breathing, no retractions or nasal flaring. Skin: Warm, dry with normal turgor. Normal color with no rashes, no lesions, and no evidence of cellulitis. 22:15 Abdomen/GI: Mild tenderness to the lower quadrants, no rebound, guarding, distention, 22:15 Musculoskeletal/extremity: Well-healed laceration with 2 sutures to the right foot, no surrounding erythema. Vital Signs: 21:44 BP 124 / 54; Pulse 78; Resp 17 S; Temp 98.9(TE); Pulse Ox 96% on R/A; Weight 59.87 kg lg3 (R); Height 5 ft. 4 in. (R); 22:51 BP 122 / 58; Pulse 81; Pulse Ox 94% on R/A; tm6 23:25 BP 125 / 75; Pulse 86; Resp 18; Pulse Ox 99% on R/A; km8 09/17 00:00 BP 133 / 61; Pulse 85; Resp 16; Pulse Ox 96% on R/A; km8 01:00 BP 133 / 61; Pulse 81; Resp 16; Pulse Ox 93% on R/A; km8 02:00 BP 120 / 63; Pulse 85; Resp 16; Pulse Ox 97% on R/A; km8 09/16 21:44 Body Mass Index 22.66 (59.87 kg, 162.56 cm) lg3 Procedures: 09/16 22:15 Suture/Staple removal: Removed 2 sutures, from right foot, site appears well healed, rt dressed with Patient tolerated well. MDM: 21:51 Patient medically screened. rt 09/17 00:26 Differential diagnosis: Diarrhea, colitis, constipation, obstipation. Data reviewed: rt vital signs, nurses notes. Consideration of Admission/Observation Patient was admitted/placed on observation. Management of patient was discussed with the following: Driller Operator: Discussed with Dr. Benavidez general surgery will see patient in the morning. I considered the following discharge prescriptions or medication management in the emergency department Medications were administered in the Emergency Department. See MAR. Independent interpretation of the following test(s) in the Emergency Department CT Scan: My interpretation is Large stool burden seen on my interpretation of CT scan images. Care significantly affected by the following chronic conditions: Chronic constipation. Counseling: I had a detailed discussion with the patient and/or guardian regarding the historical points, exam findings, and any diagnostic results supporting the discharge/admit diagnosis, lab results, radiology results, the need for further work-up and treatment in the hospital. Response to treatment: the patient's symptoms have mildly improved after treatment. 09/17 00:14 Order name: Blood Culture Adult (2) rt 09/16 22:08 Order name: CBC with Diff; Complete Time: 23:53 rt 09/16 22:08 Order name: CMP; Complete Time: 23:53 rt 09/16 22:08 Order name: Lipase; Complete Time: 23:53 rt 09/16 23:52 Order name: Manual Differential; Complete Time: 23:53 EDMS 09/17 00:14 Order name: Lactate w/ 2H reflex if indic.; Complete Time: 06:40 rt 09/17 00:14 Order name: Protime (+inr); Complete Time: 06:40 rt 09/17 00:14 Order name: Ptt, Activated; Complete Time: 06:40 rt 09/17 00:50 Order name: Glucose, Ancillary Testing; Complete Time: 06:40 EDMS 09/17 01:17 Order name: Urinalysis w/ reflexes EDMS 09/17 01:17 Order name: Basic Metabolic Panel EDMS 09/17 01:17 Order name: Basic Metabolic Panel; Complete Time: 06:40 EDMS 09/17 01:17 Order name: Basic Metabolic Panel EDMS 09/17 01:17 Order name: CBC with Automated Diff EDMS 09/17 01:17 Order name: CBC with Automated Diff; Complete Time: 06:40 EDMS 09/17 01:17 Order name: CBC with Automated Diff EDMS 09/17 01:17 Order name: Magnesium EDMS 09/17 01:17 Order name: Magnesium; Complete Time: 06:40 EDMS 09/17 01:17 Order name: Magnesium EDMS 09/17 01:17 Order name: Phosphorus EDMS 09/17 01:17 Order name: Phosphorus; Complete Time: 06:40 EDMS 09/17 01:17 Order name: Phosphorus EDMS 09/16 22:08 Order name: CT Abd/Pelvis - IV Contrast Only rt 09/17 01:04 Order name: CONS Physician Consult EDMS 09/17 01:17 Order name: Patient Safety Orders EDMS 09/17 01:17 Order name: Physical Therapy Consult EDMS 09/16 22:08 Order name: IV Saline Lock; Complete Time: 22:34 rt 09/16 22:08 Order name: Labs collected and sent; Complete Time: 22:34 rt 09/17 00:14 Order name: Accucheck; Complete Time: 00:43 rt 09/17 00:14 Order name: Cardiac monitoring; Complete Time: 00:45 rt 09/17 00:14 Order name: IV Saline Lock - Large Bore; Complete Time: 00:43 rt 09/17 00:14 Order name: O2 Per Protocol; Complete Time: 00:43 rt 09/17 00:14 Order name: O2 Sat Monitoring; Complete Time: 00:43 rt 09/17 00:14 Order name: Vital Signs; Complete Time: 00:43 rt Administered Medications: 09/16 22:44 Drug: Dicyclomine IM 20 mg IM once Route: IM; Site: right deltoid; [facility] 09/17 00:44 Follow up: Response: No adverse reaction [facility] 09/16 22:45 Drug: NS 0.9% IV 1000 ml IV at 1 bolus Per protocol; 1000 mL bolus Route: IV; Rate: 1 km8 bolus; Site: left forearm; 09/17 00:00 Follow up: IV Status: Completed infusion; IV Intake: 1000ml 8 01:05 Drug: Piperacillin-Tazobactam IVPB 3.375 grams IVPB once over 60 mins; (mix in NS 100 tm6 mL) Route: IVPB; Infused Over: 60 mins; Site: left hand; 02:05 Follow up: IV Status: Completed infusion; IV Intake: 100ml 8 01:05 Drug: Lactulose PO 30 grams 45 ml PO once Volume: 45 ml; Route: PO; tm6 02:00 Follow up: Response: No adverse reaction [facility] Point of Care Testing: Blood Glucose: 00:45 Blood Glucose: 128 mg/dL; tm6 Ranges: Critical Glucose Levels:Adult <50 mg/dl or >400 mg/dl <40 mg/dl or >180 mg/dl Disposition Summary: 09/18/23 00:26 Hospitalization Ordered Notes: Hospitalization Status: Inpatient Admission rt Provider: Bill Crane rt Condition: Stable rt Problem: an acute exacerbation rt Symptoms: are unchanged rt Bed/Room Type: Standard rt Location: Telemetry/MedSurg (Inpatient)(09/18/23 05:22) rv1 Room Assignment: 409(09/18/23 05:22) rv1 Diagnosis - Constipation rt - Sigmoid colitis rt - Leukocytosis rt Forms: - Medication Reconciliation Form rt - SBAR form rt - Leadership Thank You Letter rt Signatures: Dispatcher [employer] EDDarcie Lawson RN RN lg3 Lior Neely MD MD rt Pili Bess rv1 Aide Rodríguez RN RN km8 Avelino Cary RN RN tm6 Corrections: (The following items were deleted from the chart) 01:15 00:26 Telemetry/MedSurg (Inpatient) rt rv1 01:15 00:26 rt rv1 05:22 01:15 [facility] ER HOLD rv1 rv1 05:22 01:15 ERHOLD- rv1 rv1
--- NOTE | 2023-09-18 00:26 | ER ---
Nurse's Notes [facility] Name: Cleo Norton Age: 78 yrs Sex: Female : 1945 Arrival Date: 09/17/2023 Time: 21:34 Bed 5 Private MD: Isabel Goode Diagnosis: Constipation;Sigmoid colitis;Leukocytosis Presentation: 09/16 21:44 Chief complaint: Patient states: HX of Leidy's with frequent laxative use. new onset lg3 diarrhea and abdominal cramping beginning this afternoon. Coronavirus screen: Client denies travel out of the [place] in the last 14 days. At this time, the client does not indicate any symptoms associated with coronavirus-19. Ebola Screen: No symptoms or risks identified at this time. Initial Sepsis Screen: Does the patient meet any 2 criteria? No. Patient's initial sepsis screen is negative. Does the patient have a suspected source of infection? No. Patient's initial sepsis screen is negative. Risk Assessment: Do you want to hurt yourself or someone else? Patient reports no desire to harm self or others. Onset of symptoms was September 17, 2023. 21:44 Method Of Arrival: Wheelchair lg3 21:44 Acuity: RAQUEL 3 lg3 Triage Assessment: 21:47 General: Appears in no apparent distress. uncomfortable, Behavior is calm, cooperative, lg3 appropriate for age. Pain: Complains of pain in abdomen Quality of pain is described as crampy. EENT: No deficits noted. No signs and/or symptoms were reported regarding the EENT system. Neuro: No deficits noted. Haider Agitation-Sedation Scale (RASS): 0 - Alert and Calm Level of Consciousness is awake, alert, obeys commands, Oriented to person, place, time, situation. Cardiovascular: No deficits noted. Denies chest pain, shortness of breath, Capillary refill < 3 seconds Clubbing of nail beds is absent JVD is absent Patient's skin is warm and dry. Respiratory: No deficits noted. Airway is patent Respiratory effort is even, unlabored, Respiratory pattern is regular, symmetrical. GI: Abdomen is round non-distended, Reports lower abdominal pain, upper abdominal pain, cramping, diarrhea, nausea. : No deficits noted. No signs and/or symptoms were reported regarding the genitourinary system. Derm: No deficits noted. No signs and/or symptoms reported regarding the dermatologic system. Skin is intact, is thin, Skin is dry, Skin is normal, Skin temperature is warm. Musculoskeletal: No deficits noted. No signs and/or symptoms reported regarding the musculoskeletal system. Circulation, motion, and sensation intact. Range of motion: intact in all extremities. Historical: - Allergies: 21:47 Ativan; lg3 - PMHx: 21:47 Atrial Fib; Cerebrovascular accident; coronary atherosclerosis; gastric ulcer; lg3 Hypertensive disorder; NSTEMI (Hypertensive disorder); - PSHx: 21:47 colon resection; spine-cyst removal; lg3 - Immunization history:: Adult Immunizations up to date, Client reports receiving the 2nd dose of the Covid vaccine, Flu vaccine is up to date. - Social history:: Smoking status: Patient denies any tobacco usage or history of. Patient/guardian denies using alcohol, street drugs. Screenin:04 [facility] ED Fall Risk Assessment (Adult) History of falling in the last 3 months, tm6 including since admission No falls in past 3 months (0 pts) Confusion or Disorientation No (0 pts) Intoxicated or Sedated No (0 pts) Impaired Gait No (0 pts) Mobility Assist Device Used No (0 pt) Altered Elimination No (0 pt) Score/Fall Risk Level 0 - 2 = Low Risk Oriented to surroundings, Maintained a safe environment. Abuse screen: Denies threats or abuse. Denies injuries from another. Nutritional screening: No deficits noted. Tuberculosis screening: No symptoms or risk factors identified. Assessment: 22:04 General: Appears in no apparent distress. uncomfortable, Behavior is calm, cooperative. tm6 Pain: Complains of pain in abdomen Pain currently is 8 out of 10 on a pain scale. Quality of pain is described as crampy, Pain began 6 hours ago. Neuro: Level of Consciousness is awake, alert, obeys commands, Oriented to person, has expressive aphasia. Cardiovascular: Capillary refill < 3 seconds Patient's skin is warm and dry. Respiratory: Airway is patent Respiratory effort is even, unlabored, Respiratory pattern is regular, symmetrical. GI: Abdomen is flat, non-distended, Bowel sounds hyperactive in right upper quadrant, left upper quadrant, right lower quadrant and left lower quadrant Abd is soft Abd is non tender. : No signs and/or symptoms were reported regarding the genitourinary system. EENT: No signs and/or symptoms were reported regarding the EENT system. Derm: No signs and/or symptoms reported regarding the dermatologic system. Musculoskeletal: No signs and/or symptoms reported regarding the musculoskeletal system. 22:51 Reassessment: Patient and/or family updated on plan of care and expected duration. Pain tm6 level reassessed. Patient is alert, oriented x 3, equal unlabored respirations, skin warm/dry/pink. 09/17 00:13 Reassessment: Patient appears in no apparent distress at this time. No changes from km8 previously documented assessment. Patient and/or family updated on plan of care and expected duration. Pain level reassessed. 01:15 Reassessment: Patient appears in no apparent distress at this time. No changes from km8 previously documented assessment. Patient and/or family updated on plan of care and expected duration. Pain level reassessed. 02:15 Reassessment: Patient appears in no apparent distress at this time. No changes from km8 previously documented assessment. Patient and/or family updated on plan of care and expected duration. Pain level reassessed. Vital Signs: 09/16 21:44 BP 124 / 54; Pulse 78; Resp 17 S; Temp 98.9(TE); Pulse Ox 96% on R/A; Weight 59.87 kg lg3 (R); Height 5 ft. 4 in. (R); 22:51 BP 122 / 58; Pulse 81; Pulse Ox 94% on R/A; tm6 23:25 BP 125 / 75; Pulse 86; Resp 18; Pulse Ox 99% on R/A; km8 09/17 00:00 BP 133 / 61; Pulse 85; Resp 16; Pulse Ox 96% on R/A; km8 01:00 BP 133 / 61; Pulse 81; Resp 16; Pulse Ox 93% on R/A; km8 02:00 BP 120 / 63; Pulse 85; Resp 16; Pulse Ox 97% on R/A; km8 09/16 21:44 Body Mass Index 22.66 (59.87 kg, 162.56 cm) lg3 ED Course: 09/16 21:36 Patient arrived in ED. mr 21:37 Lior Neely MD is Attending Physician. rt 21:37 Isabel Goode is Private Physician. mr 21:47 Triage completed. lg3 21:47 Arm band placed on right wrist. lg3 22:04 Avelino Cary, RN is Primary Nurse. tm6 22:04 Patient has correct armband on for positive identification. Placed in gown. Bed in low tm6 position. Call light in reach. Side rails up X2. Provided Education on: plan of care. Client placed on continuous cardiac and pulse oximetry monitoring. NIBP monitoring applied. Pulse ox on. NIBP on. Door closed. Noise minimized. Warm blanket given. 22:30 Missed attempt(s): 22 gauge in right antecubital area. Bleeding controlled, band aid km8 applied, catheter tip intact. 22:34 CBC with Diff Sent. km8 22:34 CMP Sent. km8 22:34 Lipase Sent. km8 22:34 Inserted saline lock: 22 gauge in left forearm, using aseptic technique. Blood km8 collected. 22:34 Initial lab(s) drawn, by me, sent to lab. km8 22:52 Repositioned patient. Cleaned of incontinence. tm6 23:19 CT Abd/Pelvis - IV Contrast Only In Process Unspecified. EDMS 23:[address] back from [address]. km8 23:33 Repositioned patient. Cleaned of incontinence. tm6 09/17 00:15 First set of blood cultures drawn by me. km8 00:15 Inserted saline lock: 22 gauge in right hand, using aseptic technique. Blood collected. km8 00:25 Bill Crane is Hospitalizing Provider. rt 00:40 Second set of blood cultures drawn by me. km8 00:43 Blood Culture Adult (2) Sent. km8 00:43 Lactate w/ 2H reflex if indic. Sent. km8 00:43 Protime (+inr) Sent. km8 00:43 Ptt, Activated Sent. km8 01:05 Cleaned of incontinence. tm6 01:16 No provider procedures requiring assistance completed. km8 01:16 Patient admitted, IV remains in place. km8 Administered Medications: 09/16 22:44 Drug: Dicyclomine IM 20 mg IM once Route: IM; Site: right deltoid; km8 09/17 00:44 Follow up: Response: No adverse reaction km8 09/16 22:45 Drug: NS 0.9% IV 1000 ml IV at 1 bolus Per protocol; 1000 mL bolus Route: IV; Rate: 1 km8 bolus; Site: left forearm; 09/17 00:00 Follow up: IV Status: Completed infusion; IV Intake: 1000ml km8 01:05 Drug: Piperacillin-Tazobactam IVPB 3.375 grams IVPB once over 60 mins; (mix in NS 100 tm6 mL) Route: IVPB; Infused Over: 60 mins; Site: left hand; 02:05 Follow up: IV Status: Completed infusion; IV Intake: 100ml km8 01:05 Drug: Lactulose PO 30 grams 45 ml PO once Volume: 45 ml; Route: PO; tm6 02:00 Follow up: Response: No adverse reaction km8 Medication: 09/16 22:04 VIS not applicable for this client. tm6 Point of Care Testing: Blood Glucose: 09/17 00:45 Blood Glucose: 128 mg/dL; tm6 Ranges: Intake: 00:00 IV: 1000ml; Total: 1000ml. km8 02:05 IV: 100ml; Total: 1100ml. km8 Outcome: 00:26 Decision to Hospitalize by Provider. rt 02:00 Admitted to ER Hold. Please see [facility] for further documentation. km8 02:00 Condition: stable 02:00 Instructed on the need for admit, Demonstrated understanding of instructions, 07:06 Patient left the ED. iw Signatures: Dispatcher [employer] Dornia Barriga, Reg Reg mr Rochelle Flannery, RN AMARIS iw Darcie Mart RN RN lg3 Lior Neely MD MD rt Aide Rodríguez RN RN km8 Avelino Cary RN RN 6
[2023-09-18] MEDS ORDERED: NA CHLORIDE 0.9% 100 ML ONE (00:40)
[2023-09-18] MEDS ORDERED: PIPERACIL/TAZO 3.375 GM VIAL IV ONE (00:40)
[2023-09-18] MEDS ORDERED: LACTULOSE 20 GM/30 ML UCUP ONE (00:41)
[2023-09-18] MEDS ORDERED: ONDANSETRON 4 MG/2 ML VIAL IV PRN (01:02)
--- NOTE | 2023-09-18 01:24 | P.HP ---
Certification for Inpatient Patient admitted to: Inpatient With expected LOS: >2 Midnights Practitioner: I am a practitioner with admitting privileges, knowledge of patient current condition, hospital course, and medical plan of care. Services: Services provided to patient in accordance with Admission requirements found in Title 42 Section 412.3 of the Code of Federal Regulations Patient History Date of Service: 09/18/23 Reason for admission: Constipation, abdominal pain History of Present Illness: 78-year-old woman with a past medical history of OLGIVE SYNDROME from , with chronic constipation on daily bowel regimen, history of CVA was brought to the emergency department due to a bout of abdominal pain and diarrhea. Daughter reported patient is supposed to take MiraLAX twice a day as a daily bowel regimen but became noncompliant due to loose stools. Patient developed constipation, had no bowel movement for 3 days, followed by diarrhea which is suspected to be overflow incontinence. Patient also developed abdominal cramps. In the ER, patient noted to have severe leukocytosis. Lactic acid is pending. CT abdomen and pelvis demonstrated dilated colon with significant stool burden. Patient is afebrile and does not meet criteria for sepsis. There is a concern for abdominal infection. Patient is hospitalized for further management. Allergies lorazepam [From Ativan] Adverse Reaction (Verified 06/05/23 22:59) Anaphylaxis Home Medications: Cyclobenzaprine HCl 10 mg PO BID 08/18/21 Acetaminophen with Codeine [Acetaminophen-Cod #3 Tablet] 1 tab PO TID PRN 04/08/23 Amlodipine Besylate/Benazepril [Lotrel 5-10 mg Capsule] 5 mg PO DAILY 04/08/23 Tramadol HCl [Ultram] 50 mg PO TID PRN 04/08/23 Venlafaxine HCl [Venlafaxine HCl ER] 37.5 mg PO DAILY 04/08/23 Atorvastatin Calcium 40 mg PO BEDTIME 06/05/23 Clopidogrel Bisulfate [Plavix] 75 mg PO DAILY 06/05/23 Divalproex Sodium 250 mg PO BID 06/05/23 Docusate Sodium 100 mg PO DAILY 06/05/23 Metoprolol Tartrate [Lopressor*] 25 mg PO BID 6AM 6PM 06/05/23 Pantoprazole [Protonix Tab*] 40 mg PO DAILY 06/05/23 Polyethylene Glycol 3350 [Miralax] 17 gm PO DAILY 06/05/23 Quetiapine [Seroquel*] 25 mg PO BEDTIME 06/05/23 Rivaroxaban [Xarelto] 20 mg PO DAILY 06/05/23 Rivastigmine Tartrate [Rivastigmine] 1.5 mg PO BID 06/05/23 Sennosides [Senna] 8.6 mg PO BID 06/05/23 Temazepam 15 mg PO BEDTIME 06/05/23 oxyBUTYnin chloride [Oxybutynin Chloride] 5 mg PO BID 06/05/23 Benazepril HCl [Lotensin*] 10 mg PO DAILY tab 06/09/23 Docusate [Colace Cap*] 200 mg PO DAILY PRN cap 06/09/23 Docusate/Senna [Senokot-S*] 1 tab PO BID tab 06/09/23 Insulin -Regular Human [Novolin -R*] See Protocol SQ ACHS ml 06/09/23 Metoprolol Tartrate [Lopressor*] 25 mg PO BID 6AM 6PM tab 06/09/23 Quetiapine [Seroquel*] 50 mg PO BEDTIME 30 Days #30 tab 06/09/23 Temazepam 15 mg PO BEDTIME 1 Days #1 mg 06/09/23 traMADol HCL [Ultram*] 50 mg PO TID PRN tab 06/09/23 - Past Medical/Surgical History Diabetic: No -: Prior CVAsresidual mild left weakness, mild balance issues, word salad -: COPD -: A. fib not on anticoagulation -: HTN -: Anxiety and claustrophobia -: Chronic pain, from prior surgery -: Chronic constipation -: History of [employer] syndrome -: Bleeding ulcers -: Colon resection -: Spine cyst removal Psychosocial/ Personal History: Patient lives in the home with the daughter - Family History Mother -: Lung disease, Other (see notes) Father -: Lung disease, Other (see notes) - Social History Alcohol use: No CD- Drugs: No Caffeine use: Yes Review of Systems Other: Patient denied any fever or chills or nausea or vomiting. She reports no issues with oral intake. Except as documented, all other systems reviewed and negative. Physical Examination - Physical Exam General: Alert, In no apparent distress, Confused HEENT: Atraumatic, Mucous membr. moist/pink, Sclerae nonicteric Neck: Supple, JVD not distended Respiratory: Clear to auscultation bilaterally, Normal air movement Cardiovascular: No edema, Regular rate/rhythm, Normal S1 S2 Gastrointestinal: Normal bowel sounds, Soft and benign, Non-distended, No tenderness Musculoskeletal: No swelling, No tenderness Integumentary: No rashes, No cyanosis Neurological: Normal strength at 5/5 x4 extr Lymphatics: No axilla or inguinal lymphadenopathy - Studies Laboratory Data (last 24 hrs) 09/17/23 09/17/23 22:33 22:33 WBC 28.20 H Hgb 10.4 L Hct 35.6 L Plt Count 950 H Sodium 139 Potassium 3.6 BUN 27 H Creatinine 0.93 Glucose 169 H Total Bilirubin 0.7 AST 12 L ALT 13 Alkaline Phosphatase 133 H Lipase 28 Assessment and Plan - Problems (Diagnosis) (1) Leukocytosis Current Visit: Yes Status: Acute (2) [employer] syndrome Current Visit: Yes Status: Acute (3) Constipation Current Visit: No Status: Acute (4) Anemia Current Visit: No Status: Acute - Plan Constipation/[employer] syndrome Admit to the medical floor Hydrate with IV normal saline Will start with mineral oil p.o. as first-line before considering mag citrate. General surgery Dr. Benavidez consulted. Need to confirm patient is on maintenance therapy with rivastigmine and then resume it. Constipation prophylaxis once patient successfully have a bowel movement. Leukocytosis Patient with severe leukocytosis. She does not meet full criteria for sepsis Empiric IV antibiotics-cefepime and Flagyl. Follow blood cultures. Obtain urinalysis with reflex culture. Chronic anemia Monitor H&H. Transfuse as needed. DVT prophylaxis: Heparin subQ. - Advance Directives Does patient have a Living Will: Yes Does patient have a Durable POA for Healthcare: Yes
[2023-09-18 01:25] LABS: PT Prothrombin Time 16.4 SECONDS (9.5-12.5); PTT, Activated Partial Thromb 40.6 SECONDS (24.3-36.9); Protime INR 1.51
[2023-09-18] MEDS: NA CHLORIDE 0.9% 1,000 ML IV SCH (03:00)
[2023-09-18] MEDS ORDERED: NA CHLORIDE 0.9% 1,000 ML ONE (03:24)
[2023-09-18 04:18] VITALS: BMI 22.6
[2023-09-18 05:14] LABS: Absolute Basophils 0.1 K/uL (0-0.5); Absolute Eosinophils 1.1 K/uL (0-0.5); Absolute Lymphocytes (CBC) 1.1 K/uL (0.7-4.9); Absolute Monocytes 1.1 K/uL (0.1-1.3); Absolute Neutrophil 23.3 K/uL (1.8-8.0); Basophils % 0.4 % (0-1.3); Eosinophils % 4.1 % (0-4.4); Hematocrit 32.3 % (36.0-45.0); Hemoglobin 9.4 g/dL (12.0-15.0); Lymphocytes % 4.3 % (15.3-44.8); MCH 18.6 pg (27.0-35.0); MCHC 29.3 g/dL (32.0-36.0); MCV 63.6 fL (80-100); MPV 7.9 fL (7.6-11.3); Monocytes % 4.3 % (3.3-12.3); Neutrophils % 86.9 % (41.7-73.7); Nucleated Red Blood Cells % 0.1 % (0-0); Platelets 957 thou/uL (152-406); RBC Red Blood Cell Count 5.07 M/uL (3.86-4.86); Red Cell Distribution Width 20.8 % (12.1-15.2)
[2023-09-18 05:36] LABS: Anion Gap 9.6 mEq/L (5.0-15.0); Magnesium 2.2 mg/dL (1.6-2.4); Phosphorus 3.3 mg/dL (2.5-4.9); Potassium 3.6 mEq/L (3.5-5.1)
[2023-09-18 07:37] VITALS: O2SAT 97
[2023-09-18] MEDS: MINERAL OIL 30 ML UCUP PO SCH (08:18)
[2023-09-18] MEDS: POTASSIUM 25 MEQ EFFERV TAB PO ONE (08:18)
[2023-09-18] MEDS: CEFEPIME 1 GM in NA CHLORIDE 0.9% 100 ML IV SCH (08:23)
[2023-09-18] MEDS: METRONIDAZOLE 500mg IVPB 500 MG/100 ML BAG IV SCH (08:23)
[2023-09-18] MEDS: HEPARIN 5000 UNIT/ML 1 ML VIAL SQ SCH (08:29)
[2023-09-18] MEDS ORDERED: TRAZODONE 50 MG TABLET PO SCH (10:15)
[2023-09-18] MEDS: ALPRAZOLAM 0.25 MG TABLET PO PRN (11:06)
--- NOTE | 2023-09-18 13:14 | RAD REPORT ---
EXAM DESCRIPTION: CT - Pelvis Wo Cont - 09/18/2023 1:02 pm CLINICAL HISTORY: colonic distention/fecal impaction COMPARISON: Abdomen Pelvis W Contrast dated 09/17/2023 FINDINGS: Rectal wall thickening which appears increased from prior. Large volume of stool in the di stal sigmoid and rectum which is distended. There is masslike thickening in the region of the lower t hird of the rectum and upper anus. Perirectal soft tissue, calcification, and low-density material al so noted along the right aspect of the lower rectum. Colonic distention again noted but increased fro m prior, particularly the ascending and transverse colon. . Contrast present within the kidneys. Cont rast present within the bladder. IMPRESSION: Large distal sigmoid and rectal stool burden without significant change from yesterday r emains consistent with fecal impaction. Irregular thickening of the distal rectum/upper anus and in t he perirectal soft tissues of uncertain etiology, possibly a neoplasm. This could be contributing to the aformentioned fecal impaction. Generalized increased rectal wall thickening could also reflect st ercoral colitis. Follow-up colonoscopy is recommended.
[2023-09-18] MEDS: ACETAMINOPHEN 325 MG TABLET PO PRN (14:05)
[2023-09-18 17:33] VITALS: BP 158/77; TEMP 97.7
--- NOTE | 2023-09-18 17:43 | P.CNS ---
Date of Consult: 09/18/23 PC: I was asked to see this 78-year-old female in regards to constipation. HPC: This patient, who has dementia, also has [employer] syndrome. She had been at home, having her usual struggle with her bowel pattern. However her daughter, who is a nurse, noticed a change in her behavior. She began complaining of severe abdominal pain. She was brought to the emergency room for evaluation and treatment. PSHx: Previous colon surgery PMHx: Dementia Social Hx: Allergic to lorazepam Sys R: No cough, wheeze, shortness of breath. No chest pain or palpitations. Denies any urinary complaints O/E: Awake alert, in no distress at the moment, talking freely with stable vital signs. HEENT: Negative Chest: Chest movement equal bilaterally Abd: Negative Tingley: Intact Data: CT scan shows a lot of stool in the colon. Impression: Constipation on top of chronic constipation Plan: This patient apparently has had bowel movements this morning. She was given some laxatives. Her daughter says that she appears to be much improved, and she is anxious to go home. Her situation appears to have resolved somewhat, we have suggested a possible mineral oil regime for her, she has a MiraLAX etc. that she has been using. Her daughter will try to get her into the medical system down here as she recently moved from [place] [facility]. That way she can be followed on a more regular basis and hopefully avoid these ER visits.
--- NOTE | 2023-09-18 19:32 | RAD REPORT ---
EXAM DESCRIPTION: CT - Abdomen Pelvis W Contrast - 09/18/2023 6:18 am CLINICAL HISTORY: The patient is 78 years old and is Female; ABD PAIN TECHNIQUE: Axial computed tomography images of the abdomen and pelvis with intravenous contrast. S agittal and coronal reformatted images were created and reviewed. This CT exam was performed using one or more of the following dose reduction techniques: automated exposure control, adjustment of t he mA and/or kV according to patient size, and/or use of iterative reconstruction technique. COMPARISON: No relevant prior studies available. FINDINGS: Lung bases: Unremarkable. No mass. No consolidation. Mediastinum: Hiatal hernia. ABDOMEN: Liver: Hepatosplenomegaly. Gallbladder and bile ducts: Common bile duct is dilated to 10 mm in diameter. No calcified stones. Pancreas: Unremarkable. No mass. No ductal dilation. Spleen: See above. Adrenals: Unremarkable. No mass. Kidneys and ureters: Unremarkable. No solid mass. No hydronephrosis. Stomach and bowel: Sigmoid colon is markedly distended with stool. Short segment of mucosal thickening involving the proximal sigmoid colon and left colon. PELVIS: Appendix: No findings to suggest acute appendicitis. Bladder: Unremarkable. Reproductive: Coarse calcification in the right ovary/adnexa. ABDOMEN and PELVIS: Intraperitoneal space: Unremarkable. No free air. No significant fluid collection. Bones/joints: Disc space narrowing with degenerative endplate changes in the spine. No acute fracture. No dislocation. Soft tissues: Unremarkable. Vasculature: Scattered atherosclerotic vascular calcifications. No abdominal aortic aneurysm. Lymph nodes: Unremarkable. No enlarged lymph nodes. IMPRESSION: 1. Hiatal hernia. 2. Hepatosplenomegaly. 3. Common bile duct is dilated to 10 mm in diameter. 4. Sigmoid colon is markedly distended with stool. 5. Short segment of mucosal thickening involving the proximal sigmoid colon and left colon. Corre late with any concern for colitis. Electronically signed by: Rey Dobbins MD 09/17/2023 11:57 PM CDT Due to temporary technical issues with the PACS/Fluency reporting system, reports are being signed by the in house radiologists without review as a courtesy to insure prompt reporting. The interpreting radiologist is fully responsible for the content of the report.
[2023-09-18] MEDS ORDERED: ATORVASTATIN 40 MG TAB PO SCH (21:00)
[2023-09-18] MEDS ORDERED: RIVASTIGMINE TARTRATE 1.5 MG PO SCH (21:00)
[2023-09-18] MEDS ORDERED: TEMAZEPAM 15 MG CAP PO SCH (21:00)
[2023-09-18] MEDS ORDERED: lamoTRIgine 25 MG TAB PO SCH (21:00)
[2023-09-18] MEDS ORDERED: QUETIAPINE 25 MG TAB PO SCH (21:00)
[2023-09-19] MEDS ORDERED: DIVALPROEX DR 250 MG TAB PO SCH (09:00)
[2023-09-19] MEDS ORDERED: oxyBUTYnin chloride 5 MG TAB PO SCH (09:00)
[2023-09-19] MEDS ORDERED: RIVAROXABAN 20 MG TABLET PO SCH (09:00)
[2023-09-19] MEDS ORDERED: CLOPIDOGREL 75 MG TABLET PO SCH (09:00)
[2023-09-19] MEDS ORDERED: LORATADINE 10 MG TAB PO SCH (09:00)
[2023-09-19] MEDS ORDERED: VENLAFAXINE HCL XR 75 MG CAP PO SCH (09:00)
[2023-09-19] MEDS ORDERED: METOPROLOL XL 25 MG TAB PO SCH (09:00)
== END 2023-09-18 20:10 | disposition home or self-care (01) ==
LOC: ER 21:34 → ERHOLD 09-18 00:58 → INTOOBSV 09-18 00:58 → 4TH 09-18 05:33
PROVIDERS: ADMIT Internal Medicine; ATTEND Hospitalist
DX: K59.00 Constipation, unspecified (principal); K59.81 Ogilvie syndrome; R10.9 Unspecified abdominal pain; R19.7 Diarrhea, unspecified; D72.829 Elevated white blood cell count, unspecified; D64.9 Anemia, unspecified; F03.90 Unspecified dementia, unspecified severity, without behavioral disturbance, psychotic disturbance, mood disturbance, and anxiety; Z86.73 Personal history of transient ischemic attack (TIA), and cerebral infarction without residual deficits; Z88.8 Allergy status to other drugs, medicaments and biological substances
CPT/HCPCS: 96365; 96361; 87040 ×2; 85025 ×2; 80048; 36415; 83735; 84100; 85610; 82947; 83605; 85730; 83690; 80053; 72192; 74177; 94760 ×2; 96372; 99285; Q9967; J1644; J0500; J2543; J7030 ×3; J0692; G0378 ×3